=== PATIENT | male | born 1970 | race Two or more races ===

== ENCOUNTER 2016-07-28 16:27 | Inpatient (IN) | payer MEDICAID ==
[~2016-07-28] VITALS: Ht 180.3 cm; Wt 106.3 kg
[~2016-07-28 16:27] MED LIST: AMIT25TA9 PO; BISA-13 PO; CAR3125T PO; FURO20TA GT; GABA-339 PO; INSUINJ47 SC; LEVEMIR SC; ONDA4TAB5 PO; OXYC10TA44 PO; SIMV10TA73 PO; [UNRECOGNIZED DRUG - CODE] PO
[2016-07-28 17:19] LABS: Basophils # (auto) 0 uL; Basophils % (auto) 0.3 % (0.0-2.0); Eosinophils # (auto) 0 uL; Eosinophils % (auto) 0.5 % (0.0-7.0); Hemoglobin 13.6 g/dL (13.5-17.5); Lymphocytes # (auto) 1.3 uL; Lymphocytes % (auto) 15.5 % (10.0-50.0); Mean Corpuscular Hemoglobin 29.9 pg (28.0-32.0); Mean Corpuscular Hgb Conc. 33.1 g/dL (32.0-36.0); Mean Corpuscular Volume 90.2 fL (80.0-100.0); Mean Platelet Volume 9.4 fL (7.4-10.4); Monocytes # (auto) 0.7 uL; Monocytes % (auto) 8.1 % (0.0-12.0); Neutrophils # (auto) 6.2 uL; Neutrophils % (auto) 75.6 % (37.0-80.0); Platelet Count (auto) 259 10^3/uL (140-450); Red Cell Distribution Width 13.4 % (11.6-16.0); White Blood Cell 8.2 10^3/uL (4.4-10.8)
[2016-07-28 18:05] LABS: Albumin 2.2 g/dL (3.4-5.0); BUN/Creatinine Ratio 14.9; Calcium 8.1 mg/dL (8.5-10.1)
[2016-07-28 18:07] LABS: Bilirubin, Total 0.4 mg/dL (0.2-1.0); Total Protein 6.9 g/dL (6.4-8.2)
[2016-07-28] MEDS: SODIUM CHLORIDE 0.9% 1,000 ML IV SCH (18:57)
[2016-07-28] MEDS ORDERED: HYDROcodone-ACET 5/325MG TAB PO PRN (19:00)
[2016-07-28] MEDS ORDERED: LORazepam 0.5 MG TAB PO PRN (19:00)
[2016-07-28] MEDS ORDERED: DEXTROSE (50%) 50ML SYRG IV PRN (19:00)
[2016-07-28] MEDS ORDERED: MORPHINE SULF INJ 2 MG/ML SYRINGE 1ML IV PRN (19:00)
[2016-07-28] MEDS ORDERED: VANCOMYCIN PER PHARMACY 0 MG IV SCH (19:00)
[2016-07-28] MEDS ORDERED: NITROGLYCERIN 0.4 MG SL TAB SL PRN (19:00)
[2016-07-28] MEDS ORDERED: VANCOMYCIN 1GM/250ML D5W 250 ML IV ONE (19:00)
[2016-07-28] MEDS ORDERED: ONDANSETRON HCL 4 MG/2 ML VIAL IV ONE (19:00)
[2016-07-28] MEDS ORDERED: PROMETHAZINE HCL 25 MG/ML 1ML IV PRN (19:00)
[2016-07-28] MEDS ORDERED: CLINDAMYCIN 900MG IV 50 ML IV ONE (19:00)
[2016-07-28] MEDS ORDERED: LACTULOSE 20Gm/30ML SOLN PO PRN (19:00)
[2016-07-28] MEDS ORDERED: PIPERACILLIN-TAZOB 3.375GM 100 ML IV ONE (19:00)
[2016-07-28] MEDS ORDERED: HYDROmorphone HCL 2 MG/ML VL IV ONE (19:00)
[2016-07-28] MEDS ORDERED: ACETAMINOPHEN 500 MG TAB PO PRN (19:00)
[2016-07-28] MEDS ORDERED: InsuLIN REG 1unit/0.01ml Soln (100units/ml) IV ONE (19:00)
[2016-07-28] MEDS: ENOXAPARIN SOD 40 MG/0.4 ML SYRINGE SC SCH (19:31)
[2016-07-28] MEDS: PANTOPRAZOLE 40 MG TAB PO SCH (19:32)
[2016-07-28 19:35] LABS: INR 0.96 (0.9-1.15); Partial Thromboplastin Time 27.1 sec (22.64-33.71); Prothrombin Time 9.9 sec (9.37-12.3)
[2016-07-28] MEDS: ACCU-CHEK COMFORT CURVE STRIP VI SCH (20:00)
[2016-07-28] MEDS: InsuLIN REG 1unit/0.01ml Soln (100units/ml) SC SCH (20:38)
[2016-07-28 22:00] VITALS: BP 119/71
[2016-07-28 22:44] VITALS: BP 119/71
[2016-07-29] MEDS: ACCU-CHEK COMFORT CURVE STRIP VI SCH ×7 (00:03→23:51)
[2016-07-29] MEDS: TEMAZEPAM 15 MG CAP PO PRN (00:05)
[2016-07-29] MEDS: VANCOMYCIN 1GM/250ML D5W 250 ML IV SCH ×3 (02:51→20:45)
[2016-07-29] MEDS: InsuLIN REG 1unit/0.01ml Soln (100units/ml) SC SCH ×7 (03:51→23:51)
[2016-07-29] MEDS: PIPERACILLIN-TAZOB 3.375GM 100 ML IV SCH ×4 (04:00→22:00)
[2016-07-29] MEDS: SODIUM CHLORIDE 0.9% 1,000 ML IV SCH ×3 (04:57→23:52)
[2016-07-29 05:15] VITALS: BP 134/74
[2016-07-29 05:53] LABS: Urine Bilirubin Negative (Negative); Urine Blood TRACE /uL (Negative); Urine Color Yellow (Yellow); Urine Granular Cast FEW /lpf (0); Urine Nitrite Negative (Negative); Urine RBC <1 /hpf (0 - 3); Urine Squamous Epithelial Cell FEW /hpf (<5); Urine Urobilinogen Normal (Negative); Urine pH 5.5 (5.0-8.0)
[2016-07-29 05:54] LABS: Urine Glucose 4+ mg/dL (Normal); Urine Ketone 1+ (Negative)
[2016-07-29 06:46] LABS: Basophils # (auto) 0 uL; Basophils % (auto) 0.5 % (0.0-2.0); Eosinophils # (auto) 0.1 uL; Eosinophils % (auto) 0.8 % (0.0-7.0); Hematocrit 38.4 % (41.0-53.0); Hemoglobin 12.6 g/dL (13.5-17.5); Lymphocytes # (auto) 1.3 uL; Lymphocytes % (auto) 17.8 % (10.0-50.0); Mean Corpuscular Hemoglobin 29.4 pg (28.0-32.0); Mean Corpuscular Hgb Conc. 32.8 g/dL (32.0-36.0); Mean Corpuscular Volume 89.4 fL (80.0-100.0); Mean Platelet Volume 8.9 fL (7.4-10.4); Monocytes # (auto) 0.7 uL; Neutrophils # (auto) 5.2 uL; Neutrophils % (auto) 71.9 % (37.0-80.0); Platelet Count (auto) 255 10^3/uL (140-450); Red Cell Distribution Width 13.2 % (11.6-16.0); White Blood Cell 7.3 10^3/uL (4.4-10.8)
[2016-07-29 07:09] LABS: Potassium 3.3 mmol/L (3.5-5.1)
[2016-07-29 07:13] LABS: Albumin 1.9 g/dL (3.4-5.0); BUN/Creatinine Ratio 17.9
[2016-07-29 07:16] LABS: Bilirubin, Total 0.5 mg/dL (0.2-1.0); Total Protein 6.5 g/dL (6.4-8.2)
[2016-07-29 09:00] VITALS: BP 122/71
[2016-07-29] MEDS: MORPHINE SULF INJ 2 MG/ML SYRINGE 1ML IV PRN ×3 (10:21→21:38)
[2016-07-29] MEDS: ENOXAPARIN SOD 40 MG/0.4 ML SYRINGE SC SCH (10:21)
[2016-07-29] MEDS: PANTOPRAZOLE 40 MG TAB PO SCH (10:22)
[2016-07-29 12:25] VITALS: BP 110/64
[2016-07-29 16:29] VITALS: BP 115/67
[2016-07-29 22:06] VITALS: BP 106/62
[2016-07-30] MEDS: MORPHINE SULF INJ 2 MG/ML SYRINGE 1ML IV PRN ×6 (02:11→23:16)
[2016-07-30] MEDS: PIPERACILLIN-TAZOB 3.375GM 100 ML IV SCH ×4 (03:37→22:21)
[2016-07-30] MEDS: ACCU-CHEK COMFORT CURVE STRIP VI SCH ×6 (03:49→23:43)
[2016-07-30] MEDS: InsuLIN REG 1unit/0.01ml Soln (100units/ml) SC SCH ×5 (03:52→20:33)
[2016-07-30 04:52] VITALS: BP 115/60
[2016-07-30] MEDS: VANCOMYCIN 1GM/250ML D5W 250 ML IV SCH ×4 (05:26→20:37)
[2016-07-30 08:21] LABS: BUN/Creatinine Ratio 15.3; Calcium 8.4 mg/dL (8.5-10.1); Potassium 3.5 mmol/L (3.5-5.1)
[2016-07-30 08:22] LABS: Basophils # (auto) 0 uL; Basophils % (auto) 0.5 % (0.0-2.0); Eosinophils # (auto) 0.1 uL; Eosinophils % (auto) 1.1 % (0.0-7.0); Hematocrit 42.2 % (41.0-53.0); Hemoglobin 13.9 g/dL (13.5-17.5); Lymphocytes # (auto) 1.6 uL; Lymphocytes % (auto) 21.1 % (10.0-50.0); Mean Corpuscular Hemoglobin 29.6 pg (28.0-32.0); Mean Corpuscular Volume 89.7 fL (80.0-100.0); Mean Platelet Volume 9.9 fL (7.4-10.4); Monocytes # (auto) 0.8 uL; Monocytes % (auto) 10.1 % (0.0-12.0); Neutrophils # (auto) 5.1 uL; Neutrophils % (auto) 67.2 % (37.0-80.0); Platelet Count (auto) 250 10^3/uL (140-450); Red Cell Distribution Width 13.1 % (11.6-16.0); White Blood Cell 7.7 10^3/uL (4.4-10.8)
[2016-07-30] MEDS: PANTOPRAZOLE 40 MG TAB PO SCH (08:41)
[2016-07-30] MEDS: ENOXAPARIN SOD 40 MG/0.4 ML SYRINGE SC SCH (08:41)
[2016-07-30 08:55] VITALS: BP 129/68
[2016-07-30] MEDS: SODIUM CHLORIDE 0.9% 1,000 ML IV SCH ×2 (11:59→20:37)
[2016-07-30 12:43] VITALS: BP 130/57
[2016-07-30 16:53] VITALS: BP 109/67
[2016-07-30] MEDS: MULTIPLE VITAMIN TAB PO SCH (17:18)
[2016-07-30] MEDS: PRO-STAT 64 30ML PO SCH (17:45)
[2016-07-30 21:48] VITALS: BP 96/52
[2016-07-30] MEDS: ASCORBIC ACID 500 MG TAB PO SCH (22:21)
[2016-07-31] MEDS: InsuLIN REG 1unit/0.01ml Soln (100units/ml) SC SCH ×6 (00:02→21:15)
[2016-07-31] MEDS: ACCU-CHEK COMFORT CURVE STRIP VI SCH ×5 (03:55→21:15)
[2016-07-31] MEDS: PIPERACILLIN-TAZOB 3.375GM 100 ML IV SCH ×4 (04:05→21:15)
[2016-07-31 05:00] VITALS: BP 110/56
[2016-07-31] MEDS: VANCOMYCIN 1GM/250ML D5W 250 ML IV SCH ×3 (05:27→21:04)
[2016-07-31] MEDS: SODIUM CHLORIDE 0.9% 1,000 ML IV SCH ×2 (05:28→17:58)
[2016-07-31] MEDS: MORPHINE SULF INJ 2 MG/ML SYRINGE 1ML IV PRN ×5 (05:28→22:44)
[2016-07-31 07:21] LABS: Basophils # (auto) 0 uL; Basophils % (auto) 0.3 % (0.0-2.0); Eosinophils # (auto) 0.1 uL; Eosinophils % (auto) 0.9 % (0.0-7.0); Hematocrit 37.5 % (41.0-53.0); Hemoglobin 12.1 g/dL (13.5-17.5); Lymphocytes # (auto) 1.2 uL; Lymphocytes % (auto) 18.6 % (10.0-50.0); Mean Corpuscular Hemoglobin 29.3 pg (28.0-32.0); Mean Corpuscular Hgb Conc. 32.3 g/dL (32.0-36.0); Mean Corpuscular Volume 90.9 fL (80.0-100.0); Mean Platelet Volume 9.6 fL (7.4-10.4); Monocytes # (auto) 0.5 uL; Monocytes % (auto) 7.5 % (0.0-12.0); Neutrophils # (auto) 4.8 uL; Neutrophils % (auto) 72.7 % (37.0-80.0); Platelet Count (auto) 250 10^3/uL (140-450); Red Cell Distribution Width 13.2 % (11.6-16.0); White Blood Cell 6.5 10^3/uL (4.4-10.8)
[2016-07-31 07:34] LABS: INR 1.05 (0.9-1.15); Partial Thromboplastin Time 27.8 sec (22.64-33.71); Prothrombin Time 10.8 sec (9.37-12.3)
[2016-07-31 07:51] LABS: Potassium 3.5 mmol/L (3.5-5.1)
[2016-07-31 07:58] LABS: Albumin 1.7 g/dL (3.4-5.0); BUN/Creatinine Ratio 18.1; Bilirubin, Total 0.4 mg/dL (0.2-1.0)
[2016-07-31 08:00] VITALS: BP 105/64
[2016-07-31] MEDS: PRO-STAT 64 30ML PO SCH ×2 (08:00→17:59)
[2016-07-31 08:49] VITALS: BP 105/64
[2016-07-31] MEDS: ASCORBIC ACID 500 MG TAB PO SCH ×2 (10:00→21:03)
[2016-07-31] MEDS: MULTIPLE VITAMIN TAB PO SCH (10:00)
[2016-07-31] MEDS: PANTOPRAZOLE 40 MG TAB PO SCH (10:00)
[2016-07-31] MEDS: ENOXAPARIN SOD 40 MG/0.4 ML SYRINGE SC SCH (10:00)
[2016-07-31 12:49] VITALS: BP 119/70
[2016-07-31 16:59] VITALS: BP 124/71
[2016-07-31] MEDS: TEMAZEPAM 15 MG CAP PO PRN (21:03)
[2016-07-31 22:00] VITALS: BP 95/61
[2016-08-01] MEDS: InsuLIN REG 1unit/0.01ml Soln (100units/ml) SC SCH ×5 (00:33→16:43)
[2016-08-01] MEDS: ACCU-CHEK COMFORT CURVE STRIP VI SCH ×5 (00:34→16:43)
[2016-08-01] MEDS: MORPHINE SULF INJ 2 MG/ML SYRINGE 1ML IV PRN ×3 (02:57→14:33)
[2016-08-01] MEDS: SODIUM CHLORIDE 0.9% 1,000 ML IV SCH ×2 (02:57→14:08)
[2016-08-01] MEDS: PIPERACILLIN-TAZOB 3.375GM 100 ML IV SCH ×3 (02:57→16:00)
[2016-08-01 05:10] VITALS: BP 122/73
[2016-08-01] MEDS: VANCOMYCIN 1GM/250ML D5W 250 ML IV SCH ×3 (05:24→14:08)
[2016-08-01 07:30] VITALS: BP 117/69
[2016-08-01 08:00] VITALS: BP 117/69
[2016-08-01] MEDS: PRO-STAT 64 30ML PO SCH (08:00)
[2016-08-01] MEDS: MULTIPLE VITAMIN TAB PO SCH (09:33)
[2016-08-01] MEDS: ASCORBIC ACID 500 MG TAB PO SCH (09:33)
[2016-08-01] MEDS: PANTOPRAZOLE 40 MG TAB PO SCH (09:33)
[2016-08-01] MEDS: ENOXAPARIN SOD 40 MG/0.4 ML SYRINGE SC SCH (09:44)
[2016-08-01] MEDS ORDERED: ceFAZolin 1GM VL ONE (11:01)
[2016-08-01] MEDS ORDERED: ceFAZolin 1GM/50ML D5W 50 ML IV ONE (11:06)
[2016-08-01] MEDS ORDERED: MIDAZOLAM HCL 1MG/1ML-2 ML VIAL ONE (11:35)
[2016-08-01] MEDS ORDERED: fentaNYL CITRATE 100 MCG/2 ML VL ONE (11:35)
[2016-08-01] MEDS ORDERED: MORPHINE SULF INJ 2 MG/ML SYRINGE 1ML IV PRN (11:45)
[2016-08-01] MEDS ORDERED: ePHEDrine SULFATE 50 MG/ML AMP IV PRN (11:45)
[2016-08-01] MEDS ORDERED: hydrALAZINE HCL 20 MG/ML VL IV PRN (11:45)
[2016-08-01] MEDS ORDERED: ONDANSETRON HCL 4 MG/2 ML VIAL IV ONE (11:45)
[2016-08-01] MEDS ORDERED: HYDROmorphone HCL 2 MG/ML VL IV PRN (11:45)
[2016-08-01] MEDS ORDERED: MIDAZOLAM HCL 1MG/1ML-2 ML VIAL IV PRN (11:45)
[2016-08-01] MEDS ORDERED: LABETALOL HCL 5 MG/ML 4ML SYRINGE IV PRN (11:45)
[2016-08-01] MEDS ORDERED: PROPOFOL 10 MG/ML 20 ML IV ONE (11:52)
[2016-08-01] MEDS ORDERED: KETOROLAC TROMETH 30 MG/ML 1ML VIAL IV ONE (12:15)
[2016-08-01 14:55] VITALS: BP 117/69
== END 2016-08-01 16:35 | disposition home or self-care (01) | DRG 361 ==
LOC: ER 16:33 → TELE 16:34 → TELE-EAST 21:52
PROVIDERS: ADMIT Internal Medicine; ATTEND Internal Medicine
PROC: 0HRNXK3 Replacement of Left Foot Skin with Nonautologous Tissue Substitute, Full Thickness, External Approach (ICD-10-PCS; 2016-08-01)
PROC: 0HDRXZZ Extraction of Toe Nail, External Approach (ICD-10-PCS; 2016-08-01)
PROC: 0J9R3ZZ Drainage of Left Foot Subcutaneous Tissue and Fascia, Percutaneous Approach (ICD-10-PCS; principal; 2016-08-01 11:41)
DX: E11.621 Type 2 diabetes mellitus with foot ulcer (principal); L97.529 Non-pressure chronic ulcer of other part of left foot with unspecified severity; E11.22 Type 2 diabetes mellitus with diabetic chronic kidney disease; E11.40 Type 2 diabetes mellitus with diabetic neuropathy, unspecified; I50.9 Heart failure, unspecified; I13.0 Hypertensive heart and chronic kidney disease with heart failure and stage 1 through stage 4 chronic kidney disease, or unspecified chronic kidney disease; E11.628 Type 2 diabetes mellitus with other skin complications; L03.032 Cellulitis of left toe; E87.1 Hypo-osmolality and hyponatremia; E66.01 Morbid (severe) obesity due to excess calories; E11.65 Type 2 diabetes mellitus with hyperglycemia; I25.10 Atherosclerotic heart disease of native coronary artery without angina pectoris; N18.9 Chronic kidney disease, unspecified; F41.9 Anxiety disorder, unspecified; E78.5 Hyperlipidemia, unspecified; F32.9 Major depressive disorder, single episode, unspecified; E87.8 Other disorders of electrolyte and fluid balance, not elsewhere classified; Z82.3 Family history of stroke; Z82.49 Family history of ischemic heart disease and other diseases of the circulatory system; Z83.3 Family history of diabetes mellitus; Z98.890 Other specified postprocedural states; Z88.6 Allergy status to analgesic agent; Z95.1 Presence of aortocoronary bypass graft; Z88.8 Allergy status to other drugs, medicaments and biological substances; Z84.1 Family history of disorders of kidney and ureter; Z68.32 Body mass index [BMI] 32.0-32.9, adult
CPT/HCPCS: 36415; 71010; 73620; 73700; 80048; 80053; 80061; 80202; 81001; 82962; 83036; 85025; 85610; 85652; 85730; 86850; 86900; 86901; 87040; 87070; 87075; 87076; 87077; 87081; 87186; 87205; 93005; 93923; 94761; 96365; 96367; 96368; 96375; J0690; J1815; J2250; J2405; J2543; J2704; J3490

== ENCOUNTER 2016-09-12 13:38 | Inpatient (IN) | payer MEDICAID ==
[~2016-09-12] VITALS: Ht 180.3 cm; Wt 113.1 kg
[~2016-09-12 13:38] MED LIST changes: -ONDA4TAB5 PO; -OXYC10TA44 PO
[2016-09-12 14:25] LABS: Basophils # (auto) 0 uL; Basophils % (auto) 0.6 % (0.0-2.0); Eosinophils # (auto) 0 uL; Eosinophils % (auto) 0.6 % (0.0-7.0); Hematocrit 45.5 % (41.0-53.0); Hemoglobin 15.4 g/dL (13.5-17.5); Lymphocytes # (auto) 1.8 uL; Lymphocytes % (auto) 26.5 % (10.0-50.0); Mean Corpuscular Hemoglobin 30.1 pg (28.0-32.0); Mean Corpuscular Hgb Conc. 33.9 g/dL (32.0-36.0); Mean Corpuscular Volume 88.6 fL (80.0-100.0); Mean Platelet Volume 9.1 fL (7.4-10.4); Monocytes # (auto) 0.4 uL; Monocytes % (auto) 6.1 % (0.0-12.0); Neutrophils # (auto) 4.6 uL; Neutrophils % (auto) 66.2 % (37.0-80.0); Platelet Count (auto) 295 10^3/uL (140-450); Red Cell Distribution Width 14.1 % (11.6-16.0); White Blood Cell 6.9 10^3/uL (4.4-10.8)
[2016-09-12 14:42] LABS: INR 1.11 (0.9-1.15); Partial Thromboplastin Time 27.2 sec (22.64-33.71); Prothrombin Time 11.4 sec (9.37-12.3)
[2016-09-12 14:58] LABS: Albumin 2.3 g/dL (3.4-5.0); BUN/Creatinine Ratio 13.2; Bilirubin, Total 0.4 mg/dL (0.2-1.0); Calcium 8.4 mg/dL (8.5-10.1); Potassium 3.8 mmol/L (3.5-5.1); Total Protein 7.7 g/dL (6.4-8.2)
[2016-09-12] MEDS ORDERED: ONDANSETRON HCL 4 MG/2 ML VIAL IV ONE (19:45)
[2016-09-12] MEDS ORDERED: ASPirin 81 mg TAB PO ONE (19:45)
[2016-09-12] MEDS ORDERED: SODIUM CHLORIDE 0.9% 1,000 ML IV ONE (21:30)
[2016-09-12] MEDS ORDERED: DEXTROSE (50%) 50ML SYRG IV PRN (21:45)
[2016-09-12] MEDS ORDERED: ONDANSETRON HCL 4 MG/2 ML VIAL IV PRN (21:45)
[2016-09-12] MEDS ORDERED: HYDROcodone-ACET 5/325MG TAB PO PRN (21:45)
[2016-09-12] MEDS: ENOXAPARIN SOD 30 MG/0.3 ML SYRINGE SC SCH (21:48)
[2016-09-12] MEDS: FAMOTIDINE 20 MG TAB PO SCH (22:00)
[2016-09-12] MEDS: ATORVASTATIN 20 MG TAB PO SCH (22:00)
[2016-09-12] MEDS: GABAPENTIN 300 MG CAP PO SCH (22:00)
[2016-09-12] MEDS: AMITRIPTYLINE HCL 25 MG TAB PO SCH (22:00)
[2016-09-12] MEDS: CARVEDILOL 3.125 MG TAB PO SCH (22:00)
[2016-09-12] MEDS: MORPHINE SULF INJ 2 MG/ML SYRINGE 1ML IV PRN (22:39)
[2016-09-12] MEDS: InsuLIN REG 1unit/0.01ml Soln (100units/ml) SC SCH (23:32)
[2016-09-12] MEDS: ACCU-CHEK COMFORT CURVE STRIP VI SCH (23:32)
[2016-09-13] VITALS (9 sets, daily range): BP systolic 100–151; BP diastolic 71–98
[2016-09-13] MEDS: FUROSEMIDE 40 MG TAB PO SCH ×2 (05:56→18:42)
[2016-09-13] MEDS: GABAPENTIN 300 MG CAP PO SCH ×3 (05:56→22:18)
[2016-09-13] MEDS: ACCU-CHEK COMFORT CURVE STRIP VI SCH ×3 (05:57→16:37)
[2016-09-13] MEDS: InsuLIN REG 1unit/0.01ml Soln (100units/ml) SC SCH ×4 (05:59→23:59)
[2016-09-13 06:04] LABS: Basophils # (auto) 0 uL; Basophils % (auto) 0.5 % (0.0-2.0); Eosinophils # (auto) 0.1 uL; Eosinophils % (auto) 1.9 % (0.0-7.0); Hematocrit 42.8 % (41.0-53.0); Hemoglobin 14.2 g/dL (13.5-17.5); Lymphocytes # (auto) 2.5 uL; Mean Corpuscular Hemoglobin 29.6 pg (28.0-32.0); Mean Corpuscular Hgb Conc. 33.2 g/dL (32.0-36.0); Mean Platelet Volume 9.4 fL (7.4-10.4); Monocytes # (auto) 0.9 uL; Monocytes % (auto) 15.2 % (0.0-12.0); Neutrophils # (auto) 2.4 uL; Neutrophils % (auto) 40.4 % (37.0-80.0); Platelet Count (auto) 259 10^3/uL (140-450)
[2016-09-13 06:36] LABS: Albumin 1.8 g/dL (3.4-5.0); BUN/Creatinine Ratio 15.8; Bilirubin, Total 0.3 mg/dL (0.2-1.0); Calcium 7.8 mg/dL (8.5-10.1); Potassium 3.4 mmol/L (3.5-5.1)
[2016-09-13] MEDS: CARVEDILOL 3.125 MG TAB PO SCH ×2 (09:51→22:18)
[2016-09-13] MEDS: ENOXAPARIN SOD 30 MG/0.3 ML SYRINGE SC SCH (09:52)
[2016-09-13] MEDS: FAMOTIDINE 20 MG TAB PO SCH ×2 (09:52→22:17)
[2016-09-13] MEDS ORDERED: NITROGLYCERIN 0.4 MG SL TAB SL ONE (10:00)
[2016-09-13] MEDS: MORPHINE SULF INJ 2 MG/ML SYRINGE 1ML IV PRN ×2 (14:20→19:33)
[2016-09-13] MEDS: ATORVASTATIN 20 MG TAB PO SCH (22:17)
[2016-09-13] MEDS: AMITRIPTYLINE HCL 25 MG TAB PO SCH (22:17)
[2016-09-14] VITALS (9 sets, daily range): BP systolic 102–137; BP diastolic 66–89
[2016-09-14] MEDS: ACCU-CHEK COMFORT CURVE STRIP VI SCH ×4 (00:09→18:14)
[2016-09-14] MEDS: MORPHINE SULF INJ 2 MG/ML SYRINGE 1ML IV PRN ×3 (00:17→22:11)
[2016-09-14] MEDS: InsuLIN REG 1unit/0.01ml Soln (100units/ml) SC SCH ×3 (05:31→18:15)
[2016-09-14] MEDS: FUROSEMIDE 40 MG TAB PO SCH ×2 (05:32→18:14)
[2016-09-14] MEDS: GABAPENTIN 300 MG CAP PO SCH ×3 (05:32→21:55)
[2016-09-14] MEDS: CARVEDILOL 3.125 MG TAB PO SCH ×2 (11:17→21:58)
[2016-09-14] MEDS: FAMOTIDINE 20 MG TAB PO SCH ×2 (11:17→21:59)
[2016-09-14] MEDS: ENOXAPARIN SOD 30 MG/0.3 ML SYRINGE SC SCH (11:17)
[2016-09-14] MEDS ORDERED: IODIXANOL 320MG/ML 100ML BTL IV ONE (13:37)
[2016-09-14] MEDS ORDERED: LIDOCAINE 2%HCL (LOCAL ANESTH.) INJ 20ML MDV ONE (13:37)
[2016-09-14] MEDS ORDERED: ANGIOMAX 250 MG VIAL IV ONE ×2 (14:03→14:50)
[2016-09-14] MEDS ORDERED: fentaNYL CITRATE 100 MCG/2 ML VL ONE (14:03)
[2016-09-14] MEDS ORDERED: MIDAZOLAM HCL 1MG/1ML-2 ML VIAL ONE (14:03)
[2016-09-14] MEDS ORDERED: SODIUM CHL 0.9% 50 ML ONE ×2 (14:03→14:50)
[2016-09-14 20:45] LABS: Basophils # (auto) 0 uL; Basophils % (auto) 0.8 % (0.0-2.0); Eosinophils # (auto) 0.1 uL; Eosinophils % (auto) 1.8 % (0.0-7.0); Hematocrit 44.7 % (41.0-53.0); Hemoglobin 14.9 g/dL (13.5-17.5); Lymphocytes # (auto) 1.9 uL; Mean Corpuscular Hemoglobin 29.9 pg (28.0-32.0); Mean Corpuscular Hgb Conc. 33.3 g/dL (32.0-36.0); Mean Corpuscular Volume 89.9 fL (80.0-100.0); Mean Platelet Volume 9.5 fL (7.4-10.4); Monocytes # (auto) 0.4 uL; Monocytes % (auto) 7.9 % (0.0-12.0); Neutrophils % (auto) 54.5 % (37.0-80.0); Platelet Count (auto) 279 10^3/uL (140-450); Red Cell Distribution Width 13.9 % (11.6-16.0); White Blood Cell 5.4 10^3/uL (4.4-10.8)
[2016-09-14 20:56] LABS: Albumin 2.1 g/dL (3.4-5.0); BUN/Creatinine Ratio 16.2; Calcium 7.6 mg/dL (8.5-10.1); Potassium 4.7 mmol/L (3.5-5.1)
[2016-09-14 20:59] LABS: Bilirubin, Total 0.4 mg/dL (0.2-1.0); Total Protein 6.9 g/dL (6.4-8.2)
[2016-09-14 21:01] LABS: Partial Thromboplastin Time 38.7 sec (22.64-33.71)
[2016-09-14 21:07] LABS: INR 1.17 (0.9-1.15)
[2016-09-14] MEDS: ATORVASTATIN 20 MG TAB PO SCH (21:55)
[2016-09-14] MEDS: AMITRIPTYLINE HCL 25 MG TAB PO SCH (21:58)
[2016-09-15] MEDS: ACCU-CHEK COMFORT CURVE STRIP VI SCH ×4 (00:37→17:49)
[2016-09-15] MEDS: InsuLIN REG 1unit/0.01ml Soln (100units/ml) SC SCH ×4 (00:37→18:19)
[2016-09-15 05:06] VITALS: BP 109/71
[2016-09-15] MEDS: FUROSEMIDE 40 MG TAB PO SCH ×2 (06:00→17:49)
[2016-09-15] MEDS: GABAPENTIN 300 MG CAP PO SCH ×3 (06:00→21:37)
[2016-09-15 08:33] VITALS: BP 120/84
[2016-09-15] MEDS: CARVEDILOL 3.125 MG TAB PO SCH ×2 (09:59→21:39)
[2016-09-15] MEDS: CLOPIDOGREL BISULFATE 75 MG TAB PO SCH (10:00)
[2016-09-15] MEDS: FAMOTIDINE 20 MG TAB PO SCH ×2 (10:00→21:38)
[2016-09-15] MEDS: ENOXAPARIN SOD 30 MG/0.3 ML SYRINGE SC SCH (10:00)
[2016-09-15] MEDS ORDERED: fentaNYL CITRATE 100 MCG/2 ML VL ONE (10:33)
[2016-09-15] MEDS ORDERED: MIDAZOLAM HCL 1MG/1ML-2 ML VIAL ONE (10:34)
[2016-09-15] MEDS ORDERED: PROPOFOL 10 MG/ML 20 ML IV ONE (10:34)
[2016-09-15] MEDS ORDERED: ceFAZolin 1GM/50ML D5W 50 ML IV ONE (10:35)
[2016-09-15] MEDS ORDERED: ceFAZolin 1GM VL ONE (10:36)
[2016-09-15] MEDS ORDERED: BUPIVACAINE 0.75% INJ 10ML MPV SDV IJ ONE ×2 (10:36→10:51)
[2016-09-15] MEDS ORDERED: ONDANSETRON HCL 4 MG/2 ML VIAL IV ONE (11:30)
[2016-09-15] MEDS ORDERED: LABETALOL HCL 5 MG/ML 4ML SYRINGE IV PRN (11:30)
[2016-09-15] MEDS ORDERED: KETOROLAC TROMETH 30 MG/ML 1ML VIAL IV ONE (11:30)
[2016-09-15] MEDS ORDERED: ACCU-CHEK COMFORT CURVE STRIP VI ONE (11:30)
[2016-09-15] MEDS ORDERED: hydrALAZINE HCL 20 MG/ML VL IV PRN (11:30)
[2016-09-15] MEDS ORDERED: ePHEDrine SULFATE 50 MG/ML AMP IV PRN (11:30)
[2016-09-15] MEDS ORDERED: MORPHINE SULF INJ 2 MG/ML SYRINGE 1ML IV PRN (11:30)
[2016-09-15] MEDS ORDERED: HYDROmorphone HCL 2 MG/ML VL IV PRN (11:30)
[2016-09-15] MEDS: MORPHINE SULF INJ 2 MG/ML SYRINGE 1ML IV PRN (13:17)
[2016-09-15 16:16] VITALS: BP 145/100
[2016-09-15] MEDS: HYDROmorphone HCL 2 MG/ML VL IV PRN ×2 (16:34→20:11)
[2016-09-15 21:25] VITALS: BP 145/75
[2016-09-15] MEDS: ATORVASTATIN 20 MG TAB PO SCH (21:37)
[2016-09-15] MEDS: AMITRIPTYLINE HCL 25 MG TAB PO SCH (21:38)
[2016-09-16] MEDS: ACCU-CHEK COMFORT CURVE STRIP VI SCH ×6 (00:09→23:32)
[2016-09-16] MEDS: InsuLIN REG 1unit/0.01ml Soln (100units/ml) SC SCH ×5 (00:09→23:32)
[2016-09-16] MEDS: HYDROmorphone HCL 2 MG/ML VL IV PRN ×4 (00:59→12:04)
[2016-09-16 04:32] VITALS: BP 148/91
[2016-09-16] MEDS: GABAPENTIN 300 MG CAP PO SCH ×3 (05:46→21:45)
[2016-09-16] MEDS: FUROSEMIDE 40 MG TAB PO SCH ×2 (05:46→17:36)
[2016-09-16] MEDS: CARVEDILOL 3.125 MG TAB PO SCH ×2 (08:39→21:45)
[2016-09-16] MEDS: CLOPIDOGREL BISULFATE 75 MG TAB PO SCH (08:39)
[2016-09-16] MEDS: FAMOTIDINE 20 MG TAB PO SCH ×2 (08:39→21:45)
[2016-09-16] MEDS: ENOXAPARIN SOD 30 MG/0.3 ML SYRINGE SC SCH (08:40)
[2016-09-16 09:16] VITALS: BP 121/90
[2016-09-16 12:41] VITALS: BP 146/95
[2016-09-16 16:14] VITALS: BP 140/81
[2016-09-16 16:53] VITALS: BP 139/79
[2016-09-16] MEDS: ACETAMINOPHEN 325 MG TAB PO PRN (17:10)
[2016-09-16] MEDS: PIPERACILLIN-TAZO 4.5GM 100 ML IV SCH (21:43)
[2016-09-16] MEDS: AMITRIPTYLINE HCL 25 MG TAB PO SCH (21:44)
[2016-09-16] MEDS: ATORVASTATIN 20 MG TAB PO SCH (21:44)
[2016-09-16 22:00] VITALS: BP 137/82
[2016-09-16] MEDS: MORPHINE SULF INJ 2 MG/ML SYRINGE 1ML IV PRN (22:06)
[2016-09-17] MEDS: ACETAMINOPHEN 325 MG TAB PO PRN (04:40)
[2016-09-17 04:56] VITALS: BP 114/60
[2016-09-17] MEDS: FUROSEMIDE 40 MG TAB PO SCH ×3 (05:23→17:42)
[2016-09-17] MEDS: GABAPENTIN 300 MG CAP PO SCH ×3 (05:23→21:55)
[2016-09-17] MEDS: PIPERACILLIN-TAZO 4.5GM 100 ML IV SCH ×3 (05:24→21:54)
[2016-09-17 05:52] LABS: Basophils # (auto) 0 uL; Basophils % (auto) 0.6 % (0.0-2.0); Eosinophils # (auto) 0 uL; Eosinophils % (auto) 0.6 % (0.0-7.0); Hematocrit 39.5 % (41.0-53.0); Hemoglobin 13.9 g/dL (13.5-17.5); Lymphocytes # (auto) 1.4 uL; Lymphocytes % (auto) 25.9 % (10.0-50.0); Mean Corpuscular Hemoglobin 31.3 pg (28.0-32.0); Mean Corpuscular Hgb Conc. 35.1 g/dL (32.0-36.0); Mean Corpuscular Volume 88.9 fL (80.0-100.0); Mean Platelet Volume 9.7 fL (7.4-10.4); Monocytes # (auto) 0.6 uL; Monocytes % (auto) 10.5 % (0.0-12.0); Neutrophils # (auto) 3.4 uL; Neutrophils % (auto) 62.4 % (37.0-80.0); Platelet Count (auto) 210 10^3/uL (140-450); Red Cell Distribution Width 13.6 % (11.6-16.0); White Blood Cell 5.5 10^3/uL (4.4-10.8)
[2016-09-17 06:13] LABS: Potassium 3.5 mmol/L (3.5-5.1)
[2016-09-17 06:29] LABS: Albumin 1.9 g/dL (3.4-5.0); BUN/Creatinine Ratio 18.6; Calcium 7.7 mg/dL (8.5-10.1)
[2016-09-17 06:42] LABS: Bilirubin, Total 0.9 mg/dL (0.2-1.0); Total Protein 6.2 g/dL (6.4-8.2)
[2016-09-17] MEDS: ACCU-CHEK COMFORT CURVE STRIP VI SCH ×3 (06:48→17:28)
[2016-09-17] MEDS: InsuLIN REG 1unit/0.01ml Soln (100units/ml) SC SCH ×3 (06:49→17:56)
[2016-09-17] MEDS: CLOPIDOGREL BISULFATE 75 MG TAB PO SCH (09:34)
[2016-09-17] MEDS: CARVEDILOL 3.125 MG TAB PO SCH ×2 (09:34→21:55)
[2016-09-17] MEDS: FAMOTIDINE 20 MG TAB PO SCH ×2 (09:34→21:56)
[2016-09-17] MEDS: MORPHINE SULF INJ 2 MG/ML SYRINGE 1ML IV PRN (09:35)
[2016-09-17] MEDS: ENOXAPARIN SOD 30 MG/0.3 ML SYRINGE SC SCH (09:35)
[2016-09-17 09:49] VITALS: BP 108/55
[2016-09-17] MEDS: Boost Glucose Control 8 Ounces PO SCH ×3 (11:20→22:00)
[2016-09-17] MEDS: CLINDAMYCIN 300MG IV 50 ML IV SCH ×2 (11:21→17:42)
[2016-09-17 14:46] VITALS: BP 123/69
[2016-09-17] MEDS: HYDROmorphone HCL 2 MG/ML VL IV PRN ×2 (15:17→20:21)
[2016-09-17 17:14] VITALS: BP 117/60
[2016-09-17] MEDS: PRO-STAT 64 30ML PO SCH (17:28)
[2016-09-17 21:30] VITALS: BP 123/75
[2016-09-17] MEDS: ATORVASTATIN 20 MG TAB PO SCH (21:55)
[2016-09-17] MEDS: AMITRIPTYLINE HCL 25 MG TAB PO SCH (21:55)
[2016-09-18] MEDS: ACCU-CHEK COMFORT CURVE STRIP VI SCH ×4 (00:02→18:29)
[2016-09-18] MEDS: InsuLIN REG 1unit/0.01ml Soln (100units/ml) SC SCH ×4 (00:08→18:29)
[2016-09-18] MEDS: CLINDAMYCIN 300MG IV 50 ML IV SCH ×3 (03:06→19:37)
[2016-09-18 05:00] VITALS: BP 100/62
[2016-09-18] MEDS: PIPERACILLIN-TAZO 4.5GM 100 ML IV SCH (06:25)
[2016-09-18] MEDS: GABAPENTIN 300 MG CAP PO SCH ×3 (06:26→22:39)
[2016-09-18] MEDS: FUROSEMIDE 40 MG TAB PO SCH ×2 (06:26→18:00)
[2016-09-18 06:36] LABS: Basophils # (auto) 0 uL; Basophils % (auto) 0.4 % (0.0-2.0); Eosinophils # (auto) 0.1 uL; Eosinophils % (auto) 1.4 % (0.0-7.0); Hematocrit 37.3 % (41.0-53.0); Hemoglobin 12.6 g/dL (13.5-17.5); Lymphocytes # (auto) 1.4 uL; Lymphocytes % (auto) 21.8 % (10.0-50.0); Mean Corpuscular Hemoglobin 30.5 pg (28.0-32.0); Mean Corpuscular Hgb Conc. 33.9 g/dL (32.0-36.0); Mean Corpuscular Volume 90.2 fL (80.0-100.0); Mean Platelet Volume 9.9 fL (7.4-10.4); Monocytes % (auto) 15.9 % (0.0-12.0); Neutrophils # (auto) 3.9 uL; Neutrophils % (auto) 60.5 % (37.0-80.0); Platelet Count (auto) 173 10^3/uL (140-450); Red Cell Distribution Width 13.3 % (11.6-16.0); White Blood Cell 6.4 10^3/uL (4.4-10.8)
[2016-09-18] MEDS: Boost Glucose Control 8 Ounces PO SCH ×4 (06:42→22:38)
[2016-09-18] MEDS: HYDROmorphone HCL 2 MG/ML VL IV PRN ×2 (06:42→19:41)
[2016-09-18 06:46] LABS: Albumin 1.8 g/dL (3.4-5.0); BUN/Creatinine Ratio 17.2; Calcium 7.8 mg/dL (8.5-10.1); Potassium 3.6 mmol/L (3.5-5.1)
[2016-09-18 06:48] LABS: Bilirubin, Total 0.5 mg/dL (0.2-1.0); Total Protein 6.2 g/dL (6.4-8.2)
[2016-09-18 08:00] VITALS: BP 99/67
[2016-09-18] MEDS: PRO-STAT 64 30ML PO SCH ×2 (08:00→18:24)
[2016-09-18 09:01] VITALS: BP 99/67
[2016-09-18] MEDS: FAMOTIDINE 20 MG TAB PO SCH ×2 (10:00→22:39)
[2016-09-18] MEDS: CLOPIDOGREL BISULFATE 75 MG TAB PO SCH (10:22)
[2016-09-18] MEDS: ENOXAPARIN SOD 30 MG/0.3 ML SYRINGE SC SCH (10:22)
[2016-09-18] MEDS: CARVEDILOL 3.125 MG TAB PO SCH ×2 (10:23→22:38)
[2016-09-18] MEDS ORDERED: cefTRIAXone 1GM/50ML D5W 50 ML IV ONE (11:00)
[2016-09-18] MEDS: MORPHINE SULF INJ 2 MG/ML SYRINGE 1ML IV PRN ×2 (11:53→17:13)
[2016-09-18 14:10] VITALS: BP 125/69
[2016-09-18 16:46] VITALS: BP 110/53
[2016-09-18 22:00] VITALS: BP 134/77
[2016-09-18] MEDS: AMITRIPTYLINE HCL 25 MG TAB PO SCH (22:38)
[2016-09-18] MEDS: ATORVASTATIN 20 MG TAB PO SCH (22:38)
[2016-09-19] VITALS (7 sets, daily range): BP systolic 120–135; BP diastolic 80–85
[2016-09-19] MEDS: ACCU-CHEK COMFORT CURVE STRIP VI SCH ×5 (00:20→23:57)
[2016-09-19] MEDS: InsuLIN REG 1unit/0.01ml Soln (100units/ml) SC SCH ×4 (00:31→18:29)
[2016-09-19] MEDS: CLINDAMYCIN 300MG IV 50 ML IV SCH ×3 (02:35→18:34)
[2016-09-19] MEDS: HYDROmorphone HCL 2 MG/ML VL IV PRN ×4 (02:36→23:03)
[2016-09-19] MEDS: Boost Glucose Control 8 Ounces PO SCH ×4 (06:11→22:09)
[2016-09-19] MEDS: GABAPENTIN 300 MG CAP PO SCH ×3 (06:12→22:10)
[2016-09-19] MEDS: FUROSEMIDE 40 MG TAB PO SCH ×2 (06:12→18:34)
[2016-09-19 07:27] LABS: Hemoglobin 13.9 g/dL (13.5-17.5); Mean Platelet Volume 9.6 fL (7.4-10.4)
[2016-09-19 07:28] LABS: Hematocrit 40.7 % (41.0-53.0); Mean Corpuscular Hemoglobin 30.1 pg (28.0-32.0); Mean Corpuscular Hgb Conc. 34.1 g/dL (32.0-36.0); Mean Corpuscular Volume 88.1 fL (80.0-100.0); Platelet Count (auto) 154 10^3/uL (140-450); Red Cell Distribution Width 13.8 % (11.6-16.0); White Blood Cell 6.4 10^3/uL (4.4-10.8)
[2016-09-19 07:33] LABS: Metamyelocytes % 0; Myelocytes % 0; Promyelocytes % 0; Reactive Lymphocytes 0
[2016-09-19 07:55] LABS: Albumin 1.8 g/dL (3.4-5.0); Bilirubin, Total 0.4 mg/dL (0.2-1.0); Potassium 3.9 mmol/L (3.5-5.1); Total Protein 6.5 g/dL (6.4-8.2)
[2016-09-19] MEDS: PRO-STAT 64 30ML PO SCH ×2 (08:00→18:00)
[2016-09-19 08:19] LABS: Platelet Estimate Adequate; RBC Morphology Normal
[2016-09-19] MEDS: FAMOTIDINE 20 MG TAB PO SCH ×2 (10:00→22:10)
[2016-09-19] MEDS: CLOPIDOGREL BISULFATE 75 MG TAB PO SCH (10:37)
[2016-09-19] MEDS: cefTRIAXone 1GM/50ML D5W 50 ML IV SCH (10:37)
[2016-09-19] MEDS: CARVEDILOL 3.125 MG TAB PO SCH ×2 (10:38→22:09)
[2016-09-19] MEDS: ENOXAPARIN SOD 30 MG/0.3 ML SYRINGE SC SCH (10:39)
[2016-09-19] MEDS: AMITRIPTYLINE HCL 25 MG TAB PO SCH (22:10)
[2016-09-19] MEDS: ATORVASTATIN 20 MG TAB PO SCH (22:10)
[2016-09-20] MEDS: InsuLIN REG 1unit/0.01ml Soln (100units/ml) SC SCH ×5 (00:32→23:51)
[2016-09-20] MEDS: CLINDAMYCIN 300MG IV 50 ML IV SCH ×3 (02:42→18:10)
[2016-09-20 05:00] VITALS: BP 133/91
[2016-09-20] MEDS: FUROSEMIDE 40 MG TAB PO SCH ×2 (05:43→17:55)
[2016-09-20] MEDS: GABAPENTIN 300 MG CAP PO SCH ×3 (05:43→21:58)
[2016-09-20] MEDS: Boost Glucose Control 8 Ounces PO SCH ×4 (05:43→21:57)
[2016-09-20] MEDS: ACCU-CHEK COMFORT CURVE STRIP VI SCH ×4 (05:43→23:46)
[2016-09-20] MEDS: HYDROmorphone HCL 2 MG/ML VL IV PRN ×2 (05:46→20:41)
[2016-09-20 08:00] VITALS: BP 126/77
[2016-09-20] MEDS: PRO-STAT 64 30ML PO SCH ×2 (08:02→17:53)
[2016-09-20 08:42] LABS: Basophils # (auto) 0 uL; Basophils % (auto) 0.5 % (0.0-2.0); Eosinophils # (auto) 0.2 uL; Eosinophils % (auto) 2.5 % (0.0-7.0); Hematocrit 40.4 % (41.0-53.0); Hemoglobin 13.8 g/dL (13.5-17.5); Lymphocytes # (auto) 1.7 uL; Lymphocytes % (auto) 25.3 % (10.0-50.0); Mean Corpuscular Hemoglobin 29.9 pg (28.0-32.0); Mean Corpuscular Hgb Conc. 34.1 g/dL (32.0-36.0); Mean Corpuscular Volume 87.6 fL (80.0-100.0); Mean Platelet Volume 10.1 fL (7.4-10.4); Monocytes # (auto) 1.2 uL; Monocytes % (auto) 17.3 % (0.0-12.0); Neutrophils # (auto) 3.7 uL; Neutrophils % (auto) 54.4 % (37.0-80.0); Platelet Count (auto) 187 10^3/uL (140-450); Red Cell Distribution Width 13.4 % (11.6-16.0); White Blood Cell 6.8 10^3/uL (4.4-10.8)
[2016-09-20] MEDS: cefTRIAXone 1GM/50ML D5W 50 ML IV SCH (08:42)
[2016-09-20 08:56] VITALS: BP 126/77
[2016-09-20 08:59] LABS: Albumin 1.8 g/dL (3.4-5.0); BUN/Creatinine Ratio 22.2; Bilirubin, Total 0.4 mg/dL (0.2-1.0); Total Protein 6.6 g/dL (6.4-8.2)
[2016-09-20] MEDS: CLOPIDOGREL BISULFATE 75 MG TAB PO SCH (10:28)
[2016-09-20] MEDS: ENOXAPARIN SOD 30 MG/0.3 ML SYRINGE SC SCH (10:29)
[2016-09-20] MEDS: FAMOTIDINE 20 MG TAB PO SCH ×2 (10:29→21:58)
[2016-09-20] MEDS: CARVEDILOL 3.125 MG TAB PO SCH ×2 (10:29→21:58)
[2016-09-20 13:00] VITALS: BP 121/80
[2016-09-20] MEDS: MORPHINE SULF INJ 2 MG/ML SYRINGE 1ML IV PRN (15:20)
[2016-09-20 17:00] VITALS: BP 127/77
[2016-09-20] MEDS: ATORVASTATIN 20 MG TAB PO SCH (21:58)
[2016-09-20] MEDS: AMITRIPTYLINE HCL 25 MG TAB PO SCH (21:58)
[2016-09-20 23:03] VITALS: BP 130/81
[2016-09-21] MEDS: MORPHINE SULF INJ 2 MG/ML SYRINGE 1ML IV PRN (01:45)
[2016-09-21] MEDS: CLINDAMYCIN 300MG IV 50 ML IV SCH ×2 (02:51→11:00)
[2016-09-21 05:27] VITALS: BP 140/85
[2016-09-21] MEDS: Boost Glucose Control 8 Ounces PO SCH (05:45)
[2016-09-21] MEDS: FUROSEMIDE 40 MG TAB PO SCH (05:46)
[2016-09-21] MEDS: GABAPENTIN 300 MG CAP PO SCH (05:46)
[2016-09-21] MEDS: ACCU-CHEK COMFORT CURVE STRIP VI SCH (05:46)
[2016-09-21] MEDS: InsuLIN REG 1unit/0.01ml Soln (100units/ml) SC SCH (05:46)
[2016-09-21 08:00] VITALS: BP 132/76
[2016-09-21] MEDS: PRO-STAT 64 30ML PO SCH (08:00)
[2016-09-21 08:34] VITALS: BP 132/76
[2016-09-21] MEDS: CLOPIDOGREL BISULFATE 75 MG TAB PO SCH (09:01)
[2016-09-21] MEDS: cefTRIAXone 1GM/50ML D5W 50 ML IV SCH (09:01)
[2016-09-21] MEDS: ENOXAPARIN SOD 30 MG/0.3 ML SYRINGE SC SCH (09:02)
[2016-09-21] MEDS: CARVEDILOL 3.125 MG TAB PO SCH (09:02)
[2016-09-21] MEDS: FAMOTIDINE 20 MG TAB PO SCH (09:02)
[2016-09-21 10:12] VITALS: BP 132/76
== END 2016-09-21 10:55 | disposition home or self-care (01) | DRG 710 ==
LOC: ER 13:38 → OVERFLOW 13:39 → EAST 22:50
PROVIDERS: ADMIT Internal Medicine; ATTEND Internal Medicine
PROC: B41J1ZZ Fluoroscopy of Other Lower Arteries using Low Osmolar Contrast (ICD-10-PCS; principal; 2016-09-14)
PROC: 047L341 Dilation of Left Femoral Artery with Drug-eluting Intraluminal Device, using Drug-Coated Balloon, Percutaneous Approach (ICD-10-PCS; 2016-09-14)
PROC: 047U34Z Dilation of Left Peroneal Artery with Drug-eluting Intraluminal Device, Percutaneous Approach (ICD-10-PCS; 2016-09-14)
PROC: 0Y6Q0Z0 Detachment at Left 1st Toe, Complete, Open Approach (ICD-10-PCS; 2016-09-15)
PROC: 0Y6S0Z0 Detachment at Left 2nd Toe, Complete, Open Approach (ICD-10-PCS; 2016-09-15)
DX: A41.9 Sepsis, unspecified organism (principal); E43 Unspecified severe protein-calorie malnutrition; E10.21 Type 1 diabetes mellitus with diabetic nephropathy; L97.529 Non-pressure chronic ulcer of other part of left foot with unspecified severity; I13.0 Hypertensive heart and chronic kidney disease with heart failure and stage 1 through stage 4 chronic kidney disease, or unspecified chronic kidney disease; I50.9 Heart failure, unspecified; E87.1 Hypo-osmolality and hyponatremia; M86.8X8 Other osteomyelitis, other site; E66.01 Morbid (severe) obesity due to excess calories; Z95.1 Presence of aortocoronary bypass graft; E10.22 Type 1 diabetes mellitus with diabetic chronic kidney disease; E10.51 Type 1 diabetes mellitus with diabetic peripheral angiopathy without gangrene; E10.621 Type 1 diabetes mellitus with foot ulcer; E10.65 Type 1 diabetes mellitus with hyperglycemia; E10.69 Type 1 diabetes mellitus with other specified complication; E78.5 Hyperlipidemia, unspecified; I25.10 Atherosclerotic heart disease of native coronary artery without angina pectoris; Z82.3 Family history of stroke; Z82.49 Family history of ischemic heart disease and other diseases of the circulatory system; Z83.3 Family history of diabetes mellitus; Z89.412 Acquired absence of left great toe; Z89.429 Acquired absence of other toe(s), unspecified side; F32.9 Major depressive disorder, single episode, unspecified; F41.9 Anxiety disorder, unspecified; Z68.34 Body mass index [BMI] 34.0-34.9, adult; J45.909 Unspecified asthma, uncomplicated; Z89.439 Acquired absence of unspecified foot; Z88.6 Allergy status to analgesic agent; Z88.8 Allergy status to other drugs, medicaments and biological substances; Z79.4 Long term (current) use of insulin; Z86.2 Personal history of diseases of the blood and blood-forming organs and certain disorders involving the immune mechanism; Z84.1 Family history of disorders of kidney and ureter; N18.2 Chronic kidney disease, stage 2 (mild); Z88.4 Allergy status to anesthetic agent; Z88.1 Allergy status to other antibiotic agents; B96.20 Unspecified Escherichia coli [E. coli] as the cause of diseases classified elsewhere
CPT/HCPCS: 36415; 37226; 37230; 71020; 73630; 78315; 80053; 82962; 83036; 83605; 84484; 85007; 85025; 85027; 85610; 85730; 87070; 87075; 87077; 87081; 87186; 87205; 93005; 94761; 96361; 96374; 99152; J0690; J0696; J1815; J2250; J2405; J2543; J2704; J3490; Q9967

== ENCOUNTER 2017-12-17 00:39 | Emergency (ER) | payer MEDICAID ==
[~2017-12-17] VITALS: Ht 180.3 cm; Wt 93.0 kg
[~2017-12-17 00:39] MED LIST changes: -BISA-13 PO
[2017-12-17 00:59] VITALS: BP 147/96
[2017-12-22] MEDS ORDERED: CLOP75TA28 PO (13:00)
[2017-12-22] MEDS ORDERED: LEVO500T21 PO (13:00)
[2017-12-22] MEDS ORDERED: SACC250C PO (13:00)
== END 2017-12-17 03:12 | disposition left against medical advice (07) ==
LOC: ER 00:39
DX: M79.671 Pain in right foot (principal); Z53.21 Procedure and treatment not carried out due to patient leaving prior to being seen by health care provider

== ENCOUNTER 2018-08-24 04:08 | Inpatient (IN) | payer MEDICAID ==
[~2018-08-24] VITALS: Ht 180.3 cm; Wt 101.7 kg
[~2018-08-24 04:08] MED LIST changes: +CLOP75TA28 PO; +DIGO0.2527 PO; -FURO20TA GT; +FURO40TA4 PO; +METO5TAB56 PO; +POTA20TA53 PO; +SACU1TAB PO; +SPIR25TA88 PO; -[UNRECOGNIZED DRUG - CODE] PO
[2018-08-24] MEDS ORDERED: FUROSEMIDE 20 MG/2 ML VIAL ONE (04:48)
[2018-08-24] MEDS ORDERED: FUROSEMIDE 20 MG/2 ML VIAL IV ONE (05:00)
[2018-08-24] MEDS ORDERED: MORPHINE SULFATE 4 MG/ML SYR/VIAL IV ONE (06:15)
[2018-08-24] MEDS ORDERED: ONDANSETRON HCL 4 MG/2 ML VIAL IV ONE (06:15)
[2018-08-24 07:24] LABS: Basophils # (auto) 0 uL; Basophils % (auto) 0.5 % (0.0-2.0); Eosinophils # (auto) 0.2 uL; Eosinophils % (auto) 3.5 % (0.0-7.0); Hematocrit 47.6 % (41.0-53.0); Hemoglobin 15.6 g/dL (13.5-17.5); Lymphocytes # (auto) 1.1 uL; Lymphocytes % (auto) 19.4 % (10.0-50.0); Mean Corpuscular Hemoglobin 29.5 pg (28.0-32.0); Mean Corpuscular Hgb Conc. 32.7 g/dL (32.0-36.0); Mean Corpuscular Volume 90.3 fL (80.0-100.0); Monocytes # (auto) 0.6 uL; Monocytes % (auto) 10.3 % (0.0-12.0); Neutrophils # (auto) 3.7 uL; Neutrophils % (auto) 66.3 % (37.0-80.0); Nucleated Red Blood Cells % 0.1 %; Platelet Count (auto) 211 10^3/uL (140-450); Red Blood Cells 5.27 10^6/uL (4.5-5.90); White Blood Cell 5.6 10^3/uL (4.4-10.8)
[2018-08-24 07:40] LABS: Albumin 2.3 g/dL (3.4-5.0); Calcium 8.3 mg/dL (8.5-10.1); Magnesium 2.1 mg/dL (1.6-2.6); Potassium 3.4 mmol/L (3.5-5.1)
[2018-08-24 07:45] LABS: Partial Thromboplastin Time 27.8 sec (23.78-33.04); Prothrombin Time 10.7 sec (9.27-12.13)
[2018-08-24 07:46] LABS: BUN/Creatinine Ratio 13.7; Bilirubin, Total 0.4 mg/dL (0.2-1.0); Total Protein 7.9 g/dL (6.4-8.2)
[2018-08-24] MEDS ORDERED: SODIUM CHLORIDE 0.9% 1,000 ML IV ONE ×2 (08:48)
[2018-08-24] MEDS ORDERED: InsuLIN REG 1unit/0.01ml Soln (100units/ml) IV ONE (09:00)
[2018-08-24] MEDS ORDERED: ENOXAPARIN SOD 100 MG/1 ML SYRINGE SC ONE (09:00)
[2018-08-24] MEDS ORDERED: traMADol HCL 50 MG TAB PO PRN (09:45)
[2018-08-24] MEDS ORDERED: DEXTROSE (50%) 50ML SYRG IV PRN (09:45)
[2018-08-24] MEDS ORDERED: MORPHINE SULFATE 4 MG/ML SYR/VIAL IV PRN (09:45)
[2018-08-24] MEDS ORDERED: NITROGLYCERIN 0.4 MG SL TAB SL PRN (09:45)
[2018-08-24] MEDS ORDERED: LORazepam 0.5 MG TAB PO PRN (09:45)
[2018-08-24] MEDS ORDERED: PROMETHAZINE HCL 25 MG/ML 1ML IV PRN (09:45)
[2018-08-24] MEDS ORDERED: ACETAMINOPHEN 500 MG TAB PO PRN (09:45)
[2018-08-24] MEDS: FUROSEMIDE 40 MG/4 ML VIAL IV SCH ×2 (10:55→22:07)
[2018-08-24] MEDS: CARVEDILOL 3.125 MG TAB PO SCH ×2 (10:56→22:00)
[2018-08-24] MEDS: DIGOXIN 0.25 MG TAB PO SCH (10:57)
[2018-08-24] MEDS: SACUBITRIL-VALSARTAN 24mg/26mg TAB PO SCH ×2 (10:57→22:07)
[2018-08-24] MEDS: POTASSIUM CHL 20 Meq TABLET PO SCH ×2 (10:57→22:08)
[2018-08-24] MEDS: PANTOPRAZOLE 40 MG TAB PO SCH (10:58)
[2018-08-24] MEDS: CLOPIDOGREL BISULFATE 75 MG TAB PO SCH (10:58)
[2018-08-24] MEDS: ENOXAPARIN SOD 40 MG/0.4 ML SYRINGE SC SCH (10:59)
[2018-08-24] MEDS: INSULIN DETEMIR SC SCH ×2 (10:59→22:09)
[2018-08-24 11:55] VITALS: BP 114/61
--- NOTE | 2018-08-24 11:55 | NUR ---
Telemetry admit from [facility] admitted to Telemetry unit after SBAR received. Patient oriented to Lora Barone, RN primary RN, [facility] unit, room 280, bed A, and unit policies regarding patient care and visiting hours. Patient now on continuous telemetry monitoring, tele box #39 and telemetry reading on arrival to unit is NSR. Patient placed on bedside oxygen, weighed by bedscale and encouraged to call if they need something. All questions and concerns addressed, patient verbalized understanding. Note:
--- NOTE | 2018-08-24 12:00 | NUR ---
Wound noted to right great toe, blackened area noted to anterior right great toe. Darkened area also noted to posterior right great toe. Bilateral feet dry and scaly. Ecchymosis noted to lateral mid back as well. Will take wound pictures and place wound consult order. Will continue to monitor.
[2018-08-24] MEDS: ACCU-CHEK COMFORT CURVE STRIP VI SCH ×3 (12:18→20:00)
[2018-08-24] MEDS: InsuLIN REG 1unit/0.01ml Soln (100units/ml) SC SCH ×3 (12:40→21:21)
[2018-08-24] MEDS: MORPHINE SULFATE 4 MG/ML SYR/VIAL IV PRN (12:42)
[2018-08-24 13:00] VITALS: BP 114/61
--- NOTE | 2018-08-24 13:13 | NUR ---
WOUND PICTURE Wound picture taken of patient's lateral right foot, anterior and posterior great toe. Will continue to monitor.
[2018-08-24] MEDS: GABAPENTIN 300 MG CAP PO SCH ×2 (14:33→22:08)
[2018-08-24] MEDS: SODIUM CHLOR 0.9% PF (SALINE LOCK) 10ML VIAL/SYR IV SCH ×2 (14:33→22:09)
--- NOTE | 2018-08-24 14:35 | NUR ---
Patient voided >1000 mL, urine sample collected for drug screen and sent to lab. Will continue to monitor.
--- NOTE | 2018-08-24 15:28 | NUR ---
Dr Noriega at nurses station and made aware of patient's pending cardio consult. Dr Noriega also made aware of patient's latest Troponin level of 0.074, no c/o of chest pain or discomfort from patient. Will continue to monitor.
[2018-08-24 15:29] LABS: Alcohol, Urine < 3.0 mg/dL (0-5); Amphetamine Screen, Urine POSITIVE (NEGATIVE); Barbiturate Scree,Urine NEGATIVE (NEGATIVE); Benzodiazephine Screen, Urine NEGATIVE (NEGATIVE); Cannabinoid Screen, Urine NEGATIVE (NEGATIVE); Cocaine Screen, Urine NEGATIVE (NEGATIVE); Opiate Scree,Urine NEGATIVE (NEGATIVE); Phencyclidine Screen, Urine NEGATIVE (NEGATIVE)
[2018-08-24 17:00] VITALS: BP 131/64
[2018-08-24] MEDS: AMITRIPTYLINE HCL 25 MG TAB PO SCH (18:21)
[2018-08-24] MEDS: SPIRONOLACTONE 25 MG TAB PO SCH (18:21)
--- NOTE | 2018-08-24 19:27 | NUR ---
Patient care and report handed off to Serafin HERNANDEZ.
[2018-08-24 22:00] VITALS: BP 108/70
[2018-08-24] MEDS: ATORVASTATIN 20 MG TAB PO SCH (22:08)
[2018-08-25] MEDS: ACCU-CHEK COMFORT CURVE STRIP VI SCH ×6 (04:00→23:00)
[2018-08-25] MEDS: InsuLIN REG 1unit/0.01ml Soln (100units/ml) SC SCH ×6 (04:00→23:08)
[2018-08-25 05:16] VITALS: BP 118/77
[2018-08-25 05:29] LABS: Basophils # (auto) 0 uL; Basophils % (auto) 1.1 % (0.0-2.0); Eosinophils # (auto) 0.4 uL; Eosinophils % (auto) 8.1 % (0.0-7.0); Hemoglobin 13.5 g/dL (13.5-17.5); Lymphocytes # (auto) 1.3 uL; Lymphocytes % (auto) 28.8 % (10.0-50.0); Mean Corpuscular Hemoglobin 29.5 pg (28.0-32.0); Mean Corpuscular Volume 89.5 fL (80.0-100.0); Monocytes # (auto) 0.6 uL; Monocytes % (auto) 12.5 % (0.0-12.0); Neutrophils # (auto) 2.2 uL; Neutrophils % (auto) 49.5 % (37.0-80.0); Nucleated Red Blood Cells % 0.1 %; Platelet Count (auto) 201 10^3/uL (140-450); Red Blood Cells 4.58 10^6/uL (4.5-5.90); Red Cell Distribution Width 15.7 % (11.8-14.3); White Blood Cell 4.5 10^3/uL (4.4-10.8)
[2018-08-25 05:47] LABS: Albumin 1.8 g/dL (3.4-5.0); Calcium 7.9 mg/dL (8.5-10.1); Potassium 3.3 mmol/L (3.5-5.1)
[2018-08-25 05:50] LABS: BUN/Creatinine Ratio 17.4; Bilirubin, Total 0.4 mg/dL (0.2-1.0); Total Protein 6.1 g/dL (6.4-8.2)
[2018-08-25] MEDS: SPIRONOLACTONE 25 MG TAB PO SCH ×2 (06:11→18:00)
[2018-08-25] MEDS: GABAPENTIN 300 MG CAP PO SCH ×3 (06:11→23:04)
[2018-08-25] MEDS: SODIUM CHLOR 0.9% PF (SALINE LOCK) 10ML VIAL/SYR IV SCH ×3 (06:11→23:01)
--- NOTE | 2018-08-25 07:00 | NUR ---
Opening Shift Note Assumed care of patient, awake, alert, and oriented x4. No S/S of distress/SOB or pain. IV in left forearm 20 gauge asymptomatic, intact, patent, and saline locked. Bed locked and in lowest position and call light is within reach. Instructed on POC and to call for assist PRN, and patient verbalized understanding. Will continue to monitor for changes Q1hr and PRN.
[2018-08-25 08:53] VITALS: BP 116/71
[2018-08-25] MEDS ORDERED: POTASSIUM CHL 20 Meq TABLET PO ONE (09:30)
[2018-08-25] MEDS: INSULIN DETEMIR SC SCH (10:00)
--- NOTE | 2018-08-25 10:00 | NUR ---
MAINE ZAIDI AT BEDSIDE. NEW ORDERS RECEIVED.
[2018-08-25] MEDS: SACUBITRIL-VALSARTAN 24mg/26mg TAB PO SCH ×2 (11:06→23:04)
[2018-08-25] MEDS: CLOPIDOGREL BISULFATE 75 MG TAB PO SCH (11:06)
--- NOTE | 2018-08-25 11:06 | NUR ---
WOUND CARE NOTE: Wound care in to see patient per wound care request regarding "Rt great toe blackened area" that are noted present on admission. Bedside nurse took photograph of patient's wounds upon admission for reference. Patient is 48 years old male with admitting diagnosis of Heart Failure. He has history of anemia, anxiety, CHF, CKF, Depression, DM, htn, high lipids. Patient is resting in bed in Rm. 280A. He's awake, alert and oriented. He's in no stated pain at this time. He's self turn and reposition. His current Neil score is 19. Noted patient's BLE has mild erythema and edema more prominent to his feet. He has history of L transmetatarsal amputation and has well healed forefoot stump. His Rt 5th toe is missing and well healed scar noted to his R lateral foot with dry hyperkeratosic skin. His toe nails are thick and yellow. Distal tip of his R great toe has 3x3cm closed DFU, looks like dry blood blister and to dorsal aspect of R great toe has 0.6x0.6cm black scabbed wound. Lynnette wound is pink, no drainage or odor noted, left open to air. Patient states that "I don't even know how I got it". He admitted that he did not followed up with logistics tech, Dr. Floyd for the care of his foot. Patient educated on the importance in following up with logistics tech, verbalized understanding. MARY Nash at bedside, advised to show patient's foot to MD when MD made rounds. RECOMMENDATION: Podiatry consult, Elevate affected extremity on pillows, no further wound care monitoring needed at this time. Addendum: 08/25/18 at 1554 by Leilani Mari RN Amended: Links added.
[2018-08-25] MEDS: DIGOXIN 0.25 MG TAB PO SCH (11:07)
[2018-08-25] MEDS: CARVEDILOL 3.125 MG TAB PO SCH ×2 (11:09→23:07)
[2018-08-25] MEDS: PANTOPRAZOLE 40 MG TAB PO SCH (11:09)
[2018-08-25] MEDS: ENOXAPARIN SOD 40 MG/0.4 ML SYRINGE SC SCH (11:10)
[2018-08-25] MEDS: POTASSIUM CHL 20 Meq TABLET PO SCH ×2 (11:11→23:05)
[2018-08-25] MEDS: MORPHINE SULFATE 4 MG/ML SYR/VIAL IV PRN ×2 (12:00→20:56)
[2018-08-25] MEDS: Ensure HIGH Protein Chocolate 8oz Bottle PO SCH ×2 (12:00→18:21)
[2018-08-25 13:00] VITALS: BP 146/72
[2018-08-25] MEDS: FUROSEMIDE 40 MG/4 ML VIAL IV SCH ×2 (13:25→18:00)
[2018-08-25 16:56] VITALS: BP 112/77
[2018-08-25] MEDS: AMITRIPTYLINE HCL 25 MG TAB PO SCH (18:00)
--- NOTE | 2018-08-25 20:12 | NUR ---
RECEIVED PT FROM DAY RN POC REVIEWED
[2018-08-25 22:23] VITALS: BP 133/84
[2018-08-25] MEDS: ATORVASTATIN 20 MG TAB PO SCH (23:04)
[2018-08-26] MEDS: INSULIN DETEMIR SC SCH ×3 (01:11→22:00)
[2018-08-26] MEDS: InsuLIN REG 1unit/0.01ml Soln (100units/ml) SC SCH ×5 (01:12→17:39)
[2018-08-26] MEDS: ACCU-CHEK COMFORT CURVE STRIP VI SCH ×8 (01:13→20:30)
[2018-08-26] MEDS: MORPHINE SULFATE 4 MG/ML SYR/VIAL IV PRN ×2 (04:12→16:31)
[2018-08-26 05:37] VITALS: BP 119/77
[2018-08-26 06:52] LABS: Calcium 7.7 mg/dL (8.5-10.1); Potassium 4.2 mmol/L (3.5-5.1)
[2018-08-26 06:56] LABS: BUN/Creatinine Ratio 21.8
[2018-08-26] MEDS: FUROSEMIDE 40 MG/4 ML VIAL IV SCH (06:58)
[2018-08-26] MEDS: SPIRONOLACTONE 25 MG TAB PO SCH ×2 (06:59→17:38)
[2018-08-26] MEDS: SODIUM CHLOR 0.9% PF (SALINE LOCK) 10ML VIAL/SYR IV SCH ×2 (06:59→14:00)
[2018-08-26] MEDS: GABAPENTIN 300 MG CAP PO SCH ×3 (06:59→22:39)
[2018-08-26 08:00] VITALS: BP 119/77
[2018-08-26] MEDS: Ensure HIGH Protein Chocolate 8oz Bottle PO SCH ×3 (08:00→17:40)
[2018-08-26 09:00] VITALS: BP 119/71
[2018-08-26] MEDS: CLOPIDOGREL BISULFATE 75 MG TAB PO SCH (10:21)
[2018-08-26] MEDS: POTASSIUM CHL 20 Meq TABLET PO SCH ×2 (10:21→22:40)
[2018-08-26] MEDS: SACUBITRIL-VALSARTAN 24mg/26mg TAB PO SCH ×2 (10:21→22:39)
[2018-08-26] MEDS: PANTOPRAZOLE 40 MG TAB PO SCH (10:22)
[2018-08-26] MEDS: DIGOXIN 0.25 MG TAB PO SCH (10:22)
[2018-08-26] MEDS: CARVEDILOL 3.125 MG TAB PO SCH ×2 (10:23→22:40)
[2018-08-26] MEDS: ENOXAPARIN SOD 40 MG/0.4 ML SYRINGE SC SCH (10:23)
[2018-08-26] MEDS ORDERED: DEXTROSE (50%) 50ML SYRG IV PRN (12:00)
--- NOTE | 2018-08-26 12:52 | NUR ---
NUTRITION CONSULT/ASSESSMENT NOTES Please refer to link notes of nutrition screen form filed under the intervention section of the plan of care for further details. Est. Needs: 2000 kcal to 2500 kcal (20-25 kcal/kgBW), 100 gms to 130 gms pro (1.0-1.3 gms/kgBW for wound healing). Will continue to monitor pertinent labs and reassess nutrient need prn Thank you for this consult. Addendum: 08/26/18 at [address] Amended: Links added.
[2018-08-26 13:00] VITALS: BP 138/71
[2018-08-26 17:00] VITALS: BP 133/82
[2018-08-26] MEDS: AMITRIPTYLINE HCL 25 MG TAB PO SCH (17:39)
--- NOTE | 2018-08-26 18:00 | NUR ---
Pt alert and oriented, showing no change from initial assessment. V.S.S., resp even, unlabored. Morphine given, times one, during this shift for c/o right foot pain, with good effectiveness. No c/o chest pain. No other c/o pain or discomfort. Cardio stress test pending for AM. Pt aware.
--- NOTE | 2018-08-26 19:30 | NUR ---
RECEIVED PT FROM DAY RN POC REVIEWED
[2018-08-26 21:30] VITALS: BP 146/84
[2018-08-26] MEDS: ATORVASTATIN 20 MG TAB PO SCH (22:39)
[2018-08-27] MEDS: ACCU-CHEK COMFORT CURVE STRIP VI SCH ×9 (00:25→23:01)
[2018-08-27] MEDS: SODIUM CHLOR 0.9% PF (SALINE LOCK) 10ML VIAL/SYR IV SCH ×4 (00:26→22:47)
--- NOTE | 2018-08-27 01:01 | NUR ---
RESTING WITH EYES CLOSED, RESP EVEN AND UNLABORED
[2018-08-27 05:00] VITALS: BP 123/75
[2018-08-27] MEDS: SPIRONOLACTONE 25 MG TAB PO SCH ×2 (05:47→18:25)
[2018-08-27] MEDS: InsuLIN REG 1unit/0.01ml Soln (100units/ml) SC SCH ×5 (05:51→23:01)
[2018-08-27] MEDS: GABAPENTIN 300 MG CAP PO SCH ×3 (05:51→22:46)
--- NOTE | 2018-08-27 07:40 | NUR ---
OPENING SHIFT PATIENT AWAKE, ALERT, AND ORIENTED X4. RESPIRATIONS EVEN AND UNLABORED.NO S/S OF DISTRESS, SOB, OR PAIN. BED IS IN LOWEST POSITION, SIDE RAILS UP X2, AND CALL LIGHT WITHIN REACH. WILL CONTINUE TO MONITOR Q1 HOUR AND PRN.
[2018-08-27] MEDS: Ensure HIGH Protein Chocolate 8oz Bottle PO SCH ×3 (08:00→18:25)
--- NOTE | 2018-08-27 08:16 | NUR ---
PT HAS BEEN NPO SINCE MIDNIGHT CHG WIPES BED BATH, LINEN CHANGE ALL QUESTIONS AND CONCERNS ADDRESSED, REPORT GIVEN TO AM NURSE POC REVIEWED
[2018-08-27] MEDS ORDERED: ADENOSINE 84 MG in GIVE UN-DILUTED 0 ML IV STA (08:28)
--- NOTE | 2018-08-27 08:30 | NUR ---
[facility] INJECTION PATIENT WILL BE TAKEN DOWN FOR STRESS TEST IN ONE HOUR S/P THIS INJECTION PER [facility] TECH.
[2018-08-27 09:00] VITALS: BP 133/83
--- NOTE | 2018-08-27 09:00 | NUR ---
ECHO BEING DONE AT BEDSIDE
[2018-08-27] MEDS ORDERED: OPTISON 3ml Vial for INJ IV ONE (09:17)
--- NOTE | 2018-08-27 09:53 | NUR ---
STRESS TEST.. PATIENT HAD STRESS TEST IN JUNE. MD ROSS MADE AWARE. PRIMARY RN MADE AWARE OF CANCELLATION.
--- NOTE | 2018-08-27 10:09 | NUR ---
NO STRESS TEST [facility] CALLED AND SAID THEY WILL NOT BE REPEATING STRESS TEST BECAUSE IT WAS PERFORMED IN JUNE OF THIS YEAR. PATIENT MADE AWARE OF SITUATION. PATIENT VERBALIZED UNDERSTANDING
--- NOTE | 2018-08-27 10:51 | NUR ---
BO ELLIS M.D. TO SEE IF PATIENT COULD D/C NPO STATUS AND RECEIVE MORNING MEDICATIONS SINCE STRESS TEST IS NO LONGER INDICATED
--- NOTE | 2018-08-27 11:22 | NUR ---
DR. MITRA Rinaldi IS COVERING PATIENT THIS A.Kalen Rinaldi GAVE PERMISSION TO GIVE MORNING MEDICATIONS AND FOR PATIENT TO RESUME PREVIOUS DIET. NPO D/C'D
[2018-08-27] MEDS: PANTOPRAZOLE 40 MG TAB PO SCH (11:36)
[2018-08-27] MEDS: SACUBITRIL-VALSARTAN 24mg/26mg TAB PO SCH ×2 (11:36→22:46)
[2018-08-27] MEDS: FUROSEMIDE 40 MG/4 ML VIAL IV SCH (11:36)
[2018-08-27] MEDS: CLOPIDOGREL BISULFATE 75 MG TAB PO SCH (11:36)
[2018-08-27] MEDS: POTASSIUM CHL 20 Meq TABLET PO SCH ×2 (11:36→22:46)
[2018-08-27] MEDS: CARVEDILOL 3.125 MG TAB PO SCH ×2 (11:37→23:00)
[2018-08-27] MEDS: ENOXAPARIN SOD 40 MG/0.4 ML SYRINGE SC SCH (11:37)
[2018-08-27] MEDS: DIGOXIN 0.25 MG TAB PO SCH (11:38)
[2018-08-27] MEDS: INSULIN DETEMIR SC SCH ×2 (11:45→23:00)
[2018-08-27] MEDS: MORPHINE SULFATE 4 MG/ML SYR/VIAL IV PRN ×3 (11:52→23:01)
[2018-08-27] MEDS ORDERED: ACETYLCYSTEINE ORAL for CIN 20%(200MG/ML) 4ML PO ONE (12:15)
--- NOTE | 2018-08-27 12:15 | NUR ---
ANGIOGRAM PATIENT WILL UNDERGO ANGIOGRAM EITHER TOMORROW OR MONDAY MORNING. DR. ROSS SAID DO NOT KEEP PATIENT NPO. PATIENT CAN HAVE BREAKFAST TOMORROW A.M. R.N. TOMORROW A.M. WILL BE CONTACTED IF PATIENT IS TO GO FOR PROCEDURE 08/28/18. PROCEDURE WILL MOST LIKELY BE DONE MONDAY A.M. PER DR. ROSS
[2018-08-27 13:01] VITALS: BP 117/81
[2018-08-27 17:17] VITALS: BP 140/82
[2018-08-27] MEDS: AMITRIPTYLINE HCL 25 MG TAB PO SCH (18:25)
--- NOTE | 2018-08-27 18:37 | NUR ---
END OF SHIFT PATIENT IS RESTING IN BED. NO S/S OF DISTRESS, SOB, OR PAIN. RESPIRATIONS EVEN AND UNLABORED. WILL ENDORSE CARE TO LEAD FURNACE OPERATOR R/N AT 1900
--- NOTE | 2018-08-27 19:47 | NUR ---
RECEIVED PATIENT FROM DAY SHIFT RN. PATIENT RESTING IN BED. NO S/S OF DISTRESS NOTED. C/O PAIN @ 6/10 AFTER MEDICATION EARLIER. PATIENT UNDERSTOOD THE SCHEDULE OF PAIN MANAGEMENT, WILL COME BACK FOR PAIN MEDICATION WHEN THE TIME IS DUE AND PER PATIENT REQUEST. POC INSTRUCTED AND ENCOURAGED PATIENT TO CALL FOR APPLICATIONS TESTER IF NEEDED. BED IN LOWEST POSITION WITH SIDE RAILS UP X 2. CALL SARAH WITHIN REACH. ALARM ON. CONTINUE TO MONITOR FOR CHANGES Q1H AND PRN.
[2018-08-27 21:30] VITALS: BP 124/70
[2018-08-27] MEDS: ATORVASTATIN 20 MG TAB PO SCH (22:47)
[2018-08-27] MEDS: ACETYLCYSTEINE ORAL for CIN 20%(200MG/ML) 4ML PO SCH (22:47)
--- NOTE | 2018-08-27 23:07 | NUR ---
PATIENT C/O PAIN @ 03/05. MEDICATED PATIENT ORDERED. ACCU-CHECK, BS 213. INSULIN AND LATUS GIVEN ORDERED. CONTINUE TO MONITOR.
--- NOTE | 2018-08-28 02:40 | NUR ---
PATIENT SLEEPING. NO S/S OF DISTRESS NOTED. CONTINUE CARE.
[2018-08-28] MEDS: MORPHINE SULFATE 4 MG/ML SYR/VIAL IV PRN ×4 (04:40→23:26)
--- NOTE | 2018-08-28 04:40 | NUR ---
PATIENT C/O PAIN @ 02/02. MEDICATED PATIENT ORDERED. CONTINUE TO MONITOR.
[2018-08-28 04:46] VITALS: BP 114/74
[2018-08-28] MEDS: InsuLIN REG 1unit/0.01ml Soln (100units/ml) SC SCH ×4 (06:00→23:25)
[2018-08-28] MEDS: SODIUM CHLOR 0.9% PF (SALINE LOCK) 10ML VIAL/SYR IV SCH ×3 (06:01→22:28)
[2018-08-28] MEDS: GABAPENTIN 300 MG CAP PO SCH ×3 (06:02→22:30)
[2018-08-28] MEDS: ACCU-CHEK COMFORT CURVE STRIP VI SCH ×4 (06:02→23:25)
[2018-08-28] MEDS: SPIRONOLACTONE 25 MG TAB PO SCH ×2 (06:02→18:37)
--- NOTE | 2018-08-28 06:02 | NUR ---
ACCU-CHECK, BS 78. NO COVERAGE. CONTINUE TO MONITOR.
--- NOTE | 2018-08-28 07:00 | NUR ---
OPENING SHIFT NOTE ASSUMED CARE OF THE PATIENT FROM THE TRIAGE LICENSED PRACTICAL NURSE RN. THE PATIENT IS A&OX4, NO SIGNS OR SYMPTOMS OF DISTRESS. EDUCATED THE PATIENT ON POC AND PATIENT VERBALIZED UNDERSTANDING. THE PATIENT'S CALL LIGHT IS WITHIN REACH AND BED IS IN THE LOWEST, LOCKED POSITION. WILL ROUND HOURLY AND CONTINUE TO MONITOR.
[2018-08-28 07:13] LABS: Basophils # (auto) 0 uL; Basophils % (auto) 0.7 % (0.0-2.0); Eosinophils # (auto) 0.3 uL; Eosinophils % (auto) 5.6 % (0.0-7.0); Hematocrit 40.5 % (41.0-53.0); Hemoglobin 13.6 g/dL (13.5-17.5); Lymphocytes # (auto) 0.9 uL; Lymphocytes % (auto) 20.3 % (10.0-50.0); Mean Corpuscular Hemoglobin 29.9 pg (28.0-32.0); Mean Corpuscular Hgb Conc. 33.5 g/dL (32.0-36.0); Mean Corpuscular Volume 89.4 fL (80.0-100.0); Monocytes # (auto) 0.6 uL; Monocytes % (auto) 13.8 % (0.0-12.0); Neutrophils # (auto) 2.8 uL; Neutrophils % (auto) 59.6 % (37.0-80.0); Nucleated Red Blood Cells % 0.1 %; Platelet Count (auto) 200 10^3/uL (140-450); Red Blood Cells 4.53 10^6/uL (4.5-5.90); Red Cell Distribution Width 15.2 % (11.8-14.3); White Blood Cell 4.7 10^3/uL (4.4-10.8)
[2018-08-28 07:27] LABS: Potassium 4.4 mmol/L (3.5-5.1)
[2018-08-28 07:38] LABS: BUN/Creatinine Ratio 27.5; Calcium 8.1 mg/dL (8.5-10.1)
[2018-08-28] MEDS: Ensure HIGH Protein Chocolate 8oz Bottle PO SCH ×3 (07:42→18:38)
[2018-08-28 08:26] VITALS: BP 114/71
[2018-08-28] MEDS: FUROSEMIDE 40 MG/4 ML VIAL IV SCH (10:52)
[2018-08-28] MEDS: CARVEDILOL 3.125 MG TAB PO SCH ×2 (10:52→22:29)
[2018-08-28] MEDS: SACUBITRIL-VALSARTAN 24mg/26mg TAB PO SCH ×2 (10:52→22:29)
[2018-08-28] MEDS: ACETYLCYSTEINE ORAL for CIN 20%(200MG/ML) 4ML PO SCH ×2 (10:53→22:30)
[2018-08-28] MEDS: POTASSIUM CHL 20 Meq TABLET PO SCH ×2 (10:53→22:29)
[2018-08-28] MEDS: DIGOXIN 0.25 MG TAB PO SCH (10:53)
[2018-08-28] MEDS: INSULIN DETEMIR SC SCH ×2 (10:54→23:25)
[2018-08-28] MEDS: CLOPIDOGREL BISULFATE 75 MG TAB PO SCH (10:54)
[2018-08-28] MEDS: PANTOPRAZOLE 40 MG TAB PO SCH (10:54)
[2018-08-28] MEDS: ENOXAPARIN SOD 40 MG/0.4 ML SYRINGE SC SCH (10:54)
--- NOTE | 2018-08-28 12:15 | NUR ---
Dr. Moya at bedside
[2018-08-28 13:00] VITALS: BP 109/69
[2018-08-28 17:13] VITALS: BP 119/69
[2018-08-28] MEDS: AMITRIPTYLINE HCL 25 MG TAB PO SCH (18:37)
--- NOTE | 2018-08-28 19:45 | NUR ---
RECEIVED PATIENT FROM DAY SHIFT RN. PATIENT RESTING IN BED. NO S/S OF DISTRESS NOTED. C/O PAIN @ 4/10 AFTER MEDICATION EARLIER. PATIENT UNDERSTOOD THE SCHEDULE OF PAIN MANAGEMENT, WILL COME BACK FOR PAIN MEDICATION WHEN THE TIME IS DUE AND PER PATIENT REQUEST. REINFORCED PATIENT NPO AFTER MIDNIGHT FOR PROCEDURE TOMORROW. PATIENT VERBALIZED UNDERSTANDING. POC INSTRUCTED AND ENCOURAGED PATIENT TO CALL FOR MANAGER ACTION IF NEEDED. BED IN LOWEST POSITION WITH SIDE RAILS UP X 2. CALL SARAH WITHIN REACH. ALARM ON. CONTINUE TO MONITOR FOR CHANGES Q1H AND PRN.
[2018-08-28 22:00] VITALS: BP 110/61
[2018-08-28] MEDS: ATORVASTATIN 20 MG TAB PO SCH (22:29)
--- NOTE | 2018-08-28 22:36 | NUR ---
SCHEDULED MEDICATION GIVEN ORDERED. PATIENT SWALLOWED WELL. CONTINUE TO MONITOR.
--- NOTE | 2018-08-28 23:27 | NUR ---
PATIENT C/O PAIN @ 03/05. MEDICATED PATIENT ORDERED. ACCU-CHECK, BS 158. INSULIN AND LATUS GIVEN ORDERED. CONTINUE TO MONITOR.
--- NOTE | 2018-08-29 00:55 | NUR ---
REINFORCED NPO FROM NOW ON. WATER AND FOOD REMOVED FROM PATIENT. PATIENT VERBALIZED UNDERSTANDING. CONTINUE TO MONITOR.
[2018-08-29] MEDS: MORPHINE SULFATE 4 MG/ML SYR/VIAL IV PRN ×4 (03:35→21:50)
--- NOTE | 2018-08-29 03:36 | NUR ---
PATIENT C/O PAIN @ 02/02. MEDICATED PATIENT ORDERED. CONTINUE TO MONITOR.
[2018-08-29 05:00] VITALS: BP 109/71
--- NOTE | 2018-08-29 05:14 | NUR ---
CHG WIPES DONE. TOTAL BED LINEN AND PATIENT GOWN CHANGED. PATIENT TOLERATED WELL. CONTINUE CARE.
[2018-08-29] MEDS: ACCU-CHEK COMFORT CURVE STRIP VI SCH ×3 (05:39→17:38)
[2018-08-29] MEDS: SPIRONOLACTONE 25 MG TAB PO SCH ×2 (05:39→17:37)
[2018-08-29] MEDS: SODIUM CHLOR 0.9% PF (SALINE LOCK) 10ML VIAL/SYR IV SCH ×3 (05:39→21:46)
[2018-08-29] MEDS: GABAPENTIN 300 MG CAP PO SCH ×3 (05:39→21:46)
[2018-08-29] MEDS: InsuLIN REG 1unit/0.01ml Soln (100units/ml) SC SCH ×3 (05:40→17:38)
[2018-08-29 06:56] LABS: Basophils # (auto) 0 uL; Basophils % (auto) 0.8 % (0.0-2.0); Eosinophils # (auto) 0.2 uL; Eosinophils % (auto) 5.9 % (0.0-7.0); Hematocrit 40.8 % (41.0-53.0); Hemoglobin 13.3 g/dL (13.5-17.5); Lymphocytes # (auto) 1.3 uL; Lymphocytes % (auto) 33.2 % (10.0-50.0); Mean Corpuscular Hgb Conc. 32.7 g/dL (32.0-36.0); Mean Corpuscular Volume 88.8 fL (80.0-100.0); Monocytes # (auto) 0.5 uL; Neutrophils # (auto) 1.9 uL; Neutrophils % (auto) 47.1 % (37.0-80.0); Nucleated Red Blood Cells % 0.2 %; Platelet Count (auto) 189 10^3/uL (140-450); Red Cell Distribution Width 15.2 % (11.8-14.3)
[2018-08-29 07:07] LABS: Potassium 4.5 mmol/L (3.5-5.1)
[2018-08-29] MEDS ORDERED: IOHEXOL 350 MG/ML 100ML IJ ONE (07:10)
[2018-08-29] MEDS ORDERED: LIDOCAINE 2%HCL (LOCAL ANESTH.) INJ 20ML MDV ONE (07:11)
[2018-08-29 07:14] LABS: BUN/Creatinine Ratio 28.6; Calcium 8.4 mg/dL (8.5-10.1)
--- NOTE | 2018-08-29 07:30 | NUR ---
Opening Shift Note Assumed care of patient, awake and alert. No S/S of distress/SOB or pain. Instructed on POC and to call for assist PRN, will continue to monitor for changes Q1hr and PRN. Patient NPO for microbiology laboratory manager.
--- NOTE | 2018-08-29 07:40 | NUR ---
Patient brought to laboratory assistant for left heart cath. Consent not yet signed. Patient would like more information on procedure.
[2018-08-29 07:44] LABS: INR 1.07 (0.9-1.15); Partial Thromboplastin Time 29.4 sec (23.78-33.04); Prothrombin Time 11.4 sec (9.27-12.13)
[2018-08-29] MEDS: Ensure HIGH Protein Chocolate 8oz Bottle PO SCH ×3 (08:00→17:37)
[2018-08-29] MEDS ORDERED: fentaNYL CITRATE 100 MCG/2 ML VL ONE (08:15)
[2018-08-29] MEDS ORDERED: SODIUM CHL 0.9% 0 ML ONE (08:16)
[2018-08-29] MEDS ORDERED: MIDAZOLAM HCL 1MG/1ML-2 ML VIAL ONE (08:16)
[2018-08-29] MEDS ORDERED: IODIXANOL 320MG/ML 100ML BTL IV ONE (08:23)
--- NOTE | 2018-08-29 09:50 | NUR ---
Patient returned to unit from union laborer after having left heart cath done. Dressing to right groin dry and intact. Call light placed within reach and patient is aware he is to lay flat in bed for 2 hours.
[2018-08-29] MEDS: ENOXAPARIN SOD 40 MG/0.4 ML SYRINGE SC SCH (10:00)
[2018-08-29] MEDS: POTASSIUM CHL 20 Meq TABLET PO SCH ×2 (10:41→21:46)
[2018-08-29] MEDS: PANTOPRAZOLE 40 MG TAB PO SCH (10:41)
[2018-08-29] MEDS: CLOPIDOGREL BISULFATE 75 MG TAB PO SCH (10:41)
[2018-08-29] MEDS: DIGOXIN 0.25 MG TAB PO SCH (10:42)
[2018-08-29] MEDS: SACUBITRIL-VALSARTAN 24mg/26mg TAB PO SCH ×2 (10:42→21:48)
[2018-08-29] MEDS: CARVEDILOL 3.125 MG TAB PO SCH ×2 (10:43→21:55)
[2018-08-29] MEDS: FUROSEMIDE 40 MG/4 ML VIAL IV SCH (10:43)
[2018-08-29] MEDS: ACETYLCYSTEINE ORAL for CIN 20%(200MG/ML) 4ML PO SCH (10:52)
[2018-08-29] MEDS: INSULIN DETEMIR SC SCH ×2 (10:53→22:05)
[2018-08-29 12:00] VITALS: BP 121/77
--- NOTE | 2018-08-29 13:00 | NUR ---
Rounding Patient awake and alert laying in bed. Family member at bedside.
[2018-08-29 17:00] VITALS: BP 138/82
[2018-08-29] MEDS: AMITRIPTYLINE HCL 25 MG TAB PO SCH (17:37)
--- NOTE | 2018-08-29 19:37 | NUR ---
RECEIVED PATIENT FROM DAY SHIFT RN. PATIENT RESTING IN BED. NO S/S OF DISTRESS NOTED. C/O PAIN @ 7/10 AFTER MEDICATION EARLIER. PATIENT UNDERSTOOD THE SCHEDULE OF PAIN MANAGEMENT, WILL COME BACK FOR PAIN MEDICATION WHEN THE TIME IS DUE AND PER PATIENT REQUEST. DRESSING ON RIGHT GROIN C/D/I. NO S/S OF BLEEDING NOTED. POC INSTRUCTED AND ENCOURAGED PATIENT TO CALL FOR SECURE SOFTWARE ASSESSOR IF NEEDED. BED IN LOWEST POSITION WITH SIDE RAILS UP X 2. CALL SARAH WITHIN REACH. ALARM ON. CONTINUE TO MONITOR FOR CHANGES Q1H AND PRN.
--- NOTE | 2018-08-29 20:25 | NUR ---
PATIENT JUST REPORT HE FELL LAST NIGHT IN THE BATHROOM. THERE WAS WATER ON THE FLOOR. AND HE SAT ON THE FLOOR. NO OTHER PART OF BODY HIT ON SOMETHING. CHECKED PATIENT, NO SKIN BREAKS DOWN, NO BRUISE AND REDNESS NOTED ON THE BUTTOCKS. PATIENT C/O PAIN ON THE BUTTOCKS. INSTRUCTED PATIENT TO CALL WHENEVER THE INCIDENCE HAPPENED NEXT TIME. CHARGE NURSE AWARE OF THIS INCIDENT. WILL CALL HOSPITALIST TO REPORT IT PER PROTOCOL. CONTINUE TO MONITOR.
--- NOTE | 2018-08-29 20:37 | NUR ---
HOSPITALIST Called/paged MAINE GLOVER called re:PATIENT HAD EPISODE OF FALL LAST NIGHT PER PATIENT REPORT NOW. Waiting for call back. Continue care.
--- NOTE | 2018-08-29 20:53 | NUR ---
DOUBLE CHECKED WITH PATIENT TO CLARIFY THE EXACT TIME OF FALL, PATIENT STATED THAT WAS YESTERDAY AFTERNOON AROUND 4 TO 5 O'CLOCK. CHARGE NURSE CLINT AWARE. CONTINUE TO MONITOR.
[2018-08-29] MEDS: ATORVASTATIN 20 MG TAB PO SCH (21:46)
[2018-08-29] MEDS: ASCORBIC ACID 500 MG TAB PO SCH (21:46)
[2018-08-29 22:00] VITALS: BP 131/76
--- NOTE | 2018-08-29 22:05 | NUR ---
PATIENT C/O PAIN @ 02/02. MEDICATED PATIENT ORDERED. CONTINUE TO MONITOR.
--- NOTE | 2018-08-29 22:45 | NUR ---
HOSPITALIST returned call MAINE GLOVER returned call, updated on patient status and reason for call, NO TREATMENT RECEIVED. Continue TO MONITOR.
[2018-08-30] MEDS: ACCU-CHEK COMFORT CURVE STRIP VI SCH ×4 (00:15→18:16)
--- NOTE | 2018-08-30 00:15 | NUR ---
ACCU-CHECK, BS 123. NO COVERAGE. CONTINUE TO MONITOR.
[2018-08-30] MEDS: MORPHINE SULFATE 4 MG/ML SYR/VIAL IV PRN ×3 (04:13→20:40)
--- NOTE | 2018-08-30 04:14 | NUR ---
PATIENT C/O PAIN @ 03/05. MEDICATED PATIENT ORDERED. CONTINUE TO MONITOR.
[2018-08-30 05:00] VITALS: BP 115/70
[2018-08-30] MEDS: InsuLIN REG 1unit/0.01ml Soln (100units/ml) SC SCH ×4 (06:00→18:00)
[2018-08-30] MEDS: GABAPENTIN 300 MG CAP PO SCH ×3 (06:02→21:43)
[2018-08-30] MEDS: SODIUM CHLOR 0.9% PF (SALINE LOCK) 10ML VIAL/SYR IV SCH ×3 (06:02→21:55)
[2018-08-30] MEDS: SPIRONOLACTONE 25 MG TAB PO SCH ×2 (06:02→18:15)
--- NOTE | 2018-08-30 06:02 | NUR ---
ACCU-CHECK, BS 60. JUICE WITH SUGAR GIVEN TO ENCOURAGE PATIENT TO DRINK IN ORDER TO INCREASE THE BS. CONTINUE TO MONITOR.
[2018-08-30 06:56] LABS: Basophils # (auto) 0.1 uL; Basophils % (auto) 1.2 % (0.0-2.0); Eosinophils # (auto) 0.2 uL; Eosinophils % (auto) 4.7 % (0.0-7.0); Hematocrit 43.6 % (41.0-53.0); Hemoglobin 14.5 g/dL (13.5-17.5); Lymphocytes # (auto) 1.6 uL; Lymphocytes % (auto) 32.7 % (10.0-50.0); Mean Corpuscular Hemoglobin 29.9 pg (28.0-32.0); Mean Corpuscular Hgb Conc. 33.3 g/dL (32.0-36.0); Mean Corpuscular Volume 89.8 fL (80.0-100.0); Monocytes # (auto) 0.5 uL; Monocytes % (auto) 10.7 % (0.0-12.0); Neutrophils # (auto) 2.5 uL; Neutrophils % (auto) 50.7 % (37.0-80.0); Nucleated Red Blood Cells % 0.2 %; Platelet Count (auto) 227 10^3/uL (140-450); Red Blood Cells 4.86 10^6/uL (4.5-5.90); Red Cell Distribution Width 15.4 % (11.8-14.3); White Blood Cell 4.9 10^3/uL (4.4-10.8)
[2018-08-30 07:14] LABS: Calcium 8.7 mg/dL (8.5-10.1); Potassium 4.6 mmol/L (3.5-5.1)
[2018-08-30 07:24] LABS: BUN/Creatinine Ratio 28.3
[2018-08-30 09:07] VITALS: BP 105/48
[2018-08-30] MEDS: FUROSEMIDE 40 MG/4 ML VIAL IV SCH (10:00)
[2018-08-30] MEDS: CARVEDILOL 3.125 MG TAB PO SCH ×2 (10:00→21:48)
[2018-08-30] MEDS: SACUBITRIL-VALSARTAN 24mg/26mg TAB PO SCH ×2 (10:10→21:48)
[2018-08-30] MEDS: ASCORBIC ACID 500 MG TAB PO SCH ×2 (10:10→21:48)
[2018-08-30] MEDS: POTASSIUM CHL 20 Meq TABLET PO SCH ×2 (10:10→21:48)
[2018-08-30] MEDS: MULTIPLE VITAMINS W/ MINERALS TAB PO SCH (10:10)
[2018-08-30] MEDS: Ensure HIGH Protein Chocolate 8oz Bottle PO SCH ×3 (10:10→18:16)
[2018-08-30] MEDS: CLOPIDOGREL BISULFATE 75 MG TAB PO SCH (10:10)
[2018-08-30] MEDS: PANTOPRAZOLE 40 MG TAB PO SCH (10:10)
[2018-08-30] MEDS: INSULIN DETEMIR SC SCH ×2 (10:11→21:49)
[2018-08-30] MEDS: DIGOXIN 0.25 MG TAB PO SCH (10:11)
[2018-08-30] MEDS: ENOXAPARIN SOD 40 MG/0.4 ML SYRINGE SC SCH (10:19)
[2018-08-30 13:00] VITALS: BP 139/83
[2018-08-30 17:18] VITALS: BP 123/69
[2018-08-30] MEDS: AMITRIPTYLINE HCL 25 MG TAB PO SCH (18:15)
[2018-08-30] MEDS: ATORVASTATIN 20 MG TAB PO SCH (21:48)
[2018-08-30 22:00] VITALS: BP 122/72
[2018-08-31] MEDS: InsuLIN REG 1unit/0.01ml Soln (100units/ml) SC SCH ×4 (00:48→18:00)
[2018-08-31 05:00] VITALS: BP 111/65
[2018-08-31] MEDS: GABAPENTIN 300 MG CAP PO SCH ×3 (05:41→21:53)
[2018-08-31] MEDS: ACCU-CHEK COMFORT CURVE STRIP VI SCH ×4 (05:42→18:01)
[2018-08-31] MEDS: SPIRONOLACTONE 25 MG TAB PO SCH ×2 (05:42→17:20)
[2018-08-31] MEDS: SODIUM CHLOR 0.9% PF (SALINE LOCK) 10ML VIAL/SYR IV SCH ×3 (05:42→21:51)
[2018-08-31] MEDS: MORPHINE SULFATE 4 MG/ML SYR/VIAL IV PRN ×4 (05:42→22:04)
--- NOTE | 2018-08-31 06:58 | NUR ---
Low BS After morning vital signs the patient requested I check his sugar as he felt low. Upon assessment his blood sugar was 61. The patient was awake but sleepy and pale, gave him orange juice and crackers immediately. Reassessed him at 0530hrs and his sugar went up to 115. Checked the notes and saw the patient had a similar episode yesterday around the same time period. Will pass on to the day shift nurse the suggestion of possibly decreasing the amount of evening Lantus the patient receives. Will continue to monitor.
--- NOTE | 2018-08-31 08:00 | NUR ---
Dr Chinchilla at Bedside Dr Chinchilla at patient bedside.
[2018-08-31] MEDS: cefTRIAXone 1GM/50ML D5W 50 ML IV SCH ×2 (08:57→21:51)
[2018-08-31] MEDS: Ensure HIGH Protein Chocolate 8oz Bottle PO SCH ×3 (08:58→18:01)
[2018-08-31 09:00] VITALS: BP 110/62
[2018-08-31] MEDS: FUROSEMIDE 40 MG/4 ML VIAL IV SCH (10:05)
[2018-08-31] MEDS: SACUBITRIL-VALSARTAN 24mg/26mg TAB PO SCH ×2 (10:06→21:51)
[2018-08-31] MEDS: POTASSIUM CHL 20 Meq TABLET PO SCH ×2 (10:06→21:51)
[2018-08-31] MEDS: ENOXAPARIN SOD 40 MG/0.4 ML SYRINGE SC SCH (10:06)
[2018-08-31] MEDS: CLOPIDOGREL BISULFATE 75 MG TAB PO SCH (10:07)
[2018-08-31] MEDS: ASCORBIC ACID 500 MG TAB PO SCH ×2 (10:07→21:53)
[2018-08-31] MEDS: PANTOPRAZOLE 40 MG TAB PO SCH (10:07)
[2018-08-31] MEDS: CARVEDILOL 3.125 MG TAB PO SCH ×2 (10:07→21:53)
[2018-08-31] MEDS: DIGOXIN 0.25 MG TAB PO SCH (10:08)
[2018-08-31] MEDS: MULTIPLE VITAMINS W/ MINERALS TAB PO SCH (10:08)
[2018-08-31] MEDS: INSULIN DETEMIR SC SCH ×2 (10:59→21:54)
[2018-08-31 13:00] VITALS: BP 108/59
--- NOTE | 2018-08-31 15:15 | NUR ---
Paged Dr Chinchilla Paged Dr Chinchilla' office to inform him that patient cannot receive MRI scan due to stating he had heart stent placed 3 weeks ago.
--- NOTE | 2018-08-31 15:40 | NUR ---
Nutrition Follow-up Notes Wt.: 108.5 kg s of yesterday. Pt's s/p LHC (08/29/18), asleep, no signs of distress noted earlier, currently on Consistent Std. Carb: 60 gms/meal diet with Ensure High Protein 1 carton TID, has adequate PO intake aeb 85% ave. consumed meals (x6) in last 2.5 days. Est. Needs: 2000 kcal to 2500 kcal (20-25 kcal/kgBW), 100 gms to 130 gms pro (1.0-1.3 gms/kgBW for wound healing). Will continue to monitor pertinent labs and reassess nutrient need prn Labs: POC Gluc 109 H; 08/30/18 Gluc 63 L, Na 135 L, BUN 28 H, Trop I 0.128 H Skin: Neil scale 19, low risk, pt's right posterior plantar gt toe closed DFU per cyber security architect. Pls refer to cupola man's notes 08/25/18 for further details re tx plans. GI: Pt had 1 BM yesterday per cyber security architect. PES: Altered nutrition related lab values r/t current/chronic medical condition aeb hyperglycemia, elev. BUN, Trop I, HbA1c, hypocalcemia and mild hypoalbuminemia Obesity r/t food intake more than body requirement aeb 128% IBW, BMI 30.7 kg/m2 and increased body adiposity Will continue to monitor PO intake, skin status, pertinent labs and weight trend. F/u in 3 to 4 days. Rec.: 1.) Consider Consistent Standard Carb: 60 gms/meal, Cardiac: 2 gms Na, Low Chol, Low Fat diet. 2.) If Albumin level continues trending down, consider Prostat 1 pkt BID. 3.) Consider daily MVI with minerals and Asc acid 500 mgs BID. 4.) Continue close supervision with meals. 5.) If pt's PO intake remains consistently adequate (>75%), consider to d/c Ensure High Protein supplement. 5.) Refer to CDE/RD for further nutrition education and weight monitoring upon discharged. 6.) Continue current plan of care.
--- NOTE | 2018-08-31 16:22 | NUR ---
Called Nuc Med Called nuc med, stated the patient will receive bone scan on Monday.
[2018-08-31 17:00] VITALS: BP 130/73
[2018-08-31] MEDS: AMITRIPTYLINE HCL 25 MG TAB PO SCH (17:21)
--- NOTE | 2018-08-31 19:01 | NUR ---
End of Shift Endorsed care to NOC nurse. Patient shows no signs of distress at this time. Bed in lowest locked position, side rails up x2, and call light within reach.
--- NOTE | 2018-08-31 19:02 | NUR ---
Cardiology Consult Consult with Dr Ochoa needs to be called tomorrow 09/01. Dr Ochoa not taking any consults today 08/31. Online Communications Manager aware.
[2018-08-31 21:41] VITALS: BP 137/84
[2018-08-31] MEDS: ATORVASTATIN 20 MG TAB PO SCH (21:52)
[2018-09-01] MEDS: InsuLIN REG 1unit/0.01ml Soln (100units/ml) SC SCH ×5 (00:02→23:43)
[2018-09-01 05:27] VITALS: BP 121/72
[2018-09-01] MEDS: SPIRONOLACTONE 25 MG TAB PO SCH ×2 (06:16→18:25)
[2018-09-01] MEDS: GABAPENTIN 300 MG CAP PO SCH ×3 (06:16→21:53)
[2018-09-01] MEDS: SODIUM CHLOR 0.9% PF (SALINE LOCK) 10ML VIAL/SYR IV SCH ×3 (06:18→21:51)
[2018-09-01] MEDS: ACCU-CHEK COMFORT CURVE STRIP VI SCH ×5 (06:18→23:44)
--- NOTE | 2018-09-01 06:47 | NUR ---
Shift Note The patient had an uneventful night, tolerated treatments well, had no complaints. The patient was able to sleep most of the shift, only asked for pain meds once only receiving Morphine around 2200hrs. The patient's blood sugar continues to go up and down. He was high at 278 at 2200 and then 312 at midnight. Gave him both the Lantus and Reg insulin. Also left a snack for overnight. The patient's BS dropped to 100 at the 0600 check. He felt fine but a couple saltines anyway. Will let the day shift nurse know of the change in blood sugar. Will continue to monitor.
--- NOTE | 2018-09-01 07:40 | NUR ---
OPENING NOTE Assumed care of patient from NOC RNUlises. Patient resting in bed with eyes closed, even rise and fall of chest noted. No S/S of distress/SOB or pain. Bed in lowest, locked position with side rails up x2. Fall precautions in place and call light within reach. Will continue to monitor for changes Q1hr and PRN.
--- NOTE | 2018-09-01 07:50 | NUR ---
OFF UNIT Patient taken off unit via wheelchair to Nuclear Medicine for Bone Scan. No S/S of distress noted upon departure.
[2018-09-01] MEDS: Ensure HIGH Protein Chocolate 8oz Bottle PO SCH ×3 (08:08→18:26)
--- NOTE | 2018-09-01 08:30 | NUR ---
RETURN TO UNIT Patient returned to unit via wheelchair. No S/S of distress noted.
[2018-09-01 08:49] VITALS: BP 123/72
[2018-09-01] MEDS: CLOPIDOGREL BISULFATE 75 MG TAB PO SCH (10:49)
[2018-09-01] MEDS: POTASSIUM CHL 20 Meq TABLET PO SCH ×2 (10:49→21:53)
[2018-09-01] MEDS: SACUBITRIL-VALSARTAN 24mg/26mg TAB PO SCH ×2 (10:50→21:52)
[2018-09-01] MEDS: ASCORBIC ACID 500 MG TAB PO SCH ×2 (10:50→21:53)
[2018-09-01] MEDS: MULTIPLE VITAMINS W/ MINERALS TAB PO SCH (10:50)
[2018-09-01] MEDS: CARVEDILOL 3.125 MG TAB PO SCH ×2 (10:50→21:52)
[2018-09-01] MEDS: MORPHINE SULFATE 4 MG/ML SYR/VIAL IV PRN ×3 (10:51→20:44)
[2018-09-01] MEDS: DIGOXIN 0.25 MG TAB PO SCH (10:51)
[2018-09-01] MEDS: PANTOPRAZOLE 40 MG TAB PO SCH (10:51)
[2018-09-01] MEDS: FUROSEMIDE 40 MG/4 ML VIAL IV SCH (10:52)
[2018-09-01] MEDS: cefTRIAXone 1GM/50ML D5W 50 ML IV SCH ×2 (10:52→20:44)
[2018-09-01] MEDS: ENOXAPARIN SOD 40 MG/0.4 ML SYRINGE SC SCH (10:57)
[2018-09-01] MEDS: INSULIN DETEMIR SC SCH ×2 (10:57→22:03)
[2018-09-01 12:49] VITALS: BP 135/84
[2018-09-01 16:45] VITALS: BP 125/69
[2018-09-01] MEDS: AMITRIPTYLINE HCL 25 MG TAB PO SCH (18:25)
--- NOTE | 2018-09-01 19:41 | NUR ---
CLOSING NOTE Endorsed care of patient to NOC Yelena HERNANDEZ.
--- NOTE | 2018-09-01 19:45 | NUR ---
assumed care, pt. awake, no sob.
[2018-09-01] MEDS: ATORVASTATIN 20 MG TAB PO SCH (21:53)
[2018-09-01 22:00] VITALS: BP 135/74
[2018-09-02 05:00] VITALS: BP_SYST 149; BP_SYST 92; BP_DIAS 42; BP_DIAS 62
[2018-09-02] MEDS: GABAPENTIN 300 MG CAP PO SCH ×3 (05:37→21:44)
[2018-09-02] MEDS: SPIRONOLACTONE 25 MG TAB PO SCH ×2 (05:37→18:32)
[2018-09-02] MEDS: ACCU-CHEK COMFORT CURVE STRIP VI SCH ×4 (05:38→23:48)
[2018-09-02] MEDS: SODIUM CHLOR 0.9% PF (SALINE LOCK) 10ML VIAL/SYR IV SCH ×3 (05:38→21:41)
[2018-09-02] MEDS: InsuLIN REG 1unit/0.01ml Soln (100units/ml) SC SCH ×4 (05:38→23:49)
[2018-09-02] MEDS: MORPHINE SULFATE 4 MG/ML SYR/VIAL IV PRN ×3 (05:48→15:12)
--- NOTE | 2018-09-02 07:20 | NUR ---
OPENING NOTE Assumed care of patient from NOC RNYelena. Patient resting in bed with eyes closed, even rise and fall of chest noted. No S/S of distress/SOB or pain. Instructed on POC and to call for assist PRN, verbalized understanding. Bed in lowest, locked position with side rails up x2. Fall precautions in place and call light within reach. Will continue to monitor for changes Q1hr and PRN.
[2018-09-02 08:17] LABS: Basophils # (auto) 0 uL; Eosinophils # (auto) 0.2 uL; Eosinophils % (auto) 4.1 % (0.0-7.0); Hematocrit 37.9 % (41.0-53.0); Hemoglobin 12.7 g/dL (13.5-17.5); Lymphocytes # (auto) 1.2 uL; Mean Corpuscular Hemoglobin 29.4 pg (28.0-32.0); Mean Corpuscular Hgb Conc. 33.6 g/dL (32.0-36.0); Mean Corpuscular Volume 87.5 fL (80.0-100.0); Monocytes # (auto) 0.5 uL; Monocytes % (auto) 11.6 % (0.0-12.0); Neutrophils # (auto) 2.2 uL; Neutrophils % (auto) 54.3 % (37.0-80.0); Nucleated Red Blood Cells % 0.1 %; Platelet Count (auto) 177 10^3/uL (140-450); Red Blood Cells 4.33 10^6/uL (4.5-5.90); Red Cell Distribution Width 15.1 % (11.8-14.3)
[2018-09-02 08:28] LABS: BUN/Creatinine Ratio 26.7; Calcium 8.1 mg/dL (8.5-10.1); Potassium 4.3 mmol/L (3.5-5.1)
[2018-09-02 08:49] VITALS: BP 116/62
[2018-09-02] MEDS: CLOPIDOGREL BISULFATE 75 MG TAB PO SCH (10:35)
[2018-09-02] MEDS: CARVEDILOL 3.125 MG TAB PO SCH ×2 (10:35→21:43)
[2018-09-02] MEDS: ASCORBIC ACID 500 MG TAB PO SCH ×2 (10:36→21:44)
[2018-09-02] MEDS: PANTOPRAZOLE 40 MG TAB PO SCH (10:36)
[2018-09-02] MEDS: POTASSIUM CHL 20 Meq TABLET PO SCH ×2 (10:36→21:43)
[2018-09-02] MEDS: MULTIPLE VITAMINS W/ MINERALS TAB PO SCH (10:36)
[2018-09-02] MEDS: SACUBITRIL-VALSARTAN 24mg/26mg TAB PO SCH ×2 (10:36→21:43)
[2018-09-02] MEDS: DIGOXIN 0.25 MG TAB PO SCH (10:37)
[2018-09-02] MEDS: FUROSEMIDE 40 MG/4 ML VIAL IV SCH (10:37)
[2018-09-02] MEDS: ENOXAPARIN SOD 40 MG/0.4 ML SYRINGE SC SCH (10:37)
[2018-09-02] MEDS: Ensure HIGH Protein Chocolate 8oz Bottle PO SCH ×3 (10:38→18:32)
[2018-09-02] MEDS: INSULIN DETEMIR SC SCH ×2 (10:38→21:44)
[2018-09-02] MEDS: cefTRIAXone 1GM/50ML D5W 50 ML IV SCH ×2 (10:38→20:35)
[2018-09-02 12:20] VITALS: BP 118/67
[2018-09-02 16:06] VITALS: BP 126/70
[2018-09-02] MEDS: AMITRIPTYLINE HCL 25 MG TAB PO SCH (18:32)
--- NOTE | 2018-09-02 19:10 | NUR ---
CLOSING NOTE Endorsed care of patient to NOC Yelena HERNANDEZ.
--- NOTE | 2018-09-02 19:40 | NUR ---
ASSUMED CARE, PT. AWAKE, NO C/O PAIN, INSTRUCTED PT. NPO AFTER MN, NO SOB.
[2018-09-02] MEDS: ATORVASTATIN 20 MG TAB PO SCH (21:44)
[2018-09-02 22:00] VITALS: BP 102/54
[2018-09-03 05:00] VITALS: BP 110/61
[2018-09-03] MEDS: ACCU-CHEK COMFORT CURVE STRIP VI SCH ×4 (05:21→23:39)
[2018-09-03] MEDS: InsuLIN REG 1unit/0.01ml Soln (100units/ml) SC SCH ×4 (05:21→23:39)
[2018-09-03] MEDS: SODIUM CHLOR 0.9% PF (SALINE LOCK) 10ML VIAL/SYR IV SCH ×3 (05:31→21:48)
[2018-09-03] MEDS: SPIRONOLACTONE 25 MG TAB PO SCH ×2 (05:31→18:36)
[2018-09-03] MEDS: GABAPENTIN 300 MG CAP PO SCH ×3 (05:31→21:49)
[2018-09-03 05:37] LABS: Basophils # (auto) 0 uL; Eosinophils # (auto) 0.2 uL; Hematocrit 38.3 % (41.0-53.0); Lymphocytes # (auto) 1.4 uL; Lymphocytes % (auto) 32.7 % (10.0-50.0); Mean Corpuscular Hemoglobin 29.9 pg (28.0-32.0); Mean Corpuscular Volume 88.1 fL (80.0-100.0); Monocytes # (auto) 0.4 uL; Monocytes % (auto) 10.5 % (0.0-12.0); Neutrophils # (auto) 2.2 uL; Neutrophils % (auto) 51.8 % (37.0-80.0); Nucleated Red Blood Cells % 0.1 %; Platelet Count (auto) 183 10^3/uL (140-450); Red Blood Cells 4.35 10^6/uL (4.5-5.90); White Blood Cell 4.2 10^3/uL (4.4-10.8)
[2018-09-03 05:52] LABS: Anion Gap 7 (5-15); BUN/Creatinine Ratio 29.3; Blood Urea Nitrogen 27 mg/dL (7-18); Calcium 8.2 mg/dL (8.5-10.1); Carbon Dioxide 26 mmol/L (21-32); Chloride 104 mmol/L (98-107); GFR African American 112 mL/min; GFR Non-African American 93 mL/min; Glucose 122 mg/dL (74-106); Potassium 4.4 mmol/L (3.5-5.1); Sodium 137 mmol/L (136-145)
--- NOTE | 2018-09-03 06:34 | NUR ---
npo maintained, v/s stable, not in distress.
[2018-09-03] MEDS: Ensure HIGH Protein Chocolate 8oz Bottle PO SCH ×3 (08:00→17:46)
[2018-09-03] MEDS: cefTRIAXone 1GM/50ML D5W 50 ML IV SCH ×2 (09:00→20:56)
--- NOTE | 2018-09-03 09:02 | NUR ---
TAKEN TO ARTILLERY OR NAVAL GUNFIRE OBSERVER VIA BED NO SIGNS OF DISTRESS.
[2018-09-03 09:13] VITALS: BP 124/64
[2018-09-03] MEDS: POTASSIUM CHL 20 Meq TABLET PO SCH ×2 (09:46→21:48)
[2018-09-03] MEDS: FUROSEMIDE 40 MG/4 ML VIAL IV SCH (09:46)
[2018-09-03] MEDS: SACUBITRIL-VALSARTAN 24mg/26mg TAB PO SCH ×2 (09:46→21:48)
[2018-09-03] MEDS: CARVEDILOL 3.125 MG TAB PO SCH ×2 (09:46→21:52)
[2018-09-03] MEDS: DIGOXIN 0.25 MG TAB PO SCH (09:46)
[2018-09-03] MEDS: PANTOPRAZOLE 40 MG TAB PO SCH (09:47)
[2018-09-03] MEDS: ENOXAPARIN SOD 40 MG/0.4 ML SYRINGE SC SCH (09:47)
[2018-09-03] MEDS: CLOPIDOGREL BISULFATE 75 MG TAB PO SCH (09:47)
[2018-09-03] MEDS: ASCORBIC ACID 500 MG TAB PO SCH ×2 (09:47→21:49)
[2018-09-03] MEDS: MULTIPLE VITAMINS W/ MINERALS TAB PO SCH (09:47)
[2018-09-03] MEDS: INSULIN DETEMIR SC SCH ×2 (09:47→21:50)
[2018-09-03] MEDS ORDERED: ANGIOMAX 250 MG VIAL IV ONE ×2 (10:51→12:35)
[2018-09-03] MEDS ORDERED: fentaNYL CITRATE 100 MCG/2 ML VL ONE (10:51)
[2018-09-03] MEDS ORDERED: MIDAZOLAM HCL 1MG/1ML-2 ML VIAL ONE (10:52)
[2018-09-03] MEDS ORDERED: SODIUM CHL 0.9% 50 ML ONE ×2 (10:52→12:35)
[2018-09-03] MEDS ORDERED: IODIXANOL 320MG/ML 100ML BTL IV ONE (11:24)
[2018-09-03] MEDS ORDERED: LIDOCAINE 2%HCL (LOCAL ANESTH.) INJ 20ML MDV ONE (11:24)
[2018-09-03] MEDS: MORPHINE SULFATE 4 MG/ML SYR/VIAL IV PRN (16:39)
[2018-09-03 16:57] VITALS: BP 131/75
[2018-09-03] MEDS: AMITRIPTYLINE HCL 25 MG TAB PO SCH (18:36)
--- NOTE | 2018-09-03 19:30 | NUR ---
ASSUMED CARE, PT. AWAKE, RELATIVE AT BEDSIDE, NO C/O PAIN, DRESSING ON LT. GROIN DRY AND INTACT, NO SOB.
--- NOTE | 2018-09-03 20:48 | NUR ---
PT. BS- 373, PT. DRINK ONE GLASS OF CHOCOLATE AND A SNACK, LANTUS GIVEN ORDERED, TO CHECK BS AT 2330.
[2018-09-03] MEDS: ATORVASTATIN 20 MG TAB PO SCH (21:48)
[2018-09-03 22:00] VITALS: BP 133/78
[2018-09-04 05:00] VITALS: BP 118/57
[2018-09-04] MEDS: SODIUM CHLOR 0.9% PF (SALINE LOCK) 10ML VIAL/SYR IV SCH ×3 (05:51→21:47)
[2018-09-04] MEDS: GABAPENTIN 300 MG CAP PO SCH ×3 (05:51→21:46)
[2018-09-04] MEDS: SPIRONOLACTONE 25 MG TAB PO SCH ×2 (05:51→17:56)
[2018-09-04] MEDS: InsuLIN REG 1unit/0.01ml Soln (100units/ml) SC SCH ×4 (05:52→23:46)
[2018-09-04] MEDS: ACCU-CHEK COMFORT CURVE STRIP VI SCH ×4 (05:52→23:46)
[2018-09-04 06:54] LABS: Basophils # (auto) 0 uL; Basophils % (auto) 0.9 % (0.0-2.0); Eosinophils # (auto) 0.2 uL; Eosinophils % (auto) 4.2 % (0.0-7.0); Hematocrit 39.2 % (41.0-53.0); Hemoglobin 12.8 g/dL (13.5-17.5); Lymphocytes # (auto) 1.3 uL; Mean Corpuscular Hemoglobin 29.1 pg (28.0-32.0); Mean Corpuscular Hgb Conc. 32.7 g/dL (32.0-36.0); Mean Corpuscular Volume 88.8 fL (80.0-100.0); Monocytes # (auto) 0.6 uL; Monocytes % (auto) 11.8 % (0.0-12.0); Neutrophils # (auto) 2.9 uL; Neutrophils % (auto) 57.1 % (37.0-80.0); Nucleated Red Blood Cells % 0.1 %; Platelet Count (auto) 202 10^3/uL (140-450); Red Blood Cells 4.41 10^6/uL (4.5-5.90); Red Cell Distribution Width 14.8 % (11.8-14.3)
[2018-09-04 07:12] LABS: Calcium 8.3 mg/dL (8.5-10.1); Potassium 4.3 mmol/L (3.5-5.1)
[2018-09-04 07:16] LABS: BUN/Creatinine Ratio 25.3
--- NOTE | 2018-09-04 07:50 | NUR ---
Opening Shift Note Assumed care of patient, patient sleeping. No S/S of distress/SOB or pain. Will continue to monitor for changes Q1hr and PRN. Bed in lowest locked position, call light within reach.
[2018-09-04 08:00] VITALS: BP 111/68
[2018-09-04 08:24] VITALS: BP 111/68
[2018-09-04] MEDS: Ensure HIGH Protein Chocolate 8oz Bottle PO SCH ×3 (09:09→17:44)
[2018-09-04] MEDS: POTASSIUM CHL 20 Meq TABLET PO SCH ×2 (09:33→21:46)
[2018-09-04] MEDS: MULTIPLE VITAMINS W/ MINERALS TAB PO SCH (09:34)
[2018-09-04] MEDS: CARVEDILOL 3.125 MG TAB PO SCH ×2 (09:34→21:46)
[2018-09-04] MEDS: SACUBITRIL-VALSARTAN 24mg/26mg TAB PO SCH ×2 (09:35→21:56)
[2018-09-04] MEDS: DIGOXIN 0.25 MG TAB PO SCH (09:35)
[2018-09-04] MEDS: PANTOPRAZOLE 40 MG TAB PO SCH (09:35)
[2018-09-04] MEDS: CLOPIDOGREL BISULFATE 75 MG TAB PO SCH (09:35)
[2018-09-04] MEDS: ASCORBIC ACID 500 MG TAB PO SCH ×2 (09:36→21:45)
[2018-09-04] MEDS: FUROSEMIDE 40 MG/4 ML VIAL IV SCH (09:36)
[2018-09-04] MEDS: ENOXAPARIN SOD 40 MG/0.4 ML SYRINGE SC SCH (09:36)
[2018-09-04] MEDS: cefTRIAXone 1GM/50ML D5W 50 ML IV SCH ×2 (09:37→21:45)
[2018-09-04] MEDS: MORPHINE SULFATE 4 MG/ML SYR/VIAL IV PRN (09:38)
[2018-09-04] MEDS: INSULIN DETEMIR SC SCH ×2 (09:49→21:57)
--- NOTE | 2018-09-04 09:54 | NUR ---
UA CUP PROVIDED FOR UA. EDUCATION PROVIDED.
[2018-09-04 11:55] VITALS: BP 127/76
--- NOTE | 2018-09-04 14:06 | NUR ---
Nutrition Follow-up Notes Wt.: 103.6 kg s of yesterday. Noted 4.9 kg weight loss in last 3 days likely d/t ? fluid loss aeb on Lasix, negative I & Os for past few days Pt's s/p Angiography of the left common femoral reveals patent common femoral yesterday, watching TV, denies any discomfort when rounded this morning. Pt's NPO for a procedure, likely to resume oral diet with active order for Consistent Std. Carb: 60 gms/meal, Cardiac diet with Ensure High Protein 1 carton TID. Reinforced nutrition educ. re: current therapeutic diet as well as FDI for Lasix and he verbalized understanding. Est. Needs: 2000 kcal to 2500 kcal (20-25 kcal/kgBW), 100 gms to 130 gms pro (1.0-1.3 gms/kgBW for wound healing). Will continue to monitor pertinent labs and reassess nutrient need prn Labs: Gluc 168 H, Na 134 L, BUN 25 H, Ca 8.3 L, Trop I 0.047 HTrop I 0.128 H Skin: Neil scale 20, low risk, pt's right posterior plantar gt toe closed DFU per battery technician. Pls refer to fashion photographer's notes 08/25/18 for further details re tx plans. Noted pt's on MVI and Asc acid supplements. GI: Pt had 1 BM 09/02/18 per battery technician. PES: Altered nutrition related lab values r/t current/chronic medical condition aeb hyperglycemia, elev. BUN, Trop I, HbA1c, hypocalcemia and mild hypoalbuminemia Obesity r/t food intake more than body requirement aeb 128% IBW, BMI 30.7 kg/m2 and increased body adiposity Will continue to monitor NPO status/PO intake, skin status, pertinent labs and weight trend. F/u in 3 to 5 days. Rec.: 1.) Resume oral diet when medically appropriate. 2.) If Albumin level continues trending down, consider Prostat 1 pkt BID. 3.) Continue close supervision with meals. 4.) Refer to CDE/RD for further nutrition education and weight monitoring upon discharged. 5.) Continue current plan of care.
[2018-09-04 16:53] VITALS: BP 124/75
[2018-09-04] MEDS: AMITRIPTYLINE HCL 25 MG TAB PO SCH (17:56)
--- NOTE | 2018-09-04 18:51 | NUR ---
END OF SHIFT PATIENT RESTING IN BED. NO S/S OF DISTRESS. INSTRUCTED PATIENT TO CALL PRN. BED IN LOWEST LOCKED POSITION, CALL LIGHT WITHIN REACH. ENDORSED CARE TO MARY ENCISO.
--- NOTE | 2018-09-04 19:20 | NUR ---
Opening Shift Note Assumed care of pt, resting in bed watching television, alert and oriented x4. No S/S of distress or SOB, no pain noted or reported at this time. Instructed on POC and to call for assistance as needed. Bed locked in lowest position with call light within reach. Will continue to monitor Q1hr or PRN throughout the shift.
[2018-09-04 21:07] LABS: Urine Bacteria NONE SEEN /hpf (None Seen); Urine Blood Negative /uL (Negative); Urine Specific Gravity 1.011 (1.001-1.035); Urine WBC <1 /hpf (0 - 3)
[2018-09-04] MEDS: TEMAZEPAM 15 MG CAP PO PRN (21:45)
[2018-09-04] MEDS: ATORVASTATIN 20 MG TAB PO SCH (21:46)
[2018-09-04 22:00] VITALS: BP 138/79
--- NOTE | 2018-09-04 23:15 | NUR ---
IV removal Right hand IV DC'd with clean sterile technique, catheter fully intact. Pressure dressing applied to site. Patient tolerated well.
[2018-09-05 05:20] VITALS: BP 84/45
[2018-09-05] MEDS: GABAPENTIN 300 MG CAP PO SCH ×3 (05:38→21:44)
[2018-09-05] MEDS: SPIRONOLACTONE 25 MG TAB PO SCH ×2 (05:38→17:33)
[2018-09-05] MEDS: ACCU-CHEK COMFORT CURVE STRIP VI SCH ×3 (05:40→17:58)
[2018-09-05] MEDS: SODIUM CHLOR 0.9% PF (SALINE LOCK) 10ML VIAL/SYR IV SCH ×3 (05:40→21:43)
[2018-09-05] MEDS: InsuLIN REG 1unit/0.01ml Soln (100units/ml) SC SCH ×3 (05:40→17:57)
[2018-09-05 06:04] LABS: INR 1.01 (0.9-1.15); Partial Thromboplastin Time 29.4 sec (23.78-33.04); Prothrombin Time 10.8 sec (9.27-12.13)
--- NOTE | 2018-09-05 07:30 | NUR ---
Opening Shift Note Assumed care of patient, awake and alert. No S/S of distress/SOB or pain. Instructed on POC and to call for assist PRN, will continue to monitor for changes Q1hr and PRN. PT HAD BEEN NPO SINCE MIDNIGHT AND IS AWARE OF PENDING CARDIAC CATH PROCEDURE FOR TODAY.
[2018-09-05] MEDS: Ensure HIGH Protein Chocolate 8oz Bottle PO SCH ×3 (08:00→17:58)
[2018-09-05 08:23] VITALS: BP 122/77
[2018-09-05] MEDS: cefTRIAXone 1GM/50ML D5W 50 ML IV SCH ×2 (09:26→21:42)
[2018-09-05] MEDS: CLOPIDOGREL BISULFATE 75 MG TAB PO SCH (09:30)
[2018-09-05] MEDS: FUROSEMIDE 40 MG/4 ML VIAL IV SCH (09:30)
[2018-09-05] MEDS: POTASSIUM CHL 20 Meq TABLET PO SCH ×2 (09:30→21:44)
[2018-09-05] MEDS: PANTOPRAZOLE 40 MG TAB PO SCH (09:30)
[2018-09-05] MEDS: DIGOXIN 0.25 MG TAB PO SCH (09:31)
[2018-09-05] MEDS: CARVEDILOL 3.125 MG TAB PO SCH ×2 (09:31→21:44)
[2018-09-05] MEDS: INSULIN DETEMIR SC SCH ×2 (10:00→21:45)
[2018-09-05] MEDS: SACUBITRIL-VALSARTAN 24mg/26mg TAB PO SCH ×2 (10:00→21:45)
--- NOTE | 2018-09-05 11:00 | NUR ---
PT TAKEN TO ASSISTANT BASKETBALL COACH. AWAKE ALERT ORIENTED X 4. NO DISTRESS NOTED. REPORT GIVEN TO MARY YOUSSEF.
[2018-09-05] MEDS ORDERED: IOHEXOL 350 MG/ML 100ML IJ ONE (12:03)
[2018-09-05] MEDS ORDERED: LIDOCAINE 2%HCL (LOCAL ANESTH.) INJ 20ML MDV ONE (12:03)
[2018-09-05] MEDS ORDERED: ANGIOMAX 250 MG VIAL IV ONE ×2 (12:06→13:50)
[2018-09-05] MEDS ORDERED: SODIUM CHL 0.9% 50 ML ONE ×2 (12:07→13:52)
[2018-09-05] MEDS ORDERED: fentaNYL CITRATE 100 MCG/2 ML VL ONE (12:07)
[2018-09-05] MEDS ORDERED: MIDAZOLAM HCL 1MG/1ML-2 ML VIAL ONE (12:07)
[2018-09-05 13:00] VITALS: BP 118/76
--- NOTE | 2018-09-05 14:30 | NUR ---
Report received from MARY YOUSSEF. ROBERT WILKINSONONY brought to bed following Cardiac catheterization, on general manager food and portable oxygen. Patient BROUGHT BACK to ROOM, connected to copy messenger and oxygen. Catheterization site assessed for any bleeding, redness or swelling. SAFEGUARD device in place. Pedal pulses on affected leg assessed for positive tissue perfusion. Patient instructed on need to notify staff immediately if any pain, burning or wetness to site, and any lower back pain. Patient educated on new cardiac medications. All questions and concerns addressed, patient verbalized understanding of all education and instruction. See notes for any further. PT IS AWARE THAT HE HAS TO STAY FLAT/SUPINE IN BED UNTIL 830 PM. PT VERBALIZED UNDERSTANDING. PT IS ALSO ON TRENDELENBERG POSITION WITH HEAD ELEVATED. NOTE: Addendum: 09/05/18 at 1656 by Melinda Altman RN AMMENDMENT: DRESSING ON RIGHT GROIN IS A 4X4 AND TEGADERM.
[2018-09-05 16:46] VITALS: BP 142/80
[2018-09-05] MEDS: MULTIPLE VITAMINS W/ MINERALS TAB PO SCH (16:59)
[2018-09-05] MEDS: ASCORBIC ACID 500 MG TAB PO SCH ×2 (16:59→21:43)
[2018-09-05] MEDS: AMITRIPTYLINE HCL 25 MG TAB PO SCH (17:32)
--- NOTE | 2018-09-05 18:00 | NUR ---
DR GRAHAM AT BEDSIDE.
--- NOTE | 2018-09-05 18:15 | NUR ---
PT NOTES PT WAS FOUND GETTING UP IN BED. STATED THAT HIS BACK HURTS FROM LAYING IN BED THAT LONG. REMINDED PT THAT HE NEEDS TO STAY FLAT UNTIL 830. AT BEDSIDE.
--- NOTE | 2018-09-05 19:34 | NUR ---
CLOSING NOTES CARE ENDORSED TO MARY ENCISO.
--- NOTE | 2018-09-05 19:50 | NUR ---
Opening Shift Note Assumed care of pt, laying flat in bed watching television, alert and oriented x4. No S/S of distress or SOB, pt. complains of pain in lower back, will medicate per medication orders. Dressing to right groin is clean, dry, and intact, no S/S of bleeding or hematoma. Instructed on POC and to call for assistance as needed. Bed locked in lowest position with call light within reach. Will continue to monitor Q1hr or PRN throughout the shift.
[2018-09-05] MEDS ORDERED: HYDROcodone-ACET 5/325MG TAB PO PRN (20:15)
[2018-09-05] MEDS: TEMAZEPAM 15 MG CAP PO PRN (21:43)
[2018-09-05] MEDS: ATORVASTATIN 20 MG TAB PO SCH (21:44)
[2018-09-05 21:46] VITALS: BP_SYST 137
[2018-09-06] MEDS: InsuLIN REG 1unit/0.01ml Soln (100units/ml) SC SCH ×3 (00:25→11:17)
[2018-09-06] MEDS: ACCU-CHEK COMFORT CURVE STRIP VI SCH ×3 (00:25→11:17)
[2018-09-06 05:15] VITALS: BP 109/59
[2018-09-06] MEDS: GABAPENTIN 300 MG CAP PO SCH ×2 (05:28→14:00)
[2018-09-06] MEDS: SPIRONOLACTONE 25 MG TAB PO SCH (05:28)
[2018-09-06] MEDS: SODIUM CHLOR 0.9% PF (SALINE LOCK) 10ML VIAL/SYR IV SCH ×2 (05:29→14:00)
[2018-09-06] MEDS: MORPHINE SULFATE 4 MG/ML SYR/VIAL IV PRN ×2 (05:38→11:17)
[2018-09-06 08:00] VITALS: BP 122/73
--- NOTE | 2018-09-06 08:00 | NUR ---
Morning note patient resting in bed with even and unlabored respirations, no distress noted. Patient instructed on POC, fall precautions and to call for assistance as needed. Patient verbalized understanding. Fall precautions in place with bed in low locked position, call light within reach. Will continue to monitor q1hr & PRN.
[2018-09-06] MEDS: MULTIPLE VITAMINS W/ MINERALS TAB PO SCH (08:31)
[2018-09-06] MEDS: POTASSIUM CHL 20 Meq TABLET PO SCH (08:31)
[2018-09-06] MEDS: SACUBITRIL-VALSARTAN 24mg/26mg TAB PO SCH (08:31)
[2018-09-06] MEDS: CLOPIDOGREL BISULFATE 75 MG TAB PO SCH (08:31)
[2018-09-06] MEDS: PANTOPRAZOLE 40 MG TAB PO SCH (08:31)
[2018-09-06] MEDS: cefTRIAXone 1GM/50ML D5W 50 ML IV SCH (08:31)
[2018-09-06] MEDS: CARVEDILOL 3.125 MG TAB PO SCH (08:32)
[2018-09-06] MEDS: DIGOXIN 0.25 MG TAB PO SCH (08:32)
[2018-09-06] MEDS: ASCORBIC ACID 500 MG TAB PO SCH (08:32)
[2018-09-06] MEDS: FUROSEMIDE 40 MG/4 ML VIAL IV SCH (08:33)
[2018-09-06] MEDS: INSULIN DETEMIR SC SCH (08:33)
[2018-09-06] MEDS: Ensure HIGH Protein Chocolate 8oz Bottle PO SCH ×2 (08:45→12:45)
--- NOTE | 2018-09-06 08:51 | NUR ---
MD was at bedside - Dr. Noriega; discharge clearance Dr. Noriega was at bedside. Patient is clear for discharge per Dr. Noriega.
[2018-09-06 13:00] VITALS: BP 126/70
[2018-09-06 14:14] VITALS: BP 126/70
[2018-09-06] MEDS ORDERED: FURO40TA4 PO (14:14)
[2018-09-06] MEDS ORDERED: POTA20TA53 PO (14:14)
--- NOTE | 2018-09-06 15:28 | NUR ---
Discharge discharge education and paperwork given to the patient. Patient instructed on scheduled follow up appointment with Dr. Smiley. Patient verbalized understanding to all. IV removed with clean technique, catheter intact. Dressing applied. Telemonitor removed, cleaned and returned to telemonitor tech. Instructed patient to gather personal belongings and notify his transportation of discharge. Patient verbalized understanding. Instructed patient to notify staff once ready. Patient verbalized understanding. No distress noted.
--- NOTE | 2018-09-06 16:24 | NUR ---
Patient continues to wait for transportation to arrive no distress noted.
--- NOTE | 2018-09-06 17:09 | NUR ---
Patient taken to private vehicle via wheelchair patient reports having all personal belongings. No distress noted.
== END 2018-09-06 17:05 | disposition home or self-care (01) | DRG 181 ==
LOC: ER 04:08 → EDBD 04:08 → TELE 09:54 → TELE-WESTW 12:18
PROVIDERS: ADMIT Internal Medicine; ATTEND Internal Medicine
PROC: 4A023N7 Measurement of Cardiac Sampling and Pressure, Left Heart, Percutaneous Approach (ICD-10-PCS; principal; 2018-08-29)
PROC: B2111ZZ Fluoroscopy of Multiple Coronary Arteries using Low Osmolar Contrast (ICD-10-PCS; 2018-08-29)
PROC: B2151ZZ Fluoroscopy of Left Heart using Low Osmolar Contrast (ICD-10-PCS; 2018-08-29)
PROC: B2181ZZ Fluoroscopy of Left Internal Mammary Bypass Graft using Low Osmolar Contrast (ICD-10-PCS; 2018-08-29)
PROC: B2121ZZ Fluoroscopy of Single Coronary Artery Bypass Graft using Low Osmolar Contrast (ICD-10-PCS; 2018-08-29)
PROC: 047K3Z1 Dilation of Right Femoral Artery using Drug-Coated Balloon, Percutaneous Approach (ICD-10-PCS; 2018-09-03)
PROC: 047M3Z1 Dilation of Right Popliteal Artery using Drug-Coated Balloon, Percutaneous Approach (ICD-10-PCS; 2018-09-03)
PROC: 04CK3ZZ Extirpation of Matter from Right Femoral Artery, Percutaneous Approach (ICD-10-PCS; 2018-09-03)
PROC: 04CM3ZZ Extirpation of Matter from Right Popliteal Artery, Percutaneous Approach (ICD-10-PCS; 2018-09-03)
PROC: B41G1ZZ Fluoroscopy of Left Lower Extremity Arteries using Low Osmolar Contrast (ICD-10-PCS; 2018-09-03)
PROC: B41F1ZZ Fluoroscopy of Right Lower Extremity Arteries using Low Osmolar Contrast (ICD-10-PCS; 2018-09-03)
PROC: 047L3Z1 Dilation of Left Femoral Artery using Drug-Coated Balloon, Percutaneous Approach (ICD-10-PCS; 2018-09-05)
PROC: 047N3Z1 Dilation of Left Popliteal Artery using Drug-Coated Balloon, Percutaneous Approach (ICD-10-PCS; 2018-09-05)
PROC: 047S3Z1 Dilation of Left Posterior Tibial Artery using Drug-Coated Balloon, Percutaneous Approach (ICD-10-PCS; 2018-09-05)
PROC: 04CL3ZZ Extirpation of Matter from Left Femoral Artery, Percutaneous Approach (ICD-10-PCS; 2018-09-05)
PROC: 04CN3ZZ Extirpation of Matter from Left Popliteal Artery, Percutaneous Approach (ICD-10-PCS; 2018-09-05)
PROC: 04CS3ZZ Extirpation of Matter from Left Posterior Tibial Artery, Percutaneous Approach (ICD-10-PCS; 2018-09-05)
DX: I13.0 Hypertensive heart and chronic kidney disease with heart failure and stage 1 through stage 4 chronic kidney disease, or unspecified chronic kidney disease (principal); I21.4 Non-ST elevation (NSTEMI) myocardial infarction; E43 Unspecified severe protein-calorie malnutrition; I70.203 Unspecified atherosclerosis of native arteries of extremities, bilateral legs; I50.43 Acute on chronic combined systolic (congestive) and diastolic (congestive) heart failure; E11.21 Type 2 diabetes mellitus with diabetic nephropathy; E11.65 Type 2 diabetes mellitus with hyperglycemia; E87.1 Hypo-osmolality and hyponatremia; E87.6 Hypokalemia; E78.5 Hyperlipidemia, unspecified; I25.5 Ischemic cardiomyopathy; E11.51 Type 2 diabetes mellitus with diabetic peripheral angiopathy without gangrene; E11.22 Type 2 diabetes mellitus with diabetic chronic kidney disease; F15.10 Other stimulant abuse, uncomplicated; I25.10 Atherosclerotic heart disease of native coronary artery without angina pectoris; I99.8 Other disorder of circulatory system; J98.11 Atelectasis; N18.9 Chronic kidney disease, unspecified; Z91.19 Patient's noncompliance with other medical treatment and regimen; Z95.1 Presence of aortocoronary bypass graft; Z95.5 Presence of coronary angioplasty implant and graft; Z88.8 Allergy status to other drugs, medicaments and biological substances; Z82.3 Family history of stroke; Z82.49 Family history of ischemic heart disease and other diseases of the circulatory system; Z83.3 Family history of diabetes mellitus; Z68.31 Body mass index [BMI] 31.0-31.9, adult
CPT/HCPCS: 36415; 71045; 73630; 78315; 80048; 80053; 80307; 81001; 82550; 82962; 83036; 83735; 83880; 84443; 84484; 85025; 85379; 85610; 85730; 86850; 86900; 86901; 87081; 93005; 93306; 93926; 96361; 96374; 96375; A6257; C1725; G0378; J0153; J0696; J1815; J2250; J2405; Q9956; Q9967

== ENCOUNTER 2018-09-11 20:50 | Emergency (ER) | payer MEDICAID ==
[~2018-09-11] VITALS: Ht 180.3 cm; Wt 95.3 kg
[2018-09-11] MEDS ORDERED: SODIUM CHLORIDE 0.9% 500 ML IVB ONE (20:57)
[2018-09-11] MEDS ORDERED: ONDANSETRON HCL 4 MG/2 ML VIAL IV ONE (21:00)
[2018-09-11] MEDS ORDERED: HYDROmorphone HCL 2 MG/ML VL IV ONE (21:00)
[2018-09-11 21:37] LABS: Basophils # (auto) 0.1 uL; Basophils % (auto) 1.1 % (0.0-2.0); Eosinophils # (auto) 0.1 uL; Eosinophils % (auto) 1.9 % (0.0-7.0); Hematocrit 36.5 % (41.0-53.0); Hemoglobin 12.1 g/dL (13.5-17.5); Lymphocytes # (auto) 1.3 uL; Lymphocytes % (auto) 21.2 % (10.0-50.0); Mean Corpuscular Hemoglobin 29.4 pg (28.0-32.0); Mean Corpuscular Hgb Conc. 33.2 g/dL (32.0-36.0); Mean Corpuscular Volume 88.6 fL (80.0-100.0); Monocytes # (auto) 0.5 uL; Monocytes % (auto) 8.7 % (0.0-12.0); Neutrophils % (auto) 67.1 % (37.0-80.0); Nucleated Red Blood Cells % 0.1 %; Platelet Count (auto) 228 10^3/uL (140-450); Red Blood Cells 4.12 10^6/uL (4.5-5.90); Red Cell Distribution Width 15.1 % (11.8-14.3); White Blood Cell 5.9 10^3/uL (4.4-10.8)
[2018-09-11 21:53] LABS: INR 1.02 (0.9-1.15); Partial Thromboplastin Time 28.3 sec (23.78-33.04); Prothrombin Time 10.9 sec (9.27-12.13)
[2018-09-11 21:58] LABS: Albumin 2.2 g/dL (3.4-5.0); BUN/Creatinine Ratio 18.8; Calcium 8.1 mg/dL (8.5-10.1); Magnesium 2.1 mg/dL (1.6-2.6)
[2018-09-11 22:00] LABS: Bilirubin, Total 0.6 mg/dL (0.2-1.0); Total Protein 7.7 g/dL (6.4-8.2)
[2018-09-11] MEDS ORDERED: InsuLIN REG 1unit/0.01ml Soln (100units/ml) IV ONE (22:15)
[2018-09-12 03:30] VITALS: BP 114/69
== END 2018-09-12 05:02 | disposition home or self-care (01) ==
LOC: EDBD 20:50 → ER 20:54
DX: N30.90 Cystitis, unspecified without hematuria (principal); E11.65 Type 2 diabetes mellitus with hyperglycemia; E11.22 Type 2 diabetes mellitus with diabetic chronic kidney disease; I13.0 Hypertensive heart and chronic kidney disease with heart failure and stage 1 through stage 4 chronic kidney disease, or unspecified chronic kidney disease; N18.9 Chronic kidney disease, unspecified; I50.89 Other heart failure; E78.5 Hyperlipidemia, unspecified; I25.2 Old myocardial infarction; Z79.4 Long term (current) use of insulin; Z95.1 Presence of aortocoronary bypass graft; Z88.1 Allergy status to other antibiotic agents; Z88.6 Allergy status to analgesic agent
CPT/HCPCS: 36415; 74176; 80053; 82150; 83690; 83735; 85025; 85610; 85730; 93005; 93970; 96361; 96374; 96375; 99284; J1170; J1815; J2405; J7030

== ENCOUNTER 2018-09-19 21:33 | Emergency (ER) | payer MEDICAID | END 2018-09-20 00:54 | disposition left against medical advice (07) | LOC: EDBD 21:33 → ER 21:35 | DX: M79.606 Pain in leg, unspecified (principal); Z53.21 Procedure and treatment not carried out due to patient leaving prior to being seen by health care provider ==

== ENCOUNTER 2018-10-26 12:35 | Emergency (ER) | payer MEDICAID ==
[~2018-10-26] VITALS: Ht 177.8 cm; Wt 99.8 kg
[2018-10-26 12:41] VITALS: BP 146/81
[2018-10-26] MEDS ORDERED: KETOROLAC TROMETH 60MG/2ML VIAL IM ONE (14:15)
[2018-10-26] MEDS ORDERED: HYDROcodone-ACET 5/325MG TAB PO ONE (14:15)
== END 2018-10-26 14:40 | disposition home or self-care (01) ==
LOC: EDBD 12:35 → ER 12:35
DX: S29.012A Strain of muscle and tendon of back wall of thorax, initial encounter (principal); S20.211A Contusion of right front wall of thorax, initial encounter; E11.22 Type 2 diabetes mellitus with diabetic chronic kidney disease; I13.0 Hypertensive heart and chronic kidney disease with heart failure and stage 1 through stage 4 chronic kidney disease, or unspecified chronic kidney disease; N18.9 Chronic kidney disease, unspecified; I50.9 Heart failure, unspecified; E78.5 Hyperlipidemia, unspecified; I25.2 Old myocardial infarction; Z98.61 Coronary angioplasty status; Z88.6 Allergy status to analgesic agent; Z88.1 Allergy status to other antibiotic agents; Z88.8 Allergy status to other drugs, medicaments and biological substances; Z79.01 Long term (current) use of anticoagulants; Z79.899 Other long term (current) drug therapy; Z79.4 Long term (current) use of insulin; Z95.1 Presence of aortocoronary bypass graft; W01.198A Fall on same level from slipping, tripping and stumbling with subsequent striking against other object, initial encounter; Y93.89 Activity, other specified; Y99.8 Other external cause status; Y92.89 Other specified places as the place of occurrence of the external cause
CPT/HCPCS: 71101; 72070

== ENCOUNTER 2018-11-18 23:48 | Emergency (ER) | payer MEDICAID ==
[~2018-11-18] VITALS: Ht 180.3 cm; Wt 90.7 kg
[2018-11-19 01:09] LABS: Urine Bacteria MOD /hpf (None Seen); Urine Blood 2+ /uL (Negative); Urine Budding Yeast OCCASIONAL /hpf (None Seen); Urine Hyaline Cast FEW /lpf (0 - 2); Urine Mucus FEW (None Seen); Urine WBC 16 /hpf (0 - 3)
[2018-11-19 04:03] LABS: Basophils # (auto) 0.1 uL; Basophils % (auto) 0.9 % (0.0-2.0); Eosinophils # (auto) 0.4 uL; Eosinophils % (auto) 4.7 % (0.0-7.0); Hematocrit 43.3 % (41.0-53.0); Hemoglobin 14.9 g/dL (13.5-17.5); Lymphocytes # (auto) 1.4 uL; Lymphocytes % (auto) 18.7 % (10.0-50.0); Mean Corpuscular Hemoglobin 29.9 pg (28.0-32.0); Mean Corpuscular Hgb Conc. 34.5 g/dL (32.0-36.0); Mean Corpuscular Volume 86.9 fL (80.0-100.0); Monocytes # (auto) 0.7 uL; Monocytes % (auto) 9.5 % (0.0-12.0); Neutrophils % (auto) 66.2 % (37.0-80.0); Nucleated Red Blood Cells % 0.1 %; Platelet Count (auto) 279 10^3/uL (140-450); Red Blood Cells 4.99 10^6/uL (4.5-5.90); Red Cell Distribution Width 15.5 % (11.8-14.3); White Blood Cell 7.5 10^3/uL (4.4-10.8)
[2018-11-19 04:32] LABS: Albumin 2.6 g/dL (3.4-5.0); Potassium 3.9 mmol/L (3.5-5.1)
[2018-11-19 04:38] LABS: BUN/Creatinine Ratio 18.3; Bilirubin, Total 0.7 mg/dL (0.2-1.0); Total Protein 8.5 g/dL (6.4-8.2)
[2018-11-19] MEDS ORDERED: cefTRIAXone 1GM/50ML D5W 50 ML IV ONE (08:00)
[2018-11-19] MEDS ORDERED: SODIUM CHLORIDE 0.9% 1,000 ML IV ONE (08:00)
[2018-11-19] MEDS ORDERED: InsuLIN REG 1unit/0.01ml Soln (100units/ml) IV ONE (08:15)
[2018-11-19 12:25] VITALS: BP 158/90
== END 2018-11-19 12:29 | disposition home or self-care (01) ==
LOC: ER 23:51
DX: E11.65 Type 2 diabetes mellitus with hyperglycemia (principal); N39.0 Urinary tract infection, site not specified; E11.22 Type 2 diabetes mellitus with diabetic chronic kidney disease; I13.0 Hypertensive heart and chronic kidney disease with heart failure and stage 1 through stage 4 chronic kidney disease, or unspecified chronic kidney disease; N18.9 Chronic kidney disease, unspecified; I50.9 Heart failure, unspecified; E78.5 Hyperlipidemia, unspecified; I25.2 Old myocardial infarction; Z79.4 Long term (current) use of insulin; Z95.1 Presence of aortocoronary bypass graft; Z98.61 Coronary angioplasty status; Z79.899 Other long term (current) drug therapy; Z88.1 Allergy status to other antibiotic agents; Z88.6 Allergy status to analgesic agent
CPT/HCPCS: 36415; 80053; 81001; 82962; 85025; 96365; 96366; 96375; 99283; J0696; J1815; J7030

== ENCOUNTER 2018-12-24 19:28 | Emergency (ER) | payer MEDICAID ==
[~2018-12-24] VITALS: Ht 180.3 cm; Wt 93.0 kg
[2018-12-24] MEDS ORDERED: SODIUM CHLORIDE 0.9% 1,000 ML IV ONE (20:00)
[2018-12-24 20:36] LABS: Basophils # (auto) 0.1 uL; Basophils % (auto) 1.9 % (0.0-2.0); Eosinophils # (auto) 0.1 uL; Eosinophils % (auto) 2.3 % (0.0-7.0); Hematocrit 35.5 % (41.0-53.0); Hemoglobin 12.4 g/dL (13.5-17.5); Lymphocytes # (auto) 1.4 uL; Lymphocytes % (auto) 36.3 % (10.0-50.0); Mean Corpuscular Hemoglobin 30.8 pg (28.0-32.0); Mean Corpuscular Hgb Conc. 35.1 g/dL (32.0-36.0); Mean Corpuscular Volume 87.8 fL (80.0-100.0); Monocytes # (auto) 0.4 uL; Monocytes % (auto) 11.5 % (0.0-12.0); Neutrophils # (auto) 1.8 uL; Nucleated Red Blood Cells % 0.1 %; Platelet Count (auto) 171 10^3/uL (140-450); Red Blood Cells 4.04 10^6/uL (4.5-5.90); Red Cell Distribution Width 15.8 % (11.8-14.3); White Blood Cell 3.8 10^3/uL (4.4-10.8)
[2018-12-24 20:54] LABS: Albumin 2.6 g/dL (3.4-5.0); Calcium 8.2 mg/dL (8.5-10.1)
[2018-12-24 21:01] LABS: BUN/Creatinine Ratio 7.1; Bilirubin, Total 0.9 mg/dL (0.2-1.0); Total Protein 6.9 g/dL (6.4-8.2)
[2018-12-24 21:06] LABS: Potassium 2.7 mmol/L (3.5-5.1)
[2018-12-24] MEDS ORDERED: POTASSIUM CHL 20MEQ/100ML 100 ML IV ONE (21:30)
[2018-12-24] MEDS ORDERED: MORPHINE SULFATE 4 MG/ML SYR/VIAL IV ONE (21:30)
[2018-12-24] MEDS ORDERED: ONDANSETRON HCL 4 MG/2 ML VIAL IV ONE (21:30)
[2018-12-24 23:46] VITALS: BP 133/83
[2018-12-25] MEDS ORDERED: POTASSIUM CHL 20MEQ/100ML 100 ML IV ONE (00:30)
[2018-12-25] MEDS ORDERED: POTASSIUM EFFERVESENT TAB 25 MEQ PO ONE (01:15)
== END 2018-12-25 03:02 | disposition home or self-care (01) ==
LOC: EDBD 19:28 → ER 19:33
DX: M54.16 Radiculopathy, lumbar region (principal); E11.40 Type 2 diabetes mellitus with diabetic neuropathy, unspecified; I13.0 Hypertensive heart and chronic kidney disease with heart failure and stage 1 through stage 4 chronic kidney disease, or unspecified chronic kidney disease; E11.22 Type 2 diabetes mellitus with diabetic chronic kidney disease; N18.3 Chronic kidney disease, stage 3 (moderate); I50.9 Heart failure, unspecified; E78.5 Hyperlipidemia, unspecified; I25.2 Old myocardial infarction; Z95.1 Presence of aortocoronary bypass graft; Z98.61 Coronary angioplasty status; Z79.4 Long term (current) use of insulin; Z79.899 Other long term (current) drug therapy; Z88.6 Allergy status to analgesic agent; Z88.8 Allergy status to other drugs, medicaments and biological substances; Z88.1 Allergy status to other antibiotic agents
CPT/HCPCS: 36415; 36600; 72131; 80053; 80320; 82010; 82150; 82805; 82962; 83525; 83605; 83690; 83880; 84132; 84484; 85025; 93005; 96374; 96375; 99284; J2270; J2405; J3480; J7030; J7040

== ENCOUNTER 2019-01-31 20:38 | Inpatient (IN) | payer MEDICAID ==
[~2019-01-31] VITALS: Ht 167.6 cm; Wt 75.3 kg
[~2019-01-31 20:38] MED LIST changes: +POTA-220 PO; -POTA20TA53 PO
[2019-01-31 21:42] LABS: Basophils # (auto) 0.1 uL; Basophils % (auto) 2.3 % (0.0-2.0); Eosinophils # (auto) 0.1 uL; Eosinophils % (auto) 2.2 % (0.0-7.0); Hematocrit 41.3 % (41.0-53.0); Lymphocytes # (auto) 1.8 uL; Lymphocytes % (auto) 42.1 % (10.0-50.0); Mean Corpuscular Hemoglobin 30.4 pg (28.0-32.0); Mean Corpuscular Volume 89.5 fL (80.0-100.0); Monocytes # (auto) 0.3 uL; Monocytes % (auto) 7.6 % (0.0-12.0); Neutrophils # (auto) 1.9 uL; Neutrophils % (auto) 45.8 % (37.0-80.0); Nucleated Red Blood Cells % 0.1 %; Platelet Count (auto) 193 10^3/uL (140-450); Red Blood Cells 4.61 10^6/uL (4.5-5.90); Red Cell Distribution Width 13.9 % (11.8-14.3); White Blood Cell 4.2 10^3/uL (4.4-10.8)
[2019-01-31 22:03] LABS: Albumin 2.8 g/dL (3.4-5.0); BUN/Creatinine Ratio 15.7; Calcium 8.3 mg/dL (8.5-10.1)
[2019-01-31 22:08] LABS: Bilirubin, Total 0.5 mg/dL (0.2-1.0); Total Protein 7.3 g/dL (6.4-8.2)
[2019-01-31] MEDS ORDERED: ENOXAPARIN SOD 100 MG/1 ML SYRINGE SC ONE (22:30)
[2019-01-31] MEDS ORDERED: CLOPIDOGREL BISULFATE 75 MG TAB PO ONE (22:45)
[2019-02-01] MEDS ORDERED: HYDROcodone-ACET 5/325MG TAB PO ONE (05:15)
[2019-02-01] MEDS ORDERED: LORazepam 0.5 MG TAB PO PRN (06:30)
[2019-02-01 06:44] LABS: Basophils # (auto) 0.1 uL; Basophils % (auto) 2.2 % (0.0-2.0); Eosinophils # (auto) 0.1 uL; Eosinophils % (auto) 2.8 % (0.0-7.0); Hematocrit 37.7 % (41.0-53.0); Hemoglobin 13.1 g/dL (13.5-17.5); Lymphocytes # (auto) 2.1 uL; Lymphocytes % (auto) 43.9 % (10.0-50.0); Mean Corpuscular Hgb Conc. 34.8 g/dL (32.0-36.0); Mean Corpuscular Volume 88.9 fL (80.0-100.0); Monocytes # (auto) 0.4 uL; Neutrophils % (auto) 42.1 % (37.0-80.0); Nucleated Red Blood Cells % 0.1 %; Platelet Count (auto) 173 10^3/uL (140-450); Red Blood Cells 4.24 10^6/uL (4.5-5.90); Red Cell Distribution Width 13.8 % (11.8-14.3); White Blood Cell 4.8 10^3/uL (4.4-10.8)
[2019-02-01] MEDS ORDERED: DEXTROSE (50%) 50ML SYRG IV PRN (06:45)
[2019-02-01 07:16] LABS: BUN/Creatinine Ratio 17.9; Calcium 8.4 mg/dL (8.5-10.1); Potassium 3.3 mmol/L (3.5-5.1)
[2019-02-01] MEDS ORDERED: FUROSEMIDE 40 MG/4 ML VIAL IV ONE (08:15)
[2019-02-01] MEDS ORDERED: SPIRONOLACTONE 25 MG TAB PO ONE (08:15)
[2019-02-01] MEDS ORDERED: POTASSIUM CHL 20 Meq TABLET PO ONE (09:30)
[2019-02-01] MEDS: CARVEDILOL 3.125 MG TAB PO SCH ×2 (10:30→22:19)
[2019-02-01] MEDS: PANTOPRAZOLE 40 MG TAB PO SCH (10:30)
[2019-02-01] MEDS: ENOXAPARIN SOD 80 MG/0.8ML SYRINGE SC SCH ×2 (10:30→22:19)
[2019-02-01] MEDS: DIGOXIN 0.125 MG TAB PO SCH (10:30)
[2019-02-01] MEDS: CLOPIDOGREL BISULFATE 75 MG TAB PO SCH (10:30)
[2019-02-01] MEDS: ACCU-CHEK COMFORT CURVE STRIP VI SCH ×2 (12:16→18:02)
[2019-02-01] MEDS: InsuLIN REG 1unit/0.01ml Soln (100units/ml) SC SCH ×2 (12:28→18:00)
[2019-02-01] MEDS: GABAPENTIN 300 MG CAP PO SCH ×2 (14:30→22:19)
[2019-02-01 15:22] LABS: Urine Bacteria NONE SEEN /hpf (None Seen); Urine Blood TRACE /uL (Negative); Urine Budding Yeast MANY /hpf (None Seen); Urine Specific Gravity 1.008 (1.001-1.035); Urine WBC 11 /hpf (0 - 3)
[2019-02-01] MEDS: SPIRONOLACTONE 25 MG TAB PO SCH (18:30)
[2019-02-01 21:23] LABS: Albumin 2.4 g/dL (3.4-5.0); BUN/Creatinine Ratio 19.8; Calcium 8.3 mg/dL (8.5-10.1); Potassium 4.2 mmol/L (3.5-5.1)
[2019-02-01 21:27] LABS: Bilirubin, Total 0.9 mg/dL (0.2-1.0); Total Protein 6.6 g/dL (6.4-8.2)
[2019-02-01 21:35] LABS: Basophils # (auto) 0 uL; Basophils % (auto) 0.7 % (0.0-2.0); Eosinophils # (auto) 0.1 uL; Eosinophils % (auto) 2.4 % (0.0-7.0); Hematocrit 41.6 % (41.0-53.0); Hemoglobin 14.4 g/dL (13.5-17.5); Lymphocytes # (auto) 2.1 uL; Lymphocytes % (auto) 38.6 % (10.0-50.0); Mean Corpuscular Hemoglobin 31.2 pg (28.0-32.0); Mean Corpuscular Hgb Conc. 34.7 g/dL (32.0-36.0); Monocytes # (auto) 0.4 uL; Monocytes % (auto) 7.4 % (0.0-12.0); Neutrophils # (auto) 2.7 uL; Neutrophils % (auto) 50.9 % (37.0-80.0); Nucleated Red Blood Cells % 0.1 %; Platelet Count (auto) 177 10^3/uL (140-450); Red Blood Cells 4.63 10^6/uL (4.5-5.90); Red Cell Distribution Width 13.9 % (11.8-14.3); White Blood Cell 5.4 10^3/uL (4.4-10.8)
[2019-02-01] MEDS ORDERED: MORPHINE SULF INJ 2 MG/ML SYRINGE 1ML IV PRN (22:00)
[2019-02-01] MEDS ORDERED: NITROGLYCERIN 0.4 MG SL TAB SL PRN (22:00)
[2019-02-01] MEDS: ATORVASTATIN 20 MG TAB PO SCH (22:19)
[2019-02-01 23:50] VITALS: BP 106/68
--- NOTE | 2019-02-01 23:50 | NUR ---
Telemetry admit from DARYL WILKINSONALICIA admitted to Telemetry unit after SBAR received. Patient oriented to YOBANI SELLERS RN primary RN, unit, room, bed, and unit policies regarding patient care and visiting hours. Patient now on continuous telemetry monitoring, tele box # 47 and telemetry reading on arrival to unit is Sinus Rhythm at 65BPM. Patient placed on bedside oxygen, weighed by bedscale and encouraged to call if they need something. All questions and concerns addressed, patient verbalized understanding. Note: Patient is alert and oriented but drowsy; answers questions appropriately but is falling back to sleep with every questions answered. Patient denies pain, no distress noted saturating at 97% on Room air. Partial bed bath
--- NOTE | 2019-02-02 00:20 | NUR ---
Rounds Patient is alert and oriented but drowsy; answers questions appropriately but is falling back to sleep with every questions answered. Patient denies pain, no distress noted saturating at 97% on Room air. Partial bed bath done. Patient is resting with eyes closed. Bed placed in lowest position, bed alarm turned on and call light within reach.
--- NOTE | 2019-02-02 02:08 | NUR ---
FARHAD Escalera from lab called and reports a troponin of 0.882, up from 2034 result of 0.867. Patient is asymptomatic, resting in bed, denies pain and no distress noted. Will notify
--- NOTE | 2019-02-02 04:00 | NUR ---
DR Tejeda informed of Toponin lab results. wants to make sure there is Lovenox order in place and aspirin 81 mg qd. Will notify of the next troponin level when result is up for the 0400 labs.
[2019-02-02 04:30] VITALS: BP 106/68
[2019-02-02] MEDS: ACCU-CHEK COMFORT CURVE STRIP VI SCH ×4 (06:00→17:54)
[2019-02-02] MEDS: InsuLIN REG 1unit/0.01ml Soln (100units/ml) SC SCH ×4 (06:00→17:55)
--- NOTE | 2019-02-02 06:00 | NUR ---
MRSA IN [facility] SENT TO LAB
[2019-02-02] MEDS: SPIRONOLACTONE 25 MG TAB PO SCH ×2 (06:26→17:55)
[2019-02-02] MEDS: GABAPENTIN 300 MG CAP PO SCH ×3 (06:26→22:48)
--- NOTE | 2019-02-02 06:57 | NUR ---
SAYRA Camacho FROM LAB CALLED AND REPORTS TROPONIN OF 0.750 DOWN FROM 0.882. MD DUNN IS AWARE. NO NEW ORDERS RECEIVED.
--- NOTE | 2019-02-02 07:30 | NUR ---
Opening Shift Note Assumed care of patient, awake and alert. No S/S of distress/SOB or pain. Instructed on POC and to call for assist PRN, will continue to monitor for changes Q1hr and PRN.
[2019-02-02 09:00] VITALS: BP 144/82
[2019-02-02] MEDS: PANTOPRAZOLE 40 MG TAB PO SCH (10:11)
[2019-02-02] MEDS: DIGOXIN 0.125 MG TAB PO SCH (10:11)
[2019-02-02] MEDS: CLOPIDOGREL BISULFATE 75 MG TAB PO SCH (10:11)
[2019-02-02] MEDS: ENOXAPARIN SOD 80 MG/0.8ML SYRINGE SC SCH ×2 (10:12→22:47)
[2019-02-02] MEDS: CARVEDILOL 3.125 MG TAB PO SCH ×2 (10:12→22:48)
--- NOTE | 2019-02-02 11:27 | NUR ---
Accucheck result 133. Patient refusing regular insulin coverage. He states he uses Humalog insulin at home and does not cover until 200.
--- NOTE | 2019-02-02 11:51 | NUR ---
Dr. Ochoa here for cardiology consults. He states he is not the substance abuse nurse for this patient.
[2019-02-02 13:00] VITALS: BP 130/78
--- NOTE | 2019-02-02 14:21 | NUR ---
Dr. Duvall in to see patient as hospitalist. Dr. Duvall informed that Dr. Olson and Dr. Noriega are not on-call for cardiology this weekend. Order received for diabetic diet.
--- NOTE | 2019-02-02 16:39 | NUR ---
Patient incontinent of moderate soft stool. Patient cleaned, linens changed. Call light in reach. Will continue to monitor.
[2019-02-02 17:05] VITALS: BP 109/69
[2019-02-02 20:00] VITALS: BP 130/48
[2019-02-02 22:00] VITALS: BP 120/61
[2019-02-02] MEDS: ATORVASTATIN 20 MG TAB PO SCH (22:00)
[2019-02-02] MEDS: ZOLPIDEM TARTRATE 5 MG TAB PO PRN (22:47)
[2019-02-03] MEDS: InsuLIN REG 1unit/0.01ml Soln (100units/ml) SC SCH ×4 (06:00→17:28)
[2019-02-03] MEDS: ACCU-CHEK COMFORT CURVE STRIP VI SCH ×4 (06:00→17:27)
[2019-02-03 06:02] VITALS: BP 108/57
[2019-02-03] MEDS: SPIRONOLACTONE 25 MG TAB PO SCH ×2 (06:14→17:27)
[2019-02-03] MEDS: GABAPENTIN 300 MG CAP PO SCH ×3 (06:14→22:25)
--- NOTE | 2019-02-03 07:30 | NUR ---
Opening Shift Note Assumed care of patient, awake and alert. No S/S of distress/SOB or pain. Instructed on POC and to call for assist PRN, will continue to monitor for changes Q1hr and PRN. Patient is lethargic but alert and oriented when aroused. No S/S distress.
[2019-02-03 09:20] VITALS: BP 145/81
[2019-02-03] MEDS: CARVEDILOL 3.125 MG TAB PO SCH ×2 (09:41→22:25)
[2019-02-03] MEDS: CLOPIDOGREL BISULFATE 75 MG TAB PO SCH (09:41)
[2019-02-03] MEDS: PANTOPRAZOLE 40 MG TAB PO SCH (09:41)
[2019-02-03] MEDS: ENOXAPARIN SOD 80 MG/0.8ML SYRINGE SC SCH ×2 (09:41→22:25)
[2019-02-03] MEDS: DIGOXIN 0.125 MG TAB PO SCH (09:42)
--- NOTE | 2019-02-03 11:30 | NUR ---
Patient incontinent of urine and stool. Patient cleaned. Call light in reach. Will continue to monitor.
--- NOTE | 2019-02-03 12:45 | NUR ---
Patient given lunch tray. HOB elevated, table placed in front of patient. Patient is awake and alert. Will continue to monitor.
[2019-02-03 13:00] VITALS: BP 143/81
[2019-02-03 17:26] VITALS: BP 118/66
[2019-02-03] MEDS: ACETAMINOPHEN 500 MG TAB PO PRN ×2 (17:33→21:40)
[2019-02-03 20:00] VITALS: BP 121/68
--- NOTE | 2019-02-03 20:00 | NUR ---
Opening Shift Note Assumed care of patient, alert and oriented x 4. Bedbound and on room air. No S/S of distress/SOB. Patient reported pain level of 7/10. Bed in lowest locked position, side rails up x 2, call light within reach. Instructed on POC and to call for assist PRN, will continue to monitor for changes Q1hr and PRN.
[2019-02-03 22:00] VITALS: BP 121/68
[2019-02-03] MEDS: ATORVASTATIN 20 MG TAB PO SCH (22:25)
[2019-02-03] MEDS: ZOLPIDEM TARTRATE 5 MG TAB PO PRN (22:26)
[2019-02-04] MEDS: ACCU-CHEK COMFORT CURVE STRIP VI SCH ×5 (00:11→23:26)
[2019-02-04] MEDS: InsuLIN REG 1unit/0.01ml Soln (100units/ml) SC SCH ×5 (00:12→23:26)
[2019-02-04 04:57] VITALS: BP 122/64
[2019-02-04] MEDS: GABAPENTIN 300 MG CAP PO SCH ×3 (05:55→22:28)
[2019-02-04] MEDS: SPIRONOLACTONE 25 MG TAB PO SCH ×2 (05:55→18:04)
[2019-02-04 06:56] LABS: Basophils # (auto) 0.1 uL; Basophils % (auto) 1.7 % (0.0-2.0); Eosinophils # (auto) 0.1 uL; Eosinophils % (auto) 2.4 % (0.0-7.0); Hematocrit 39.9 % (41.0-53.0); Hemoglobin 13.7 g/dL (13.5-17.5); Lymphocytes # (auto) 1.7 uL; Lymphocytes % (auto) 42.4 % (10.0-50.0); Mean Corpuscular Hemoglobin 30.9 pg (28.0-32.0); Mean Corpuscular Hgb Conc. 34.4 g/dL (32.0-36.0); Mean Corpuscular Volume 89.7 fL (80.0-100.0); Monocytes # (auto) 0.5 uL; Monocytes % (auto) 11.7 % (0.0-12.0); Neutrophils # (auto) 1.6 uL; Neutrophils % (auto) 41.8 % (37.0-80.0); Nucleated Red Blood Cells % 0.2 %; Platelet Count (auto) 171 10^3/uL (140-450); Red Blood Cells 4.44 10^6/uL (4.5-5.90); Red Cell Distribution Width 13.6 % (11.8-14.3); White Blood Cell 3.9 10^3/uL (4.4-10.8)
[2019-02-04 07:14] LABS: Calcium 8.6 mg/dL (8.5-10.1)
--- NOTE | 2019-02-04 08:00 | NUR ---
report received from offgoing nurse, AM assessment complete, no signs or symptoms of acute distress noted, patient resting with eyes closed, arouses to tactile stimuli, denies pain or discomfort at this time, resp equal and unlabored, will continue to monitor, call light within reach
[2019-02-04 09:00] VITALS: BP 132/75
[2019-02-04] MEDS: CARVEDILOL 3.125 MG TAB PO SCH ×2 (10:00→22:27)
[2019-02-04] MEDS: PANTOPRAZOLE 40 MG TAB PO SCH (10:00)
[2019-02-04] MEDS: CLOPIDOGREL BISULFATE 75 MG TAB PO SCH (10:00)
[2019-02-04] MEDS: DIGOXIN 0.125 MG TAB PO SCH (10:00)
[2019-02-04] MEDS: ENOXAPARIN SOD 80 MG/0.8ML SYRINGE SC SCH (10:00)
[2019-02-04 13:00] VITALS: BP_SYST 132; BP_SYST 165; BP_DIAS 75; BP_DIAS 78
[2019-02-04 16:45] VITALS: BP 135/73
[2019-02-04] MEDS: ATORVASTATIN 20 MG TAB PO SCH (22:28)
[2019-02-04] MEDS: ZOLPIDEM TARTRATE 5 MG TAB PO PRN (22:29)
[2019-02-04] MEDS: ACETAMINOPHEN 500 MG TAB PO PRN (22:30)
[2019-02-04 23:13] VITALS: BP 141/75
--- NOTE | 2019-02-04 23:29 | NUR ---
Patient's blood sugar is 178 and needs to be covered with 3 units of regular insulin. Patient was asking for a sandwich. I told him we are not allowed to give the patients extra food if they on a diabetic diet. Patient re-educated regarding his diabetes. I told him he is on a consistent carbohydrate diet because he is diabetic, and that calories are being calculated. Patient kept on arguing and started to yell saying "This is bullshit!". Patient given the 3 units of regular insulin per sliding scale protocol, half a sandwich and allowed to ventilate. Will continue monitoring patient.
[2019-02-05 05:25] VITALS: BP 110/60
[2019-02-05] MEDS: ACCU-CHEK COMFORT CURVE STRIP VI SCH ×4 (06:07→22:08)
[2019-02-05] MEDS: InsuLIN REG 1unit/0.01ml Soln (100units/ml) SC SCH ×4 (06:08→22:07)
[2019-02-05] MEDS: GABAPENTIN 300 MG CAP PO SCH ×3 (06:08→21:58)
[2019-02-05] MEDS: SPIRONOLACTONE 25 MG TAB PO SCH ×2 (06:09→18:04)
[2019-02-05 09:00] VITALS: BP 140/67
[2019-02-05] MEDS: PANTOPRAZOLE 40 MG TAB PO SCH (10:34)
[2019-02-05] MEDS: CARVEDILOL 3.125 MG TAB PO SCH ×2 (10:36→21:58)
[2019-02-05] MEDS: CLOPIDOGREL BISULFATE 75 MG TAB PO SCH (10:36)
[2019-02-05] MEDS: DIGOXIN 0.125 MG TAB PO SCH (10:37)
[2019-02-05 11:09] LABS: Basophils # (auto) 0 uL; Basophils % (auto) 0.9 % (0.0-2.0); Eosinophils # (auto) 0.1 uL; Eosinophils % (auto) 2.1 % (0.0-7.0); Hematocrit 39.6 % (41.0-53.0); Hemoglobin 13.5 g/dL (13.5-17.5); Lymphocytes # (auto) 1.3 uL; Lymphocytes % (auto) 29.5 % (10.0-50.0); Mean Corpuscular Hemoglobin 31.4 pg (28.0-32.0); Mean Corpuscular Hgb Conc. 34.1 g/dL (32.0-36.0); Monocytes # (auto) 0.4 uL; Monocytes % (auto) 10.1 % (0.0-12.0); Neutrophils # (auto) 2.5 uL; Neutrophils % (auto) 57.4 % (37.0-80.0); Platelet Count (auto) 175 10^3/uL (140-450); Red Cell Distribution Width 13.4 % (11.8-14.3); White Blood Cell 4.3 10^3/uL (4.4-10.8)
[2019-02-05] MEDS ORDERED: ENOXAPARIN SOD 40 MG/0.4 ML SYRINGE SC ONE (11:45)
[2019-02-05 11:48] LABS: Albumin 2.6 g/dL (3.4-5.0); Calcium 9.2 mg/dL (8.5-10.1); Potassium 4.5 mmol/L (3.5-5.1)
[2019-02-05 11:51] LABS: Bilirubin, Total 0.5 mg/dL (0.2-1.0); Total Protein 6.8 g/dL (6.4-8.2)
--- NOTE | 2019-02-05 15:26 | NUR ---
Nutrition Assessment Notes please see attached link for complete assessment Est. Needs BW (74 kg): 8296-5315 kcal (23-25 kcal/kgBW), 74-81 gms pro (1.0-1.1 gms/kgBW). Will continue to monitor pertinent labs and reassess nutrient need prn Addendum: 02/05/19 at [address] Amended: Links added.
--- NOTE | 2019-02-05 15:58 | NUR ---
Consents signed Witnessed consents to left heart cath tomorrow. no questions at this time. will continue to monitor.
[2019-02-05 16:45] VITALS: BP 121/66
--- NOTE | 2019-02-05 19:41 | NUR ---
RECEIVED PT FROM DAY RN POC REVIEWED
[2019-02-05] MEDS: ATORVASTATIN 20 MG TAB PO SCH (21:57)
--- NOTE | 2019-02-05 23:39 | NUR ---
RESTING WITH EYES CLOSED CALL LIGHT WITHIN REACH BED ALARM INTACT, PT WILL BE NPO OF MN
[2019-02-06] VITALS (7 sets, daily range): BP systolic 88–141; BP diastolic 57–88
[2019-02-06] MEDS: SODIUM CHLORIDE 0.9% 1,000 ML IV SCH ×2 (00:01→13:21)
[2019-02-06] MEDS: CARVEDILOL 3.125 MG TAB PO SCH ×2 (02:13→22:00)
--- NOTE | 2019-02-06 05:12 | NUR ---
pt remains npo, bed bath linen change and chg wipes completed
[2019-02-06] MEDS: SPIRONOLACTONE 25 MG TAB PO SCH ×2 (05:50→17:51)
[2019-02-06] MEDS: GABAPENTIN 300 MG CAP PO SCH ×3 (05:50→20:42)
[2019-02-06] MEDS: InsuLIN REG 1unit/0.01ml Soln (100units/ml) SC SCH ×4 (05:51→22:27)
[2019-02-06] MEDS: ACCU-CHEK COMFORT CURVE STRIP VI SCH ×4 (05:51→22:28)
--- NOTE | 2019-02-06 06:58 | NUR ---
REPORT GIVEN TO AM NURSE POC REVIEWED
[2019-02-06 07:31] LABS: Basophils # (auto) 0 uL; Basophils % (auto) 0.9 % (0.0-2.0); Eosinophils # (auto) 0.1 uL; Eosinophils % (auto) 2.1 % (0.0-7.0); Hematocrit 38.4 % (41.0-53.0); Hemoglobin 13.3 g/dL (13.5-17.5); Lymphocytes # (auto) 1.6 uL; Lymphocytes % (auto) 37.7 % (10.0-50.0); Mean Corpuscular Hemoglobin 30.9 pg (28.0-32.0); Mean Corpuscular Hgb Conc. 34.6 g/dL (32.0-36.0); Mean Corpuscular Volume 89.4 fL (80.0-100.0); Monocytes # (auto) 0.4 uL; Monocytes % (auto) 9.8 % (0.0-12.0); Neutrophils # (auto) 2.1 uL; Neutrophils % (auto) 49.5 % (37.0-80.0); Nucleated Red Blood Cells % 0.1 %; Platelet Count (auto) 157 10^3/uL (140-450); Red Blood Cells 4.29 10^6/uL (4.5-5.90); Red Cell Distribution Width 13.6 % (11.8-14.3); White Blood Cell 4.2 10^3/uL (4.4-10.8)
[2019-02-06 07:46] LABS: BUN/Creatinine Ratio 25.9; Calcium 8.8 mg/dL (8.5-10.1); Potassium 4.1 mmol/L (3.5-5.1)
[2019-02-06 07:52] LABS: INR < 0.93 (0.9-1.15); Partial Thromboplastin Time 27.7 sec (23.64-32.05)
[2019-02-06] MEDS: PANTOPRAZOLE 40 MG TAB PO SCH (10:00)
[2019-02-06] MEDS: CLOPIDOGREL BISULFATE 75 MG TAB PO SCH (10:00)
[2019-02-06] MEDS ORDERED: IOHEXOL 350 MG/ML 100ML IJ ONE ×4 (10:29→11:31)
[2019-02-06] MEDS ORDERED: LIDOCAINE 2%HCL (LOCAL ANESTH.) INJ 20ML MDV ONE (10:29)
[2019-02-06] MEDS ORDERED: MIDAZOLAM HCL 1MG/1ML-2 ML VIAL ONE (10:30)
[2019-02-06] MEDS ORDERED: ATROPINE SULFATE 1 MG/1 ML VIAL ONE (10:30)
[2019-02-06] MEDS ORDERED: ANGIOMAX 250 MG VIAL IV ONE (10:30)
[2019-02-06] MEDS ORDERED: fentaNYL CITRATE 100 MCG/2 ML VL ONE (10:30)
[2019-02-06] MEDS ORDERED: EPINEPHrine HCL 1 MG/10 ML SYRG ONE (10:31)
[2019-02-06] MEDS ORDERED: SODIUM CHL 0.9% 50 ML ONE (10:31)
[2019-02-06] MEDS ORDERED: CLOPIDOGREL BISULFATE 75 MG TAB ONE ×2 (11:53→11:57)
[2019-02-06] MEDS ORDERED: ASPirin 325 MG TAB ONE (11:53)
--- NOTE | 2019-02-06 13:39 | NUR ---
pt off floor to labourers at 0900. returned to floor at 1255. drowsy, easily arousable. vss. dressing to right groin intact. no bleeding noted.
[2019-02-06] MEDS: HYDROcodone-ACET 10/325MG TAB PO PRN ×2 (16:01→20:42)
--- NOTE | 2019-02-06 19:48 | NUR ---
received report from day rn poc reviewed
[2019-02-06] MEDS: ATORVASTATIN 20 MG TAB PO SCH (20:44)
[2019-02-07] MEDS: SODIUM CHLORIDE 0.9% 1,000 ML IV SCH ×2 (00:23→16:01)
[2019-02-07 05:00] VITALS: BP 116/72
[2019-02-07] MEDS: SPIRONOLACTONE 25 MG TAB PO SCH ×2 (06:40→18:00)
[2019-02-07] MEDS: GABAPENTIN 300 MG CAP PO SCH ×3 (06:40→21:42)
[2019-02-07] MEDS: ACCU-CHEK COMFORT CURVE STRIP VI SCH ×4 (06:41→23:53)
[2019-02-07] MEDS: InsuLIN REG 1unit/0.01ml Soln (100units/ml) SC SCH ×4 (06:42→23:53)
[2019-02-07 09:00] VITALS: BP 123/68
[2019-02-07] MEDS: CLOPIDOGREL BISULFATE 75 MG TAB PO SCH (10:00)
[2019-02-07] MEDS: CARVEDILOL 3.125 MG TAB PO SCH ×2 (10:00→21:41)
[2019-02-07] MEDS: PANTOPRAZOLE 40 MG TAB PO SCH (10:00)
[2019-02-07] MEDS: HYDROcodone-ACET 10/325MG TAB PO PRN ×2 (10:32→23:54)
[2019-02-07 13:00] VITALS: BP 103/53
[2019-02-07 17:00] VITALS: BP 104/61
--- NOTE | 2019-02-07 18:16 | NUR ---
1800 ALDACTONE HELD. BP 104/61 D/TLAST NIGHT PT BLOOD PRESSURE DROPPED TO 80'S . WILL CONTINUE TO MONITOR.
--- NOTE | 2019-02-07 19:24 | NUR ---
Opening Shift Note Assumed care of patient, awake and alert x 4. No S/S of distress/SOB. Bed is in lowest position and locked. Call light within reach. Board updated. Tele box number matches monitor and leads are in correct placement. Instructed on POC and to call for assist PRN, will continue to monitor for changes Q1hr and PRN.
[2019-02-07 21:26] VITALS: BP 128/62
[2019-02-07] MEDS: ATORVASTATIN 20 MG TAB PO SCH (21:42)
[2019-02-07] MEDS: ZOLPIDEM TARTRATE 5 MG TAB PO PRN (23:53)
--- NOTE | 2019-02-07 23:59 | NUR ---
Doris hospitalist because patient is reporting pain 7-8 out of 10 in his lower back which is chronic lower back pain. Patient received Gabapentin 600 mg PO TID and [place] 10/325 mg PO BID PRN pain. Patient would like to know if he can have [place] switched to Q4hrs or Q6hrs PRN. Patient takes Gabapentin, same dose, at home.
--- NOTE | 2019-02-08 00:02 | NUR ---
Dr. Dumont's progress note mentions patient may be going for AICD tomorrow though no orders for consent have been placed and patient has not been educated. To be cautious, in case MD Olson is planning to perform AICD placement tomorrow, I am making the patient NPO in case order comes through in AM.
--- NOTE | 2019-02-08 01:28 | NUR ---
Spoke to MAINE Hamilton: Order [place] 10/325 mg PO q 6 hrs PRN moderate pain. Order repeated, verified, and placed.
[2019-02-08] MEDS: SODIUM CHLORIDE 0.9% 1,000 ML IV SCH (05:21)
[2019-02-08 05:32] VITALS: BP 121/64
[2019-02-08] MEDS: ACCU-CHEK COMFORT CURVE STRIP VI SCH ×3 (06:08→18:00)
[2019-02-08] MEDS: GABAPENTIN 300 MG CAP PO SCH ×3 (06:08→21:39)
[2019-02-08] MEDS: SPIRONOLACTONE 25 MG TAB PO SCH ×2 (06:08→18:00)
[2019-02-08] MEDS: InsuLIN REG 1unit/0.01ml Soln (100units/ml) SC SCH ×3 (06:08→18:00)
--- NOTE | 2019-02-08 06:42 | NUR ---
IV insertion IV access obtained, via clean technique by inserting a 20 gauge catheter into a vein in the right forearm after 1 attempt. IV secured properly. No trauma to site. Patient tolerated well.
--- NOTE | 2019-02-08 07:05 | NUR ---
Opening Note Received report from sanitation worker RN. Patient is resting in bed, easy to wake by calling name. No signs or symptoms of distress noted at this time. Patient is on room air, respirations even and unlabored. Reviewed plan of care with patient, patient verbalized understanding. Waiting to clarify if patient is to have AICD placed today. Patient is NPO incase of possible procedure. Bed in low and locked position, call light within reach. Will continue to monitor Q1 hour and PRN.
--- NOTE | 2019-02-08 07:10 | NUR ---
Called [facility] [employer] They state the patient is not on the schedule for today. No orders placed for patient to have AICD today. Will clarify and update patient on plan of care.
[2019-02-08 07:13] LABS: BUN/Creatinine Ratio 26.6; Calcium 8.7 mg/dL (8.5-10.1); Potassium 4.2 mmol/L (3.5-5.1)
[2019-02-08 07:15] LABS: Basophils # (auto) 0.1 uL; Basophils % (auto) 1.3 % (0.0-2.0); Eosinophils # (auto) 0.2 uL; Eosinophils % (auto) 3.4 % (0.0-7.0); Hematocrit 35.3 % (41.0-53.0); Hemoglobin 12.2 g/dL (13.5-17.5); Lymphocytes # (auto) 1.5 uL; Lymphocytes % (auto) 29.9 % (10.0-50.0); Mean Corpuscular Hemoglobin 30.9 pg (28.0-32.0); Mean Corpuscular Hgb Conc. 34.6 g/dL (32.0-36.0); Mean Corpuscular Volume 89.2 fL (80.0-100.0); Monocytes # (auto) 0.6 uL; Neutrophils # (auto) 2.7 uL; Neutrophils % (auto) 53.4 % (37.0-80.0); Platelet Count (auto) 150 10^3/uL (140-450); Red Blood Cells 3.95 10^6/uL (4.5-5.90); Red Cell Distribution Width 13.3 % (11.8-14.3)
--- NOTE | 2019-02-08 08:50 | NUR ---
Astno Dong from Dr. Noriega office To clarify patients plan of care. Awaiting call back
[2019-02-08 09:23] VITALS: BP 106/56
[2019-02-08] MEDS: PANTOPRAZOLE 40 MG TAB PO SCH (09:58)
[2019-02-08] MEDS: CARVEDILOL 3.125 MG TAB PO SCH ×2 (09:58→21:38)
[2019-02-08] MEDS: CLOPIDOGREL BISULFATE 75 MG TAB PO SCH (09:58)
--- NOTE | 2019-02-08 10:05 | NUR ---
Pain Patient complains of back pain 8/ and is requesting pain medications. Will medicate per orders.
[2019-02-08] MEDS: HYDROcodone-ACET 10/325MG TAB PO PRN ×2 (10:06→20:34)
--- NOTE | 2019-02-08 11:07 | NUR ---
Dr. Howell at bedside Reviewing plan of care with patient.
--- NOTE | 2019-02-08 11:58 | NUR ---
Nutrition consult/Follow-up Notes Wt. 75.3 kg Pt. endorses excellent appetite and no GI distress at this time. PO intake 75-100% x previous 3 days prior to procedure. No acute changes from previous assessment. Est. Needs (based on previous assessment) Calories/Kcals/Kg 23-25 Kcals Calculated 1850 Proteing/K.0-1.1 Protein Calculated 74 Labs: H/H 12.2L/35.3L, BUN 25H, BG 154-228 mg/dL x 3 days Skin: Neil 18 GI: BM x 1 (02/08) PES: Altered nutrition related lab values r/t current chronic medical condition harlan eleve BUN, A1c, mod hypoalb, hyperglycemia (ongoing) Plan of care: Monitor PO intake, labs, skin integrity. F/U 3-5 days. Recommendations: 1) When medically able/procedure completed, resume CCHO diet for optimal BG management.
[2019-02-08 12:35] VITALS: BP 107/59
[2019-02-08] MEDS ORDERED: MORPHINE SULF INJ 2 MG/ML SYRINGE 1ML IV PRN (13:00)
[2019-02-08] MEDS ORDERED: ZOLPIDEM TARTRATE 5 MG TAB PO PRN (13:00)
[2019-02-08] MEDS ORDERED: LORazepam 0.5 MG TAB PO PRN (13:00)
--- NOTE | 2019-02-08 13:00 | NUR ---
Plan of care Spoke with Letitia from Dr. Noriega office and Dr. Howell. Diet order can be placed for patient. Patient is not going to have any procedures done today. Consult for Dr. Olson to be called in for AICD evaluation. Will continue to monitor Q1 hour and PRN.
--- NOTE | 2019-02-08 13:20 | NUR ---
Lunch Tray Patient provided lunch try. Will continue to monitor Q1 hour and PRN.
--- NOTE | 2019-02-08 14:29 | NUR ---
Oj from [employer] Oj from [employer] at bedside, reviewing plan of care and educating patient on zoll vest. Oj told this RN that we should know by this evening if the patient is qualified for the vest. Will continue to monitor Q1 hour and PRN.
[2019-02-08 16:41] VITALS: BP 129/71
--- NOTE | 2019-02-08 18:50 | NUR ---
[employer] vest delivered to patient, at bedside
--- NOTE | 2019-02-08 19:01 | NUR ---
Closing Note Report given to cage shift manager RN. Patient is sitting up eating dinner. No signs or symptoms of distress noted at this time.
--- NOTE | 2019-02-08 19:24 | NUR ---
Opening Shift Note Assumed care of patient, awake and alert x 4. No S/S of distress/SOB. Bed is in lowest position and locked. Call light within reach. Board updated. Instructed on POC and to call for assist PRN, will continue to monitor for changes Q1hr and PRN.
[2019-02-08] MEDS: ATORVASTATIN 20 MG TAB PO SCH (21:38)
[2019-02-08 21:44] VITALS: BP 138/72
[2019-02-09] MEDS: ACCU-CHEK COMFORT CURVE STRIP VI SCH ×3 (00:05→11:52)
[2019-02-09] MEDS: InsuLIN REG 1unit/0.01ml Soln (100units/ml) SC SCH ×3 (00:05→11:53)
[2019-02-09 05:25] VITALS: BP 90/46
[2019-02-09 05:45] VITALS: BP 118/78
[2019-02-09] MEDS: SPIRONOLACTONE 25 MG TAB PO SCH (06:22)
[2019-02-09] MEDS: GABAPENTIN 300 MG CAP PO SCH ×2 (06:22→13:46)
[2019-02-09] MEDS: HYDROcodone-ACET 10/325MG TAB PO PRN ×2 (06:25→12:33)
[2019-02-09 08:00] VITALS: BP 99/53
[2019-02-09 09:00] VITALS: BP 99/53
[2019-02-09] MEDS: CLOPIDOGREL BISULFATE 75 MG TAB PO SCH (10:02)
[2019-02-09] MEDS: CARVEDILOL 3.125 MG TAB PO SCH (10:02)
[2019-02-09] MEDS: PANTOPRAZOLE 40 MG TAB PO SCH (10:02)
[2019-02-09 13:00] VITALS: BP 113/66
--- NOTE | 2019-02-09 16:26 | NUR ---
called the patient contact Sulma. no answer, went straight to voice mail. left message. Awaiting call back from the family member.
--- NOTE | 2019-02-09 16:56 | NUR ---
called pb Ozuna again to try to arrange transportation for the patient to get home. now the inbox says full. I cant leave a follow up message and have not heard back from the family member yet. tried to call the patients father in law, listed on the facesheet, with no answer from him either. will keep trying to contact family.
--- NOTE | 2019-02-09 16:59 | NUR ---
was able to reach family and notify them that the patient is discharged. transportation is now being arranged by the family.
[2019-02-09 17:06] VITALS: BP 113/66
--- NOTE | 2019-02-09 17:58 | NUR ---
Discharge instructions given as ordered. Encourage to follow up with PMD as instructed. All questions and concerns addressed. Patient verbalized understanding. IV removed with catheter intact, pressure dressing applied. Telemetry unit returned to [facility]. Patient taken to vehicle via wheelchair with all personal belongings, accompanied by staff and family member. No distress noted at time of departure. Addendum: 02/09/19 at 1856 by Gumaro Morales RN CONFIRMED WITH PATIENT THAT HE HAS THE MEDICATION HE NEEDS AT HOME AND DOES NOT NEED A WRITTEN PRESCRIPTION. THE PATIENT AGREED AND TOLD ME THAT HE DOES HAVE PLAVIX, LIPITOR AND THE OTHERS AT HOME ALREADY.
--- NOTE | 2019-02-11 10:49 | NUR ---
molten iron pourer 02/09/19 No call or page on this patient. Per boris consult arrange for home visiting nurse. MD order has been sent to [facility]. Per Andra patient will be seen within 48 hours. Per Karla Avalos [facility] for [place] is [phone]. Addendum: 02/15/19 at 1652 by Suzi MCNEAL Amended: Links added.
--- NOTE | 2019-02-11 16:55 | NUR ---
assessment Patient is a 48 year old male who is alert and oriented. Prior to admission patient lived home with his sister and functioned with her assistance. Patient informed me he has a fww and a wheelchair for home use. Patients PCP is Dr Smiley. Patient informed me he feels safe returning home on discharge. Patient verbalized understanding and agreed to discharge plan home on discharge. Addendum: 02/11/19 at 1657 by Suzi MCNEAL Amended: Links added.
--- NOTE | 2019-02-21 08:36 | NUR ---
Received updated auth number from [facility]. Auth number is [id number]. Jeff provided with the updated auth number. Addendum: 02/21/19 at 0857 by MIRIAN CAMACHO SS Amended: Links added.
== END 2019-02-09 18:35 | disposition home or self-care (01) | DRG 175 ==
LOC: EDBD 20:38 → ER 20:38 → EDUNIT# 20:38 → TELE 20:39 → TELE-EAST 02-01 23:51
PROVIDERS: ADMIT Nurse Practitioner Family; ATTEND Internal Medicine
PROC: 4A023N7 Measurement of Cardiac Sampling and Pressure, Left Heart, Percutaneous Approach (ICD-10-PCS; principal; 2019-02-06)
PROC: 027034Z Dilation of Coronary Artery, One Artery with Drug-eluting Intraluminal Device, Percutaneous Approach (ICD-10-PCS; 2019-02-06)
PROC: B2111ZZ Fluoroscopy of Multiple Coronary Arteries using Low Osmolar Contrast (ICD-10-PCS; 2019-02-06)
PROC: B2151ZZ Fluoroscopy of Left Heart using Low Osmolar Contrast (ICD-10-PCS; 2019-02-06)
PROC: B2131ZZ Fluoroscopy of Multiple Coronary Artery Bypass Grafts using Low Osmolar Contrast (ICD-10-PCS; 2019-02-06)
DX: T82.855A Stenosis of coronary artery stent, initial encounter (principal); I21.4 Non-ST elevation (NSTEMI) myocardial infarction; I50.23 Acute on chronic systolic (congestive) heart failure; E11.51 Type 2 diabetes mellitus with diabetic peripheral angiopathy without gangrene; I11.0 Hypertensive heart disease with heart failure; I25.10 Atherosclerotic heart disease of native coronary artery without angina pectoris; E78.5 Hyperlipidemia, unspecified; Y83.1 Surgical operation with implant of artificial internal device as the cause of abnormal reaction of the patient, or of later complication, without mention of misadventure at the time of the procedure; E78.00 Pure hypercholesterolemia, unspecified; E44.1 Mild protein-calorie malnutrition; I25.5 Ischemic cardiomyopathy; F41.9 Anxiety disorder, unspecified; I34.0 Nonrheumatic mitral (valve) insufficiency; J98.11 Atelectasis; Y84.0 Cardiac catheterization as the cause of abnormal reaction of the patient, or of later complication, without mention of misadventure at the time of the procedure; Z79.02 Long term (current) use of antithrombotics/antiplatelets; Z79.899 Other long term (current) drug therapy; Z82.3 Family history of stroke; Z82.49 Family history of ischemic heart disease and other diseases of the circulatory system; Z83.3 Family history of diabetes mellitus; Z95.810 Presence of automatic (implantable) cardiac defibrillator; Z95.1 Presence of aortocoronary bypass graft; Z88.1 Allergy status to other antibiotic agents; Z88.6 Allergy status to analgesic agent; Z88.8 Allergy status to other drugs, medicaments and biological substances; I25.2 Old myocardial infarction; Z98.61 Coronary angioplasty status; Y92.89 Other specified places as the place of occurrence of the external cause; Z89.422 Acquired absence of other left toe(s); Z89.421 Acquired absence of other right toe(s)
CPT/HCPCS: 36415; 71045; 80048; 80053; 81001; 82565; 82962; 83036; 83880; 84484; 85025; 85610; 85730; 86850; 86900; 86901; 87081; 92928; 93005; 93459; 96372; 96374; 99152; 99153; C1874; C1887; G0378; J0461; J1815; J2250

== ENCOUNTER 2019-06-30 23:37 | Emergency (ER) | payer MEDICAID ==
[~2019-06-30] VITALS: Ht 180.3 cm; Wt 93.9 kg
[~2019-06-30 23:37] MED LIST changes: -AMIT25TA9 PO; -DIGO0.2527 PO; -METO5TAB56 PO; -SACU1TAB PO
[2019-07-01 03:14] VITALS: BP 161/98
[2019-07-01] MEDS ORDERED: HYDROcodone-ACET 5/325MG TAB PO ONE (03:30)
== END 2019-07-01 04:10 | disposition home or self-care (01) ==
LOC: EDBD 23:37 → ER 23:41
DX: G89.29 Other chronic pain (principal); M54.5 Low back pain; E11.22 Type 2 diabetes mellitus with diabetic chronic kidney disease; I13.0 Hypertensive heart and chronic kidney disease with heart failure and stage 1 through stage 4 chronic kidney disease, or unspecified chronic kidney disease; N18.9 Chronic kidney disease, unspecified; I50.9 Heart failure, unspecified; E78.5 Hyperlipidemia, unspecified; I25.2 Old myocardial infarction; Z95.0 Presence of cardiac pacemaker; Z95.1 Presence of aortocoronary bypass graft; Z98.61 Coronary angioplasty status; Z88.6 Allergy status to analgesic agent; Z79.899 Other long term (current) drug therapy; Z79.4 Long term (current) use of insulin
CPT/HCPCS: 72131

== ENCOUNTER 2019-08-08 08:16 | Emergency (ER) | payer MEDICAID ==
[~2019-08-08] VITALS: Ht 180.3 cm; Wt 95.3 kg
[~2019-08-08 08:16] MED LIST changes: +FURO1TAB31 PO; -FURO40TA4 PO
[2019-08-08] MEDS ORDERED: HYDROmorphone HCL 2 MG/ML VL IM ONE (08:30)
[2019-08-08] MEDS ORDERED: ONDANSETRON HCL 4 MG/2 ML VIAL IM ONE (08:30)
[2019-08-08 10:18] VITALS: BP 135/81
== END 2019-08-08 11:29 | disposition home or self-care (01) ==
LOC: ER 08:16 → EDBD 08:16 → ER 11:29
DX: S33.5XXA Sprain of ligaments of lumbar spine, initial encounter (principal); G89.4 Chronic pain syndrome; E11.22 Type 2 diabetes mellitus with diabetic chronic kidney disease; I13.0 Hypertensive heart and chronic kidney disease with heart failure and stage 1 through stage 4 chronic kidney disease, or unspecified chronic kidney disease; N18.9 Chronic kidney disease, unspecified; I50.9 Heart failure, unspecified; Z79.4 Long term (current) use of insulin; E78.5 Hyperlipidemia, unspecified; I25.2 Old myocardial infarction; Z95.1 Presence of aortocoronary bypass graft; Z95.0 Presence of cardiac pacemaker; Z98.61 Coronary angioplasty status; Z88.8 Allergy status to other drugs, medicaments and biological substances; W01.0XXA Fall on same level from slipping, tripping and stumbling without subsequent striking against object, initial encounter; Y93.89 Activity, other specified; Y92.89 Other specified places as the place of occurrence of the external cause; Y99.8 Other external cause status
CPT/HCPCS: 72110; 72170; 96372; 99284; J1170; J2405

== ENCOUNTER 2019-09-15 18:03 | Inpatient (IN) | payer MEDICAID ==
[~2019-09-15] VITALS: Ht 180.3 cm; Wt 111.2 kg
[2019-09-15 19:09] LABS: Basophils # (auto) 0.1 10 ^3/uL (0-0.2); Eosinophils # (auto) 0.1 10 ^3/uL (0-0.8); Eosinophils % (auto) 0.8 % (0.0-7.0); Hematocrit 41.3 % (41.0-53.0); Hemoglobin 14.1 g/dL (13.5-17.5); Lymphocytes # (auto) 0.5 10 ^3/uL (0.4-5.4); Lymphocytes % (auto) 6.4 % (10.0-50.0); Mean Corpuscular Hemoglobin 32.4 pg (28.0-32.0); Mean Corpuscular Hgb Conc. 34.2 g/dL (32.0-36.0); Mean Corpuscular Volume 94.8 fL (80.0-100.0); Monocytes # (auto) 0.6 10 ^3/uL (0-1.3); Monocytes % (auto) 7.1 % (0.0-12.0); Neutrophils # (auto) 6.8 10 ^3/uL (1.6-8.6); Neutrophils % (auto) 84.7 % (37.0-80.0); Platelet Count (auto) 251 10^3/uL (140-450); Red Blood Cells 4.35 10^6/uL (4.5-5.90); Red Cell Distribution Width 15.6 % (11.8-14.3)
[2019-09-15 19:30] LABS: Albumin 2.2 g/dL (3.4-5.0); Potassium 3.8 mmol/L (3.5-5.1)
[2019-09-15 19:33] LABS: Bilirubin, Total 1.5 mg/dL (0.2-1.0); Total Protein 7.3 g/dL (6.4-8.2)
[2019-09-15 20:28] LABS: Magnesium 1.7 mg/dL (1.6-2.6)
[2019-09-15] MEDS ORDERED: ACETAMINOPHEN 325 MG TAB PO PRN (21:45)
[2019-09-15] MEDS ORDERED: HYDROcodone-ACET 5/325MG TAB PO PRN (21:45)
[2019-09-15] MEDS ORDERED: MORPHINE SULFATE 4 MG/ML SYR/VIAL IV PRN (21:45)
[2019-09-15] MEDS ORDERED: ONDANSETRON HCL 4 MG/2 ML VIAL IV PRN (21:45)
[2019-09-15] MEDS ORDERED: DOCUSATE SOD 100 MG CAP PO PRN (21:45)
[2019-09-15] MEDS ORDERED: FUROSEMIDE 40 MG/4 ML VIAL IV SCH (22:00)
[2019-09-15] MEDS ORDERED: FUROSEMIDE 20 MG/2 ML VIAL ONE (23:35)
[2019-09-15 23:45] VITALS: BP 160/97
[2019-09-15] MEDS: CARVEDILOL 3.125 MG TAB PO SCH (23:57)
[2019-09-15] MEDS: ATORVASTATIN 20 MG TAB PO SCH (23:57)
[2019-09-15] MEDS: GABAPENTIN 300 MG CAP PO SCH (23:57)
[2019-09-15] MEDS: ACCU-CHEK COMFORT CURVE STRIP VI SCH (23:59)
[2019-09-16] MEDS: INSULIN LANTUS (GLARGINE) 1 /0.01ml (100units/ml) SC SCH ×3 (00:08→22:00)
[2019-09-16] MEDS: InsuLIN REG 1unit/0.01ml Soln (100units/ml) SC SCH ×6 (00:10→20:00)
[2019-09-16] MEDS ORDERED: TRAM50TA2 PO (02:13)
[2019-09-16] MEDS ORDERED: TAMS1CAP25 PO (02:13)
[2019-09-16] MEDS ORDERED: PREG75CA PO (02:13)
[2019-09-16] MEDS: ACCU-CHEK COMFORT CURVE STRIP VI SCH ×5 (03:56→20:43)
[2019-09-16 05:00] VITALS: BP 125/75
[2019-09-16] MEDS: SPIRONOLACTONE 25 MG TAB PO SCH ×2 (05:49→17:47)
[2019-09-16] MEDS: GABAPENTIN 300 MG CAP PO SCH ×3 (05:49→22:02)
[2019-09-16 08:00] VITALS: BP 131/73
[2019-09-16 09:00] VITALS: BP 131/73
[2019-09-16 10:09] LABS: Basophils # (auto) 0.1 10 ^3/uL (0-0.2); Eosinophils # (auto) 0.1 10 ^3/uL (0-0.8); Hematocrit 36.6 % (41.0-53.0); Lymphocytes # (auto) 0.7 10 ^3/uL (0.4-5.4); Lymphocytes % (auto) 10.3 % (10.0-50.0); Mean Corpuscular Hemoglobin 31.4 pg (28.0-32.0); Mean Corpuscular Hgb Conc. 32.8 g/dL (32.0-36.0); Mean Corpuscular Volume 95.7 fL (80.0-100.0); Monocytes # (auto) 0.8 10 ^3/uL (0-1.3); Monocytes % (auto) 11.8 % (0.0-12.0); Neutrophils # (auto) 5.4 10 ^3/uL (1.6-8.6); Neutrophils % (auto) 75.9 % (37.0-80.0); Nucleated Red Blood Cells % 0.1 %; Platelet Count (auto) 214 10^3/uL (140-450); Red Blood Cells 3.82 10^6/uL (4.5-5.90); Red Cell Distribution Width 15.8 % (11.8-14.3); White Blood Cell 7.1 10^3/uL (4.4-10.8)
[2019-09-16] MEDS: CARVEDILOL 3.125 MG TAB PO SCH ×2 (10:16→22:02)
[2019-09-16] MEDS: FUROSEMIDE 20 MG/2 ML VIAL IV SCH ×2 (10:16→22:01)
[2019-09-16] MEDS: POTASSIUM CHL 20 Meq TABLET PO SCH (10:16)
[2019-09-16] MEDS: CLOPIDOGREL BISULFATE 75 MG TAB PO SCH (10:16)
[2019-09-16 10:27] LABS: BUN/Creatinine Ratio 18.8; Calcium 7.7 mg/dL (8.5-10.1); Potassium 4.1 mmol/L (3.5-5.1)
[2019-09-16] MEDS ORDERED: diphenhdrAMINE HCL 50 MG/1 ML VL ONE (11:59)
[2019-09-16 12:56] VITALS: BP 106/68
[2019-09-16 16:27] LABS: INR 1.17 (0.9-1.15)
[2019-09-16 17:00] VITALS: BP 112/71
[2019-09-16] MEDS: DEXTROSE (50%) 50ML SYRG IV PRN (17:04)
[2019-09-16] MEDS: Glucerna Carbsteady SHAKE Vanilla 8oz PO SCH (18:00)
[2019-09-16] MEDS: ATORVASTATIN 20 MG TAB PO SCH (22:02)
[2019-09-16 22:13] VITALS: BP 118/71
[2019-09-17] MEDS: ACCU-CHEK COMFORT CURVE STRIP VI SCH ×7 (00:41→23:29)
[2019-09-17] MEDS: DEXTROSE (50%) 50ML SYRG IV PRN (00:42)
[2019-09-17] MEDS: InsuLIN REG 1unit/0.01ml Soln (100units/ml) SC SCH ×7 (03:43→23:29)
[2019-09-17 05:00] VITALS: BP 113/69
[2019-09-17 05:21] LABS: Urine Amorphous Crystal FEW /hpf (None Seen); Urine Bacteria FEW /hpf (None Seen); Urine Blood TRACE /uL (Negative); Urine Budding Yeast MODERATE /hpf (None Seen); Urine Hyaline Cast FEW /lpf (0 - 2); Urine WBC 3 /hpf (0 - 3)
[2019-09-17 05:25] LABS: Basophils # (auto) 0.1 10 ^3/uL (0-0.2); Basophils % (auto) 1.1 % (0.0-2.0); Eosinophils # (auto) 0.1 10 ^3/uL (0-0.8); Eosinophils % (auto) 1.6 % (0.0-7.0); Hematocrit 39.1 % (41.0-53.0); Hemoglobin 13.1 g/dL (13.5-17.5); Lymphocytes # (auto) 0.9 10 ^3/uL (0.4-5.4); Lymphocytes % (auto) 16.6 % (10.0-50.0); Mean Corpuscular Hemoglobin 31.6 pg (28.0-32.0); Mean Corpuscular Hgb Conc. 33.4 g/dL (32.0-36.0); Mean Corpuscular Volume 94.5 fL (80.0-100.0); Monocytes # (auto) 0.6 10 ^3/uL (0-1.3); Monocytes % (auto) 10.6 % (0.0-12.0); Neutrophils # (auto) 3.7 10 ^3/uL (1.6-8.6); Neutrophils % (auto) 70.1 % (37.0-80.0); Nucleated Red Blood Cells % 0.7 %; Platelet Count (auto) 222 10^3/uL (140-450); Red Blood Cells 4.14 10^6/uL (4.5-5.90); Red Cell Distribution Width 15.5 % (11.8-14.3); White Blood Cell 5.3 10^3/uL (4.4-10.8)
[2019-09-17 05:29] LABS: Alcohol, Urine < 3.0 mg/dL (0-5); Amphetamine Screen, Urine POSITIVE (NEGATIVE); Barbiturate Scree,Urine NEGATIVE (NEGATIVE); Benzodiazephine Screen, Urine NEGATIVE (NEGATIVE); Cannabinoid Screen, Urine NEGATIVE (NEGATIVE); Cocaine Screen, Urine NEGATIVE (NEGATIVE); Opiate Scree,Urine NEGATIVE (NEGATIVE); Phencyclidine Screen, Urine NEGATIVE (NEGATIVE)
[2019-09-17 05:37] LABS: BUN/Creatinine Ratio 19.1; Calcium 8.1 mg/dL (8.5-10.1); Potassium 3.8 mmol/L (3.5-5.1)
[2019-09-17] MEDS: SPIRONOLACTONE 25 MG TAB PO SCH ×2 (05:58→17:48)
[2019-09-17] MEDS: GABAPENTIN 300 MG CAP PO SCH ×3 (05:59→21:32)
[2019-09-17] MEDS: Glucerna Carbsteady SHAKE Vanilla 8oz PO SCH ×3 (08:00→18:00)
[2019-09-17 09:00] VITALS: BP 111/79
[2019-09-17] MEDS: CLOPIDOGREL BISULFATE 75 MG TAB PO SCH (10:00)
[2019-09-17] MEDS: INSULIN LANTUS (GLARGINE) 1 /0.01ml (100units/ml) SC SCH ×2 (10:00→21:38)
[2019-09-17] MEDS: POTASSIUM CHL 20 Meq TABLET PO SCH (10:07)
[2019-09-17] MEDS: CARVEDILOL 3.125 MG TAB PO SCH ×2 (10:10→21:32)
[2019-09-17] MEDS: FUROSEMIDE 20 MG/2 ML VIAL IV SCH ×2 (10:11→21:35)
[2019-09-17] MEDS ORDERED: PHYTONADIONE (VIT K)10 MG/ML 1ML VIAL SUBCUT ONE (12:00)
[2019-09-17 13:00] VITALS: BP 119/70
[2019-09-17 16:52] VITALS: BP 126/82
[2019-09-17] MEDS: ATORVASTATIN 20 MG TAB PO SCH (21:32)
[2019-09-17 22:00] VITALS: BP 122/77
[2019-09-18] MEDS: InsuLIN REG 1unit/0.01ml Soln (100units/ml) SC SCH ×3 (04:00→12:57)
[2019-09-18] MEDS: ACCU-CHEK COMFORT CURVE STRIP VI SCH ×5 (04:32→22:45)
[2019-09-18 05:00] VITALS: BP 117/80
[2019-09-18] MEDS: GABAPENTIN 300 MG CAP PO SCH ×3 (06:49→22:57)
[2019-09-18] MEDS: SPIRONOLACTONE 25 MG TAB PO SCH ×2 (06:49→17:48)
[2019-09-18 07:15] LABS: BUN/Creatinine Ratio 23.3; Calcium 8.2 mg/dL (8.5-10.1); Potassium 4.7 mmol/L (3.5-5.1)
[2019-09-18 07:30] VITALS: BP 131/82
[2019-09-18] MEDS: Glucerna Carbsteady SHAKE Vanilla 8oz PO SCH ×3 (07:58→17:54)
[2019-09-18 08:53] LABS: Basophils # (auto) 0.1 10 ^3/uL (0-0.2); Basophils % (auto) 1.1 % (0.0-2.0); Eosinophils # (auto) 0.1 10 ^3/uL (0-0.8); Eosinophils % (auto) 0.9 % (0.0-7.0); Hematocrit 38.1 % (41.0-53.0); Hemoglobin 12.5 g/dL (13.5-17.5); Lymphocytes # (auto) 1.1 10 ^3/uL (0.4-5.4); Lymphocytes % (auto) 12.2 % (10.0-50.0); Mean Corpuscular Hemoglobin 31.5 pg (28.0-32.0); Mean Corpuscular Hgb Conc. 32.9 g/dL (32.0-36.0); Mean Corpuscular Volume 95.7 fL (80.0-100.0); Monocytes # (auto) 0.7 10 ^3/uL (0-1.3); Monocytes % (auto) 8.2 % (0.0-12.0); Neutrophils # (auto) 6.9 10 ^3/uL (1.6-8.6); Neutrophils % (auto) 77.6 % (37.0-80.0); Nucleated Red Blood Cells % 0.3 %; Platelet Count (auto) 250 10^3/uL (140-450); Red Blood Cells 3.98 10^6/uL (4.5-5.90); Red Cell Distribution Width 15.8 % (11.8-14.3); White Blood Cell 8.9 10^3/uL (4.4-10.8)
[2019-09-18 09:00] VITALS: BP 132/82
[2019-09-18] MEDS: CLOPIDOGREL BISULFATE 75 MG TAB PO SCH (10:00)
[2019-09-18] MEDS: INSULIN LANTUS (GLARGINE) 1 /0.01ml (100units/ml) SC SCH ×2 (10:00→22:00)
[2019-09-18] MEDS: POTASSIUM CHL 20 Meq TABLET PO SCH (10:32)
[2019-09-18] MEDS: CARVEDILOL 3.125 MG TAB PO SCH ×2 (10:32→22:57)
[2019-09-18] MEDS: FUROSEMIDE 20 MG/2 ML VIAL IV SCH (10:33)
[2019-09-18 13:00] VITALS: BP 130/76
[2019-09-18] MEDS ORDERED: DEXTROSE (50%) 50ML SYRG IV PRN (17:15)
[2019-09-18] MEDS: FUROSEMIDE 100 MG/10ML VIAL IV SCH (17:49)
[2019-09-18 22:00] VITALS: BP 122/77
[2019-09-18] MEDS ORDERED: InsuLIN REG 1unit/0.01ml Soln (100units/ml) SC SCH (22:00)
[2019-09-18] MEDS: ATORVASTATIN 20 MG TAB PO SCH (22:57)
[2019-09-18] MEDS: guaiFENesin-DM 100/10mg/5ml SYR PO PRN (22:58)
[2019-09-19] MEDS: guaiFENesin-DM 100/10mg/5ml SYR PO PRN (04:31)
[2019-09-19 05:00] VITALS: BP 135/83
[2019-09-19] MEDS ORDERED: LOPERAMIDE HCL 2 MG CAP PO PRN (05:15)
[2019-09-19] MEDS: ACCU-CHEK COMFORT CURVE STRIP VI SCH ×3 (05:36→17:09)
[2019-09-19] MEDS: GABAPENTIN 300 MG CAP PO SCH ×2 (05:37→13:23)
[2019-09-19] MEDS: InsuLIN REG 1unit/0.01ml Soln (100units/ml) SC SCH ×3 (05:37→17:08)
[2019-09-19 05:51] LABS: Basophils # (auto) 0.1 10 ^3/uL (0-0.2); Basophils % (auto) 0.8 % (0.0-2.0); Eosinophils # (auto) 0.1 10 ^3/uL (0-0.8); Eosinophils % (auto) 1.2 % (0.0-7.0); Hematocrit 39.3 % (41.0-53.0); Hemoglobin 13.5 g/dL (13.5-17.5); Lymphocytes % (auto) 16.4 % (10.0-50.0); Mean Corpuscular Hemoglobin 32.3 pg (28.0-32.0); Mean Corpuscular Hgb Conc. 34.3 g/dL (32.0-36.0); Mean Corpuscular Volume 94.1 fL (80.0-100.0); Monocytes # (auto) 0.6 10 ^3/uL (0-1.3); Monocytes % (auto) 9.4 % (0.0-12.0); Neutrophils # (auto) 4.5 10 ^3/uL (1.6-8.6); Neutrophils % (auto) 72.2 % (37.0-80.0); Platelet Count (auto) 244 10^3/uL (140-450); Red Blood Cells 4.17 10^6/uL (4.5-5.90); White Blood Cell 6.2 10^3/uL (4.4-10.8)
[2019-09-19] MEDS: SPIRONOLACTONE 25 MG TAB PO SCH ×3 (06:00→18:43)
[2019-09-19] MEDS: FUROSEMIDE 100 MG/10ML VIAL IV SCH ×3 (06:00→18:42)
[2019-09-19 06:04] LABS: Magnesium 2.1 mg/dL (1.6-2.6); Potassium 4.5 mmol/L (3.5-5.1)
[2019-09-19 06:06] LABS: INR 1.13 (0.9-1.15); Partial Thromboplastin Time 30.3 sec (23.64-32.05)
[2019-09-19 06:08] LABS: BUN/Creatinine Ratio 28.2; Bilirubin, Total 0.9 mg/dL (0.2-1.0); Phosphorus 3.7 mg/dL (2.5-4.90); Total Protein 6.9 g/dL (6.4-8.2)
[2019-09-19] MEDS: Glucerna Carbsteady SHAKE Vanilla 8oz PO SCH ×3 (08:00→18:19)
[2019-09-19 09:00] VITALS: BP 133/83
[2019-09-19] MEDS: INSULIN LANTUS (GLARGINE) 1 /0.01ml (100units/ml) SC SCH (10:00)
[2019-09-19] MEDS: CARVEDILOL 3.125 MG TAB PO SCH (11:40)
[2019-09-19] MEDS: POTASSIUM CHL 20 Meq TABLET PO SCH (11:40)
[2019-09-19 13:00] VITALS: BP 130/84
[2019-09-19 17:00] VITALS: BP 122/76
[2019-09-19 17:35] VITALS: BP 122/76
== END 2019-09-19 20:24 | disposition home or self-care (01) | DRG 279 ==
LOC: EDBD 18:03 → ER 18:03 → TELE 18:04 → TELE-WESTW 22:57
PROVIDERS: ADMIT Hospitalist; ATTEND Internal Medicine
PROC: 0W9G3ZZ Drainage of Peritoneal Cavity, Percutaneous Approach (ICD-10-PCS; principal; 2019-09-19)
DX: K72.90 Hepatic failure, unspecified without coma (principal); N17.0 Acute kidney failure with tubular necrosis; I50.43 Acute on chronic combined systolic (congestive) and diastolic (congestive) heart failure; E44.0 Moderate protein-calorie malnutrition; E11.22 Type 2 diabetes mellitus with diabetic chronic kidney disease; E87.1 Hypo-osmolality and hyponatremia; N30.90 Cystitis, unspecified without hematuria; D68.9 Coagulation defect, unspecified; I13.0 Hypertensive heart and chronic kidney disease with heart failure and stage 1 through stage 4 chronic kidney disease, or unspecified chronic kidney disease; K70.31 Alcoholic cirrhosis of liver with ascites; D63.8 Anemia in other chronic diseases classified elsewhere; K80.20 Calculus of gallbladder without cholecystitis without obstruction; E78.5 Hyperlipidemia, unspecified; I25.10 Atherosclerotic heart disease of native coronary artery without angina pectoris; F15.10 Other stimulant abuse, uncomplicated; F41.9 Anxiety disorder, unspecified; E66.9 Obesity, unspecified; F32.9 Major depressive disorder, single episode, unspecified; N18.9 Chronic kidney disease, unspecified; Z89.422 Acquired absence of other left toe(s); Z95.1 Presence of aortocoronary bypass graft; Z86.73 Personal history of transient ischemic attack (TIA), and cerebral infarction without residual deficits; Z91.19 Patient's noncompliance with other medical treatment and regimen; Z68.34 Body mass index [BMI] 34.0-34.9, adult; Z88.6 Allergy status to analgesic agent; Z88.1 Allergy status to other antibiotic agents; Z79.899 Other long term (current) drug therapy; Z95.0 Presence of cardiac pacemaker; Z95.5 Presence of coronary angioplasty implant and graft; Z89.432 Acquired absence of left foot; Z89.421 Acquired absence of other right toe(s); I25.2 Old myocardial infarction; Z83.3 Family history of diabetes mellitus; Z82.3 Family history of stroke; Z82.49 Family history of ischemic heart disease and other diseases of the circulatory system; Z79.4 Long term (current) use of insulin
CPT/HCPCS: 10022; 36415; 49083; 71045; 74176; 76705; 76942; 80048; 80053; 80061; 80307; 81001; 82140; 82150; 82962; 83036; 83690; 83735; 84100; 84443; 85025; 85610; 85730; 86703; 87045; 87081; 87427; 87493; 93005; 96374; 96375; 97163; G0378; J1815; J2405; J3430

== ENCOUNTER 2019-09-27 04:27 | Inpatient (IN) | payer MEDICAID ==
[~2019-09-27] VITALS: Ht 177.8 cm; Wt 101.9 kg
[~2019-09-27 04:27] MED LIST changes: +PREG75CA PO; +TAMS1CAP25 PO; +TRAM50TA2 PO
[2019-09-27 07:35] LABS: Basophils # (auto) 0.1 10 ^3/uL (0-0.2); Basophils % (auto) 0.8 % (0.0-2.0); Eosinophils # (auto) 0.2 10 ^3/uL (0-0.8); Eosinophils % (auto) 2.3 % (0.0-7.0); Hematocrit 37.8 % (41.0-53.0); Hemoglobin 12.6 g/dL (13.5-17.5); Lymphocytes % (auto) 12.4 % (10.0-50.0); Mean Corpuscular Hemoglobin 31.4 pg (28.0-32.0); Mean Corpuscular Hgb Conc. 33.3 g/dL (32.0-36.0); Mean Corpuscular Volume 94.2 fL (80.0-100.0); Monocytes # (auto) 0.6 10 ^3/uL (0-1.3); Monocytes % (auto) 7.9 % (0.0-12.0); Neutrophils # (auto) 5.9 10 ^3/uL (1.6-8.6); Neutrophils % (auto) 76.6 % (37.0-80.0); Platelet Count (auto) 228 10^3/uL (140-450); Red Blood Cells 4.01 10^6/uL (4.5-5.90); Red Cell Distribution Width 15.1 % (11.8-14.3); White Blood Cell 7.7 10^3/uL (4.4-10.8)
[2019-09-27 07:55] LABS: Albumin 1.8 g/dL (3.4-5.0); BUN/Creatinine Ratio 12.2; Calcium 7.7 mg/dL (8.5-10.1); Potassium 3.7 mmol/L (3.5-5.1)
[2019-09-27 07:57] LABS: Bilirubin, Total 0.7 mg/dL (0.2-1.0); Total Protein 6.6 g/dL (6.4-8.2)
[2019-09-27] MEDS ORDERED: FUROSEMIDE 40 MG/4 ML VIAL IV ONE (11:45)
[2019-09-27] MEDS ORDERED: FUROSEMIDE 100 MG/10ML VIAL IV ONE (12:00)
[2019-09-27] MEDS ORDERED: HYDROcodone-ACET 5/325MG TAB PO PRN (12:15)
[2019-09-27] MEDS ORDERED: ONDANSETRON HCL 4 MG/2 ML VIAL IV PRN (12:15)
[2019-09-27] MEDS ORDERED: ACETAMINOPHEN 500 MG TAB PO PRN (12:15)
[2019-09-27] MEDS ORDERED: NITROGLYCERIN 0.4 MG SL TAB SL PRN (12:15)
[2019-09-27] MEDS ORDERED: MORPHINE SULF INJ 2 MG/ML SYRINGE 1ML IV PRN (12:15)
[2019-09-27] MEDS ORDERED: DEXTROSE (50%) 50ML SYRG IV PRN (12:30)
[2019-09-27] MEDS ORDERED: cefTRIAXone 1GM/50ML D5W 50 ML IV ONE (12:30)
[2019-09-27 13:25] VITALS: BP 133/83
[2019-09-27] MEDS: MORPHINE SULF INJ 2 MG/ML SYRINGE 1ML IV PRN ×2 (13:31→18:05)
[2019-09-27] MEDS: PREGABALIN CAPSULE 75 MG CAP PO SCH ×2 (13:31→21:15)
[2019-09-27 13:39] LABS: INR 1.12 (0.9-1.15)
[2019-09-27 16:57] VITALS: BP 136/88
[2019-09-27] MEDS: SPIRONOLACTONE 25 MG TAB PO SCH (17:54)
[2019-09-27] MEDS: FUROSEMIDE 40 MG TAB PO SCH (17:54)
[2019-09-27] MEDS: InsuLIN REG 1unit/0.01ml Soln (100units/ml) SC SCH ×2 (18:35→21:43)
[2019-09-27] MEDS: ACCU-CHEK COMFORT CURVE STRIP VI SCH ×2 (18:35→21:26)
[2019-09-27] MEDS: ATORVASTATIN 20 MG TAB PO SCH (21:15)
[2019-09-27] MEDS: CARVEDILOL 3.125 MG TAB PO SCH (21:26)
[2019-09-27] MEDS: INSULIN LANTUS (GLARGINE) 1 /0.01ml (100units/ml) SC SCH (21:42)
[2019-09-27 22:15] VITALS: BP 138/95
[2019-09-28 05:20] VITALS: BP 136/95
[2019-09-28] MEDS: MORPHINE SULF INJ 2 MG/ML SYRINGE 1ML IV PRN ×3 (05:27→21:56)
[2019-09-28] MEDS: SPIRONOLACTONE 25 MG TAB PO SCH ×2 (05:27→17:00)
[2019-09-28] MEDS: PREGABALIN CAPSULE 75 MG CAP PO SCH ×3 (05:27→21:52)
[2019-09-28] MEDS: FUROSEMIDE 40 MG TAB PO SCH ×2 (05:27→17:00)
[2019-09-28] MEDS: ACCU-CHEK COMFORT CURVE STRIP VI SCH ×4 (06:47→21:53)
[2019-09-28] MEDS: InsuLIN REG 1unit/0.01ml Soln (100units/ml) SC SCH ×4 (06:47→21:56)
[2019-09-28] MEDS: cefTRIAXone 1GM/50ML D5W 50 ML IV SCH (08:51)
[2019-09-28] MEDS: FAMOTIDINE 20 MG TAB PO SCH (08:52)
[2019-09-28] MEDS: CLOPIDOGREL BISULFATE 75 MG TAB PO SCH (08:52)
[2019-09-28] MEDS: CARVEDILOL 3.125 MG TAB PO SCH ×2 (08:52→21:52)
[2019-09-28] MEDS: INSULIN LANTUS (GLARGINE) 1 /0.01ml (100units/ml) SC SCH ×2 (08:56→21:53)
[2019-09-28 09:00] VITALS: BP 101/64
[2019-09-28] MEDS ORDERED: TAMSULOSIN HYDROCHLORIDE 0.4 MG CAP PO SCH (10:00)
[2019-09-28 12:32] VITALS: BP 145/78
[2019-09-28 13:42] LABS: Urine Bacteria NONE SEEN /hpf (None Seen); Urine Blood 1+ /uL (Negative); Urine Budding Yeast MODERATE /hpf (None Seen); Urine Hyaline Cast FEW /lpf (0 - 2); Urine Mucus FEW (None Seen); Urine Specific Gravity 1.013 (1.001-1.035); Urine WBC 34 /hpf (0 - 3)
[2019-09-28 16:49] VITALS: BP 107/68
[2019-09-28 21:35] VITALS: BP 113/70
[2019-09-28] MEDS: ATORVASTATIN 20 MG TAB PO SCH (21:52)
[2019-09-29] MEDS: ALBUMIN 25% 50 ML IV SCH ×3 (01:00→16:09)
[2019-09-29 05:41] VITALS: BP 106/71
[2019-09-29 06:02] LABS: Basophils # (auto) 0 10 ^3/uL (0-0.2); Basophils % (auto) 1.2 % (0.0-2.0); Eosinophils # (auto) 0.2 10 ^3/uL (0-0.8); Eosinophils % (auto) 4.3 % (0.0-7.0); Hematocrit 35.8 % (41.0-53.0); Hemoglobin 11.7 g/dL (13.5-17.5); Lymphocytes # (auto) 0.9 10 ^3/uL (0.4-5.4); Lymphocytes % (auto) 24.8 % (10.0-50.0); Mean Corpuscular Hemoglobin 30.8 pg (28.0-32.0); Mean Corpuscular Hgb Conc. 32.7 g/dL (32.0-36.0); Mean Corpuscular Volume 94.1 fL (80.0-100.0); Monocytes # (auto) 0.3 10 ^3/uL (0-1.3); Monocytes % (auto) 8.6 % (0.0-12.0); Neutrophils # (auto) 2.3 10 ^3/uL (1.6-8.6); Neutrophils % (auto) 61.1 % (37.0-80.0); Nucleated Red Blood Cells % 0.1 %; Platelet Count (auto) 184 10^3/uL (140-450); Red Cell Distribution Width 14.6 % (11.8-14.3); White Blood Cell 3.7 10^3/uL (4.4-10.8)
[2019-09-29 06:08] LABS: Potassium 4.1 mmol/L (3.5-5.1)
[2019-09-29 06:16] LABS: INR 1.16 (0.9-1.15); Partial Thromboplastin Time 26.9 sec (23.64-32.05)
[2019-09-29 06:17] LABS: Albumin 1.8 g/dL (3.4-5.0); Bilirubin, Total 0.6 mg/dL (0.2-1.0); Calcium 7.7 mg/dL (8.5-10.1); Magnesium 1.9 mg/dL (1.6-2.6); Phosphorus 3.8 mg/dL (2.5-4.90); Total Protein 5.8 g/dL (6.4-8.2)
[2019-09-29] MEDS: PREGABALIN CAPSULE 75 MG CAP PO SCH ×3 (06:43→22:12)
[2019-09-29] MEDS: MORPHINE SULF INJ 2 MG/ML SYRINGE 1ML IV PRN ×2 (06:44→11:12)
[2019-09-29] MEDS: InsuLIN REG 1unit/0.01ml Soln (100units/ml) SC SCH ×4 (06:50→22:22)
[2019-09-29] MEDS: ACCU-CHEK COMFORT CURVE STRIP VI SCH ×4 (06:50→22:21)
[2019-09-29 09:00] VITALS: BP 123/72
[2019-09-29] MEDS: cefTRIAXone 1GM/50ML D5W 50 ML IV SCH (09:28)
[2019-09-29] MEDS: FAMOTIDINE 20 MG TAB PO SCH (09:28)
[2019-09-29] MEDS: CLOPIDOGREL BISULFATE 75 MG TAB PO SCH (09:29)
[2019-09-29] MEDS: CARVEDILOL 3.125 MG TAB PO SCH ×2 (09:31→17:37)
[2019-09-29] MEDS: FUROSEMIDE 40 MG TAB PO SCH (09:31)
[2019-09-29] MEDS: SPIRONOLACTONE 25 MG TAB PO SCH (09:43)
[2019-09-29] MEDS: LISINOPRIL 5 MG TAB PO SCH (09:45)
[2019-09-29] MEDS: INSULIN LANTUS (GLARGINE) 1 /0.01ml (100units/ml) SC SCH ×2 (10:32→22:00)
[2019-09-29 13:00] VITALS: BP 133/81
[2019-09-29] MEDS ORDERED: LACTULOSE 20Gm/30ML SOLN PO ONE (13:30)
[2019-09-29] MEDS: HYDROmorphone HCL 2 MG/ML VL IV PRN ×2 (16:09→22:12)
[2019-09-29 17:00] VITALS: BP 102/68
[2019-09-29] MEDS: TAMSULOSIN HYDROCHLORIDE 0.4 MG CAP PO SCH (17:37)
[2019-09-29] MEDS: LACTULOSE 20Gm/30ML SOLN PO SCH (17:37)
[2019-09-29 22:00] VITALS: BP 111/60
[2019-09-29] MEDS: ATORVASTATIN 20 MG TAB PO SCH (22:12)
[2019-09-30 05:00] VITALS: BP 121/67
[2019-09-30] MEDS: LACTULOSE 20Gm/30ML SOLN PO SCH ×4 (06:00→18:00)
[2019-09-30 06:09] LABS: Basophils # (auto) 0 10 ^3/uL (0-0.2); Basophils % (auto) 1.2 % (0.0-2.0); Eosinophils # (auto) 0.2 10 ^3/uL (0-0.8); Hematocrit 35.3 % (41.0-53.0); Lymphocytes # (auto) 0.9 10 ^3/uL (0.4-5.4); Lymphocytes % (auto) 23.8 % (10.0-50.0); Mean Corpuscular Hemoglobin 32.1 pg (28.0-32.0); Mean Corpuscular Hgb Conc. 34.1 g/dL (32.0-36.0); Mean Corpuscular Volume 94.1 fL (80.0-100.0); Monocytes # (auto) 0.3 10 ^3/uL (0-1.3); Monocytes % (auto) 8.7 % (0.0-12.0); Neutrophils # (auto) 2.5 10 ^3/uL (1.6-8.6); Neutrophils % (auto) 62.3 % (37.0-80.0); Nucleated Red Blood Cells % 0.2 %; Platelet Count (auto) 194 10^3/uL (140-450); Red Blood Cells 3.75 10^6/uL (4.5-5.90)
[2019-09-30 06:47] LABS: Albumin 1.9 g/dL (3.4-5.0); BUN/Creatinine Ratio 26.2; Bilirubin, Total 0.5 mg/dL (0.2-1.0); Calcium 7.9 mg/dL (8.5-10.1); Magnesium 1.9 mg/dL (1.6-2.6); Phosphorus 3.7 mg/dL (2.5-4.90); Total Protein 6.1 g/dL (6.4-8.2)
[2019-09-30] MEDS: HYDROmorphone HCL 2 MG/ML VL IV PRN ×2 (06:55→10:25)
[2019-09-30] MEDS: PREGABALIN CAPSULE 75 MG CAP PO SCH ×2 (06:55→13:25)
[2019-09-30] MEDS: ACCU-CHEK COMFORT CURVE STRIP VI SCH ×3 (06:55→17:00)
[2019-09-30] MEDS: InsuLIN REG 1unit/0.01ml Soln (100units/ml) SC SCH ×3 (06:58→17:00)
[2019-09-30 07:08] LABS: Potassium 4.2 mmol/L (3.5-5.1)
[2019-09-30 09:00] VITALS: BP 126/68
[2019-09-30] MEDS: CARVEDILOL 3.125 MG TAB PO SCH ×2 (09:00→18:00)
[2019-09-30] MEDS: FUROSEMIDE 40 MG TAB PO SCH (09:51)
[2019-09-30] MEDS: CLOPIDOGREL BISULFATE 75 MG TAB PO SCH (09:52)
[2019-09-30] MEDS: SPIRONOLACTONE 25 MG TAB PO SCH (09:52)
[2019-09-30] MEDS: LISINOPRIL 5 MG TAB PO SCH (09:53)
[2019-09-30] MEDS: FAMOTIDINE 20 MG TAB PO SCH (09:53)
[2019-09-30] MEDS: cefTRIAXone 1GM/50ML D5W 50 ML IV SCH (09:55)
[2019-09-30] MEDS: INSULIN LANTUS (GLARGINE) 1 /0.01ml (100units/ml) SC SCH (10:03)
[2019-09-30 13:00] VITALS: BP 128/71
[2019-09-30 13:38] VITALS: BP 128/71
[2019-09-30] MEDS: TAMSULOSIN HYDROCHLORIDE 0.4 MG CAP PO SCH (18:00)
== END 2019-09-30 18:48 | disposition home or self-care (01) | DRG 280 ==
LOC: EDBD 04:27 → ER 04:27 → TELE 04:28 → TELE-WESTW 13:15
PROVIDERS: ADMIT Nurse Practitioner Acute Care; ATTEND Internal Medicine
PROC: 0W9G3ZZ Drainage of Peritoneal Cavity, Percutaneous Approach (ICD-10-PCS; principal; 2019-09-27)
DX: K70.31 Alcoholic cirrhosis of liver with ascites (principal); I50.43 Acute on chronic combined systolic (congestive) and diastolic (congestive) heart failure; E11.22 Type 2 diabetes mellitus with diabetic chronic kidney disease; E11.40 Type 2 diabetes mellitus with diabetic neuropathy, unspecified; E44.0 Moderate protein-calorie malnutrition; R16.2 Hepatomegaly with splenomegaly, not elsewhere classified; L97.509 Non-pressure chronic ulcer of other part of unspecified foot with unspecified severity; N18.3 Chronic kidney disease, stage 3 (moderate); E11.51 Type 2 diabetes mellitus with diabetic peripheral angiopathy without gangrene; N10 Acute pyelonephritis; I25.10 Atherosclerotic heart disease of native coronary artery without angina pectoris; K80.20 Calculus of gallbladder without cholecystitis without obstruction; D64.9 Anemia, unspecified; I25.5 Ischemic cardiomyopathy; F41.9 Anxiety disorder, unspecified; F32.9 Major depressive disorder, single episode, unspecified; G89.29 Other chronic pain; J44.9 Chronic obstructive pulmonary disease, unspecified; E11.69 Type 2 diabetes mellitus with other specified complication; M54.5 Low back pain; E66.9 Obesity, unspecified; Z95.0 Presence of cardiac pacemaker; Z95.1 Presence of aortocoronary bypass graft; Z86.73 Personal history of transient ischemic attack (TIA), and cerebral infarction without residual deficits; Z95.5 Presence of coronary angioplasty implant and graft; Z83.3 Family history of diabetes mellitus; Z82.3 Family history of stroke; Z82.49 Family history of ischemic heart disease and other diseases of the circulatory system; Z79.4 Long term (current) use of insulin; Z88.6 Allergy status to analgesic agent; Z79.899 Other long term (current) drug therapy; I13.0 Hypertensive heart and chronic kidney disease with heart failure and stage 1 through stage 4 chronic kidney disease, or unspecified chronic kidney disease
CPT/HCPCS: 10022; 36415; 71045; 73700; 74176; 76942; 80053; 81001; 82140; 82150; 82962; 83605; 83690; 83735; 83880; 84100; 85025; 85379; 85610; 85730; 87040; 87081; 87086; 93005; 93970; 96374; 99291; G0378; J0696; J1815

== ENCOUNTER 2019-10-03 20:10 | Inpatient (IN) | payer MEDICAID ==
[~2019-10-03] VITALS: Ht 180.3 cm; Wt 100.1 kg
[2019-10-03] MEDS ORDERED: MORPHINE SULFATE 4 MG/ML SYR/VIAL IV ONE (20:30)
[2019-10-03] MEDS ORDERED: ONDANSETRON HCL 4 MG/2 ML VIAL IV ONE (20:30)
[2019-10-03 21:29] LABS: Basophils # (auto) 0 10 ^3/uL (0-0.2); Basophils % (auto) 0.9 % (0.0-2.0); Eosinophils # (auto) 0.1 10 ^3/uL (0-0.8); Eosinophils % (auto) 2.7 % (0.0-7.0); Hematocrit 35.4 % (41.0-53.0); Lymphocytes # (auto) 0.8 10 ^3/uL (0.4-5.4); Lymphocytes % (auto) 15.7 % (10.0-50.0); Mean Corpuscular Hemoglobin 31.9 pg (28.0-32.0); Mean Corpuscular Hgb Conc. 33.9 g/dL (32.0-36.0); Monocytes # (auto) 0.4 10 ^3/uL (0-1.3); Monocytes % (auto) 7.9 % (0.0-12.0); Neutrophils # (auto) 3.7 10 ^3/uL (1.6-8.6); Neutrophils % (auto) 72.8 % (37.0-80.0); Nucleated Red Blood Cells % 0.1 %; Platelet Count (auto) 198 10^3/uL (140-450); Red Blood Cells 3.77 10^6/uL (4.5-5.90); Red Cell Distribution Width 14.4 % (11.8-14.3); White Blood Cell 5.1 10^3/uL (4.4-10.8)
[2019-10-03 21:34] LABS: BUN/Creatinine Ratio 29.1; Calcium 7.9 mg/dL (8.5-10.1); Potassium 4.5 mmol/L (3.5-5.1)
[2019-10-03 21:37] LABS: Bilirubin, Total 0.5 mg/dL (0.2-1.0); Total Protein 6.4 g/dL (6.4-8.2)
[2019-10-04] MEDS ORDERED: PROMETHAZINE HCL 25 MG/ML 1ML IV PRN (11:45)
[2019-10-04] MEDS ORDERED: MORPHINE SULF INJ 2 MG/ML SYRINGE 1ML IV PRN (11:45)
[2019-10-04] MEDS ORDERED: LACTULOSE 20Gm/30ML SOLN PO PRN (11:45)
[2019-10-04] MEDS ORDERED: DEXTROSE (50%) 50ML SYRG IV PRN (11:45)
[2019-10-04] MEDS ORDERED: cefTRIAXone 1GM/50ML D5W 50 ML IV ONE (11:45)
[2019-10-04] MEDS ORDERED: traMADol HCL 50 MG TAB PO PRN (11:45)
[2019-10-04] MEDS ORDERED: FUROSEMIDE 40 MG TAB PO ONE (12:15)
[2019-10-04] MEDS ORDERED: LACTULOSE 20Gm/30ML SOLN PO ONE (12:15)
[2019-10-04] MEDS ORDERED: PANTOPRAZOLE 40 MG TAB PO ONE (12:15)
[2019-10-04] MEDS ORDERED: TAMSULOSIN HYDROCHLORIDE 0.4 MG CAP PO ONE (12:15)
[2019-10-04] MEDS ORDERED: CARVEDILOL 3.125 MG TAB PO ONE (12:15)
[2019-10-04] MEDS ORDERED: CLOPIDOGREL BISULFATE 75 MG TAB PO ONE (12:15)
[2019-10-04 13:00] VITALS: BP 143/91
--- NOTE | 2019-10-04 13:10 | NUR ---
RECEIVED REPORT AND ASSUMED CARE OF PT. A/OX4. DENIED S/S ACUTE DISTRESS. UPDATE PT WITH POC. ORIENTED PT ROOM AND MADE COMFORTABLE IN BED. BED AT LOWEST POSITION. CALL LIGHT AND BELONGINGS WITHIN REACH. WILL CONT TO MONITOR.
[2019-10-04] MEDS: CLINDAMYCIN 600MG IV 50 ML IV SCH ×2 (14:40→22:08)
[2019-10-04] MEDS: GABAPENTIN 300 MG CAP PO SCH ×2 (14:40→22:07)
[2019-10-04] MEDS: PREGABALIN CAPSULE 75 MG CAP PO SCH ×2 (14:40→22:09)
[2019-10-04 17:00] VITALS: BP 118/77
[2019-10-04] MEDS: ACCU-CHEK COMFORT CURVE STRIP VI SCH ×2 (18:30→22:02)
[2019-10-04] MEDS: SPIRONOLACTONE 25 MG TAB PO SCH (18:31)
[2019-10-04] MEDS: InsuLIN REG 1unit/0.01ml Soln (100units/ml) SC SCH ×2 (18:32→22:06)
--- NOTE | 2019-10-04 19:40 | NUR ---
Opening Shift Note Report received from day shift RN. Assumed care of patient, awake and A&O x4. No S/S of distress/SOB noted and patient denies pain at this time. Bed locked and left in the lowest position with the side rails up x2. Instructed on POC and to call for assist PRN, will continue to monitor for changes Q1hr and PRN.
[2019-10-04] MEDS: INSULIN DETEMIR 28 UNIT SC SCH (22:00)
[2019-10-04] MEDS: CLOTRIMAZOLE 1 % CREAM 15GM TOP SCH (22:07)
[2019-10-04 22:08] VITALS: BP 126/82
[2019-10-04] MEDS: CARVEDILOL 3.125 MG TAB PO SCH (22:08)
[2019-10-04] MEDS: FUROSEMIDE 40 MG TAB PO SCH (22:09)
--- NOTE | 2019-10-05 02:45 | NUR ---
PATIENT WAS NOTED NOT URINATING. BLADDER SCAN WAS PERFORMED: 999 +ML WAS NOTED. PATIENT WAS ENCOURAGED TO URINATE. THE PATIENT VOIDED 275 MLS, PATIENT STATED HE WILL NOT ACCEPT A HARRY CATH. PATIENT EDUCATED ON BENEFITS, PATIENT VERBALIZED UNDERSTANDING, AND CONTINUED TO REFUSE.
--- NOTE | 2019-10-05 04:50 | NUR ---
PATIENT CLEANSED AND LINENS CHANGED. PATIENT TOLERATED WELL.
[2019-10-05 05:00] VITALS: BP 113/67
[2019-10-05] MEDS: PREGABALIN CAPSULE 75 MG CAP PO SCH ×3 (06:22→23:04)
[2019-10-05] MEDS: SPIRONOLACTONE 25 MG TAB PO SCH ×2 (06:22→18:21)
[2019-10-05] MEDS: CLINDAMYCIN 600MG IV 50 ML IV SCH ×3 (06:22→23:01)
[2019-10-05] MEDS: GABAPENTIN 300 MG CAP PO SCH ×3 (06:23→23:04)
[2019-10-05] MEDS: ACCU-CHEK COMFORT CURVE STRIP VI SCH ×4 (06:26→22:00)
[2019-10-05] MEDS: InsuLIN REG 1unit/0.01ml Soln (100units/ml) SC SCH ×4 (06:29→22:00)
--- NOTE | 2019-10-05 07:42 | NUR ---
RECEIVED REPORT AND ASSUMED CARE OF PT. A/OX4. DENIED S/S ACUTE DISTRESS. UPDATE PT WITH POC. BED AT LOWEST POSITION. CALL LIGHT AND BELONGINGS WITHIN REACH. WILL CONT TO MONITOR.
[2019-10-05 09:00] VITALS: BP 108/63
[2019-10-05] MEDS: cefTRIAXone 1GM/50ML D5W 50 ML IV SCH (09:54)
[2019-10-05] MEDS: PANTOPRAZOLE 40 MG TAB PO SCH (09:54)
[2019-10-05] MEDS: POTASSIUM CHL 20 Meq TABLET PO SCH (09:56)
[2019-10-05] MEDS: FUROSEMIDE 40 MG TAB PO SCH ×2 (10:00→23:03)
[2019-10-05] MEDS: INSULIN DETEMIR 28 UNIT SC SCH ×2 (10:00→22:00)
[2019-10-05] MEDS: CLOTRIMAZOLE 1 % CREAM 15GM TOP SCH ×2 (10:00→23:05)
[2019-10-05] MEDS: CLOPIDOGREL BISULFATE 75 MG TAB PO SCH (10:01)
[2019-10-05] MEDS: TAMSULOSIN HYDROCHLORIDE 0.4 MG CAP PO SCH (10:01)
[2019-10-05] MEDS: CARVEDILOL 3.125 MG TAB PO SCH ×2 (10:02→23:03)
[2019-10-05 13:00] VITALS: BP 138/75
[2019-10-05 17:00] VITALS: BP 102/70
--- NOTE | 2019-10-05 19:20 | NUR ---
Opening Shift Note Assumed care of patient, awake and alert. No S/S of distress/SOB or pain. Instructed on POC and to call for assist PRN, will continue to monitor for changes Q1hr and PRN. Patient resting in bed, call light within reach, bed in lowest position, side rales up x2.
[2019-10-05 20:15] VITALS: BP 128/78
[2019-10-05 22:00] VITALS: BP 128/78
[2019-10-06 05:44] VITALS: BP 120/73
[2019-10-06] MEDS: PREGABALIN CAPSULE 75 MG CAP PO SCH ×3 (06:05→22:34)
[2019-10-06] MEDS: GABAPENTIN 300 MG CAP PO SCH ×3 (06:05→22:34)
[2019-10-06] MEDS: CLINDAMYCIN 600MG IV 50 ML IV SCH ×3 (06:05→22:33)
[2019-10-06] MEDS: SPIRONOLACTONE 25 MG TAB PO SCH ×2 (06:05→17:47)
[2019-10-06] MEDS: ACCU-CHEK COMFORT CURVE STRIP VI SCH ×4 (06:06→22:28)
[2019-10-06] MEDS: InsuLIN REG 1unit/0.01ml Soln (100units/ml) SC SCH ×4 (06:06→22:29)
--- NOTE | 2019-10-06 07:33 | NUR ---
Opening Shift Note Assumed care of patient, awake and alert. No S/S of distress/SOB or pain. For safety patient bed is locked in the lowest position, with 2 side rails up and the call light with in reach. Instructed on POC and to call for assist PRN, will continue to monitor for any changes in condition.
[2019-10-06 08:00] VITALS: BP 101/66
[2019-10-06 08:02] LABS: Basophils # (auto) 0 10 ^3/uL (0-0.2); Basophils % (auto) 1.2 % (0.0-2.0); Eosinophils # (auto) 0.1 10 ^3/uL (0-0.8); Eosinophils % (auto) 2.6 % (0.0-7.0); Hematocrit 32.3 % (41.0-53.0); Lymphocytes # (auto) 1.1 10 ^3/uL (0.4-5.4); Mean Corpuscular Volume 94.1 fL (80.0-100.0); Monocytes # (auto) 0.4 10 ^3/uL (0-1.3); Monocytes % (auto) 9.8 % (0.0-12.0); Neutrophils # (auto) 2.4 10 ^3/uL (1.6-8.6); Neutrophils % (auto) 59.4 % (37.0-80.0); Nucleated Red Blood Cells % 0.2 %; Platelet Count (auto) 192 10^3/uL (140-450); Red Blood Cells 3.43 10^6/uL (4.5-5.90); Red Cell Distribution Width 15.3 % (11.8-14.3); White Blood Cell 4.1 10^3/uL (4.4-10.8)
[2019-10-06 08:09] LABS: BUN/Creatinine Ratio 29.5; Calcium 7.9 mg/dL (8.5-10.1); Potassium 4.6 mmol/L (3.5-5.1)
[2019-10-06 09:21] VITALS: BP 101/66
[2019-10-06] MEDS: CARVEDILOL 3.125 MG TAB PO SCH ×2 (10:00→22:34)
[2019-10-06] MEDS: INSULIN DETEMIR 28 UNIT SC SCH ×2 (10:00→22:00)
[2019-10-06] MEDS: TAMSULOSIN HYDROCHLORIDE 0.4 MG CAP PO SCH (10:13)
[2019-10-06] MEDS: POTASSIUM CHL 20 Meq TABLET PO SCH (10:15)
[2019-10-06] MEDS: FUROSEMIDE 40 MG TAB PO SCH ×2 (10:15→22:34)
[2019-10-06] MEDS: CLOPIDOGREL BISULFATE 75 MG TAB PO SCH (10:16)
[2019-10-06] MEDS: PANTOPRAZOLE 40 MG TAB PO SCH (10:17)
[2019-10-06] MEDS: cefTRIAXone 1GM/50ML D5W 50 ML IV SCH (10:26)
[2019-10-06] MEDS: CLOTRIMAZOLE 1 % CREAM 15GM TOP SCH ×2 (12:16→22:28)
[2019-10-06 12:52] VITALS: BP 118/74
[2019-10-06] MEDS: HYDROmorphone HCL 2 MG/ML VL IV PRN ×2 (14:24→18:11)
--- NOTE | 2019-10-06 16:00 | NUR ---
PATIENTS FAMILY DROPPED OFF A SHIRT, PAIR OF PANTS AND HIS POM LANTUS. I ASKED PATIENT TO HAVE FAMILY DROP OFF LEVAMIRE THAT IS ON AUG AND HE STATED HE WOULD. NOW I ASK PATIENT IF HE HAS THE LAVAMIRE AND HE STATES HE DOES NOT KNOW. WILL LET WARRANT CLERK KNOW AND PLACE POM IN PHARMACY.
[2019-10-06 16:32] LABS: Urine Bacteria NONE SEEN /hpf (None Seen); Urine Blood Negative /uL (Negative); Urine Budding Yeast MANY /hpf (None Seen); Urine Mucus FEW (None Seen); Urine Specific Gravity 1.016 (1.001-1.035); Urine WBC 1 /hpf (0 - 3)
[2019-10-06 16:41] LABS: Amphetamine Screen, Urine POSITIVE (NEGATIVE); Barbiturate Scree,Urine NEGATIVE (NEGATIVE); Benzodiazephine Screen, Urine NEGATIVE (NEGATIVE); Cannabinoid Screen, Urine NEGATIVE (NEGATIVE); Cocaine Screen, Urine NEGATIVE (NEGATIVE); Phencyclidine Screen, Urine NEGATIVE (NEGATIVE)
[2019-10-06 16:48] LABS: Opiate Scree,Urine NEGATIVE (NEGATIVE)
[2019-10-06 17:44] VITALS: BP 115/74
--- NOTE | 2019-10-06 19:30 | NUR ---
Opening Shift Note Assumed care of patient, awake and alert x4. No S/S of distress/SOB or pain. Instructed on POC and to call for assist PRN. All questions and concerns answered, will continue to monitor for changes Q1hr and PRN.
[2019-10-06 22:00] VITALS: BP 102/56
[2019-10-07] MEDS: HYDROmorphone HCL 2 MG/ML VL IV PRN ×3 (01:37→14:34)
--- NOTE | 2019-10-07 01:37 | NUR ---
PAIN Patient is complaining of pain to the back, 8/0-10. Dilaudid administered per patient request. Call light is within reach, will reassess.
--- NOTE | 2019-10-07 02:07 | NUR ---
PAIN REASSESSMENT Patient is asleep in bed, no S/S of pain noted. Will continue to monitor.
[2019-10-07 05:38] LABS: Basophils # (auto) 0.1 10 ^3/uL (0-0.2); Basophils % (auto) 1.3 % (0.0-2.0); Eosinophils # (auto) 0.1 10 ^3/uL (0-0.8); Eosinophils % (auto) 2.6 % (0.0-7.0); Hematocrit 33.2 % (41.0-53.0); Hemoglobin 11.4 g/dL (13.5-17.5); Lymphocytes # (auto) 1.1 10 ^3/uL (0.4-5.4); Lymphocytes % (auto) 25.5 % (10.0-50.0); Mean Corpuscular Hemoglobin 32.5 pg (28.0-32.0); Mean Corpuscular Hgb Conc. 34.2 g/dL (32.0-36.0); Monocytes # (auto) 0.5 10 ^3/uL (0-1.3); Monocytes % (auto) 12.1 % (0.0-12.0); Neutrophils # (auto) 2.5 10 ^3/uL (1.6-8.6); Neutrophils % (auto) 58.5 % (37.0-80.0); Platelet Count (auto) 182 10^3/uL (140-450); Red Cell Distribution Width 15.1 % (11.8-14.3); White Blood Cell 4.2 10^3/uL (4.4-10.8)
[2019-10-07 05:49] LABS: Calcium 7.6 mg/dL (8.5-10.1); Potassium 5.1 mmol/L (3.5-5.1)
[2019-10-07 05:52] LABS: BUN/Creatinine Ratio 31.7
[2019-10-07 05:54] VITALS: BP 108/69
--- NOTE | 2019-10-07 06:00 | NUR ---
Patient refused new IV insertion. Explained risks and benefits regarding changing an IV after 3 days and this hospital's policy. Patient verbalized understanding. 0600 Clindamycin macarena, will continue to monitor.
[2019-10-07] MEDS: PREGABALIN CAPSULE 75 MG CAP PO SCH ×2 (06:31→13:59)
[2019-10-07] MEDS: CLINDAMYCIN 600MG IV 50 ML IV SCH ×2 (06:31→13:59)
[2019-10-07] MEDS: GABAPENTIN 300 MG CAP PO SCH ×2 (06:31→14:00)
[2019-10-07] MEDS: SPIRONOLACTONE 25 MG TAB PO SCH (06:31)
[2019-10-07] MEDS: InsuLIN REG 1unit/0.01ml Soln (100units/ml) SC SCH ×2 (06:32→11:43)
[2019-10-07] MEDS: ACCU-CHEK COMFORT CURVE STRIP VI SCH ×2 (06:32→11:42)
--- NOTE | 2019-10-07 07:02 | NUR ---
CLOSING SHIFT NOTE Patient is resting in bed, no S/S of distress, pain, or SOB noted. Call light is within reach. Will endorse care to dayshift RN.
--- NOTE | 2019-10-07 08:00 | NUR ---
Opening Shift Note Assumed care of patient, who is alert and oriented x4. No S/S of distress/SOB or pain. Bed is low, locked with 2x side rails up. Call light is within reach. Instructed on POC and to call for assist PRN, will continue to monitor for changes Q1hr and PRN.
[2019-10-07] MEDS: TAMSULOSIN HYDROCHLORIDE 0.4 MG CAP PO SCH (08:46)
[2019-10-07] MEDS: FUROSEMIDE 40 MG TAB PO SCH (08:46)
[2019-10-07] MEDS: PANTOPRAZOLE 40 MG TAB PO SCH (08:46)
[2019-10-07] MEDS: CARVEDILOL 3.125 MG TAB PO SCH (08:47)
[2019-10-07] MEDS: CLOPIDOGREL BISULFATE 75 MG TAB PO SCH (08:47)
[2019-10-07] MEDS: cefTRIAXone 1GM/50ML D5W 50 ML IV SCH (08:48)
[2019-10-07] MEDS: CLOTRIMAZOLE 1 % CREAM 15GM TOP SCH (08:48)
[2019-10-07] MEDS: POTASSIUM CHL 20 Meq TABLET PO SCH (08:48)
[2019-10-07 09:00] VITALS: BP 115/72
[2019-10-07] MEDS: INSULIN DETEMIR 28 UNIT SC SCH (10:00)
[2019-10-07 13:00] VITALS: BP 118/63
[2019-10-07 13:20] VITALS: BP 118/63
--- NOTE | 2019-10-07 15:59 | NUR ---
Discharge instructions given as ordered. Encourage to follow up with PMD as instructed. Provided patient with information to PCP and urology clinic in order to schedule follow up appointments. All questions and concerns addressed. Patient verbalized understanding. Medication reconciliation form completed and copy given to patient. Home medications held in Pharmacy returned to patient. IV removed with catheter intact, pressure dressing applied. Patient taken to vehicle via wheelchair with all personal belongings, accompanied by staff. No distress noted at time of departure.
[2019-10-12] MEDS ORDERED: SPIR25TA8 PO (07:48)
== END 2019-10-07 15:40 | disposition home or self-care (01) | DRG 501 ==
LOC: EDBD 20:10 → ER 20:15 → OVERFLOW 20:16 → CENTRAL 10-04 12:55
PROVIDERS: ADMIT Internal Medicine; ATTEND Internal Medicine
DX: N49.2 Inflammatory disorders of scrotum (principal); E11.22 Type 2 diabetes mellitus with diabetic chronic kidney disease; E11.40 Type 2 diabetes mellitus with diabetic neuropathy, unspecified; E44.0 Moderate protein-calorie malnutrition; R18.8 Other ascites; N18.3 Chronic kidney disease, stage 3 (moderate); I13.0 Hypertensive heart and chronic kidney disease with heart failure and stage 1 through stage 4 chronic kidney disease, or unspecified chronic kidney disease; I50.42 Chronic combined systolic (congestive) and diastolic (congestive) heart failure; N39.0 Urinary tract infection, site not specified; D63.8 Anemia in other chronic diseases classified elsewhere; E78.5 Hyperlipidemia, unspecified; F15.10 Other stimulant abuse, uncomplicated; F41.9 Anxiety disorder, unspecified; I25.10 Atherosclerotic heart disease of native coronary artery without angina pectoris; J44.9 Chronic obstructive pulmonary disease, unspecified; K74.60 Unspecified cirrhosis of liver; N43.3 Hydrocele, unspecified; F32.9 Major depressive disorder, single episode, unspecified; E11.65 Type 2 diabetes mellitus with hyperglycemia; N50.3 Cyst of epididymis; R32 Unspecified urinary incontinence; Z86.73 Personal history of transient ischemic attack (TIA), and cerebral infarction without residual deficits; Z95.1 Presence of aortocoronary bypass graft; Z95.0 Presence of cardiac pacemaker; Z82.49 Family history of ischemic heart disease and other diseases of the circulatory system; Z82.3 Family history of stroke; Z83.3 Family history of diabetes mellitus; Z88.6 Allergy status to analgesic agent; Z88.1 Allergy status to other antibiotic agents
CPT/HCPCS: 36415; 74176; 76870; 80048; 80053; 80307; 81001; 82962; 83036; 83605; 83690; 85025; 87040; 87086; 96365; 96375; G0378; J0696; J1815; J2405; J3490

== ENCOUNTER 2019-10-12 04:15 | Inpatient (IN) | payer MEDICAID ==
[~2019-10-12] VITALS: Ht 165.1 cm; Wt 86.5 kg
[2019-10-12] MEDS ORDERED: PANTOPRAZOLE 40 MG/10 ML VIAL INJ IV STA (07:07)
[2019-10-12] MEDS ORDERED: SODIUM CHLORIDE 0.9% 1,000 ML IV ONE (07:07)
[2019-10-12] MEDS ORDERED: FUROSEMIDE 40 MG/4 ML VIAL IV ONE (07:15)
[2019-10-12] MEDS ORDERED: PROMETHAZINE HCL 25 MG/ML 1ML IV PRN ×2 (07:15→14:15)
[2019-10-12] MEDS ORDERED: LACTULOSE 20Gm/30ML SOLN PO ONE (07:15)
[2019-10-12] MEDS ORDERED: SPIRONOLACTONE 25 MG TAB PO ONE (07:15)
[2019-10-12] MEDS ORDERED: HYDROmorphone HCL 2 MG/ML VL IV ONE (07:15)
[2019-10-12 07:43] LABS: Basophils # (auto) 0.1 10 ^3/uL (0-0.2); Basophils % (auto) 1.3 % (0.0-2.0); Eosinophils # (auto) 0.1 10 ^3/uL (0-0.8); Eosinophils % (auto) 2.2 % (0.0-7.0); Hematocrit 35.6 % (41.0-53.0); Hemoglobin 12.1 g/dL (13.5-17.5); Lymphocytes # (auto) 0.8 10 ^3/uL (0.4-5.4); Mean Corpuscular Hemoglobin 32.3 pg (28.0-32.0); Mean Corpuscular Hgb Conc. 34.1 g/dL (32.0-36.0); Mean Corpuscular Volume 94.7 fL (80.0-100.0); Monocytes # (auto) 0.4 10 ^3/uL (0-1.3); Monocytes % (auto) 8.5 % (0.0-12.0); Neutrophils # (auto) 3.6 10 ^3/uL (1.6-8.6); Nucleated Red Blood Cells % 0.2 %; Platelet Count (auto) 187 10^3/uL (140-450); Red Blood Cells 3.76 10^6/uL (4.5-5.90); Red Cell Distribution Width 15.9 % (11.8-14.3)
[2019-10-12] MEDS ORDERED: SPIR25TA8 (07:48)
[2019-10-12] MEDS ORDERED: CLIN-188 (07:48)
[2019-10-12] MEDS ORDERED: FURO40TA4 (07:48)
[2019-10-12 07:51] LABS: INR 1.06 (0.9-1.15); Partial Thromboplastin Time 27.3 sec (23.64-32.05)
[2019-10-12 08:13] LABS: Albumin 2.1 g/dL (3.4-5.0); Calcium 7.9 mg/dL (8.5-10.1)
[2019-10-12 08:16] LABS: BUN/Creatinine Ratio 24.1; Bilirubin, Total 0.8 mg/dL (0.2-1.0)
[2019-10-12 08:17] LABS: Magnesium 1.8 mg/dL (1.6-2.6)
[2019-10-12] MEDS ORDERED: MORPHINE SULF INJ 2 MG/ML SYRINGE 1ML IV PRN (13:45)
[2019-10-12] MEDS ORDERED: NITROGLYCERIN 0.4 MG SL TAB SL PRN (13:45)
[2019-10-12] MEDS ORDERED: ACETAMINOPHEN 500 MG TAB PO PRN (14:15)
[2019-10-12] MEDS ORDERED: levoFLOXacin 500MG 100 ML IV ONE (14:15)
[2019-10-12 15:03] VITALS: BP 151/92
[2019-10-12] MEDS: MORPHINE SULF INJ 2 MG/ML SYRINGE 1ML IV PRN ×2 (15:20→20:31)
--- NOTE | 2019-10-12 15:20 | NUR ---
ABDOMINAL PAIN 8/10 MEDICATED WITH MORPHINE 2 MG IVP.
[2019-10-12 17:00] VITALS: BP 129/67
[2019-10-12] MEDS: CARVEDILOL 3.125 MG TAB PO SCH (17:40)
[2019-10-12] MEDS: SPIRONOLACTONE 25 MG TAB PO SCH (17:41)
[2019-10-12] MEDS: TAMSULOSIN HYDROCHLORIDE 0.4 MG CAP PO SCH (17:41)
[2019-10-12] MEDS: FUROSEMIDE 20 MG/2 ML VIAL IV SCH (17:41)
[2019-10-12 18:40] LABS: Urine Bacteria NONE SEEN /hpf (None Seen); Urine Blood 1+ /uL (Negative); Urine Budding Yeast LOADED /hpf (None Seen); Urine Hyaline Cast FEW /lpf (0 - 2); Urine Mucus FEW (None Seen); Urine Specific Gravity 1.013 (1.001-1.035); Urine WBC 87 /hpf (0 - 3); Urine WBC Clumps PRESENT /hpf (None Seen)
--- NOTE | 2019-10-12 20:00 | NUR ---
open note assumed care of pt, upon entering room pt awake, alert and oriented x4. pt on 2L nc no distress noted or expressed. pt updated on plan of care, aware of clear liquid diet status. this nurse walked pt to restroom via minimum assist as he reports he uses walker at home. this nurse encouraged pt to call as needed for assistance with ambulation. pt bed locked, low and 2x rails up. pt call light in reach. this nurse to round q1hr and prn.
[2019-10-12 22:00] VITALS: BP 112/70
[2019-10-12] MEDS: ATORVASTATIN 20 MG TAB PO SCH (22:30)
[2019-10-12] MEDS: PREGABALIN CAPSULE 75 MG CAP PO SCH (22:30)
[2019-10-12] MEDS: CLINDAMYCIN 600MG IV 50 ML IV SCH (22:30)
[2019-10-12] MEDS: FAMOTIDINE 20 MG TAB PO SCH (22:30)
[2019-10-12] MEDS: INSULIN LANTUS (GLARGINE) 1 /0.01ml (100units/ml) SC SCH (22:31)
[2019-10-12] MEDS: GABAPENTIN 300 MG CAP PO SCH (22:31)
[2019-10-13 05:30] VITALS: BP 104/55
[2019-10-13 06:03] LABS: Basophils # (auto) 0.1 10 ^3/uL (0-0.2); Basophils % (auto) 2.1 % (0.0-2.0); Eosinophils # (auto) 0.1 10 ^3/uL (0-0.8); Eosinophils % (auto) 3.7 % (0.0-7.0); Hematocrit 32.8 % (41.0-53.0); Hemoglobin 11.3 g/dL (13.5-17.5); Lymphocytes # (auto) 0.6 10 ^3/uL (0.4-5.4); Lymphocytes % (auto) 15.8 % (10.0-50.0); Mean Corpuscular Hemoglobin 32.7 pg (28.0-32.0); Mean Corpuscular Hgb Conc. 34.6 g/dL (32.0-36.0); Mean Corpuscular Volume 94.4 fL (80.0-100.0); Monocytes # (auto) 0.5 10 ^3/uL (0-1.3); Monocytes % (auto) 12.1 % (0.0-12.0); Neutrophils # (auto) 2.5 10 ^3/uL (1.6-8.6); Neutrophils % (auto) 66.3 % (37.0-80.0); Nucleated Red Blood Cells % 0.1 %; Platelet Count (auto) 155 10^3/uL (140-450); Red Blood Cells 3.47 10^6/uL (4.5-5.90); Red Cell Distribution Width 15.5 % (11.8-14.3); White Blood Cell 3.7 10^3/uL (4.4-10.8)
[2019-10-13] MEDS: GABAPENTIN 300 MG CAP PO SCH ×3 (06:13→21:34)
[2019-10-13] MEDS: SPIRONOLACTONE 25 MG TAB PO SCH ×2 (06:13→17:44)
[2019-10-13] MEDS: CLINDAMYCIN 600MG IV 50 ML IV SCH ×3 (06:13→21:35)
[2019-10-13] MEDS: PREGABALIN CAPSULE 75 MG CAP PO SCH ×3 (06:13→21:37)
[2019-10-13] MEDS: FUROSEMIDE 20 MG/2 ML VIAL IV SCH ×2 (06:13→17:44)
[2019-10-13 06:17] LABS: Albumin 1.8 g/dL (3.4-5.0); Calcium 7.6 mg/dL (8.5-10.1)
[2019-10-13 06:20] LABS: BUN/Creatinine Ratio 25.3; Bilirubin, Total 0.7 mg/dL (0.2-1.0); Total Protein 5.9 g/dL (6.4-8.2)
--- NOTE | 2019-10-13 07:30 | NUR ---
Opening Shift Note RECEIVED REPORT FROM NOC RN. Assumed care of patient, awake and alert. PATIENT ON OXYGEN AT 2 LPM VIA NASAL CANNULA WITH no S/S of distress/SOB or pain. BED IN LOWEST, LOCKED POSITION WITH SIDERAILS UP x2 AND CALL LIGHT WITHIN REACH. Instructed on POC and to call for assist PRN, will continue to monitor for changes Q1hr and PRN.
[2019-10-13] MEDS: CARVEDILOL 3.125 MG TAB PO SCH ×2 (08:00→17:45)
[2019-10-13 09:00] VITALS: BP 98/59
[2019-10-13] MEDS: LACTULOSE 20Gm/30ML SOLN PO SCH (09:49)
[2019-10-13] MEDS: levoFLOXacin 500MG 100 ML IV SCH (09:49)
[2019-10-13] MEDS: FAMOTIDINE 20 MG TAB PO SCH ×2 (09:49→21:34)
[2019-10-13] MEDS: POTASSIUM CHL 20 Meq TABLET PO SCH (09:49)
[2019-10-13] MEDS: ENOXAPARIN SOD 40 MG/0.4 ML SYRINGE SC SCH (09:49)
[2019-10-13] MEDS ORDERED: CLOPIDOGREL BISULFATE 75 MG TAB PO SCH (10:00)
[2019-10-13] MEDS: INSULIN LANTUS (GLARGINE) 1 /0.01ml (100units/ml) SC SCH ×2 (10:37→21:43)
[2019-10-13 12:44] VITALS: BP 120/66
[2019-10-13 17:00] VITALS: BP 102/69
[2019-10-13] MEDS: TAMSULOSIN HYDROCHLORIDE 0.4 MG CAP PO SCH (17:45)
--- NOTE | 2019-10-13 19:20 | NUR ---
OPENING NOTE Received report from day shift RN. Patient resting in bed with no s/s of distress and shows no signs of discomfort. Patient arousable to name. Patient A&O X's 3-4. Patient told me name,GLORIA, that he was in hospital. Patient at first stated that he was in a different city and a different year. When given a bit more time and he woke up more, he appeared to be more oriented. He knew that he was in the hospital for abdominal pain. Educated patient on POC and to use call light when in need of assistance. Patient verbalized understanding. Bed is in lowest/locked position with side rails up X's 2 and call light is within reach of patient. Bed alarm is on for safety. Will continue care. Patient aware he is NPO at midnight for the procedure tomorrow.
--- NOTE | 2019-10-13 21:30 | NUR ---
PAIN ASSESSMENT When entering the room, the patient was laying in bed and asleep. When patient was woken up for assessment and pill administration, patient reported some abdominal pain 6/10. Patient reported that morphine just makes him tired, but if that is all he has ordered then he will take it. When I re-entered the room, the patient was sleeping and no s/s of distress or discomfort was noted. Will reassess patient and his pain level at a later time.
[2019-10-13 21:35] VITALS: BP 91/60
[2019-10-13] MEDS: ATORVASTATIN 20 MG TAB PO SCH (21:35)
--- NOTE | 2019-10-14 00:40 | NUR ---
ROUNDS Patient resting in bed with no s/s of distress or discomfort. RR are even and unlabored. HOB elevated and bed alarm remains on for safety. removed water and food from bedside at this time to keep patient NPO. Will continue care.
[2019-10-14 05:00] VITALS: BP 125/77
[2019-10-14 05:19] LABS: Basophils # (auto) 0.1 10 ^3/uL (0-0.2); Basophils % (auto) 1.6 % (0.0-2.0); Eosinophils # (auto) 0.1 10 ^3/uL (0-0.8); Eosinophils % (auto) 4.4 % (0.0-7.0); Hematocrit 34.4 % (41.0-53.0); Hemoglobin 11.8 g/dL (13.5-17.5); Lymphocytes # (auto) 0.7 10 ^3/uL (0.4-5.4); Lymphocytes % (auto) 21.1 % (10.0-50.0); Mean Corpuscular Hemoglobin 32.6 pg (28.0-32.0); Mean Corpuscular Hgb Conc. 34.4 g/dL (32.0-36.0); Monocytes # (auto) 0.3 10 ^3/uL (0-1.3); Monocytes % (auto) 10.2 % (0.0-12.0); Neutrophils # (auto) 2.1 10 ^3/uL (1.6-8.6); Neutrophils % (auto) 62.7 % (37.0-80.0); Nucleated Red Blood Cells % 0.1 %; Platelet Count (auto) 166 10^3/uL (140-450); Red Blood Cells 3.63 10^6/uL (4.5-5.90); Red Cell Distribution Width 15.7 % (11.8-14.3); White Blood Cell 3.3 10^3/uL (4.4-10.8)
[2019-10-14] MEDS: CLINDAMYCIN 600MG IV 50 ML IV SCH ×3 (05:24→21:05)
[2019-10-14] MEDS: GABAPENTIN 300 MG CAP PO SCH ×3 (05:25→21:06)
[2019-10-14] MEDS: PREGABALIN CAPSULE 75 MG CAP PO SCH ×3 (05:25→21:06)
[2019-10-14] MEDS: SPIRONOLACTONE 25 MG TAB PO SCH ×2 (05:25→19:16)
[2019-10-14] MEDS: FUROSEMIDE 20 MG/2 ML VIAL IV SCH ×2 (05:25→19:15)
--- NOTE | 2019-10-14 05:33 | NUR ---
ROUNDS Patient A&O X's 4 with no s/s of distress and reports no pain at this time. Patient aware of being NPO and verbalized understanding on POC. Will continue care.
[2019-10-14 05:40] LABS: BUN/Creatinine Ratio 20.9; Calcium 7.9 mg/dL (8.5-10.1); Potassium 3.9 mmol/L (3.5-5.1)
[2019-10-14] MEDS: CARVEDILOL 3.125 MG TAB PO SCH ×2 (08:11→19:16)
[2019-10-14 08:39] VITALS: BP 120/68
[2019-10-14] MEDS: levoFLOXacin 500MG 100 ML IV SCH (10:47)
[2019-10-14] MEDS: POTASSIUM CHL 20 Meq TABLET PO SCH (10:47)
[2019-10-14] MEDS: LACTULOSE 20Gm/30ML SOLN PO SCH (10:47)
[2019-10-14] MEDS: FAMOTIDINE 20 MG TAB PO SCH ×2 (10:47→21:05)
[2019-10-14] MEDS: INSULIN LANTUS (GLARGINE) 1 /0.01ml (100units/ml) SC SCH ×2 (10:47→21:15)
[2019-10-14] MEDS: ENOXAPARIN SOD 40 MG/0.4 ML SYRINGE SC SCH (10:48)
[2019-10-14 13:09] VITALS: BP 127/72
[2019-10-14 16:43] VITALS: BP 100/74
--- NOTE | 2019-10-14 17:20 | NUR ---
PATIENT ARRIVED IN US DEPT PER BED FOR US GUIDED PARACENTESIS PER DR INIGUEZ 1728 BASELINE VS HR 76-10-125/76-100% O2@2L PER NC 1737 HR 73-10-100%-130/85 1742 HR 75-12-100%-138/85 1747 HR 72-10-100%-127/84 1752 HR 78-12-100%-127/74 1757 HR 66-11-100%-121/73 1802 HR 74-13-100%-127/84 1810 HR 80-12-100%-125/81 1822 HR 76-10-100%-127/82 1834 HR 71-11-100%-120/82 1939 HR 71-12-100%-130/87 Addendum: 10/14/19 at 1851 by Aleida Polk RN 7175 ML DK ROSHAN FLUID OBTAINED VIA PARACENTESIS. BANDAID APPLIED TO LLQ ABD. PATIENT JONAS PROCEDURE WELL. PATIENT CONDITION STABLE. RETURNED TO ROOM ON BED - WITH PORTABLE O2 ON @ 2L PER NC.
--- NOTE | 2019-10-14 17:43 | NUR ---
ADVISED BY RADIOLOGY NURSE THAT PATIENT HAS 1000ML OF URINE IN HIS BLADDER. ADVISED RADIOLOGY NURSE THAT I WOULD CONTACT DR. VICK, UROLOGY.
--- NOTE | 2019-10-14 17:47 | NUR ---
SPOKE WITH DR. VICK IN [facility]. ADVISED DR. VICK OF AMOUNT OF URINE IN PATIENT'S BLADDER. DR. VICK ADVISED " LONG PATIENT IS STILL INCONTINENT WE CAN WAIT UNTIL SCHEDULED CYSTOSCOPY." DR. VICK REQUESTED TO BE NOTIFIED IF PATIENT'S INCONTINENCE STATUS CHANGES.
--- NOTE | 2019-10-14 18:49 | NUR ---
PATIENT BACK IN ROOM FROM RADIOLOGY.
--- NOTE | 2019-10-14 18:50 | NUR ---
ADVISED BY MAINSTREAMING FACILITATOR THAT 7125ML WAS REMOVED DURING PARACENTESIS.
--- NOTE | 2019-10-14 19:00 | NUR ---
OPENING NOTE Received report from day shift RN. Patient is A&O X's 4 with no s/s of distress and reports no pain. Educated patient on POC and to use call light when in need of assistance. Patient verbalized understanding. Bed is in lowest/locked position with side rails up X's 2 and call light is within reach of patient. Bed alarm is set. Will continue care.
[2019-10-14] MEDS: TAMSULOSIN HYDROCHLORIDE 0.4 MG CAP PO SCH (19:16)
[2019-10-14] MEDS: ATORVASTATIN 20 MG TAB PO SCH (21:06)
[2019-10-14] MEDS: MORPHINE SULF INJ 2 MG/ML SYRINGE 1ML IV PRN (21:06)
--- NOTE | 2019-10-14 21:36 | NUR ---
PAIN REASSESSMENT Patient resting in bed and reports that pain is now better and rates it at a 4. Patient appears more comfortable at this time. Will continue care.
[2019-10-14 22:41] VITALS: BP 101/60
[2019-10-15] MEDS: FUROSEMIDE 20 MG/2 ML VIAL IV SCH ×2 (05:17→18:14)
[2019-10-15] MEDS: PREGABALIN CAPSULE 75 MG CAP PO SCH ×3 (05:17→21:38)
[2019-10-15] MEDS: SPIRONOLACTONE 25 MG TAB PO SCH ×2 (05:17→18:14)
[2019-10-15] MEDS: CLINDAMYCIN 600MG IV 50 ML IV SCH ×3 (05:17→21:37)
[2019-10-15] MEDS: GABAPENTIN 300 MG CAP PO SCH ×3 (05:17→21:38)
[2019-10-15 05:18] VITALS: BP 124/74
[2019-10-15 06:48] LABS: Basophils # (auto) 0.1 10 ^3/uL (0-0.2); Basophils % (auto) 1.8 % (0.0-2.0); Eosinophils # (auto) 0.1 10 ^3/uL (0-0.8); Eosinophils % (auto) 3.3 % (0.0-7.0); Hematocrit 37.5 % (41.0-53.0); Hemoglobin 12.5 g/dL (13.5-17.5); Lymphocytes # (auto) 0.6 10 ^3/uL (0.4-5.4); Lymphocytes % (auto) 16.6 % (10.0-50.0); Mean Corpuscular Hemoglobin 31.8 pg (28.0-32.0); Mean Corpuscular Hgb Conc. 33.4 g/dL (32.0-36.0); Monocytes # (auto) 0.4 10 ^3/uL (0-1.3); Monocytes % (auto) 11.1 % (0.0-12.0); Neutrophils # (auto) 2.5 10 ^3/uL (1.6-8.6); Neutrophils % (auto) 67.2 % (37.0-80.0); Nucleated Red Blood Cells % 0.1 %; Platelet Count (auto) 192 10^3/uL (140-450); Red Blood Cells 3.95 10^6/uL (4.5-5.90); Red Cell Distribution Width 15.8 % (11.8-14.3); White Blood Cell 3.8 10^3/uL (4.4-10.8)
[2019-10-15 07:24] LABS: BUN/Creatinine Ratio 15.9; Calcium 8.1 mg/dL (8.5-10.1); Potassium 4.7 mmol/L (3.5-5.1)
[2019-10-15] MEDS: MORPHINE SULF INJ 2 MG/ML SYRINGE 1ML IV PRN ×3 (07:54→22:58)
[2019-10-15 08:00] VITALS: BP 125/75
--- NOTE | 2019-10-15 08:05 | NUR ---
Opening Shift Note Assumed care of patient, awake and alert. No S/S of distress/SOB or pain. Instructed on POC and to call for assist PRN, will continue to monitor for changes Q1hr and PRN. Bed locked in lowest position with two side rails up and call light in reach.
--- NOTE | 2019-10-15 09:05 | NUR ---
PATIENT COMPLAINING OF PAIN 8/10 ON BACK . MEDICATED AND WILL RE ASSESS.
[2019-10-15] MEDS: levoFLOXacin 500MG 100 ML IV SCH (09:31)
[2019-10-15] MEDS: LACTULOSE 20Gm/30ML SOLN PO SCH (09:31)
[2019-10-15] MEDS: ENOXAPARIN SOD 40 MG/0.4 ML SYRINGE SC SCH (09:31)
[2019-10-15] MEDS: POTASSIUM CHL 20 Meq TABLET PO SCH (09:32)
[2019-10-15] MEDS: CARVEDILOL 3.125 MG TAB PO SCH ×2 (09:32→18:00)
[2019-10-15] MEDS: FAMOTIDINE 20 MG TAB PO SCH ×2 (09:32→21:38)
[2019-10-15] MEDS: INSULIN LANTUS (GLARGINE) 1 /0.01ml (100units/ml) SC SCH (09:40)
[2019-10-15 12:00] VITALS: BP 112/66
[2019-10-15 16:35] VITALS: BP 105/74
[2019-10-15] MEDS: TAMSULOSIN HYDROCHLORIDE 0.4 MG CAP PO SCH (18:14)
--- NOTE | 2019-10-15 19:00 | NUR ---
Opening Shift Note Assumed care of patient, awake and alert. No S/S of distress/SOB or pain. Instructed on POC and to call for assist PRN. Patient verbalized understanding. Bed is locked in lowest position with two side rails up and call light in reach of patient. Bed alarm is on. Will continue care.
--- NOTE | 2019-10-15 20:53 | NUR ---
LINEN CHANGE Patient incontinent of stool and urine. Patient was cleaned at this time with warm soap and water. Complete linen change was done and provided new gown for patient. Patient tolerated well. Will continue care.
[2019-10-15] MEDS: ATORVASTATIN 20 MG TAB PO SCH (21:38)
[2019-10-15 22:00] VITALS: BP 98/69
--- NOTE | 2019-10-15 23:30 | NUR ---
PAIN REASSESSMENT Patient is sitting up in bed on his phone. Patient reports no pain at this time. Will continue care.
[2019-10-16] VITALS (32 sets, daily range): BP systolic 75–136; BP diastolic 50–94
--- NOTE | 2019-10-16 | NUR ---
PATIENT NPO Patient aware and verbalized understanding.
[2019-10-16] MEDS: GABAPENTIN 300 MG CAP PO SCH (05:22)
[2019-10-16] MEDS: PREGABALIN CAPSULE 75 MG CAP PO SCH ×3 (05:22→22:00)
[2019-10-16] MEDS: CLINDAMYCIN 600MG IV 50 ML IV SCH ×3 (05:22→22:00)
[2019-10-16] MEDS: SPIRONOLACTONE 25 MG TAB PO SCH (05:23)
[2019-10-16] MEDS: FUROSEMIDE 20 MG/2 ML VIAL IV SCH (05:33)
--- NOTE | 2019-10-16 07:00 | NUR ---
Opening Shift Note Assumed care of patient, awake and alert. No S/S of distress/SOB or pain. Instructed on POC and to call for assist PRN, will continue to monitor for changes Q1hr and PRN.
[2019-10-16 07:12] LABS: INR 1.21 (0.9-1.15)
[2019-10-16] MEDS: levoFLOXacin 500MG 100 ML IV SCH (07:41)
[2019-10-16] MEDS: CARVEDILOL 3.125 MG TAB PO SCH (07:41)
[2019-10-16] MEDS: ENOXAPARIN SOD 40 MG/0.4 ML SYRINGE SC SCH (07:42)
[2019-10-16] MEDS: FAMOTIDINE 20 MG TAB PO SCH (07:42)
[2019-10-16] MEDS: MORPHINE SULF INJ 2 MG/ML SYRINGE 1ML IV PRN ×2 (07:43→11:44)
[2019-10-16] MEDS: LACTULOSE 20Gm/30ML SOLN PO SCH (10:00)
--- NOTE | 2019-10-16 10:30 | NUR ---
PATIENT RESTING IN BED. PATIENT UPDATED ON POC
--- NOTE | 2019-10-16 12:42 | NUR ---
Dr. Dumont at bedside discussing POC with patient
[2019-10-16] MEDS ORDERED: IOHEXOL 300 MG/ML 100ML BOTTLE IJ ONE (13:06)
--- NOTE | 2019-10-16 13:14 | NUR ---
PATIENT TAKEN TO OR.
[2019-10-16] MEDS ORDERED: MORPHINE SULFATE 4 MG/ML SYR/VIAL IV PRN (13:15)
[2019-10-16] MEDS ORDERED: ONDANSETRON HCL 4 MG/2 ML VIAL IV PRN (13:15)
[2019-10-16] MEDS ORDERED: ACCU-CHEK COMFORT CURVE STRIP VI ONE (13:15)
[2019-10-16] MEDS ORDERED: HYDROmorphone HCL 2 MG/ML VL IV PRN (13:15)
[2019-10-16] MEDS ORDERED: ONDANSETRON HCL 4 MG/2 ML VIAL ONE (13:23)
[2019-10-16] MEDS ORDERED: SODIUM CHLORIDE LOCK 10 ML ONE (13:23)
[2019-10-16] MEDS ORDERED: fentaNYL CITRATE 100 MCG/2 ML VL ONE (13:23)
[2019-10-16] MEDS ORDERED: PROPOFOL 10 MG/ML 20 ML IV ONE (13:23)
[2019-10-16] MEDS ORDERED: MIDAZOLAM HCL 1MG/1ML-2 ML VIAL ONE (13:23)
[2019-10-16] MEDS ORDERED: NOREPINEPHRINE 8 MG/250ML KIT 250 ML IV ONE (14:27)
[2019-10-16] MEDS: NOREPINEPHRINE 8 MG/250ML KIT 250 ML IV SCH (14:35)
[2019-10-16] MEDS: MIDAZOLAM DRIP 50 mg/50mL 50 ML IV SCH (14:56)
[2019-10-16 15:00] LABS: Basophils # (auto) 0 10 ^3/uL (0-0.2); Basophils % (auto) 1.3 % (0.0-2.0); Eosinophils # (auto) 0.1 10 ^3/uL (0-0.8); Eosinophils % (auto) 2.1 % (0.0-7.0); Hematocrit 37.2 % (41.0-53.0); Hemoglobin 12.3 g/dL (13.5-17.5); Lymphocytes # (auto) 1.3 10 ^3/uL (0.4-5.4); Lymphocytes % (auto) 36.4 % (10.0-50.0); Mean Corpuscular Hemoglobin 32.1 pg (28.0-32.0); Mean Corpuscular Volume 97.3 fL (80.0-100.0); Monocytes # (auto) 0.4 10 ^3/uL (0-1.3); Monocytes % (auto) 11.6 % (0.0-12.0); Neutrophils # (auto) 1.8 10 ^3/uL (1.6-8.6); Neutrophils % (auto) 48.6 % (37.0-80.0); Nucleated Red Blood Cells % 0.2 %; Platelet Count (auto) 196 10^3/uL (140-450); Red Blood Cells 3.82 10^6/uL (4.5-5.90); Red Cell Distribution Width 16.6 % (11.8-14.3); White Blood Cell 3.6 10^3/uL (4.4-10.8)
[2019-10-16 15:15] LABS: INR 1.28 (0.9-1.15)
[2019-10-16 15:23] LABS: Albumin 1.7 g/dL (3.4-5.0); Calcium 7.2 mg/dL (8.5-10.1); Magnesium 2.2 mg/dL (1.6-2.6); Potassium 5.4 mmol/L (3.5-5.1)
[2019-10-16 15:24] LABS: BUN/Creatinine Ratio 16.5
[2019-10-16 15:30] LABS: Bilirubin, Total 0.8 mg/dL (0.2-1.0)
[2019-10-16] MEDS ORDERED: ALBUTEROL SULF 2.5 MG/0.5ML(0.5%) NEB SOLN NEB ONE (16:00)
--- NOTE | 2019-10-16 16:14 | NUR ---
Respiratory note: titrated fio2 to 50%. pt tolerating vent change well. mn inline tx given by rt fede. no adverse reaction noted at this time.
[2019-10-16] MEDS: fentaNYL Drip 2500mCg/250mlNS 250 ML IV SCH (17:19)
--- NOTE | 2019-10-16 18:00 | NUR ---
RECEIVED FROM PACU INTUBATED, ON LIGHT SEDATION ON FENTANYL, ON LOW DOSE OF LEVOPHED TO KEEP SBP ABOVE 90. PT S/P CYSTOSCOPY WITH HARRY PLACEMENT, PT CODED OBTAINED ROSC AFTER 3 MIN. OF CPR PER REPORT FROM UNDERWRITER. PT STARTING TO WAKE UP, THRASHING AROUND BUT NOT FOLLOWING COMMANDS, PUPILS WITH BRISK REACTION TO LIGHT. PT HAS A NEURO AND A DIVISION DIRECTOR CONSULTATION. ORNAMENTER WAS TOLD TO CALL CONSULTS IN. PT'S SKIN IS INTACT.
--- NOTE | 2019-10-16 19:37 | NUR ---
NOTIFIED DR. KAYE OF PT'S ADMISSION TO ICU. MD OBTAIN PT'S HISTORY, ABG AND CURRENT VENTILATOR SETTINGS, NO NEW VENT SETTING OBTAINED. OKAY FOR VERSED AND PROPOFOL TO BE UTILIZED FOR SEDATION IF NEEDED, . STATES. DR. REECE WILL SEE PT. TOMORROW.
[2019-10-16] MEDS: PROPOFOL 100 ML IV SCH (19:40)
--- NOTE | 2019-10-16 20:00 | NUR ---
ADMITTED WITH ABDOMINAL PAIN, ABDOMINAL DISTENSION AND URINE RETENTION. TODAY HAD A CYSTOSCOPY . CODE BLUE IN ER. ROSC IN 3 MINUTES. INTUBATED AND BROUGHT HERE. PUPILS ARE SLUGGISH. EYES TRY TO OPEN. ORALLY INTUBATED. ETT TO VENTILATOR. NO NGT. ABDOMEN ROUND AND SOFT. HARRY TO DOWN DRAIN BAG 75CC IN 2 HOURS. LUNGS CLEAR. LEFT UPPER CHEST PACEMAKER. 100% V PACED. OCCASIONALLY YOU SEE THE ATRIAL PACER SPIKE. ON LEVOPHED. WEANING IT DOWN. FENTANYL DRIP AT 75 MCG. PATIENT IS MOVING ARMS AND LEGS. INCREASED THE FENTANYL.
[2019-10-16] MEDS: SODIUM CHLORIDE 0.9% 1,000 ML IV SCH (22:00)
[2019-10-16] MEDS: ATORVASTATIN 20 MG TAB PO SCH (22:00)
--- NOTE | 2019-10-16 22:00 | NUR ---
IV SITES SHOW NO REDNESS OR SWELLING. SBP DROPPED AFTER TURNING THE LEVOPHED OFF . 100% V PACED. OCCASIONALLY YOU SEE THE ATRIAL SPIKE WITH NO CAPTURE. LUNGS CLEAR. O2 SATURATION 98%
--- NOTE | 2019-10-16 23:00 | NUR ---
SBP 85-89 SYSTOLIC. REINSTATED THE LEVOPHED AT 1 MCG/MIN. SBP 94
[2019-10-17] VITALS (103 sets, daily range): BP systolic 89–124; BP diastolic 44–79
--- NOTE | 2019-10-17 | NUR ---
STILL SLEEPY. BECCA. ORAL CARE DONE. AV SEQUENTIAL PACEMAKER. LEVOPHED STILL AT 1 MCG/MIN. LUNGS CLEAR. NOTHING SUCTIONED FROM THE ETT. URINE OUTPUT BORDERLINE.
--- NOTE | 2019-10-17 02:00 | NUR ---
NO CHANGE IN STATUS. IVS SHOW NO REDNESSS OR SWELLING. AV PACED.ADEQUATE URINE OUTUT
--- NOTE | 2019-10-17 04:00 | NUR ---
CHG BATH. AV SEQUENTIAL PACER. LUNGS CLEAR. NOTHING SUCTIONED FROM THE ETT. ORAL DONE.IV SITES SHOW NO REDNESS OR SWELLING. ABDOMEN ROUND, SOFT. NO BM. HARRY DRAINING CLEAR YELLOW LIQUID.
[2019-10-17 04:11] LABS: Basophils # (auto) 0.1 10 ^3/uL (0-0.2); Basophils % (auto) 2.1 % (0.0-2.0); Eosinophils # (auto) 0.1 10 ^3/uL (0-0.8); Eosinophils % (auto) 1.2 % (0.0-7.0); Hemoglobin 12.3 g/dL (13.5-17.5); Lymphocytes % (auto) 22.2 % (10.0-50.0); Mean Corpuscular Hgb Conc. 33.4 g/dL (32.0-36.0); Mean Corpuscular Volume 95.9 fL (80.0-100.0); Monocytes # (auto) 0.5 10 ^3/uL (0-1.3); Monocytes % (auto) 11.7 % (0.0-12.0); Neutrophils # (auto) 2.9 10 ^3/uL (1.6-8.6); Neutrophils % (auto) 62.8 % (37.0-80.0); Nucleated Red Blood Cells % 0.2 %; Platelet Count (auto) 172 10^3/uL (140-450); Red Blood Cells 3.86 10^6/uL (4.5-5.90); Red Cell Distribution Width 15.9 % (11.8-14.3); White Blood Cell 4.6 10^3/uL (4.4-10.8)
[2019-10-17 04:30] LABS: Albumin 1.7 g/dL (3.4-5.0); Calcium 7.5 mg/dL (8.5-10.1); Potassium 4.8 mmol/L (3.5-5.1)
[2019-10-17 04:33] LABS: BUN/Creatinine Ratio 17.6; Bilirubin, Total 0.9 mg/dL (0.2-1.0); Total Protein 5.6 g/dL (6.4-8.2)
[2019-10-17] MEDS: CLINDAMYCIN 600MG IV 50 ML IV SCH ×3 (05:58→22:06)
[2019-10-17] MEDS: PREGABALIN CAPSULE 75 MG CAP PO SCH ×3 (06:00→22:06)
--- NOTE | 2019-10-17 07:30 | NUR ---
REPORT RECEIVED FROM GEOCHEMIST NURSE. PATIENT RESTING IN BED AT THIS TIME INTUBATED AND LIGHTLY SEDATED. RESPIRATIONS EVEN AND UNLABORED. NO SIGNS OF ACUTE DISTRESS NOTED. BED IN LOW POSITION. WILL CONTINUE TO MONITOR.
--- NOTE | 2019-10-17 07:32 | NUR ---
ATTEMPT MADE TO CONTACT THE SISTER, NATALIA PORTILLO. THE PHONE HAS BEEN DISCONNECTED OR IS NOT IN SERVICE. LEFT A MESSAGE ON HIS HOME PHONE NUMBER TO CALL US.
[2019-10-17] MEDS: MIDAZOLAM DRIP 50 mg/50mL 50 ML IV SCH (07:36)
--- NOTE | 2019-10-17 08:45 | NUR ---
SWALLOW EVALUATION GAVE PATIENT WATER, APPLE SAUCE AND JELLO. SWALLOWED WITHOUT DIFFICULTY. NO NOTED ASPIRATION. ADVANCED DIET PER PROTOCOL. Addendum: 10/17/19 at 1408 by Porsha Calderon RN WRONG PATIENT
--- NOTE | 2019-10-17 09:38 | NUR ---
SPOKE TO DR RAY ABOUT PATIENTS COMPLAINT OF PAIN IN LEFT LEG. PER ORDER NO 5 Q6HR PRN PAIN. ORDERS NOTED IN CHART. Addendum: 10/17/19 at 1407 by Porhsa Calderon RN WRONG PATIENT
[2019-10-17] MEDS: LACTULOSE 20Gm/30ML SOLN PO SCH (10:00)
[2019-10-17] MEDS ORDERED: EPINEPHrine HCL 1 MG/10 ML SYRG IV ONE (10:00)
[2019-10-17] MEDS ORDERED: SODIUM BICARBONATE 8.4% INJ 50ML SYRINGE IV ONE (10:00)
[2019-10-17] MEDS: ENOXAPARIN SOD 40 MG/0.4 ML SYRINGE SC SCH (10:51)
[2019-10-17] MEDS: levoFLOXacin 500MG 100 ML IV SCH (10:51)
[2019-10-17] MEDS: SODIUM CHLORIDE 0.9% 1,000 ML IV SCH (10:52)
--- NOTE | 2019-10-17 11:17 | NUR ---
DR CASTLE AT BEDSIDE TO ASSESS PATIENT AND DISCUSS PLAN OF CARE. ALL ORDERS NOTED IN CHART.
[2019-10-17 11:19] LABS: Urine Bacteria FEW /hpf (None Seen); Urine Blood 2+ /uL (Negative); Urine Specific Gravity 1.013 (1.001-1.035); Urine WBC 70 /hpf (0 - 3); Urine WBC Clumps PRESENT /hpf (None Seen)
[2019-10-17 11:35] LABS: Protein, Urine 59.2 mg/dL (0.0-11.9)
--- NOTE | 2019-10-17 11:50 | NUR ---
ADVANCED ETT BY 2 CM PER XRAY. MARY TOUSSAINT MADE AWARE. ETT AT 24CM AT THE LIPLINE.
--- NOTE | 2019-10-17 12:35 | NUR ---
DR RAY AT BEDSIDE TO ASSESS PATIENT AND DISCUSS PLAN OF CARE. ALL ORDERS NOTED IN CHART. Addendum: 10/17/19 at 1407 by Porsha Calderon RN WRONG PATIENT
--- NOTE | 2019-10-17 12:35 | NUR ---
WOUND CARE NURSE AT BEDSIDE.
--- NOTE | 2019-10-17 12:38 | NUR ---
WOUND CARE NOTE: Wound care in to see patient due to intubation status putting patient to high risk for skin breakdown. Patient is 49 years old male with admitting diagnosis of Abdominal Pain, Ascites. Patient is resting in ICU bed in Rm. 110. Patient is intubated, lightly sedated and mechanically ventilated. Patient open his eyes spontaneously, able to assist in turning. His Neil score is 14. Skin assessment done with the assistance of another nurse, MARY Walker. No open wound noted other than multi, tiny, dry, intact scabs to patient's distal R great toe and well healed L forefoot stump with brown, dry intact scab. His sacrum noted with brown hyperpigmented skin. Lynnette care given,applied Barrier cream as preventative. patient tolerated well, repositioned for comfort facing his Rt. side, redistributed pressure points with pillows. RECOMMENDATION: Nursing to continue with BID/PRN cleaning and application of Barrier cream to sacral, buttocks as preventative per MD order, frequent turning and repositioning schedule as condition permits, redistribute pressure points with pillows, continue monitoring by wound care while patient is mechanically ventilated. Addendum: 10/17/19 at 1727 by Leilani Mari RN Amended: Links added.
--- NOTE | 2019-10-17 13:35 | NUR ---
SPOKE TO DR REECE TO CLEAR PATIENT FOR CPAP. PER MD OBTAIN CARDIAC CLEARANCE. ALL ORDERS NOTED.
--- NOTE | 2019-10-17 13:42 | NUR ---
CARDIO CONSULT CALLED IN CARDIO CONSULT PER DR REECE REQUEST.
--- NOTE | 2019-10-17 14:05 | NUR ---
DR DOWNS AT BEDSIDE TO ASSESS PATIENT AND DISCUSS PLAN OF CARE. TO SIGN OFF CASE. Addendum: 10/17/19 at 1524 by Porsha Calderon RN WRONG PATIENT
--- NOTE | 2019-10-17 14:05 | NUR ---
DR DOWNS AT BEDSIDE TO ASSESS PATIENT AND DISCUSS PLAN OF CARE. ALL ORDERS NOTED IN CHART.
[2019-10-17] MEDS: NOREPINEPHRINE 8 MG/250ML KIT 250 ML IV SCH (14:30)
--- NOTE | 2019-10-17 14:49 | NUR ---
DR GUERRERO AT BEDSIDE TO ASSESS PATIENT AND DISCUSS PLAN OF CARE. ALL ORDERS NOTED IN CHART.
--- NOTE | 2019-10-17 15:21 | NUR ---
assessment Patient is a 49 year old male who is on a vent. Prior to admission patient lived home with family and functioned with assistance. Patient has a wheelchair, fww, and a cane for home use. Patients PCP is Dr Smiley. Patient was admitted for abdominal pain. Patients post discharge needs to be determined after extubation and prior to discharge. Addendum: 10/17/19 at 1523 by Suzi MCNEAL Amended: Links added.
[2019-10-17] MEDS: fentaNYL Drip 2500mCg/250mlNS 250 ML IV SCH ×2 (15:39→20:55)
--- NOTE | 2019-10-17 15:39 | NUR ---
PATIENT TRANSPORTED TO CT VIA BED CONNECTED TO PORTABLE MONITOR AND VENTILATOR. RADIOLOGY NURSE, TECH AND RESPIRATORY THERAPIST AT BEDSIDE FOR TRANSPORT.
--- NOTE | 2019-10-17 15:50 | NUR ---
PT TRANSPORTED TO CT WITH NO INCIDENT REPORTED, PT ON TRANSPORT VENT AND CARDIAC MONITORING. MARY LOPEZ AT BEDSIDE. SPO2 99%, HR 68, RR 18. WILL CONTINUE TO MONITOR PT.
--- NOTE | 2019-10-17 15:54 | NUR ---
PATIENT BROUGHT BACK TO ROOM VIA BED AND CONNECTED BACK TO BEDSIDE MONITOR AND VENTILATOR. PATIENT TOLERATED WELL, VITAL SIGNS STABLE.
--- NOTE | 2019-10-17 17:34 | NUR ---
GREG CRAVEN FLOW WORKER AT BEDSIDE TO ASSESS PATIENT AND DISCUSS PLAN OF CARE. ALL ORDERS NOTED IN CHART.
[2019-10-17] MEDS: FUROSEMIDE 100 MG/10ML VIAL IV SCH (18:21)
--- NOTE | 2019-10-17 20:00 | NUR ---
ADMITTED HERE POST CYSTOSCOPY BY DR VICK. CODE BLUE DURING PROCEDURE ON 10/16/19. REMAINS VENTED. IS AWAKE. FENTANYL FOR SEDATION. HAS COME OFF LEVOPHED EARLIER TODAY. BECCA. LUNGS CLEAR. ORAL CAVITY CLEAR. ABDOMEN ROUND AND SOFT. HAD A PARACENTESIS ON 10/14/19. SMALL BANDAID ON THE LEFT ABDOMEN. RADIAL PULSES WEAK. RIGHT FOOT PULSE WITH DOPPLER. BOTH FEET ARE COOL. REPOSITIONED TO RIGHT SIDE. ORAL CARE DONE. HARRY DRAINING A LARGE AMOUNT OF GRAPEFRUIT COLOR URINE. HAD LASIX AT 1800. BRASS AND WIND INSTRUMENT REPAIRER TEACHER OF THE SIGHT IMPAIRED SAW THE PATIENT TODAY. ORDER FOR NEW CARDIAC MEDS. PENDING EEG AND ECHOCARDIOGRAM. NO WOUNDS. 2 PERIPHERAL IVS SHOW NO REDNESS OR SWELLING. PERMANENT PACEMAKER WITH RATE OF 79 CURRENTLY. OVERBREATHING THE VENTILATOR AC RATE OF 16. RR IS 21. PLAN TO PLACE AN NGT FOR MED.
--- NOTE | 2019-10-17 22:00 | NUR ---
PLACED A #14 ARMENIAN NGT ORALLY. RESIDUAL 10CC OF DARK GREEN LIQUID. PLACEMENT CHECKED. VSS. WAKES UP EASILY. CARELESS WITH ARMS. REMIND HIM AND HE KEEPS HIS ARMS DOWN. LUNGS CLEAR. NOTHING SUCTIONED FROM THE ETT. REPOSITIONED. ABDOMEN SOFT. NO BM. LARGE URINE OUTPUT, GRAPEFRUIT COLOR. PANCHAL WELL. IV SHOWS NO REDNESS OR SWELLING.
[2019-10-17] MEDS: CARVEDILOL 3.125 MG TAB PO SCH (22:06)
[2019-10-17] MEDS: ATORVASTATIN 20 MG TAB PO SCH (22:06)
[2019-10-17] MEDS: SACUBITRIL-VALSARTAN 24mg/26mg TAB PO SCH (22:07)
[2019-10-18] VITALS (99 sets, daily range): BP systolic 81–135; BP diastolic 35–82
--- NOTE | 2019-10-18 | NUR ---
REPOSITIONED TO LEFT SIDE. AV SEQUENTIAL PACING. RATE VARIES. BECCA. SLEEPY. MOVES ALL EXTREMITIES. OVERBREATHES THE VENTILATOR RATE. ABDOMEN SOFT. LARGE URINE OUTPUT. 1590CC OF URINE SO FAR. NGT CLAMPED. HYPERPIGMENTATION OF LOWER EXTREMITIES. RIGHT FOOT IS WARM TONIGHT. LEFT FOOT IS COOL.
--- NOTE | 2019-10-18 02:00 | NUR ---
REPOSITIONED TO BACK. ORAL CARE DONE. SUCTIONED ETT. RESIDUAL FROM THE NG IS LOW AND DARK GREEN. TEMP 100. TYLENOL GIVEN. AV SEQUENTIAL PACING.
--- NOTE | 2019-10-18 02:58 | NUR ---
SBP 87 , 88 MULTIPLE TIMES. LEVOPHED RESTARTED.
--- NOTE | 2019-10-18 04:00 | NUR ---
STABLE NOW ON LEVOPHED. COREG AND ENTRESTO GIVEN 6 HOURS AGO. LEFT ARM GETTING SWOLLEN. TKO IV DCD. BP CUFF ON THAT ARM. CHG BATH DONE. NO SKIN ISSUES. HYPERPIGMENTATION OF LOWER EXTREMITIES. [place] AREA IS CLEAN AND DRY. TIP OF PENIS IS RED. 18FR HARRY IN PLACE . URINE IS A GRAPEFRUIT COLOR WITH SEDIMENT . NO BM TONIGHT PANCHAL. BILATERAL MITTENS ON.
[2019-10-18 04:50] LABS: Basophils # (auto) 0.1 10 ^3/uL (0-0.2); Basophils % (auto) 0.8 % (0.0-2.0); Eosinophils # (auto) 0.1 10 ^3/uL (0-0.8); Eosinophils % (auto) 0.8 % (0.0-7.0); Hematocrit 40.6 % (41.0-53.0); Hemoglobin 13.6 g/dL (13.5-17.5); Lymphocytes # (auto) 0.9 10 ^3/uL (0.4-5.4); Mean Corpuscular Hemoglobin 31.6 pg (28.0-32.0); Mean Corpuscular Hgb Conc. 33.5 g/dL (32.0-36.0); Mean Corpuscular Volume 94.4 fL (80.0-100.0); Monocytes # (auto) 0.9 10 ^3/uL (0-1.3); Monocytes % (auto) 9.8 % (0.0-12.0); Neutrophils # (auto) 7.6 10 ^3/uL (1.6-8.6); Neutrophils % (auto) 79.6 % (37.0-80.0); Nucleated Red Blood Cells % 0.1 %; Platelet Count (auto) 206 10^3/uL (140-450); Red Cell Distribution Width 15.7 % (11.8-14.3); White Blood Cell 9.6 10^3/uL (4.4-10.8)
[2019-10-18 05:00] LABS: Albumin 1.7 g/dL (3.4-5.0); Calcium 7.6 mg/dL (8.5-10.1); Potassium 4.2 mmol/L (3.5-5.1)
[2019-10-18 05:04] LABS: BUN/Creatinine Ratio 19.2; Bilirubin, Direct 0.9 mg/dL (0-0.2); Bilirubin, Total 1.6 mg/dL (0.2-1.0); Phosphorus 3.6 mg/dL (2.5-4.90); Total Protein 5.9 g/dL (6.4-8.2); Uric Acid 7.5 mg/dL (3.5-7.2)
[2019-10-18] MEDS: PREGABALIN CAPSULE 75 MG CAP PO SCH ×3 (05:57→22:15)
[2019-10-18] MEDS: FUROSEMIDE 100 MG/10ML VIAL IV SCH ×2 (05:57→18:31)
[2019-10-18] MEDS: CLINDAMYCIN 600MG IV 50 ML IV SCH ×3 (05:57→22:15)
--- NOTE | 2019-10-18 06:00 | NUR ---
LEVOPHED 1 MCG. LASIX GIVEN. HARRY EMPTIED . BNP DOWN A LITTLE.
--- NOTE | 2019-10-18 07:30 | NUR ---
REPORT RECEIVED ASSUMING CARE PATIENT IN BED INTUBATED
--- NOTE | 2019-10-18 09:00 | NUR ---
ELECTROENCEPHALOGRAM COMPLETED AT BEDSIDE. PRIMARY RN AWARE.
--- NOTE | 2019-10-18 09:01 | NUR ---
ASSESSMENT COMPLETED. AROUND 08 WOUND CARE PICTURE TAKEN OF SACRUM DUE TO RIGHT SACRAL QUARTER SIZED NON BLANCHABLE PURPLE FLUID FILLED CLOSED BLISTER. WOUND CARE CONSULT ORDERED AND MOSES DISBURSING AGENT AWARE. PATIENT TURNED OFF OF BOTTOM AND PRESSURE RELIEVED WITH WEDGE/PILLOWS. REMAINS INTUBATED ON MECH VENT AND FOLLOWS ALL COMMANDS CALM/RELAXED. INCREASED FENTANYL TO 100 MCG/HR FROM 75 MCG/HR PER PROTOCOL AND PER PATIENT NODDING YES WHEN ASKED IF HE HAD PAIN. LEVOPHED INCREASED BY 2 MCG/HR TO 3 MCG/HR DUE TO SBP-SEE IV/VS SPREADSHEET. HARRY INTACT PATENT DRAINING TO GRAVITY WITH CLEAR YELLOW URINE IN BAG. IV SITES ASYMPTOMATIC.
[2019-10-18] MEDS: SACUBITRIL-VALSARTAN 24mg/26mg TAB PO SCH (10:00)
[2019-10-18] MEDS: CARVEDILOL 3.125 MG TAB PO SCH ×2 (10:00→22:15)
[2019-10-18] MEDS: levoFLOXacin 500MG 100 ML IV SCH (10:15)
--- NOTE | 2019-10-18 10:18 | NUR ---
DR TURCIOS AT BEDSIDE, NO NEW ORDERS. EEG ALREADY COMPLETED THIS AM. LOVENOX NOT GIVEN AT THIS TIME DUE TO NONE IN PYXIS, PHARMACY AWARE. LACTULOSE NOT GIVEN AT THIS TIME DUE TO ECHO BEING CURRENTLY IN PROGRESS-WILL GIVE AFTER. 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 OPTIFOAM ON PLACE TO SACRUM. INCREASED FENTANYL GTT AT THIS TIME TO 125 MCG FOR TENSE BODY MOVEMENTS AND INCREASED MOVEMENT DURING ECHO. BP 121/68 LEVOPHED REMAINS AT 3 MCG/MIN. HELD COREG AND ENTRESTO DUE TO LEVOPHED INFUSING.
--- NOTE | 2019-10-18 10:25 | NUR ---
BLOOD SUGAR TAKEN AT THIS TIME DUE TO LOW BLOOD SUGAR ON AM LABS, ACCUCHECK READING 76.
[2019-10-18] MEDS: MIDAZOLAM DRIP 50 mg/50mL 50 ML IV SCH (11:06)
[2019-10-18] MEDS: PROPOFOL 100 ML IV SCH (11:07)
[2019-10-18] MEDS: LACTULOSE 20Gm/30ML SOLN PO SCH (11:15)
[2019-10-18] MEDS: ENOXAPARIN SOD 40 MG/0.4 ML SYRINGE SC SCH (11:15)
--- NOTE | 2019-10-18 11:55 | NUR ---
WOUND CARE NOTE: WOUND CARE TEAM IN TO SEE PATIENT PER WOUND TO SACRUM. PATIENT ADMITTED TO [facility] FOR ABDOMINAL PAIN AND ASCITES. PATIENT IS CURRENTLY INTUBATED AND SEDATED. BEDSIDE NURSE NOTED INTACT BLISTER TO PATIENT'S SACRUM. PHOTOGRAPHS TAKEN AT THAT TIME FOR REFERENCE. INTACT BLISTER MEASURES 2.2 x 2.0 CM. OPTIFOAM GENTLE SACRAL DRESSING IN PLACE. SPECIALTY AIR BED ORDERED. RECOMMEND: SPECIALTY AIR BED. PATIENT TO BE TRANSFERRED UPON DELIVERY BY [facility]. FREQUENT Q2HOUR TURNING CONDITION PERMITS. REDISTRIBUTE PRESSURE UTILIZING PILLOWS AND WEDGES. BID/PRN DRESSING CHANGE TO SACRUM WITH OPTIFOAM GENTLE SACRAL DRESSING. SKIN/WOUND CARE PLAN. CONTINUED MONITORING BY WOUND CARE TEAM. Addendum: 10/18/19 at 1328 by NYA STROUD RN RN Amended: Links added.
--- NOTE | 2019-10-18 14:15 | NUR ---
SISTER NATALIA PORTILLO CALLED REQUESTING INFORMATION AND HAD PASSWORD, UPDATED ON PLAN OF CARE. SISTER EXPRESSED CONCERN THAT SHE DID NOT GET A PHONE CALL REGARDING PATIENT CODE BLUE ON 10/15 AND NOW CURRENT ICU STATUS. ALL CONCERNS/QUESTIONS ADDRESSED. SISTER AWARE SHE WAS NOT IN [employer] INTERVENTION CHARTING AND NO PHONE NUMBER IN [employer] CHART. SISTER AWARE THAT [employer] ON FACESHEET IN PAPER CHART HAS NUMBER THAT SAYS NOT IN SERVICE. SISTER STATED "YES MY NUMBER HAS BEEN CHANGED MULTIPLE TIMES".
--- NOTE | 2019-10-18 14:17 | NUR ---
Nutrition Assessment Notes Please refer to link for full assessment notes. Est Energy needs: [id number] kcals (17-20 kcal/kgBW) Est Protein needs: 55-69 gms/day (0.8-1.0 gm/kgBW) Will continue to monitor and reassess prn. Addendum: 10/18/19 at [address] Amended: Links added.
--- NOTE | 2019-10-18 14:57 | NUR ---
DR KOCH AT BEDSIDE, ORDER TO CPAP . RN SHUT OFF FENTANYL AND LUAN RT PLACED ON CPAP.
--- NOTE | 2019-10-18 15:00 | NUR ---
Respiratory note: PT PLACED ON CPAP TRIAL. PS 7, CPAP 5 AND FI02 30%. PT TOLERATING WELL.
--- NOTE | 2019-10-18 15:11 | NUR ---
DR REECE AWARE PATIENT IS ON CPAP, OK WITH RN/RT MAKING HIM OR DR KOCH AWARE OF ABG RESULTS. PATIENT TOLERATING CPAP WELL. Addendum: 10/18/19 at 1518 by Toby Francis RN NEW ORDERS RECEIVED AND AWARE OF LOW BLOOD SUGARS, WILL ORDER ACCUCHJEFFS
[2019-10-18] MEDS ORDERED: DEXTROSE (50%) 50ML SYRG IV PRN (16:00)
--- NOTE | 2019-10-18 16:15 | NUR ---
Respiratory note: PT ON CPAP TRIAL FOR 45 MIN. ABG DRAWN. PS 7, CPAP 5 FI02 30%. RSBI 41, VC-1050. NIF -30, LEAK 800. DR. KOCH CALLED WITH RESULT AND ORDERED TO EXTUBATE. PT SUCTIONED CUFF DEFLATED AND PT EXTUBATED AT 1615. PT PLACED ON 30% FI02 COOL AEROSOL. PT EDUCATED ON COOL AEROSOL, EXTUBATION. PT TOLERATING WELL. SP02 100%.
[2019-10-18] MEDS: ACCU-CHEK COMFORT CURVE STRIP VI SCH (18:32)
[2019-10-18] MEDS: InsuLIN REG 1unit/0.01ml Soln (100units/ml) SC SCH (18:32)
[2019-10-18] MEDS: NOREPINEPHRINE 8 MG/250ML KIT 250 ML IV SCH (18:33)
--- NOTE | 2019-10-18 18:39 | NUR ---
EXTUBATED AT [address] KOCH ORDER, PATIENT JUST PLACED ON 4 LPM O2 VIA NC AND TOLERATING WELL WITH SPO2 AT 99%. DENIES ANY PAIN. [facility] DELIVERED AND PLACED PATIENT ON IT-TOLERATED ACTIVITY WELL.
--- NOTE | 2019-10-18 19:20 | NUR ---
AT BEDSIDE DR. GUERRERO AT BEDSIDE TO ASSESS PT AND UPDATE PLAN OF CARE. MD ORDERED AMMONIA LEVELS WITH AM LABS. MADE HIM AWARE OF PTS CURRENT NEURO STATUS.
--- NOTE | 2019-10-18 19:30 | NUR ---
OPENING NOTE RECEIVED REPORT FROM DAY SHIFT RN AND ASSUMED CARE OF PT. PT CURRENTLY ASLEEP IN BED WITH STABLE VITAL SIGNS. NC 4L APPLIED. LEVOPHED RUNNING AT 5 MCG- BP READINGS TRENDING IN LOW 100'S SYSTOLIC. PT ON SPECIALTY MATTRESS. HARRY CATHETER IN PLACE AND DRAINING APPROPRIATELY. SCDS APPLIED TO BLE. PT KNOWS NAME, PLACE, AND SITUATION BUT IS DELAYED WHEN RESPONDING TO QUESTIONS AND HAS FLAT, WANDERING AFFECT. WILL MONITOR AND REASSESS.
--- NOTE | 2019-10-18 20:30 | NUR ---
FAMILY CALL PTS SISTER NATALIA CALLED. PASSWORD VERIFIED. MADE HER AWARE OF PTS CURRENT CONDITION AND PLAN OF CARE. ALL QUESTIONS AND CONCERNS ADDRESSED.
--- NOTE | 2019-10-18 21:25 | NUR ---
FAMILY CALL PTS GODMOTHER CALLED. PASSWORD VERIFIED. UPDATED HER ON PT CONDITION AND PLAN OF CARE. ALL QUESTIONS AND CONCERNS ADDRESSED.
[2019-10-18] MEDS: ATORVASTATIN 20 MG TAB PO SCH (22:15)
--- NOTE | 2019-10-18 22:15 | NUR ---
2200 COREG HELD HELD BETA GAL FOR HR OF 75 BPM AND BP OF 99/52 MMHG AND PT ON LEVOPHED.
[2019-10-19] VITALS (50 sets, daily range): BP systolic 92–116; BP diastolic 43–64
[2019-10-19] MEDS: ACCU-CHEK COMFORT CURVE STRIP VI SCH ×4 (00:15→17:44)
[2019-10-19] MEDS: InsuLIN REG 1unit/0.01ml Soln (100units/ml) SC SCH ×4 (00:15→18:09)
--- NOTE | 2019-10-19 00:15 | NUR ---
EKG/CHEST PAIN PT COMPLAINS OF SUDDEN ONSET OF THROBBING CHEST PAIN. [address] D[address]. NO [address] ELEVATION DETECTED. WILL MAKE CARDIOLOGY AWARE.
--- NOTE | 2019-10-19 00:45 | NUR ---
CHEST PAIN RESOLVE PT STATES CHEST PAIN HAS RESOLVED WITHOUT INCIDENT. WILL CONTINUE TO MONITOR AND ASSESS PAIN AND EKG RHYTHM ON LCAC OPERATOR.
--- NOTE | 2019-10-19 02:17 | NUR ---
PT CARE GAVE PT CHG BATH. ORAL CARE PREFORMED. FULL DANNIE CHANGE DONE AND NEW GOWN APPLIED. SKIN ASSESSED WITH NO NEW CHANGES AT THIS TIME. PT ASSISTED WITH TURNING TO BOTH SIDES WITHOUT DISTRESS NOTED.
[2019-10-19 04:57] LABS: Basophils # (auto) 0 10 ^3/uL (0-0.2); Basophils % (auto) 0.5 % (0.0-2.0); Eosinophils # (auto) 0 10 ^3/uL (0-0.8); Eosinophils % (auto) 0.4 % (0.0-7.0); Hematocrit 36.1 % (41.0-53.0); Hemoglobin 12.1 g/dL (13.5-17.5); Lymphocytes # (auto) 0.7 10 ^3/uL (0.4-5.4); Lymphocytes % (auto) 8.7 % (10.0-50.0); Mean Corpuscular Hemoglobin 31.5 pg (28.0-32.0); Mean Corpuscular Hgb Conc. 33.4 g/dL (32.0-36.0); Mean Corpuscular Volume 94.4 fL (80.0-100.0); Monocytes # (auto) 0.8 10 ^3/uL (0-1.3); Monocytes % (auto) 9.9 % (0.0-12.0); Neutrophils # (auto) 6.5 10 ^3/uL (1.6-8.6); Neutrophils % (auto) 80.5 % (37.0-80.0); Platelet Count (auto) 167 10^3/uL (140-450); Red Blood Cells 3.83 10^6/uL (4.5-5.90); Red Cell Distribution Width 15.4 % (11.8-14.3); White Blood Cell 8.1 10^3/uL (4.4-10.8)
[2019-10-19 05:13] LABS: Calcium 7.3 mg/dL (8.5-10.1)
[2019-10-19 05:19] LABS: Albumin 1.4 g/dL (3.4-5.0); Bilirubin, Total 1.6 mg/dL (0.2-1.0); Total Protein 5.4 g/dL (6.4-8.2)
--- NOTE | 2019-10-19 06:00 | NUR ---
GAVE PT PO MEDICATIONS WITH APPLESAUCE AND WATER THROUGHOUT THE NIGHT. PT SWALLOWS WITHOUT COMPLICATIONS AND TOLERATES WELL. WILL ADVANCE DIET.
[2019-10-19] MEDS: CLINDAMYCIN 600MG IV 50 ML IV SCH (06:25)
[2019-10-19] MEDS: PREGABALIN CAPSULE 75 MG CAP PO SCH ×3 (06:25→22:28)
[2019-10-19] MEDS: FUROSEMIDE 100 MG/10ML VIAL IV SCH ×2 (06:25→17:44)
--- NOTE | 2019-10-19 09:01 | NUR ---
WOUND CARE NOTE: CALLED [facility] TO REQUEST REPAIR OF NON FUNCTIONING AIR BED. REFERENCE # [id number]. CORRECTIONAL FACILITY PSYCHIATRIST WILL COME OUT TO REPAIR/TROUBLESHOOT.
[2019-10-19] MEDS: ENOXAPARIN SOD 40 MG/0.4 ML SYRINGE SC SCH (10:00)
[2019-10-19] MEDS: LACTULOSE 20Gm/30ML SOLN PO SCH (10:00)
[2019-10-19] MEDS: CARVEDILOL 3.125 MG TAB PO SCH ×2 (10:00→22:00)
[2019-10-19] MEDS: PANTOPRAZOLE 40 MG/10 ML VIAL INJ IV SCH (10:00)
[2019-10-19] MEDS: levoFLOXacin 500MG 100 ML IV SCH (10:00)
[2019-10-19] MEDS ORDERED: FLUCONAZOLE 200MG/100ML 100 ML IV ONE (10:15)
--- NOTE | 2019-10-19 10:20 | NUR ---
DR. TURCIOS HERE TO SEE PATIENT.SEE MD NOTE AND EMR FOR ANY NEW ORDERS.
--- NOTE | 2019-10-19 10:22 | NUR ---
DR. GUTIERREZ HERE TO SEE PATIENT.SEE MD NOTE AND EMR FOR ANY NEW ORDERS.
--- NOTE | 2019-10-19 11:10 | NUR ---
DR. GUERRERO HERE TO SEE PATIENT.SEE MD NOTE AND EMR FOR ANY NEW ORDERS.
[2019-10-19] MEDS: NOREPINEPHRINE 8 MG/250ML KIT 250 ML IV SCH (14:30)
--- NOTE | 2019-10-19 15:17 | NUR ---
Transfer to [facility] Are[facility]o transferred to [facility] via hospital bed on campus monitor, and portable 02. Patient connected to unit monitoring and oxygen, and weighed by bedscale. Patient oriented to DAVIE VICTORIA RN primary RN, unit, room, bed, and unit policies regarding patient care and visiting hours. Patient on O2 NC 4 LPM, O2 saturation 100%, on Nowak's catheter No 18 F connected and drain to bag.
--- NOTE | 2019-10-19 18:10 | NUR ---
Patient sitting up with puga position, Dinner tray provided. Watching TV and feed himself. Will continue to monitor and care.
--- NOTE | 2019-10-19 19:00 | NUR ---
Patient still eating and watching TV, no coughing or aspiration noted.
[2019-10-20] VITALS: BP 113/60
[2019-10-20 04:00] VITALS: BP 92/56
[2019-10-20] MEDS: ACCU-CHEK COMFORT CURVE STRIP VI SCH ×4 (06:00→18:04)
[2019-10-20] MEDS: InsuLIN REG 1unit/0.01ml Soln (100units/ml) SC SCH ×4 (06:00→18:04)
[2019-10-20] MEDS: PREGABALIN CAPSULE 75 MG CAP PO SCH (06:43)
[2019-10-20] MEDS: FUROSEMIDE 100 MG/10ML VIAL IV SCH ×2 (06:43→18:01)
[2019-10-20 07:07] LABS: Basophils # (auto) 0 10 ^3/uL (0-0.2); Basophils % (auto) 0.2 % (0.0-2.0); Eosinophils # (auto) 0 10 ^3/uL (0-0.8); Eosinophils % (auto) 0.6 % (0.0-7.0); Hematocrit 35.3 % (41.0-53.0); Hemoglobin 12.2 g/dL (13.5-17.5); Lymphocytes # (auto) 0.8 10 ^3/uL (0.4-5.4); Lymphocytes % (auto) 11.1 % (10.0-50.0); Mean Corpuscular Hemoglobin 32.2 pg (28.0-32.0); Mean Corpuscular Hgb Conc. 34.5 g/dL (32.0-36.0); Mean Corpuscular Volume 93.3 fL (80.0-100.0); Monocytes # (auto) 0.7 10 ^3/uL (0-1.3); Monocytes % (auto) 10.2 % (0.0-12.0); Neutrophils # (auto) 5.5 10 ^3/uL (1.6-8.6); Neutrophils % (auto) 77.9 % (37.0-80.0); Platelet Count (auto) 156 10^3/uL (140-450); Red Blood Cells 3.78 10^6/uL (4.5-5.90); Red Cell Distribution Width 15.6 % (11.8-14.3); White Blood Cell 7.1 10^3/uL (4.4-10.8)
[2019-10-20 07:18] LABS: Magnesium 1.9 mg/dL (1.6-2.6); Potassium 3.5 mmol/L (3.5-5.1)
[2019-10-20 07:40] VITALS: BP 108/66
--- NOTE | 2019-10-20 08:00 | NUR ---
OPENING SHIFT NOTE: Received report from NOC RNKasey. Assumed care of patient. Received patient on specialty bed, connected to bedside monitor, no s/s of distress. Patient is A&Ox2 (self, situation) and denies pain. Patient on 4L NC with O2 sats ~99%. Nowak draining to gravity clear yellow urine. Patient with two PIV RFA #20 and LFA #22, both patent and flushes. Bed in lowest position, rails x3 up and call light within reach. Updated on plan of care. Will continue to monitor q1hr/PRN.
[2019-10-20] MEDS: CARVEDILOL 3.125 MG TAB PO SCH ×2 (10:00→22:31)
[2019-10-20] MEDS: LACTULOSE 20Gm/30ML SOLN PO SCH (11:39)
[2019-10-20] MEDS: levoFLOXacin 500MG 100 ML IV SCH (11:39)
[2019-10-20 11:40] VITALS: BP 96/56
[2019-10-20] MEDS: PANTOPRAZOLE 40 MG/10 ML VIAL INJ IV SCH (11:40)
[2019-10-20] MEDS: ENOXAPARIN SOD 40 MG/0.4 ML SYRINGE SC SCH (11:40)
--- NOTE | 2019-10-20 14:51 | NUR ---
MD: Dr Tesfaye at bedside to see patient.
[2019-10-20] MEDS ORDERED: MICAFUNGIN SODIUM 100 MG in SODIUM CHL 0.9% 100 ML IV ONE (15:00)
--- NOTE | 2019-10-20 15:00 | NUR ---
Patient assisted OOB to chair with assistance from Dr Tesfaye and RN.
[2019-10-20 15:45] VITALS: BP 96/60
--- NOTE | 2019-10-20 16:35 | NUR ---
Patient returned to bed with moderate assist.
--- NOTE | 2019-10-20 16:43 | NUR ---
Called pharmacy, Mycamine not available. Scheduled one time dose due at 1500. Pharmacy states will mix and bring up in 15min. Will endorsed to senior market research analyst.
--- NOTE | 2019-10-20 16:59 | NUR ---
Report given to radio television technical directorGumaro. Patient transferred via bed to room 288A on tele box 75. Patient's sister called and notified of the transfer.
--- NOTE | 2019-10-20 20:00 | NUR ---
Pain assessment: Patient c/o generalized throbbing pain . Pain scale 10/10.Offered pain medication PO but patient refused . Discussed with patient that it was dc'd by MD. Patient was upset and cursing. Will call .
--- NOTE | 2019-10-20 20:30 | NUR ---
IV removal IV at the R forearm is tender and leaking when flushed . IV DC'd with sterile technique, catheter fully intact. Pressure dressing applied to site. Patient tolerated procedure well.
--- NOTE | 2019-10-20 21:06 | NUR ---
returned call returned call, updated on patient status and reason for call, orders received.Morphine 2 mg IV x 1. Continue care.
[2019-10-20] MEDS ORDERED: MORPHINE SULF INJ 2 MG/ML SYRINGE 1ML IV ONE (21:15)
[2019-10-20 21:54] VITALS: BP 135/71
--- NOTE | 2019-10-20 22:30 | NUR ---
IV insertion IV access obtained, via clean sterile technique by inserting 22 gauge catheter at R AC after 1 attempt(s). IV secured properly. No trauma to site. Patient tolerated well.
--- NOTE | 2019-10-20 22:32 | NUR ---
Morphine 2 mg IV administered for pain. Will re-assess patient in 30 min.Will continue to monitor.
--- NOTE | 2019-10-20 23:00 | NUR ---
Pain re-assessment: Patient stated that pain relieved with Morphine. Patient agreed assessment done.
[2019-10-21] MEDS: ACCU-CHEK COMFORT CURVE STRIP VI SCH ×5 (00:20→23:33)
[2019-10-21] MEDS: InsuLIN REG 1unit/0.01ml Soln (100units/ml) SC SCH ×5 (00:22→23:18)
[2019-10-21 04:53] VITALS: BP 101/61
[2019-10-21] MEDS: FUROSEMIDE 100 MG/10ML VIAL IV SCH ×2 (06:41→17:28)
[2019-10-21] MEDS: traMADol HCL 50 MG TAB PO PRN ×2 (06:49→17:42)
--- NOTE | 2019-10-21 07:25 | NUR ---
Opening Note Received report from lieutenant shift supervisor RN. Patient is sitting up at edge of bed. Patient is awake, alert and oriented x4. No signs or symptoms of distress noted at this time. Patient states he wants to talk to the doctor and out his IV pain medications being discontinued yesterday. Patient is agitated at this time. Patient is room air, respirations even and unlabored. Reviewed plan of care. Bed in low and locked position, call light within reach. Will continue to monitor Q1 hour and PRN.
[2019-10-21 09:00] VITALS: BP 109/59
[2019-10-21] MEDS: MICAFUNGIN SODIUM 100 MG in SODIUM CHL 0.9% 100 ML IV SCH (10:00)
[2019-10-21] MEDS: LACTULOSE 20Gm/30ML SOLN PO SCH (10:03)
[2019-10-21] MEDS: levoFLOXacin 500MG 100 ML IV SCH (10:03)
[2019-10-21] MEDS: PANTOPRAZOLE 40 MG/10 ML VIAL INJ IV SCH (10:03)
[2019-10-21] MEDS: CARVEDILOL 3.125 MG TAB PO SCH ×2 (10:04→21:59)
[2019-10-21] MEDS: ENOXAPARIN SOD 40 MG/0.4 ML SYRINGE SC SCH (10:05)
--- NOTE | 2019-10-21 11:38 | NUR ---
Patient ambulating with physical therapy Patient ambulating in hallway with physical therapy. Patient tolerated well. Will continue to monitor Q1 hour and PRN.
--- NOTE | 2019-10-21 12:10 | NUR ---
Dr. Dumont at nurse Discussing plan or care with this RN. No new orders received. Will continue to monitor Q1 hour and PRN.
[2019-10-21 12:30] VITALS: BP 117/78
[2019-10-21 17:00] VITALS: BP 106/65
--- NOTE | 2019-10-21 17:42 | NUR ---
Pain Patient complains of pain to lower back. Will medicate per orders. Will continue to monitor Q1 hour and PRN.
--- NOTE | 2019-10-21 18:42 | NUR ---
Pain reassessment Patient continue to complain of generalized pain. Patient repositioned for comfort. Will continue to monitor Q1 hour and PRN.
--- NOTE | 2019-10-21 19:07 | NUR ---
Closing Note Report given to line crew supervisor RN. No signs or symptoms of distress noted at this time.
[2019-10-21 20:00] VITALS: BP 116/71
--- NOTE | 2019-10-21 20:15 | NUR ---
Opening Shift Note Assumed care of patient, awake and alert. No S/S of distress/SOB or pain. Instructed on POC and to call for assist PRN, will continue to monitor for changes Q1hr and PRN. Nowak hanging below bed, draining to gravity.
[2019-10-21 22:00] VITALS: BP 116/71
[2019-10-22] MEDS: traMADol HCL 50 MG TAB PO PRN (03:06)
--- NOTE | 2019-10-22 03:06 | NUR ---
Pain patient complained of pain 6/10, pain PRN medication given
--- NOTE | 2019-10-22 04:06 | NUR ---
RE Pain Patient sleeping, no pain
[2019-10-22 05:50] VITALS: BP 113/65
[2019-10-22] MEDS: InsuLIN REG 1unit/0.01ml Soln (100units/ml) SC SCH ×3 (05:51→17:34)
[2019-10-22] MEDS: FUROSEMIDE 100 MG/10ML VIAL IV SCH ×2 (05:52→17:34)
[2019-10-22] MEDS: ACCU-CHEK COMFORT CURVE STRIP VI SCH ×3 (05:53→17:34)
[2019-10-22 06:54] LABS: Potassium 3.4 mmol/L (3.5-5.1)
[2019-10-22 07:04] LABS: Albumin 1.5 g/dL (3.4-5.0); BUN/Creatinine Ratio 22.9; Calcium 7.5 mg/dL (8.5-10.1); Total Protein 5.8 g/dL (6.4-8.2)
--- NOTE | 2019-10-22 07:05 | NUR ---
Closing Note Endorse care to day shift nurse. No signs or symptoms of distress noted at this time
--- NOTE | 2019-10-22 08:10 | NUR ---
Opening Shift Note Assumed care of patient. Patient laying in bed, A&Ox4. Respirations even and non-labored, no S/S of distress or SOB noted, denies any pain at the moment, patient able to turn self. Instructed on POC and to call for assistance as needed, call light within reach. Safety measures in place, bed set to lowest locked position [id number] up.
[2019-10-22 08:42] VITALS: BP 106/67
--- NOTE | 2019-10-22 08:50 | NUR ---
Pt requested PT tx later. Addendum: 10/22/19 at 1607 by Jay Bowling TREATING ENGINEER Amended: Links added.
[2019-10-22] MEDS: PANTOPRAZOLE 40 MG/10 ML VIAL INJ IV SCH (09:33)
[2019-10-22] MEDS: MICAFUNGIN SODIUM 100 MG in SODIUM CHL 0.9% 100 ML IV SCH (09:33)
[2019-10-22] MEDS: LACTULOSE 20Gm/30ML SOLN PO SCH (09:33)
[2019-10-22] MEDS: levoFLOXacin 500MG 100 ML IV SCH (09:33)
[2019-10-22] MEDS: ENOXAPARIN SOD 40 MG/0.4 ML SYRINGE SC SCH (09:41)
[2019-10-22] MEDS: CARVEDILOL 3.125 MG TAB PO SCH (09:41)
--- NOTE | 2019-10-22 10:30 | NUR ---
Pt refused PT tx. Addendum: 10/22/19 at 1609 by Jay Bowling FOOD EQUIPMENT SERVICE TECHNICIAN Amended: Links added.
[2019-10-22 12:52] VITALS: BP 138/68
--- NOTE | 2019-10-22 12:56 | NUR ---
Dr. Dumont and bedside Discussing plan of care with patient and this RN. Patient to discharge home today, Will continue to monitor Q1 hour and PRN.
[2019-10-22] MEDS ORDERED: LEVEMIR SC (14:42)
--- NOTE | 2019-10-22 15:50 | NUR ---
Spoke to patients sister Sulma States she will be here to pick patient up between [id number]. Patient is to discharge home. Will continue to monitor Q1 hour and PRN.
[2019-10-22 15:54] VITALS: BP 106/67
[2019-10-22 17:00] VITALS: BP 95/60
--- NOTE | 2019-10-22 17:30 | NUR ---
MRSA swab collected and sent to lab
--- NOTE | 2019-10-22 17:31 | NUR ---
discharge wound photos taken
--- NOTE | 2019-10-22 18:26 | NUR ---
classroom monitor removed and sent back to ICU
--- NOTE | 2019-10-22 19:15 | NUR ---
Closing Note Report given to acid purification equipment operator RN. No signs or symptoms of distress noted at this time. Patient still waiting for sister to pick him up. NOC nurse aware.
--- NOTE | 2019-10-22 19:45 | NUR ---
Opening Shift Note Assumed care of patient, awake and alert. No S/S of distress/SOB or pain. Instructed on POC and to call for assist PRN, will continue to monitor for changes Q1hr and PRN. Patient ready for discharge (left ready by dayshift nurse) waiting for sister to pick him up.
--- NOTE | 2019-10-22 20:10 | NUR ---
Patient Discharge. Wheeled down with all personal belongings to main lobby by NA. No signs of distress or pain.
== END 2019-10-22 20:10 | disposition home or self-care (01) ==
LOC: ER 04:15 → EDBD 04:15 → TELE 04:16 → TELE-WESTW 14:26 → ICU WEST 10-16 17:59 → DOU IN ICU 10-19 14:48 → TELE-WESTW 10-20 17:17
PROVIDERS: ADMIT Internal Medicine; ATTEND Internal Medicine Nephrology
PROC: 0W9G3ZZ Drainage of Peritoneal Cavity, Percutaneous Approach (ICD-10-PCS; principal; 2019-10-13)
PROC: 0T7D8ZZ Dilation of Urethra, Via Natural or Artificial Opening Endoscopic (ICD-10-PCS; 2019-10-16)
PROC: 5A1945Z Respiratory Ventilation, 24-96 Consecutive Hours (ICD-10-PCS; 2019-10-16)
PROC: 0BH17EZ Insertion of Endotracheal Airway into Trachea, Via Natural or Artificial Opening (ICD-10-PCS; 2019-10-16)
DX: K74.60 Unspecified cirrhosis of liver (principal); N17.0 Acute kidney failure with tubular necrosis; J96.01 Acute respiratory failure with hypoxia; G93.1 Anoxic brain damage, not elsewhere classified; G93.41 Metabolic encephalopathy; J18.9 Pneumonia, unspecified organism; J44.0 Chronic obstructive pulmonary disease with (acute) lower respiratory infection; I50.22 Chronic systolic (congestive) heart failure; E11.21 Type 2 diabetes mellitus with diabetic nephropathy; E11.40 Type 2 diabetes mellitus with diabetic neuropathy, unspecified; K72.90 Hepatic failure, unspecified without coma; R18.8 Other ascites; B37.49 Other urogenital candidiasis; E66.01 Morbid (severe) obesity due to excess calories; I42.9 Cardiomyopathy, unspecified; E11.65 Type 2 diabetes mellitus with hyperglycemia; L03.115 Cellulitis of right lower limb; K80.20 Calculus of gallbladder without cholecystitis without obstruction; N18.9 Chronic kidney disease, unspecified; J44.9 Chronic obstructive pulmonary disease, unspecified; K21.9 Gastro-esophageal reflux disease without esophagitis; D63.8 Anemia in other chronic diseases classified elsewhere; N40.0 Benign prostatic hyperplasia without lower urinary tract symptoms; I25.10 Atherosclerotic heart disease of native coronary artery without angina pectoris; E78.5 Hyperlipidemia, unspecified; N35.911 Unspecified urethral stricture, male, meatal; F41.8 Other specified anxiety disorders; I97.711 Intraoperative cardiac arrest during other surgery; Z88.6 Allergy status to analgesic agent; Z86.73 Personal history of transient ischemic attack (TIA), and cerebral infarction without residual deficits; Z88.1 Allergy status to other antibiotic agents; Z79.4 Long term (current) use of insulin; Z79.899 Other long term (current) drug therapy; Z95.1 Presence of aortocoronary bypass graft; Z95.0 Presence of cardiac pacemaker; Z83.3 Family history of diabetes mellitus; Z82.3 Family history of stroke; Z82.49 Family history of ischemic heart disease and other diseases of the circulatory system; Z68.31 Body mass index [BMI] 31.0-31.9, adult
CPT/HCPCS: 10022; 36415; 36600; 70450; 71045; 71046; 74176; 76705; 76942; 80048; 80053; 80076; 81001; 82140; 82150; 82306; 82550; 82570; 82805; 82962; 83036; 83690; 83735; 83880; 83970; 84100; 84132; 84156; 84300; 84484; 84550; 85025; 85610; 85730; 86850; 86900; 86901; 87070; 87081; 87086; 87088; 87205; 93306; 94002; 94003; 94640; 95819; 97163; C9113; G0378; J1450; J1815; J1956; J2248; J2250; J2405; J2704; J3490; J7060

== ENCOUNTER 2019-10-27 04:14 | Inpatient (IN) | payer MEDICAID ==
[~2019-10-27] VITALS: Ht 180.3 cm; Wt 78.6 kg
[~2019-10-27 04:14] MED LIST changes: +FURO40TA4; -PREG75CA PO; +SPIR25TA8 PO; -SPIR25TA88 PO; -TRAM50TA2 PO
[2019-10-27] MEDS ORDERED: NITROGLYCERIN 0.4 MG SL TAB SL ONE (05:15)
[2019-10-27] MEDS ORDERED: MORPHINE SULFATE 4 MG/ML SYR/VIAL IV ONE (05:15)
[2019-10-27 05:49] LABS: Basophils # (auto) 0.1 10 ^3/uL (0-0.2); Basophils % (auto) 1.2 % (0.0-2.0); Eosinophils # (auto) 0.1 10 ^3/uL (0-0.8); Eosinophils % (auto) 1.3 % (0.0-7.0); Hematocrit 32.7 % (41.0-53.0); Hemoglobin 11.2 g/dL (13.5-17.5); Lymphocytes # (auto) 0.7 10 ^3/uL (0.4-5.4); Lymphocytes % (auto) 12.7 % (10.0-50.0); Mean Corpuscular Hgb Conc. 34.1 g/dL (32.0-36.0); Mean Corpuscular Volume 93.8 fL (80.0-100.0); Monocytes # (auto) 0.6 10 ^3/uL (0-1.3); Monocytes % (auto) 10.3 % (0.0-12.0); Neutrophils # (auto) 4.2 10 ^3/uL (1.6-8.6); Neutrophils % (auto) 74.5 % (37.0-80.0); Nucleated Red Blood Cells % 0.1 %; Platelet Count (auto) 208 10^3/uL (140-450); Red Blood Cells 3.49 10^6/uL (4.5-5.90); Red Cell Distribution Width 15.4 % (11.8-14.3); White Blood Cell 5.7 10^3/uL (4.4-10.8)
[2019-10-27 06:04] LABS: INR 1.13 (0.9-1.15); Partial Thromboplastin Time 25.8 sec (23.64-32.05)
[2019-10-27 06:07] LABS: BUN/Creatinine Ratio 23.8; Calcium 7.8 mg/dL (8.5-10.1); Magnesium 1.8 mg/dL (1.6-2.6); Potassium 3.5 mmol/L (3.5-5.1)
[2019-10-27 06:11] LABS: Bilirubin, Total 1.2 mg/dL (0.2-1.0); Total Protein 6.8 g/dL (6.4-8.2)
[2019-10-27 08:00] LABS: Alcohol, Urine < 3.0 mg/dL (0-5); Amphetamine Screen, Urine POSITIVE (NEGATIVE); Barbiturate Scree,Urine NEGATIVE (NEGATIVE); Benzodiazephine Screen, Urine NEGATIVE (NEGATIVE); Cannabinoid Screen, Urine POSITIVE (NEGATIVE); Cocaine Screen, Urine NEGATIVE (NEGATIVE); Opiate Scree,Urine POSITIVE (NEGATIVE); Phencyclidine Screen, Urine NEGATIVE (NEGATIVE)
[2019-10-27] MEDS ORDERED: MORPHINE SULF INJ 2 MG/ML SYRINGE 1ML IV ONE (10:30)
[2019-10-27] MEDS ORDERED: FUROSEMIDE 40 MG/4 ML VIAL IV ONE (10:30)
[2019-10-27] MEDS ORDERED: SPIRONOLACTONE 25 MG TAB PO ONE (10:30)
[2019-10-27] MEDS ORDERED: ONDANSETRON HCL 4 MG/2 ML VIAL IV ONE (10:30)
[2019-10-27] MEDS ORDERED: PROMETHAZINE HCL 25 MG/ML 1ML IV PRN (11:15)
[2019-10-27] MEDS ORDERED: LACTULOSE 20Gm/30ML SOLN PO PRN (11:15)
[2019-10-27] MEDS ORDERED: NITROGLYCERIN 0.4 MG SL TAB SL PRN (11:15)
[2019-10-27] MEDS ORDERED: traMADol HCL 50 MG TAB PO PRN (11:15)
[2019-10-27] MEDS ORDERED: DEXTROSE (50%) 50ML SYRG IV PRN (11:15)
[2019-10-27] MEDS ORDERED: ACETAMINOPHEN 500 MG TAB PO PRN (11:15)
[2019-10-27] MEDS ORDERED: MORPHINE SULF INJ 2 MG/ML SYRINGE 1ML IV PRN (11:15)
[2019-10-27] MEDS ORDERED: CLOPIDOGREL BISULFATE 75 MG TAB PO ONE (11:15)
[2019-10-27] MEDS: InsuLIN REG 1unit/0.01ml Soln (100units/ml) SC SCH ×3 (11:30→22:00)
[2019-10-27] MEDS: ACCU-CHEK COMFORT CURVE STRIP VI SCH ×3 (11:48→23:02)
[2019-10-27] MEDS: POTASSIUM CHL 20 Meq TABLET PO SCH (11:59)
[2019-10-27] MEDS: INSULIN LANTUS (GLARGINE) 1 /0.01ml (100units/ml) SC SCH (12:14)
[2019-10-27] MEDS: ENOXAPARIN SOD 100 MG/1 ML SYRINGE SC SCH ×2 (12:14→23:07)
--- NOTE | 2019-10-27 12:48 | NUR ---
Admit to [facility] ALICIA WILKINSON admitted to [facility] via gurney on awake overnight monitor, and portable 02. Patient transferred to bed, connected to unit monitoring and oxygen, and weighed by bedscale. Patient oriented to Alana Jackson, primary RN, unit, room, bed, and unit policies regarding patient care and visiting hours. Patient fatigued and sleepy, patient opens eyes spontaneously, moaning and reports body aches, patient medicated prior to [facility] admission. VSS and documented. Multiple bilateral lower and upper extremity scabs noted, open to air, left metatarsals amputation and scab on left ankle, sacral wound noted - wound care provided and wound care picture taken - Wound care consult will be placed as well as dietary consult. Patient came to ER with burr leg bag in place and draining clear/yellow urine. Patient repositioned self to right side for comfort and to maintain skin integrity.
[2019-10-27 15:01] VITALS: BP 133/73
--- NOTE | 2019-10-27 15:30 | NUR ---
UNABLE TO REACH NEXT OF KIN NATALIA PORTILLO LISTED - UNABLE TO MAKE CONNECTION. SOCIAL SERVICE CONSULT PLACED.
[2019-10-27 15:49] VITALS: BP 112/72
--- NOTE | 2019-10-27 16:27 | NUR ---
CALL RECEIVED FROM FAMILY PATIENT'S SISTER NATALIA - PERMISSION TO SPEAK WITH NATALIA AND PROVIDE MEDICAL INFORMATION WAS RECEIVED FROM PATIENT. NATALIA WAS UPDATED ON PATIENT'S STATUS, ALL QUESTIONS AND CONCERNS ANSWERED, NATALIA VERBALIZED UNDERSTANDING. NATALIA FURTHER REPORTED THAT PATIENT HAS BEEN USING DRUGS ON/OFF FOR MANY YEARS, PATIENT LIVES WITH HER AND HELPS PATIENT WITH ADL'S AND ALSO THAT PATIENT USES WALKER TO AMBULATE. NATALIA'S PHONE NUMBER IS: .
--- NOTE | 2019-10-27 17:00 | NUR ---
WOUND CARE NOTE: Wound care in to see patient per wound care request regarding multiple skin integrity issue that are noted present on admission. Patient is 49 years old male with admitting diagnosis of Non STEMI, Heart Failure, Poly Substance Abuse. Patient is resting in SDU bed in Rm. 262. Patient is awake, alert and able to follow simple direction. Patient is self turning and repositioning. He's in no stated pain at this time. Skin assessment done with the assistance of patient's nurse, MARY Warner. Noted open full thickness wound with no measurable depth to patient's L medial sacrum. Wound measuring 2.5x2.2cm. Wound bed is dusky red, pale pink with hyperpigmented skin winston wound and to coccyx area. Minimal serous drainage noted, no odor noted. 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 Patient is not aware of his sacral wound when asked how long he has had it. Cleansed sacral wound with wound cleanser,patted dry with gauze,applied Thera honey gel and covered with Opti foam sacral dressing. Patient has well healed L forefoot stump with thin, brown, dry, intact scab. His L lateral ankle also has dry brown scab. Multi small dry scabs also noted distal R foot toes.Scabs, are clean and dry, asymptomatic, left open to air. Patient tolerated well, repositioned for comfort facing his Rt. side, redistributed pressure points with pillows. Photograph of wounds are taken for reference. RECOMMENDATION: Nursing to continue with Daily/PRN dressing to sacral per MD order, Dietary consult, monitor with frequent turning and repositioning as condition permits, redistribute pressure points with pillows, inform wound care if patient is not turning may need air mattress or moving to different unit, continue monitoring by wound care while patient is hospitalized. Addendum: 10/27/19 at 1810 by Leilani Mari RN Amended: Links added.
--- NOTE | 2019-10-27 17:04 | NUR ---
PASSWORD PATIENT PROVIDED PASSWORD OF [id number].
[2019-10-27] MEDS ORDERED: [UNRECOGNIZED DRUG - CODE] PO (17:21)
[2019-10-27] MEDS ORDERED: BACL10TA PO (17:21)
[2019-10-27] MEDS: GABAPENTIN 300 MG CAP PO SCH ×2 (18:23→23:05)
[2019-10-27] MEDS: TAMSULOSIN HYDROCHLORIDE 0.4 MG CAP PO SCH (18:23)
[2019-10-27] MEDS: FUROSEMIDE 100 MG/10ML VIAL IV SCH (18:24)
--- NOTE | 2019-10-27 18:29 | NUR ---
PAIN MEDICATION/HOSPITALIST PATIENT REPORTING GENERALIZED AND BACK PAIN 7-02/02. MEDICATION WILL BE ADMINISTERED ORDERED. SPOKE WITH HOSPITALIST, ORDERS RECEIVED FOR BACLOFEN 10 MGS TID PRN FOR PAIN AND ONE DOSE NOW. ORDERS WILL BE CARRIED OUT.
[2019-10-27] MEDS ORDERED: BACLOFEN 10 MG TAB PO ONE (18:45)
[2019-10-27] MEDS ORDERED: BACLOFEN 10 MG TAB PO PRN (18:45)
--- NOTE | 2019-10-27 19:45 | NUR ---
Opening Shift Note Assumed care of patient, lying in bed with eyes closed, arousal by voice and fell back to sleep easily. POX decreased to mid 80's % on room air while sleeping. Alana RN put Pt back to O2NC 2 LPM for support at ~19.30pm. Breathing on O2NC 2 LPM, even and nonlabored, no coughing, no S/S of distress/SOB or pain. Nowak's catheter hung to gravity at patient's thigh, clear straw urine in the bag. Instructed on POC and to call for assist PRN, will continue to monitor for changes Q1hr and PRN.
[2019-10-27 20:00] VITALS: BP 135/86
--- NOTE | 2019-10-27 23:00 | NUR ---
Condition update Pt asleep, easily arousal by voice and fell back asleep. V/S and BP stable. Medication given, swallowed well. Continue care.
[2019-10-27] MEDS: FAMOTIDINE 20 MG TAB PO SCH (23:05)
[2019-10-27] MEDS: ATORVASTATIN 20 MG TAB PO SCH (23:06)
[2019-10-27] MEDS: CARVEDILOL 3.125 MG TAB PO SCH (23:06)
[2019-10-28] VITALS (7 sets, daily range): BP systolic 98–111; BP diastolic 53–67
--- NOTE | 2019-10-28 03:00 | NUR ---
Integration Director at bedside.
--- NOTE | 2019-10-28 04:15 | NUR ---
Patient bathe/linen change/ elimination Patient given complete bath with soap and water. Nowak's catheter care done with SureStep wipes. Skin integrity assessed for any changes, no new changes, Optifoam at sacrum intact. Skin moisturizer applied throughout. Linens changed. Pt had a incontinence moderate BM, soft brown. Patient with very deep sleep, tried to move and turn while cleaning weakly. Patient repositioned for comfort and prevent pressure ulcer.
[2019-10-28] MEDS: GABAPENTIN 300 MG CAP PO SCH (06:00)
--- NOTE | 2019-10-28 06:07 | NUR ---
EKG 12 leads obtained.
[2019-10-28] MEDS: FUROSEMIDE 100 MG/10ML VIAL IV SCH ×2 (06:41→20:33)
[2019-10-28] MEDS: InsuLIN REG 1unit/0.01ml Soln (100units/ml) SC SCH ×4 (07:00→22:33)
[2019-10-28] MEDS: ACCU-CHEK COMFORT CURVE STRIP VI SCH ×4 (07:19→22:22)
--- NOTE | 2019-10-28 08:00 | NUR ---
OPEN RECEIVED REPORT FROM NIGHT RN, ROSE. ASSUMED CARE OF [facility] PATIENT, FULL CODE STATUS. PATIENT A & O X2, CALM BUT DROWSY. PATIENT ON O2, INCREASED TO 3L VIA NC. PATIENT ABLE TO TURN SELF IN BED, WILL ASSIST WHEN NEEDED. PATIENT NPO STATUS AT THIS TIME DUE TO INCREASE DROWSINESS. HARRY TO GRAVITY. SEE CORE SHAPER SIDES AND VS FLOW SHEET FOR FURTHER PATIENT INFORMATION. CONTINUE CARE.
[2019-10-28] MEDS: ENOXAPARIN SOD 100 MG/1 ML SYRINGE SC SCH (10:30)
[2019-10-28] MEDS: INSULIN LANTUS (GLARGINE) 1 /0.01ml (100units/ml) SC SCH (10:30)
[2019-10-28] MEDS: CARVEDILOL 3.125 MG TAB PO SCH ×2 (10:32→22:16)
[2019-10-28] MEDS: POTASSIUM CHL 20 Meq TABLET PO SCH (10:33)
[2019-10-28] MEDS: FAMOTIDINE 20 MG TAB PO SCH ×2 (10:33→22:17)
[2019-10-28] MEDS: NITROGLYCERIN 0.2MG/HR TOPICAL PATCH TD SCH (10:33)
[2019-10-28] MEDS: CLOPIDOGREL BISULFATE 75 MG TAB PO SCH (10:33)
[2019-10-28] MEDS: SPIRONOLACTONE 25 MG TAB PO SCH (10:34)
--- NOTE | 2019-10-28 10:34 | NUR ---
MEDICATIONS HELD AT THIS TIME: SEE EMAR PATIENT CONTINUES TO BE DROWSY AND EASILY TO FALL BACK ASLEEP. HELD PATIENT PO MEDICATIONS DUE TO RISK FOR ASPIRATION AND HELD BP MEDICATIONS DUE TO DECREASED BP, 96/57, HR 68, PACED. MD TO BE INFORMED. CONTINUE CARE.
--- NOTE | 2019-10-28 12:32 | NUR ---
assessment Patient is a 49 year old male who is confused. Prior to admission patient lived home with family and functioned with assistance. Patients PCP is Dr Smiley. Patient has a wheelchair, fee, and a cane for home use. I will provide patient with resources for substance abuse once down graded. Patients post discharge needs to be determined prior to discharge. I will continue to monitor for discharge needs. Addendum: 10/28/19 at 1235 by Suzi MCNEAL Amended: Links added.
--- NOTE | 2019-10-28 13:00 | NUR ---
DR. KOCH AT BEDSIDE: DOWNGRADE TO TELE MD UPDATED ON PT'S CURRENT STATUS, LABS AND POC FOR TODAY. ORDERS GIVEN AND TO BE CARRIED OUT. SEE CHART. MD ASSESSING PATIENT AT BEDSIDE. PATIENT MAY BE DOWNGRADED TO TELE STATUS, RAG WILLOW OPERATOR NOTIFIED. CONTINUE CARE AT THIS TIME. Addendum: 10/28/19 at 1507 by Vanesa Miranda RN INFORMED ON HELD MEDICATIONS FROM THIS AM.
--- NOTE | 2019-10-28 13:52 | NUR ---
Nutrition Assessment Notes Please refer to link for full assessment notes. Est Energy needs: 6373-8787 kcals (25-30 kcal/kgBW) d/t heart failure Est Protein needs: 94-110 gms/day (1.2-1.4 gm/kgBW) d/t heart failure Will continue to monitor and reassess prn. Addendum: 10/28/19 at [address] Amended: Links added.
--- NOTE | 2019-10-28 14:42 | NUR ---
Attempted PT eval. Pt states he is still eating lunch and to return later. Will attempt again.
--- NOTE | 2019-10-28 19:50 | NUR ---
OPENING NOTE RECEIVED REPORT AND ASSUMED CARE OF PT. PT CURRENTLY RESTING IN BED, INDEPENDENTLY EATING DINNER. VITAL SIGNS STABLE WITH NO S/S OF DISTRESS NOTED. PAIN ASSESSED. BED IS LOCKED AND IN LOWEST POSITION. CALL LIGHT WITHIN REACH. EDUCATED PT ON PLAN OF CARE AND FALL PRECAUTIONS.
--- NOTE | 2019-10-28 20:15 | NUR ---
PAIN ASSESSMENT PT REPORTS CHRONIC PAIN 8 IN HIS BACK. REFUSED 500 MG TYLENOL THAT WAS OFFERED. BELEN PAGED TO GET NEW ORDERS FOR PAIN MEDICATIONS. AWAITING CALLBACK.
[2019-10-28] MEDS: TAMSULOSIN HYDROCHLORIDE 0.4 MG CAP PO SCH (20:33)
--- NOTE | 2019-10-28 20:50 | NUR ---
PHARMACY CALL CALLED PHARMACY TO VERIFY NORCO ADMIN EVEN THOUGH PT HAS ALLERGIES TO ASPIRIN AND IBUPROFEN. PHARMACY SAID OK TO ADMIN.
[2019-10-28] MEDS: HYDROcodone-ACET 5/325MG TAB PO PRN (21:06)
--- NOTE | 2019-10-28 21:13 | NUR ---
NORCO ADMIN P STATES PAIN 02/02, BUT SAYS HE WILL TRY NORCO BECAUSE IT IS WHAT HE TAKES AT HOME FOR BACK PAIN. INFORMED HIM THAT WE WILL REASSESS AND GET NEW ORDERS IF PAIN IS UNRESOLVED.
--- NOTE | 2019-10-28 21:40 | NUR ---
TRANSFERRED PT TO ROOM 209 GAVE REPORT TO HEATHER. PT TRANSPORTED IN BED TO ROOM 209 WITH 2L O2 AND TELE MONITOR APPLIED AND ALL BELONGINGS WITH PT. CHART GIVEN TO TEST LEAD APPLICATION TESTING. BED LOCKED AND IN LOWEST POSITION.
--- NOTE | 2019-10-28 21:44 | NUR ---
Pt. transferred by wali from [facility] to Room # 209 by [facility] MARY Scales. Pt. is placed to the bed comfortably with HOB up @ 35-45 degrees angle. Pt. started on 2L/NC continuous. Pt. breathing regular, even and unlabored. Lung sounds are clear bilaterally. Pt. A-Paced @ the tele # 26. 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 Pt. denies chest pain when asked. IV access @ the LFA G # 18 which was started on 10/27/19 - keep patent and intact and Saline Lock. F/C draining dark yellow rafita urine. Pt. is incontinent of bowel and has bowel movement today. Abdomen soft and non-tender with bowel sounds present. Pt. has full thickness @ the Sacrum with Thera Honey covered with Optifoam dsg. Keep clean, dry and intact. Pt. with hyperpigmentation @ the Left foot. The 5th toe of the right foot was amputated and all toes @ the Left foot were amputated. Pt. with mild facial grimacing about 2/10 scale for mild pain @ the back now. Pt. just received [place] 1 tab. po. just within an hour from [facility]. Keep pt. safe and single ending machine operator bed.
--- NOTE | 2019-10-28 22:00 | NUR ---
V/s taken and recorded. Pt. given orientation to the room and use of call-light, TV, telephone and bed controls. Pt. verbalized aprtial understanding, looks tired and sleepy.
--- NOTE | 2019-10-28 22:16 | NUR ---
Meds. as scheduled given. Pt. made aware of the use of the meds. given.
[2019-10-28] MEDS: ATORVASTATIN 20 MG TAB PO SCH (22:17)
--- NOTE | 2019-10-28 22:20 | NUR ---
Accucheck taken with result of BS = 201 .
--- NOTE | 2019-10-28 22:33 | NUR ---
Pt. given 4 units SQ @ the DEBRA for BS = 201 , see Emar.
--- NOTE | 2019-10-29 00:30 | NUR ---
Pt. turned/repositioned. Scooted HOB up @ 45 degrees angle. 02 @ 2L/NC continuous. Keep safe and paper machine back tender bed. A-paced @ the monitor.
--- NOTE | 2019-10-29 02:00 | NUR ---
Pt. calm and sleeping.
--- NOTE | 2019-10-29 04:00 | NUR ---
Pt. scooted, turned and repositioned with the help of COMMERCIAL LINES ACCOUNT EXECUTIVE. Pt. returned to sleep. Keep safe and electrical engineering technician bed. Siderails up x 2 @ the headpart, bed locked in a low position and call-light @ the bedside.
[2019-10-29 05:06] VITALS: BP 104/65
[2019-10-29] MEDS: FUROSEMIDE 100 MG/10ML VIAL IV SCH ×2 (05:32→18:00)
--- NOTE | 2019-10-29 05:32 | NUR ---
Pt. given Lasix 40 mg. = 4 mls. IV @ 0532 Am as scheduled for 0600 Am. Pt. made aware of the use of med. as scheduled. Pt. verbalized understanding.
[2019-10-29] MEDS: ACCU-CHEK COMFORT CURVE STRIP VI SCH ×4 (05:44→22:23)
--- NOTE | 2019-10-29 05:44 | NUR ---
Pt. accucheck taken with result of BS = 129 . No coverage for Regular Human Insulin needed.
--- NOTE | 2019-10-29 06:00 | NUR ---
Provided bedside nsg. care. Keep pt. clean, dry and comfortable in bed. Call-light @ the bedside.
[2019-10-29] MEDS: InsuLIN REG 1unit/0.01ml Soln (100units/ml) SC SCH ×4 (06:04→22:29)
[2019-10-29 06:08] LABS: Calcium 7.7 mg/dL (8.5-10.1); Potassium 3.2 mmol/L (3.5-5.1)
[2019-10-29 06:10] LABS: BUN/Creatinine Ratio 28.4
--- NOTE | 2019-10-29 07:30 | NUR ---
Opening Shift Note Assumed care of patient, awake and alert. No S/S of distress/SOB or pain. Updated on POC and instructed to call for assistance as needed, patient verbalized understanding. Bed locked in lowest position, side rails up x2, call light within reach, bed alarm on for safety. Will continue to monitor for changes Q1hr and PRN.
[2019-10-29 09:00] VITALS: BP 112/71
[2019-10-29] MEDS: INSULIN LANTUS (GLARGINE) 1 /0.01ml (100units/ml) SC SCH (09:03)
[2019-10-29] MEDS: SPIRONOLACTONE 25 MG TAB PO SCH (09:07)
[2019-10-29] MEDS: FAMOTIDINE 20 MG TAB PO SCH ×2 (09:07→22:18)
[2019-10-29] MEDS: POTASSIUM CHL 20 Meq TABLET PO SCH (09:07)
[2019-10-29] MEDS: CLOPIDOGREL BISULFATE 75 MG TAB PO SCH (09:07)
[2019-10-29] MEDS: HYDROcodone-ACET 5/325MG TAB PO PRN ×2 (09:07→17:59)
[2019-10-29] MEDS: CARVEDILOL 3.125 MG TAB PO SCH ×2 (09:08→22:18)
[2019-10-29] MEDS: NITROGLYCERIN 0.2MG/HR TOPICAL PATCH TD SCH (09:09)
[2019-10-29 13:00] VITALS: BP 108/63
--- NOTE | 2019-10-29 13:57 | NUR ---
re-assessment Patient has been down graded from ICU. I have provided patient with resources for his substance abuse. [facility], [facility], [facility] m[facility]ola and others. Patient accepted resources. Patient will return home with family on discharge. Addendum: 10/29/19 at 1359 by Suzi MCNEAL Amended: Links added.
[2019-10-29 17:00] VITALS: BP 104/62
[2019-10-29] MEDS: TAMSULOSIN HYDROCHLORIDE 0.4 MG CAP PO SCH (17:59)
--- NOTE | 2019-10-29 19:00 | NUR ---
Received report from the Day Shift MARY Childress. Pt. resting in bed quietly.
--- NOTE | 2019-10-29 19:31 | NUR ---
Pt. A & V Paced @ 85 @ the Tele monitor # 26. Pt. denies chest pain. Pt. provided health teachings that tomorrow there will be Left Heart Cath with Dr. Noriega and will be on NPO post MN tonight. Pt. aware of the procedure.
--- NOTE | 2019-10-29 20:00 | NUR ---
Assessment done and completed.
[2019-10-29 22:00] VITALS: BP 105/64
[2019-10-29] MEDS: ATORVASTATIN 20 MG TAB PO SCH (22:18)
--- NOTE | 2019-10-29 22:18 | NUR ---
Meds. as scheduled given- see emar. Pt. provided explanation to the use/benefits of the meds. as scheduled. Pt. verbalized partial understanding.
--- NOTE | 2019-10-29 22:21 | NUR ---
Pt. accucheck taken with result with BS = 170 .
--- NOTE | 2019-10-29 22:29 | NUR ---
Pt. given 3 units of Regular Human Insulin SQ @ the DEBRA for BS = 170 - see Emar. Pt. made aware of the blood sugar tonight.
--- NOTE | 2019-10-29 22:30 | NUR ---
Pt. given snacks @ hs. Pt. ate one Shellman sandwich and 2 jellos and able to drink water before sleeping. Pt. instructed to be on NPO post MN.
[2019-10-30] VITALS (13 sets, daily range): BP systolic 114–125; BP diastolic 56–85
--- NOTE | 2019-10-30 00:10 | NUR ---
Pt. instructed on NPO post MN for Left Heart Cath Tomorrow 10/30/[address] Noriega. clerical secretary will prepare the consent and pre-op checklist papers the RN need to comply before the Procedure in AM.
--- NOTE | 2019-10-30 02:00 | NUR ---
Pt. calm and resting, Kept on NPO post MN. Keep pt. safe and grain and yeast plants supervisor bed.
--- NOTE | 2019-10-30 04:00 | NUR ---
Pt. sleeping, kept on NPO for heart cath today. Still A & V pacing @ the monitor.
--- NOTE | 2019-10-30 05:00 | NUR ---
Pre-op Checklist for Left Heart Cath started By MARY Singh. Pt. made aware of the Procedure today with Dr. Noriega and be kept. on NPO.
[2019-10-30] MEDS: FUROSEMIDE 100 MG/10ML VIAL IV SCH ×2 (05:29→18:00)
[2019-10-30] MEDS: HYDROcodone-ACET 5/325MG TAB PO PRN (05:33)
--- NOTE | 2019-10-30 05:33 | NUR ---
Pt. given [place] 1 tab. for lower back pain about 6/10 scale aching and hurting as verbalized by the pt.
[2019-10-30 06:08] LABS: Basophils # (auto) 0 10 ^3/uL (0-0.2); Basophils % (auto) 0.9 % (0.0-2.0); Eosinophils # (auto) 0.1 10 ^3/uL (0-0.8); Eosinophils % (auto) 1.8 % (0.0-7.0); Hematocrit 32.6 % (41.0-53.0); Hemoglobin 11.1 g/dL (13.5-17.5); Lymphocytes # (auto) 1.1 10 ^3/uL (0.4-5.4); Lymphocytes % (auto) 20.4 % (10.0-50.0); Mean Corpuscular Hemoglobin 31.8 pg (28.0-32.0); Mean Corpuscular Volume 93.7 fL (80.0-100.0); Monocytes # (auto) 0.4 10 ^3/uL (0-1.3); Monocytes % (auto) 7.8 % (0.0-12.0); Neutrophils # (auto) 3.6 10 ^3/uL (1.6-8.6); Neutrophils % (auto) 69.1 % (37.0-80.0); Nucleated Red Blood Cells % 0.1 %; Platelet Count (auto) 233 10^3/uL (140-450); Red Blood Cells 3.47 10^6/uL (4.5-5.90); Red Cell Distribution Width 15.1 % (11.8-14.3); White Blood Cell 5.2 10^3/uL (4.4-10.8)
[2019-10-30 06:24] LABS: INR 1.18 (0.9-1.15)
[2019-10-30] MEDS: ACCU-CHEK COMFORT CURVE STRIP VI SCH ×4 (06:27→22:00)
[2019-10-30] MEDS: InsuLIN REG 1unit/0.01ml Soln (100units/ml) SC SCH ×4 (06:27→22:30)
--- NOTE | 2019-10-30 06:27 | NUR ---
Accucheck taken with result of BS = 177 . No coverage for Regular Human Insulin given due to NPO since MN for Left Heart Cath Procedure today with Dr. Noriega with Pre-op Checklist started @ 0500 Am by MARY Singh.
[2019-10-30 06:28] LABS: BUN/Creatinine Ratio 26.4; Calcium 7.8 mg/dL (8.5-10.1); Potassium 3.6 mmol/L (3.5-5.1)
--- NOTE | 2019-10-30 06:30 | NUR ---
Pt. signed consent for Left Heart Cath today with Dr. Noriega and Pre-op Checklist which was started @ 0500 Am.
--- NOTE | 2019-10-30 06:33 | NUR ---
Pt. denies pain after [place] 1 tab. given an hour ago. Pt. looks calm and sleepy. No s/s of facial grimacing and no s/s of anxiety. Pt. still on NPO for Left Heart Cath today with Dr. Noriega with consent signed @ 0630 Am and witnessed by MARY Singh.
--- NOTE | 2019-10-30 08:45 | NUR ---
OFF UNIT - SHELLFISH GROWER Patient taken down to clinical laboratory assistant in hospital bed. All consents signed. Patient alert and oriented.
--- NOTE | 2019-10-30 09:12 | NUR ---
HOLD P.T. TODAY. PATIENT WENT DOWN TO SIMPLEX PRINTER INSTALLER.
[2019-10-30] MEDS ORDERED: IODIXANOL 320MG/ML 100ML BTL IV ONE (09:23)
[2019-10-30] MEDS ORDERED: LIDOCAINE 2%HCL (LOCAL ANESTH.) INJ 20ML MDV ONE (09:24)
[2019-10-30] MEDS ORDERED: fentaNYL CITRATE 100 MCG/2 ML VL ONE (09:25)
[2019-10-30] MEDS ORDERED: MIDAZOLAM HCL 1MG/1ML-2 ML VIAL ONE (09:26)
[2019-10-30] MEDS ORDERED: ANGIOMAX 250 MG VIAL IV ONE (09:30)
[2019-10-30] MEDS ORDERED: SODIUM CHL 0.9% 0 ML ONE (09:30)
[2019-10-30] MEDS: SPIRONOLACTONE 25 MG TAB PO SCH (10:00)
[2019-10-30] MEDS: CLOPIDOGREL BISULFATE 75 MG TAB PO SCH (10:00)
[2019-10-30] MEDS: CARVEDILOL 3.125 MG TAB PO SCH ×2 (10:00→22:05)
[2019-10-30] MEDS: FAMOTIDINE 20 MG TAB PO SCH ×2 (10:00→22:04)
[2019-10-30] MEDS: POTASSIUM CHL 20 Meq TABLET PO SCH (10:00)
[2019-10-30] MEDS: INSULIN LANTUS (GLARGINE) 1 /0.01ml (100units/ml) SC SCH (10:00)
[2019-10-30] MEDS: NITROGLYCERIN 0.2MG/HR TOPICAL PATCH TD SCH (10:00)
[2019-10-30] MEDS ORDERED: IOHEXOL 350 MG/ML 100ML IJ ONE (10:01)
[2019-10-30] MEDS: TAMSULOSIN HYDROCHLORIDE 0.4 MG CAP PO SCH (18:00)
--- NOTE | 2019-10-30 19:00 | NUR ---
Insulin given as ordered Documented incorrect BS result on this patient. His evening blood sugar was 249. This nurse gave 4 units of insulin SQ, as ordered per sliding scale protocol, to back of right upper arm.
--- NOTE | 2019-10-30 19:26 | NUR ---
Opening note Assumed care of patient. Patient alert and orientated x4. Bed in lowest position and locked. Side rails up x2. POC discussed. No signs of distress or SOB noted. Right groin dressing dry and intact. No signs of bleeding or hematoma present. Call light within reach. Will continue to monitor.
[2019-10-30] MEDS: ATORVASTATIN 20 MG TAB PO SCH (22:05)
[2019-10-31] MEDS: HYDROcodone-ACET 5/325MG TAB PO PRN (04:41)
[2019-10-31 05:30] VITALS: BP 114/74
[2019-10-31] MEDS: FUROSEMIDE 100 MG/10ML VIAL IV SCH ×2 (06:15→18:27)
[2019-10-31] MEDS: ACCU-CHEK COMFORT CURVE STRIP VI SCH ×4 (06:19→21:53)
[2019-10-31] MEDS: InsuLIN REG 1unit/0.01ml Soln (100units/ml) SC SCH ×4 (06:19→22:00)
--- NOTE | 2019-10-31 06:30 | NUR ---
Wound dressing change Changed dressing on wound. cleaned wound with wound cleanser. Padded dry with sterile gauze. Applied therahoney. Covered with optifoam. Patient tolerated well. No distress noted. Will continue to monitor.
[2019-10-31 08:53] VITALS: BP 105/51
[2019-10-31] MEDS: NITROGLYCERIN 0.2MG/HR TOPICAL PATCH TD SCH (09:42)
[2019-10-31] MEDS: CARVEDILOL 3.125 MG TAB PO SCH ×2 (10:00→18:27)
[2019-10-31] MEDS: POTASSIUM CHL 20 Meq TABLET PO SCH (10:00)
[2019-10-31] MEDS: CLOPIDOGREL BISULFATE 75 MG TAB PO SCH (10:00)
[2019-10-31] MEDS: SPIRONOLACTONE 25 MG TAB PO SCH (10:00)
[2019-10-31] MEDS: FAMOTIDINE 20 MG TAB PO SCH ×2 (10:00→21:53)
--- NOTE | 2019-10-31 10:18 | NUR ---
SEVERAL ATTEMPTS MADE TRYING TO GET PT OUT OF BED TO BEDSIDE CHAIR, PT REFUSED AND PT'S NURSE WAS PRESENT WITNESS. WILL MAKE ANOTHER ATTEMPT IN AFTERNOON FOR PT Addendum: 10/31/19 at 1019 by Delia Leigh PT Amended: Links added.
--- NOTE | 2019-10-31 10:20 | NUR ---
Refused AM PO medications Patient accepted the Nitro patch and Lantus. He refused his PO medications. He sat, not responding, when this nurse told him what medications he has this morning and asked if he wanted them one at a time or all at once. He did not answer any questions or say anything. Then he said "Leave me the F*&^ alone." This nurse positioned his overbed table where he could reach it to eat breakfast, call light in reach, told him to call if he needed anything and left the room.
[2019-10-31] MEDS: INSULIN LANTUS (GLARGINE) 1 /0.01ml (100units/ml) SC SCH (10:27)
[2019-10-31 13:10] VITALS: BP 98/70
--- NOTE | 2019-10-31 14:41 | NUR ---
PT Patient continue to refuse PT or OOB activities during afternoon attempt to get patient up. Addendum: 10/31/19 at 1441 by SIM SPARKS PTT Amended: Links added.
[2019-10-31 16:40] VITALS: BP 113/66
[2019-10-31] MEDS: TAMSULOSIN HYDROCHLORIDE 0.4 MG CAP PO SCH (18:28)
[2019-10-31] MEDS: ATORVASTATIN 20 MG TAB PO SCH (21:53)
[2019-10-31] MEDS ORDERED: SACUBITRIL-VALSARTAN 24mg/26mg TAB PO SCH (22:00)
[2019-10-31 23:01] VITALS: BP 127/82
[2019-11-01] MEDS: HYDROcodone-ACET 5/325MG TAB PO PRN ×2 (03:49→21:45)
[2019-11-01 05:33] VITALS: BP 111/65
[2019-11-01] MEDS: InsuLIN REG 1unit/0.01ml Soln (100units/ml) SC SCH ×4 (06:23→21:24)
[2019-11-01] MEDS: ACCU-CHEK COMFORT CURVE STRIP VI SCH ×4 (06:24→21:18)
[2019-11-01 06:34] LABS: Basophils # (auto) 0 10 ^3/uL (0-0.2); Basophils % (auto) 0.8 % (0.0-2.0); Eosinophils # (auto) 0.1 10 ^3/uL (0-0.8); Eosinophils % (auto) 1.4 % (0.0-7.0); Hematocrit 30.2 % (41.0-53.0); Hemoglobin 10.3 g/dL (13.5-17.5); Lymphocytes % (auto) 20.8 % (10.0-50.0); Mean Corpuscular Hemoglobin 31.8 pg (28.0-32.0); Mean Corpuscular Volume 93.6 fL (80.0-100.0); Monocytes # (auto) 0.4 10 ^3/uL (0-1.3); Monocytes % (auto) 8.4 % (0.0-12.0); Neutrophils # (auto) 3.3 10 ^3/uL (1.6-8.6); Neutrophils % (auto) 68.6 % (37.0-80.0); Platelet Count (auto) 233 10^3/uL (140-450); Red Blood Cells 3.23 10^6/uL (4.5-5.90); Red Cell Distribution Width 14.9 % (11.8-14.3); White Blood Cell 4.8 10^3/uL (4.4-10.8)
[2019-11-01 06:45] LABS: INR 1.19 (0.9-1.15); Partial Thromboplastin Time 27.3 sec (23.64-32.05)
[2019-11-01 06:53] LABS: Calcium 7.8 mg/dL (8.5-10.1); Potassium 3.5 mmol/L (3.5-5.1)
[2019-11-01 06:56] LABS: BUN/Creatinine Ratio 37.5
[2019-11-01] MEDS: CARVEDILOL 3.125 MG TAB PO SCH ×2 (08:00→17:52)
[2019-11-01 09:00] VITALS: BP 112/59
[2019-11-01] MEDS: NITROGLYCERIN 0.2MG/HR TOPICAL PATCH TD SCH (10:00)
[2019-11-01] MEDS: FAMOTIDINE 20 MG TAB PO SCH ×2 (11:05→21:18)
[2019-11-01] MEDS: SPIRONOLACTONE 25 MG TAB PO SCH (11:06)
[2019-11-01] MEDS: CLOPIDOGREL BISULFATE 75 MG TAB PO SCH (11:06)
[2019-11-01] MEDS: INSULIN LANTUS (GLARGINE) 1 /0.01ml (100units/ml) SC SCH (11:11)
--- NOTE | 2019-11-01 12:43 | NUR ---
Nutrition Followup Notes Wt: 78.6 kg Pt`s off the floor for procedure. per records pt to have angioplasty per records. pt is currently NPO for procedure but had adequate intake of > 75% with previous diet Est Energy needs: 3923-9978 kcals (25-30 kcal/kgBW) d/t heart failure. Est Protein needs: 78-93 gms/day (1.0-1.2 gm/kgBW) Will continue to monitor and reassess prn. LABS: GLU 116 H, BUN 33 H, CA 7.8 L. GI: Pt had 1 BM yesterday per RN doc BS: 16 mod risk wounds per RN doc. refer to WC notes for details PES: Altered nutrition related lab values r.t current chronic medical condition aeb elev BNP, elev Troponin, severe hypoalbuminemia Comments Will continue to monitor PO intake, skin status, pertinent labs and weight trends. Will f/u in 3-5 days. 1) 1) Continue to closely monitor pt PO intake to meet at least 75% of meals. 2) If albumin continues trending down, consider Prostat 1 pkt BID. 3) Continue current plan of caree
[2019-11-01 13:00] VITALS: BP 116/72
[2019-11-01] MEDS ORDERED: FURO1TAB31 PO (14:33)
[2019-11-01] MEDS ORDERED: FURO40TA4 PO (14:36)
[2019-11-01] MEDS ORDERED: ATOR20TA50 PO (14:38)
[2019-11-01] MEDS ORDERED: CAR3125T PO (14:38)
[2019-11-01] MEDS ORDERED: SACU1TAB PO (14:39)
[2019-11-01] MEDS ORDERED: CLOP75TA28 PO (14:40)
[2019-11-01] MEDS ORDERED: ASPI-231 PO (14:41)
[2019-11-01] MEDS ORDERED: FLUC200T35 PO (14:45)
[2019-11-01 17:00] VITALS: BP 108/69
--- NOTE | 2019-11-01 17:45 | NUR ---
PATIENT IV REMOVED X 2 CATHETER INTACT. FOR DISCHARGE
[2019-11-01] MEDS: TAMSULOSIN HYDROCHLORIDE 0.4 MG CAP PO SCH (18:01)
--- NOTE | 2019-11-01 18:03 | NUR ---
PATIENT AMBULATING AND STATED "I STEPPED ON HARRY CATHETER AND IT RIPPED OUT".PATIENT ALSO PULLING ON IV WITH IV TUBING. KATERINA AREA CLEANED, MINIMAL BLOOD NOTED. HOSPITALIST PAGED ANIKA, AND AWAITING CALL BACK. CHARGE NURSE SETH HERNANDEZ AWARE.
--- NOTE | 2019-11-01 18:39 | NUR ---
RECEIVED A CALL FROM UROLOGY RADHA, PER DR GARCIA IT IS OKAY TO REINSERT HARRY CATHETER EVEN THOUGH THERE MIGHT BE SOME TRAUMA TO THE SITE. I NOTIFIED MY CHARGE NURSE SETH RN TO NOTIFY I DO NOT FEEL COMFORTABLE REINSERTING HARRY AT THIS TIME, PER DR DONALDSON PATIENT MAY HAVE TRAUMA TO THE SITE. WILL NOTIFY CSW HOSPITALIST.
--- NOTE | 2019-11-01 18:47 | NUR ---
RECEIVED CALL FROM DR DONALDSON , PER DOCTOR ANIKA HE DOES NOT FEEL COMFORTABLE WITH ANYONE REINSERTING OTHER THAN A UROLOGIST BECAUSE THERE WAS BLOOD AT METAL SITE AND MORE TRAUMA CAN BE CAUSED. PER DR DONALDSON UROLOGISTS NEED TO COME AND SEE PATIENT AND REINSERT. WILL RE-PAGE UROLOGIST RADHA.
--- NOTE | 2019-11-01 18:50 | NUR ---
[facility] [phone]
--- NOTE | 2019-11-01 18:50 | NUR ---
HARRY TO BE REINSERTED PER UROLOGY DR GARCIA.
--- NOTE | 2019-11-01 19:20 | NUR ---
HARRY REINSERTION ENDORSED TO NOC NURSE.
--- NOTE | 2019-11-01 19:23 | NUR ---
PER DR DONALDSON HOLD DISCHARGE
--- NOTE | 2019-11-01 19:39 | NUR ---
PATIENT REFUSED REINSERTION OF HARRY, EXPLAINED TO PATIENT THE IMPORTANCE OF THE HARRY DUE TO URINARY STRICTURE, BPH, AND URINARY RETENTION, PATIENT ADAMENTLY REFUSES REINSERTION. INFORMED PATIENT NEEDS REINSERTION OF IV ACCESS FOR MEDICATIONS AND PATIENT CONTINUES TO REFUSE. CALLED DR GARCIA FOR UROLOGY AND IS INFORMED PATIENT REFUSAL. CALLED DR DONALDSON AND INFORMED PATIENT IS REFUSING HARRY AND IV ACCESS, STATES DISCHARGE IS STILL ON HOLD, DOCUMENT PATIENT REFUSAL, AND WAIT FOR PATIENT TO HAVE DISCOMFORT FROM URINARY RETENTION AND ATTEMPT TO REINSERT HARRY. DANIELLE.
[2019-11-01] MEDS: ATORVASTATIN 20 MG TAB PO SCH (21:18)
[2019-11-01 22:00] VITALS: BP 118/75
--- NOTE | 2019-11-01 22:00 | NUR ---
PATIENT C/O 9/10 BACK PAIN REQUESTING MEDICATION. ADMINISTERED NORCO 5/325MG PO AND LIORISIL PO PRESCRIBED. PATIENT TOLERATED WELL WILL CONTINUE TO MONITOR PATIENT.
--- NOTE | 2019-11-02 05:00 | NUR ---
GAVE REPORT TO NURSE SWAPNA TO RESUME CARE OF PATIENT.
--- NOTE | 2019-11-02 05:07 | NUR ---
REPORT RECEIVED FROM PERSONAL TRAINER RN. ASSUMING ROLE OF CARE OF PATIENT AT THIS TIME.
[2019-11-02 05:21] VITALS: BP 106/63
--- NOTE | 2019-11-02 05:32 | NUR ---
PATIENT REFUSING SHEET CHANGE FOUND PATIENT SLEEPING IN BED. STAINS ON SHEETS FOUND. ASKED IF PATIENT WANTED TO CHANGE SHEETS TO CLEAN ONES. PATIENT REFUSED AT THIS TIME. PATIENT LYING IN BED. WILL CONTINUE TO MONITOR. WILL ENDORSE TO DAYSHIFT RN.
[2019-11-02] MEDS: InsuLIN REG 1unit/0.01ml Soln (100units/ml) SC SCH (07:00)
[2019-11-02] MEDS: ACCU-CHEK COMFORT CURVE STRIP VI SCH (07:00)
--- NOTE | 2019-11-02 07:30 | NUR ---
Opening Shift Note Assumed care of patient, awake and alert. No S/S of distress/SOB, complaining of back pain, will medicate as ordered. Instructed on POC and to call for assist PRN, will continue to monitor for changes Q1hr and PRN. Patient is resistive to care, will not allow linen change and delayed response if any to verbal questions after prompting multiple times. Bed in low and locked position, rails up x2, no-slip socks on. Patient refusing burr catheter placement. Bed is visibly ssoiled with yellow urine, no blood assessed at meatus or urine.
[2019-11-02 09:00] VITALS: BP 136/85
[2019-11-02] MEDS: HYDROcodone-ACET 5/325MG TAB PO PRN (09:17)
[2019-11-02] MEDS: SPIRONOLACTONE 25 MG TAB PO SCH (09:17)
[2019-11-02] MEDS: CARVEDILOL 3.125 MG TAB PO SCH (09:18)
[2019-11-02] MEDS: FAMOTIDINE 20 MG TAB PO SCH (09:18)
[2019-11-02] MEDS: CLOPIDOGREL BISULFATE 75 MG TAB PO SCH (09:19)
[2019-11-02] MEDS: NITROGLYCERIN 0.2MG/HR TOPICAL PATCH TD SCH (09:19)
--- NOTE | 2019-11-02 09:30 | NUR ---
ATTEMPT BLADDER SCAN AT BEDSIDE PATIENT URINATED WHILE IN ROOM MEDICATING WITH MORNING MEDICATIONS, WILL NOT ATTEMPT BLADDER SCAN SINCE PATIENT IS CURRENTLY EMPTYING BLADDER WITHOUT RETENTION ISSUES. PATIENT REFUSING LINEN CHANGE AGAIN. EDUCATED ON NEED TO CHANGE LINES AND NOT SIT IN WET LINEN DUE TO SKIN BREAKDOWN ISSUES, PATIENT DOES NOT VERBALLY RESPOND AND WILL NOT TURN WHEN PROMPTED TO CHANGE GOWN. WILL REATTEMPT.
--- NOTE | 2019-11-02 09:50 | NUR ---
DR KOCH AT BEDSIDE ORDERS FOR DISCHARGE, CANCEL UROLOGY CONSULT.
[2019-11-02] MEDS: INSULIN LANTUS (GLARGINE) 1 /0.01ml (100units/ml) SC SCH (10:00)
--- NOTE | 2019-11-02 10:30 | NUR ---
ATTEMPT TO CALL PATIENTS FAMILY MEMBER NO ANSWER
[2019-11-02 11:37] VITALS: BP 136/85
--- NOTE | 2019-11-02 12:20 | NUR ---
ATTEMPT TO CALL PATIENTS FAMILY MEMBER NO ANSWER, MESSAGE LEFT.
[2019-11-02 12:44] VITALS: BP 109/74
--- NOTE | 2019-11-02 13:06 | NUR ---
ATTEMPT TO CALL PATIENTS FAMILY MEMBER NO ANSWER
--- NOTE | 2019-11-02 13:20 | NUR ---
PATIENT FAMILY CALL BACK INFORMED ON PATIENTS DISCHARGE AND THAT HE IS READY TO GO, VERBALIZED UNDERSTANDING AND SHE WILL BE HERE TO PICK HIM UP.
--- NOTE | 2019-11-02 13:30 | NUR ---
WOUND CARE PHOTO TAKEN WOUND CARE PROVIDED AND PATIENT ALLOWED THIS NURSE TO COMPLETE A LINEN CHANGE AND GET HIM DRESSED FOR DISCHARGE. ASKED PATIENT IF HE WAS HAVING PAIN AND HE SAID NO, REPOSITIONED FOR COMFORT AND OPENED LUNCH TRAY TO ALLOW PATIENT TO EAT. TELE BOX REMOVED AND RETURNED TO ICU. AWAITING TRANSPORT. EDUCATED ON DISCHARGE INFORMATION, PATIENT REFUSED TO SIGN DISCHARGE PAPERWORK AND IS NOT EATING AFTER LEAVING THE ROOM, WILL ROUND UNTIL TRANSPORTATION ARRIVES.
--- NOTE | 2019-11-02 15:10 | NUR ---
DISCHARGE Discharge instructions given as ordered. Encourage to follow up with PMD as instructed. All questions and concerns addressed. Patient verbalized understanding. Medication reconciliation form completed and copy given to patient. Patient taken to vehicle via wheelchair with all personal belongings, accompanied by staff. No distress noted at time of departure.
== END 2019-11-02 15:10 | disposition home or self-care (01) | DRG 190 ==
LOC: ER 04:14 → EDBD 04:14 → TELE 04:15 → DOU IN ICU 13:00 → TELE-CENTR 10-28 21:53
PROVIDERS: ADMIT Internal Medicine; ATTEND Internal Medicine Nephrology
PROC: 4A023N7 Measurement of Cardiac Sampling and Pressure, Left Heart, Percutaneous Approach (ICD-10-PCS; principal; 2019-10-30)
PROC: B2181ZZ Fluoroscopy of Left Internal Mammary Bypass Graft using Low Osmolar Contrast (ICD-10-PCS; 2019-10-30)
PROC: B2111ZZ Fluoroscopy of Multiple Coronary Arteries using Low Osmolar Contrast (ICD-10-PCS; 2019-10-30)
PROC: B2151ZZ Fluoroscopy of Left Heart using Low Osmolar Contrast (ICD-10-PCS; 2019-10-30)
PROC: B2131ZZ Fluoroscopy of Multiple Coronary Artery Bypass Grafts using Low Osmolar Contrast (ICD-10-PCS; 2019-10-30)
DX: I21.4 Non-ST elevation (NSTEMI) myocardial infarction (principal); J96.00 Acute respiratory failure, unspecified whether with hypoxia or hypercapnia; I50.23 Acute on chronic systolic (congestive) heart failure; L89.153 Pressure ulcer of sacral region, stage 3; E11.22 Type 2 diabetes mellitus with diabetic chronic kidney disease; E11.51 Type 2 diabetes mellitus with diabetic peripheral angiopathy without gangrene; I42.9 Cardiomyopathy, unspecified; I13.0 Hypertensive heart and chronic kidney disease with heart failure and stage 1 through stage 4 chronic kidney disease, or unspecified chronic kidney disease; R18.8 Other ascites; I25.10 Atherosclerotic heart disease of native coronary artery without angina pectoris; N18.2 Chronic kidney disease, stage 2 (mild); J44.9 Chronic obstructive pulmonary disease, unspecified; E78.5 Hyperlipidemia, unspecified; K21.9 Gastro-esophageal reflux disease without esophagitis; D63.8 Anemia in other chronic diseases classified elsewhere; K80.20 Calculus of gallbladder without cholecystitis without obstruction; K74.60 Unspecified cirrhosis of liver; F41.9 Anxiety disorder, unspecified; F15.10 Other stimulant abuse, uncomplicated; F32.9 Major depressive disorder, single episode, unspecified; R33.8 Other retention of urine; N40.1 Benign prostatic hyperplasia with lower urinary tract symptoms; G89.29 Other chronic pain; Z95.1 Presence of aortocoronary bypass graft; Z82.49 Family history of ischemic heart disease and other diseases of the circulatory system; Z83.3 Family history of diabetes mellitus; Z79.02 Long term (current) use of antithrombotics/antiplatelets; Z82.3 Family history of stroke; Z88.6 Allergy status to analgesic agent; Z79.4 Long term (current) use of insulin; Z91.19 Patient's noncompliance with other medical treatment and regimen; Z86.73 Personal history of transient ischemic attack (TIA), and cerebral infarction without residual deficits; Z95.5 Presence of coronary angioplasty implant and graft; Z95.810 Presence of automatic (implantable) cardiac defibrillator; Z98.1 Arthrodesis status
CPT/HCPCS: 36415; 71045; 80048; 80053; 80307; 82550; 82962; 83036; 83735; 83880; 84443; 84484; 85025; 85610; 85730; 87081; 93005; 93459; 93926; 97116; 97163; 97530; 99152; G0378; J1815; J2250; Q9967

== ENCOUNTER 2019-11-05 01:06 | Inpatient (IN) | payer MEDICAID ==
[~2019-11-05] VITALS: Ht 180.3 cm; Wt 83.0 kg
[~2019-11-05 01:06] MED LIST changes: +ATOR20TA50 PO; +BACL10TA PO; +FLUC200T35 PO; -FURO1TAB31 PO; -FURO40TA4; +FURO40TA4 PO; -GABA-339 PO; -POTA-220 PO; +SACU1TAB PO; -SIMV10TA73 PO
[2019-11-05] MEDS ORDERED: FUROSEMIDE 40 MG/4 ML VIAL IV ONE (01:45)
[2019-11-05 02:01] LABS: Basophils # (auto) 0 10 ^3/uL (0-0.2); Basophils % (auto) 0.2 % (0.0-2.0); Eosinophils # (auto) 0.1 10 ^3/uL (0-0.8); Eosinophils % (auto) 0.9 % (0.0-7.0); Hematocrit 32.1 % (41.0-53.0); Hemoglobin 10.8 g/dL (13.5-17.5); Lymphocytes # (auto) 0.9 10 ^3/uL (0.4-5.4); Lymphocytes % (auto) 13.1 % (10.0-50.0); Mean Corpuscular Hgb Conc. 33.6 g/dL (32.0-36.0); Mean Corpuscular Volume 95.2 fL (80.0-100.0); Monocytes # (auto) 0.5 10 ^3/uL (0-1.3); Monocytes % (auto) 7.8 % (0.0-12.0); Neutrophils # (auto) 5.2 10 ^3/uL (1.6-8.6); Nucleated Red Blood Cells % 0.1 %; Platelet Count (auto) 209 10^3/uL (140-450); Red Blood Cells 3.38 10^6/uL (4.5-5.90); Red Cell Distribution Width 15.8 % (11.8-14.3); White Blood Cell 6.6 10^3/uL (4.4-10.8)
[2019-11-05 02:07] LABS: INR 1.14 (0.9-1.15); Partial Thromboplastin Time 26.2 sec (23.64-32.05)
[2019-11-05 02:12] LABS: Albumin 2.1 g/dL (3.4-5.0); BUN/Creatinine Ratio 25.3; Calcium 7.6 mg/dL (8.5-10.1); Magnesium 2.1 mg/dL (1.6-2.6); Potassium 4.7 mmol/L (3.5-5.1)
[2019-11-05 02:16] LABS: Bilirubin, Total 0.7 mg/dL (0.2-1.0)
[2019-11-05] MEDS ORDERED: MORPHINE SULFATE 4 MG/ML SYR/VIAL IV ONE (03:00)
[2019-11-05 03:41] LABS: Alcohol, Urine < 3.0 mg/dL (0-5); Amphetamine Screen, Urine NEGATIVE (NEGATIVE); Barbiturate Scree,Urine NEGATIVE (NEGATIVE); Benzodiazephine Screen, Urine NEGATIVE (NEGATIVE); Cannabinoid Screen, Urine POSITIVE (NEGATIVE); Cocaine Screen, Urine NEGATIVE (NEGATIVE); Opiate Scree,Urine NEGATIVE (NEGATIVE); Phencyclidine Screen, Urine NEGATIVE (NEGATIVE)
[2019-11-05] MEDS ORDERED: SODIUM CHLORIDE 0.9% 1,000 ML IV SCH (06:48)
[2019-11-05] MEDS ORDERED: NITROGLYCERIN 0.4 MG SL TAB SL PRN (07:00)
[2019-11-05] MEDS ORDERED: DOCUSATE SOD 100 MG CAP PO PRN (07:00)
[2019-11-05] MEDS ORDERED: ONDANSETRON HCL 4 MG/2 ML VIAL IV PRN (07:00)
[2019-11-05] MEDS ORDERED: ACETAMINOPHEN 325 MG TAB PO PRN (07:00)
[2019-11-05] MEDS ORDERED: DEXTROSE (50%) 50ML SYRG IV PRN (07:00)
[2019-11-05] MEDS ORDERED: MORPHINE SULF INJ 2 MG/ML SYRINGE 1ML IV PRN ×2 (07:00→07:15)
[2019-11-05] MEDS ORDERED: LORazepam 0.5 MG TAB PO PRN (07:00)
[2019-11-05 07:30] LABS: Cholesterol 116 mg/dL (< 200)
[2019-11-05 07:31] LABS: HDL Cholesterol 46 mg/dL (40-59); LDL Cholesterol 62 mg/dL (< 100); Triglycerides 72 mg/dL (< 150)
[2019-11-05] MEDS: CARVEDILOL 3.125 MG TAB PO SCH ×2 (08:00→17:49)
[2019-11-05] MEDS: ACCU-CHEK COMFORT CURVE STRIP VI SCH ×4 (08:43→20:07)
[2019-11-05] MEDS: InsuLIN REG 1unit/0.01ml Soln (100units/ml) SC SCH ×4 (08:48→20:11)
[2019-11-05] MEDS: SACUBITRIL-VALSARTAN 24mg/26mg TAB PO SCH ×2 (09:42→17:48)
[2019-11-05] MEDS: FUROSEMIDE 40 MG TAB PO SCH (10:00)
[2019-11-05] MEDS: SPIRONOLACTONE 25 MG TAB PO SCH (10:00)
[2019-11-05] MEDS: CLOPIDOGREL BISULFATE 75 MG TAB PO SCH (10:29)
[2019-11-05] MEDS: HYDROcodone-ACET 5/325MG TAB PO PRN ×2 (12:03→20:20)
[2019-11-05 12:25] VITALS: BP 114/77
[2019-11-05 13:00] VITALS: BP 127/67
[2019-11-05] MEDS: BACLOFEN 10 MG TAB PO SCH ×2 (14:00→22:00)
[2019-11-05 17:00] VITALS: BP_SYST 114; BP_SYST 51; BP_DIAS 78; BP_DIAS 88
[2019-11-05 22:00] VITALS: BP 104/66
[2019-11-05] MEDS: RANOLAZINE ER 500 MG TAB PO SCH (22:00)
[2019-11-05] MEDS ORDERED: TAMSULOSIN HYDROCHLORIDE 0.4 MG CAP PO SCH (22:00)
[2019-11-05] MEDS ORDERED: ATORVASTATIN 20 MG TAB PO SCH (22:00)
[2019-11-06] MEDS: ACCU-CHEK COMFORT CURVE STRIP VI SCH ×4 (00:03→12:00)
[2019-11-06] MEDS: InsuLIN REG 1unit/0.01ml Soln (100units/ml) SC SCH ×4 (04:00→12:00)
[2019-11-06 05:00] VITALS: BP 116/81
[2019-11-06] MEDS: BACLOFEN 10 MG TAB PO SCH ×2 (05:45→14:00)
[2019-11-06] MEDS: CARVEDILOL 3.125 MG TAB PO SCH ×2 (08:00→17:56)
[2019-11-06] MEDS: RANOLAZINE ER 500 MG TAB PO SCH (08:27)
[2019-11-06] MEDS: CLOPIDOGREL BISULFATE 75 MG TAB PO SCH (08:28)
[2019-11-06] MEDS: SACUBITRIL-VALSARTAN 24mg/26mg TAB PO SCH (08:32)
[2019-11-06] MEDS: SPIRONOLACTONE 25 MG TAB PO SCH (08:33)
[2019-11-06] MEDS: FUROSEMIDE 40 MG TAB PO SCH (08:33)
[2019-11-06 09:00] VITALS: BP 91/48
[2019-11-06 13:00] VITALS: BP 103/65
[2019-11-06] MEDS ORDERED: RANO500T PO (15:03)
[2019-11-06 15:38] VITALS: BP 103/65
[2019-11-06 17:00] VITALS: BP_SYST 140; BP_SYST 98; BP_DIAS 65; BP_DIAS 88
[2019-11-06] MEDS ORDERED: InsuLIN REG 1unit/0.01ml Soln (100units/ml) SC SCH (17:00)
[2019-11-06] MEDS ORDERED: ACCU-CHEK COMFORT CURVE STRIP VI SCH (17:00)
== END 2019-11-06 19:00 | disposition home or self-care (01) | DRG 190 ==
LOC: EDBD 01:06 → ER 01:06 → TELE 01:07 → TELE-WESTW 11:34
PROVIDERS: ADMIT Hospitalist; ATTEND Internal Medicine Nephrology
DX: I25.10 Atherosclerotic heart disease of native coronary artery without angina pectoris (principal); I21.A1 Myocardial infarction type 2; I50.23 Acute on chronic systolic (congestive) heart failure; E11.22 Type 2 diabetes mellitus with diabetic chronic kidney disease; E11.51 Type 2 diabetes mellitus with diabetic peripheral angiopathy without gangrene; I13.0 Hypertensive heart and chronic kidney disease with heart failure and stage 1 through stage 4 chronic kidney disease, or unspecified chronic kidney disease; M48.061 Spinal stenosis, lumbar region without neurogenic claudication; E78.5 Hyperlipidemia, unspecified; K21.9 Gastro-esophageal reflux disease without esophagitis; D64.9 Anemia, unspecified; J44.9 Chronic obstructive pulmonary disease, unspecified; F41.9 Anxiety disorder, unspecified; F15.10 Other stimulant abuse, uncomplicated; F32.9 Major depressive disorder, single episode, unspecified; D63.8 Anemia in other chronic diseases classified elsewhere; K74.60 Unspecified cirrhosis of liver; N40.1 Benign prostatic hyperplasia with lower urinary tract symptoms; R33.8 Other retention of urine; Z86.73 Personal history of transient ischemic attack (TIA), and cerebral infarction without residual deficits; Z95.1 Presence of aortocoronary bypass graft; Z88.6 Allergy status to analgesic agent; Z88.1 Allergy status to other antibiotic agents; Z79.899 Other long term (current) drug therapy; Z79.4 Long term (current) use of insulin; Z83.3 Family history of diabetes mellitus; Z82.3 Family history of stroke; Z82.49 Family history of ischemic heart disease and other diseases of the circulatory system; Z95.5 Presence of coronary angioplasty implant and graft; Z91.19 Patient's noncompliance with other medical treatment and regimen; N18.9 Chronic kidney disease, unspecified
CPT/HCPCS: 36415; 71045; 80053; 80061; 80307; 82962; 83036; 83735; 83880; 84443; 84484; 85025; 85610; 85730; 87081; 96361; 96374; G0378; J1815

== ENCOUNTER 2019-11-11 14:39 | Inpatient (IN) | payer MEDICAID, OTHER ==
[~2019-11-11] VITALS: Ht 170.2 cm; Wt 74.8 kg
[~2019-11-11 14:39] MED LIST changes: +RANO500T PO
[2019-11-11] MEDS ORDERED: MORPHINE SULFATE 4 MG/ML SYR/VIAL IV ONE (15:00)
[2019-11-11] MEDS ORDERED: ONDANSETRON HCL 4 MG/2 ML VIAL IV ONE (15:00)
[2019-11-11 15:47] LABS: Basophils # (auto) 0.1 10 ^3/uL (0-0.2); Basophils % (auto) 2.2 % (0.0-2.0); Eosinophils # (auto) 0.1 10 ^3/uL (0-0.8); Eosinophils % (auto) 2.4 % (0.0-7.0); Hematocrit 41.4 % (41.0-53.0); Hemoglobin 13.8 g/dL (13.5-17.5); Lymphocytes # (auto) 1.1 10 ^3/uL (0.4-5.4); Lymphocytes % (auto) 19.6 % (10.0-50.0); Mean Corpuscular Hemoglobin 31.9 pg (28.0-32.0); Mean Corpuscular Hgb Conc. 33.3 g/dL (32.0-36.0); Mean Corpuscular Volume 95.9 fL (80.0-100.0); Monocytes # (auto) 0.4 10 ^3/uL (0-1.3); Neutrophils # (auto) 3.8 10 ^3/uL (1.6-8.6); Neutrophils % (auto) 68.8 % (37.0-80.0); Nucleated Red Blood Cells % 0.2 %; Platelet Count (auto) 216 10^3/uL (140-450); Red Blood Cells 4.32 10^6/uL (4.5-5.90); Red Cell Distribution Width 15.9 % (11.8-14.3); White Blood Cell 5.5 10^3/uL (4.4-10.8)
[2019-11-11 15:57] LABS: Albumin 2.2 g/dL (3.4-5.0); Calcium 8.2 mg/dL (8.5-10.1); Magnesium 2.3 mg/dL (1.6-2.6); Potassium 5.1 mmol/L (3.5-5.1)
[2019-11-11] MEDS ORDERED: FUROSEMIDE 40 MG/4 ML VIAL IV ONE (16:00)
[2019-11-11 16:04] LABS: Bilirubin, Total 0.8 mg/dL (0.2-1.0); Total Protein 7.4 g/dL (6.4-8.2)
[2019-11-11] MEDS ORDERED: NITROGLYCERIN 0.4 MG SL TAB SL PRN (16:30)
[2019-11-11] MEDS ORDERED: ONDANSETRON HCL 4 MG/2 ML VIAL IV PRN (16:30)
[2019-11-11] MEDS ORDERED: MORPHINE SULF INJ 2 MG/ML SYRINGE 1ML IV PRN (16:30)
[2019-11-11] MEDS ORDERED: ACETAMINOPHEN 500 MG TAB PO PRN (16:30)
[2019-11-11] MEDS: CARVEDILOL 3.125 MG TAB PO SCH (18:40)
[2019-11-11] MEDS: SACUBITRIL-VALSARTAN 24mg/26mg TAB PO SCH (19:06)
[2019-11-11 19:16] LABS: Amphetamine Screen, Urine NEGATIVE (NEGATIVE); Barbiturate Scree,Urine NEGATIVE (NEGATIVE); Benzodiazephine Screen, Urine NEGATIVE (NEGATIVE); Cannabinoid Screen, Urine POSITIVE (NEGATIVE); Cocaine Screen, Urine NEGATIVE (NEGATIVE); Opiate Scree,Urine NEGATIVE (NEGATIVE); Phencyclidine Screen, Urine NEGATIVE (NEGATIVE)
[2019-11-11 19:46] LABS: Urine Bacteria NONE SEEN /hpf (None Seen); Urine Blood 1+ /uL (Negative); Urine Hyaline Cast FEW /lpf (0 - 2); Urine Mucus FEW (None Seen); Urine Specific Gravity 1.023 (1.001-1.035); Urine WBC 1 /hpf (0 - 3)
[2019-11-11 20:50] VITALS: BP 118/83
[2019-11-11] MEDS: TAMSULOSIN HYDROCHLORIDE 0.4 MG CAP PO SCH (22:16)
[2019-11-11] MEDS: BACLOFEN 10 MG TAB PO SCH (22:17)
[2019-11-11] MEDS: ATORVASTATIN 20 MG TAB PO SCH (22:17)
[2019-11-11] MEDS: RANOLAZINE ER 500 MG TAB PO SCH (22:18)
[2019-11-11] MEDS: HYDROcodone-ACET 5/325MG TAB PO PRN (22:20)
[2019-11-12 00:53] VITALS: BP 118/83
[2019-11-12 05:43] VITALS: BP 100/62
[2019-11-12] MEDS: BACLOFEN 10 MG TAB PO SCH ×3 (05:55→22:22)
[2019-11-12 06:39] LABS: Basophils # (auto) 0 10 ^3/uL (0-0.2); Basophils % (auto) 0.9 % (0.0-2.0); Eosinophils # (auto) 0.2 10 ^3/uL (0-0.8); Hematocrit 36.3 % (41.0-53.0); Hemoglobin 12.5 g/dL (13.5-17.5); Lymphocytes # (auto) 1.1 10 ^3/uL (0.4-5.4); Mean Corpuscular Hemoglobin 32.5 pg (28.0-32.0); Mean Corpuscular Hgb Conc. 34.3 g/dL (32.0-36.0); Mean Corpuscular Volume 94.6 fL (80.0-100.0); Monocytes # (auto) 0.4 10 ^3/uL (0-1.3); Neutrophils # (auto) 3.6 10 ^3/uL (1.6-8.6); Neutrophils % (auto) 68.1 % (37.0-80.0); Platelet Count (auto) 199 10^3/uL (140-450); Red Blood Cells 3.83 10^6/uL (4.5-5.90); Red Cell Distribution Width 15.6 % (11.8-14.3); White Blood Cell 5.3 10^3/uL (4.4-10.8)
[2019-11-12 06:49] LABS: INR 1.13 (0.9-1.15); Partial Thromboplastin Time 27.7 sec (23.64-32.05)
[2019-11-12 06:57] LABS: Potassium 4.3 mmol/L (3.5-5.1)
[2019-11-12 07:04] LABS: BUN/Creatinine Ratio 19.8; Bilirubin, Total 0.9 mg/dL (0.2-1.0); Calcium 7.7 mg/dL (8.5-10.1); Total Protein 6.2 g/dL (6.4-8.2)
[2019-11-12 09:05] VITALS: BP 114/73
[2019-11-12] MEDS: CARVEDILOL 3.125 MG TAB PO SCH ×2 (09:54→18:07)
[2019-11-12] MEDS: SPIRONOLACTONE 25 MG TAB PO SCH (09:55)
[2019-11-12] MEDS: FUROSEMIDE 20 MG/2 ML VIAL IV SCH (09:55)
[2019-11-12] MEDS: PANTOPRAZOLE 40 MG TAB PO SCH (09:56)
[2019-11-12] MEDS: RANOLAZINE ER 500 MG TAB PO SCH ×2 (09:56→22:23)
[2019-11-12] MEDS ORDERED: FUROSEMIDE 40 MG TAB PO SCH (10:00)
[2019-11-12] MEDS: SACUBITRIL-VALSARTAN 24mg/26mg TAB PO SCH ×2 (10:10→18:07)
[2019-11-12] MEDS: INSULIN LANTUS (GLARGINE) 1 /0.01ml (100units/ml) SC SCH (10:10)
[2019-11-12] MEDS: HYDROcodone-ACET 5/325MG TAB PO PRN ×2 (12:23→20:09)
[2019-11-12 12:35] VITALS: BP 121/78
[2019-11-12] MEDS ORDERED: DEXTROSE (50%) 50ML SYRG IV PRN (13:30)
[2019-11-12] MEDS ORDERED: ALBUMIN 25% 100 ML IV ONE (15:15)
[2019-11-12] MEDS: InsuLIN REG 1unit/0.01ml Soln (100units/ml) SC SCH ×2 (17:00→22:00)
[2019-11-12] MEDS: ACCU-CHEK COMFORT CURVE STRIP VI SCH ×2 (17:00→22:14)
[2019-11-12 17:01] VITALS: BP 109/62
[2019-11-12] MEDS: TAMSULOSIN HYDROCHLORIDE 0.4 MG CAP PO SCH (22:22)
[2019-11-12] MEDS: ATORVASTATIN 20 MG TAB PO SCH (22:23)
[2019-11-12 23:48] VITALS: BP 98/53
[2019-11-13] MEDS: HYDROcodone-ACET 5/325MG TAB PO PRN ×3 (00:31→21:07)
[2019-11-13 04:53] VITALS: BP 121/71
[2019-11-13] MEDS: BACLOFEN 10 MG TAB PO SCH ×3 (05:40→21:23)
[2019-11-13] MEDS: InsuLIN REG 1unit/0.01ml Soln (100units/ml) SC SCH ×4 (06:14→21:36)
[2019-11-13] MEDS: ACCU-CHEK COMFORT CURVE STRIP VI SCH ×4 (06:15→21:36)
[2019-11-13] MEDS: CARVEDILOL 3.125 MG TAB PO SCH ×2 (08:06→17:41)
[2019-11-13] MEDS: SACUBITRIL-VALSARTAN 24mg/26mg TAB PO SCH ×2 (08:07→17:42)
[2019-11-13 09:00] VITALS: BP 116/69
[2019-11-13] MEDS: INSULIN LANTUS (GLARGINE) 1 /0.01ml (100units/ml) SC SCH (10:00)
[2019-11-13] MEDS: PANTOPRAZOLE 40 MG TAB PO SCH (10:52)
[2019-11-13] MEDS: FUROSEMIDE 20 MG/2 ML VIAL IV SCH (10:52)
[2019-11-13] MEDS: SPIRONOLACTONE 25 MG TAB PO SCH (10:52)
[2019-11-13] MEDS: RANOLAZINE ER 500 MG TAB PO SCH ×2 (10:53→21:23)
[2019-11-13 12:39] VITALS: BP 110/66
[2019-11-13 16:43] VITALS: BP 100/50
[2019-11-13] MEDS: LACTULOSE 20Gm/30ML SOLN PO SCH (21:22)
[2019-11-13] MEDS: ATORVASTATIN 20 MG TAB PO SCH (21:23)
[2019-11-13] MEDS: TAMSULOSIN HYDROCHLORIDE 0.4 MG CAP PO SCH (21:23)
[2019-11-13 22:00] VITALS: BP 98/50
[2019-11-14 05:00] VITALS: BP 108/69
[2019-11-14] MEDS: BACLOFEN 10 MG TAB PO SCH (06:00)
[2019-11-14] MEDS: ACCU-CHEK COMFORT CURVE STRIP VI SCH ×4 (06:41→21:48)
[2019-11-14] MEDS: InsuLIN REG 1unit/0.01ml Soln (100units/ml) SC SCH ×4 (06:41→21:48)
[2019-11-14 08:00] VITALS: BP 114/68
[2019-11-14] MEDS: SACUBITRIL-VALSARTAN 24mg/26mg TAB PO SCH ×2 (08:21→18:16)
[2019-11-14] MEDS: CARVEDILOL 3.125 MG TAB PO SCH ×2 (08:21→18:17)
[2019-11-14 09:00] VITALS: BP 114/68
[2019-11-14] MEDS: FUROSEMIDE 20 MG/2 ML VIAL IV SCH (09:41)
[2019-11-14] MEDS: RANOLAZINE ER 500 MG TAB PO SCH ×2 (09:42→21:47)
[2019-11-14] MEDS: PANTOPRAZOLE 40 MG TAB PO SCH (09:42)
[2019-11-14] MEDS: SPIRONOLACTONE 25 MG TAB PO SCH (09:42)
[2019-11-14] MEDS: LACTULOSE 20Gm/30ML SOLN PO SCH ×2 (09:42→21:45)
[2019-11-14] MEDS: INSULIN LANTUS (GLARGINE) 1 /0.01ml (100units/ml) SC SCH (09:56)
[2019-11-14] MEDS: D5W 5% 1,000 ML IV SCH (11:00)
[2019-11-14 13:00] VITALS: BP 122/75
[2019-11-14 17:00] VITALS: BP 117/80
[2019-11-14] MEDS: ATORVASTATIN 20 MG TAB PO SCH (21:46)
[2019-11-14] MEDS: TAMSULOSIN HYDROCHLORIDE 0.4 MG CAP PO SCH (21:46)
[2019-11-14 22:19] VITALS: BP 130/86
[2019-11-15 05:06] VITALS: BP 104/56
[2019-11-15] MEDS: ACCU-CHEK COMFORT CURVE STRIP VI SCH ×4 (06:30→21:34)
[2019-11-15] MEDS: InsuLIN REG 1unit/0.01ml Soln (100units/ml) SC SCH ×4 (06:31→21:33)
[2019-11-15] MEDS: CARVEDILOL 3.125 MG TAB PO SCH ×2 (08:00→17:22)
[2019-11-15 09:14] VITALS: BP 116/61
[2019-11-15] MEDS: PANTOPRAZOLE 40 MG TAB PO SCH (09:18)
[2019-11-15] MEDS: SPIRONOLACTONE 25 MG TAB PO SCH (09:18)
[2019-11-15] MEDS: SACUBITRIL-VALSARTAN 24mg/26mg TAB PO SCH ×2 (09:18→18:36)
[2019-11-15] MEDS: FUROSEMIDE 20 MG/2 ML VIAL IV SCH (09:19)
[2019-11-15] MEDS: LACTULOSE 20Gm/30ML SOLN PO SCH ×2 (09:19→21:32)
[2019-11-15] MEDS: RANOLAZINE ER 500 MG TAB PO SCH ×2 (09:19→21:33)
[2019-11-15] MEDS: D5W 5% 1,000 ML IV SCH (12:24)
[2019-11-15 13:00] VITALS: BP 122/61
[2019-11-15 16:52] VITALS: BP 128/73
[2019-11-15] MEDS: TAMSULOSIN HYDROCHLORIDE 0.4 MG CAP PO SCH (21:32)
[2019-11-15] MEDS: ATORVASTATIN 20 MG TAB PO SCH (21:32)
[2019-11-15 22:00] VITALS: BP 88/47
[2019-11-16 05:00] VITALS: BP 119/72
[2019-11-16] MEDS: ACCU-CHEK COMFORT CURVE STRIP VI SCH ×2 (06:20→11:27)
[2019-11-16] MEDS: InsuLIN REG 1unit/0.01ml Soln (100units/ml) SC SCH ×2 (06:20→11:33)
[2019-11-16] MEDS: CARVEDILOL 3.125 MG TAB PO SCH (08:21)
[2019-11-16 08:43] VITALS: BP 129/79
[2019-11-16] MEDS: SACUBITRIL-VALSARTAN 24mg/26mg TAB PO SCH (08:58)
[2019-11-16] MEDS ORDERED: CLOPIDOGREL BISULFATE 75 MG TAB PO SCH (10:00)
[2019-11-16] MEDS ORDERED: FUROSEMIDE 20 MG TAB PO SCH (10:00)
[2019-11-16] MEDS: PANTOPRAZOLE 40 MG TAB PO SCH (10:24)
[2019-11-16] MEDS: SPIRONOLACTONE 25 MG TAB PO SCH (10:25)
[2019-11-16] MEDS: RANOLAZINE ER 500 MG TAB PO SCH (10:25)
[2019-11-16] MEDS: LACTULOSE 20Gm/30ML SOLN PO SCH (10:25)
[2019-11-16] MEDS ORDERED: FURO20TA3 PO (12:51)
[2019-11-16 13:24] VITALS: BP 112/61
[2019-11-16 13:45] VITALS: BP 112/61
== END 2019-11-16 14:20 | disposition hospice, home (50) | DRG 280 ==
LOC: ER 14:39 → EDBD 14:39 → EDUNIT# 14:39 → TELE 14:40 → TELE-WESTW 20:34
PROVIDERS: ADMIT Nurse Practitioner Acute Care; ATTEND Internal Medicine
PROC: 0W9G3ZZ Drainage of Peritoneal Cavity, Percutaneous Approach (ICD-10-PCS; principal; 2019-11-12)
DX: K70.31 Alcoholic cirrhosis of liver with ascites (principal); I50.43 Acute on chronic combined systolic (congestive) and diastolic (congestive) heart failure; E43 Unspecified severe protein-calorie malnutrition; E11.22 Type 2 diabetes mellitus with diabetic chronic kidney disease; K76.6 Portal hypertension; E11.40 Type 2 diabetes mellitus with diabetic neuropathy, unspecified; K72.90 Hepatic failure, unspecified without coma; E87.1 Hypo-osmolality and hyponatremia; N18.3 Chronic kidney disease, stage 3 (moderate); K80.20 Calculus of gallbladder without cholecystitis without obstruction; I25.10 Atherosclerotic heart disease of native coronary artery without angina pectoris; R79.89 Other specified abnormal findings of blood chemistry; E78.5 Hyperlipidemia, unspecified; F15.10 Other stimulant abuse, uncomplicated; I25.5 Ischemic cardiomyopathy; I70.8 Atherosclerosis of other arteries; J98.11 Atelectasis; I13.0 Hypertensive heart and chronic kidney disease with heart failure and stage 1 through stage 4 chronic kidney disease, or unspecified chronic kidney disease; Z95.1 Presence of aortocoronary bypass graft; Z91.19 Patient's noncompliance with other medical treatment and regimen; Z79.02 Long term (current) use of antithrombotics/antiplatelets; Z79.4 Long term (current) use of insulin; Z79.899 Other long term (current) drug therapy; Z82.3 Family history of stroke; Z82.49 Family history of ischemic heart disease and other diseases of the circulatory system; Z83.3 Family history of diabetes mellitus; Z86.73 Personal history of transient ischemic attack (TIA), and cerebral infarction without residual deficits; Z95.5 Presence of coronary angioplasty implant and graft; Z68.31 Body mass index [BMI] 31.0-31.9, adult
CPT/HCPCS: 10022; 36415; 36600; 49083; 70450; 71045; 74176; 76705; 76942; 80053; 80307; 81001; 82140; 82805; 82962; 83036; 83735; 84484; 85025; 85610; 85730; 87081; G0378; J1815; J2405; P9047

== ENCOUNTER 2019-12-13 00:09 | Inpatient (IN) | payer MEDICAID ==
[2019-12-13] VITALS (7 sets, daily range): BP systolic 97–134; BP diastolic 54–90
[~2019-12-13] VITALS: Ht 180.3 cm; Wt 82.6 kg
[~2019-12-13 00:09] MED LIST changes: -FLUC200T35 PO; +FURO20TA3 PO; -FURO40TA4 PO
[2019-12-13 01:10] LABS: Basophils # (auto) 0.1 10 ^3/uL (0-0.2); Basophils % (auto) 1.1 % (0.0-2.0); Eosinophils # (auto) 0.2 10 ^3/uL (0-0.8); Eosinophils % (auto) 3.8 % (0.0-7.0); Hematocrit 43.8 % (41.0-53.0); Hemoglobin 14.8 g/dL (13.5-17.5); Lymphocytes # (auto) 0.9 10 ^3/uL (0.4-5.4); Lymphocytes % (auto) 16.8 % (10.0-50.0); Mean Corpuscular Hemoglobin 32.1 pg (28.0-32.0); Mean Corpuscular Hgb Conc. 33.7 g/dL (32.0-36.0); Mean Corpuscular Volume 95.2 fL (80.0-100.0); Monocytes # (auto) 0.4 10 ^3/uL (0-1.3); Monocytes % (auto) 6.7 % (0.0-12.0); Neutrophils # (auto) 3.8 10 ^3/uL (1.6-8.6); Neutrophils % (auto) 71.6 % (37.0-80.0); Nucleated Red Blood Cells % 0.1 %; Platelet Count (auto) 226 10^3/uL (140-450); Red Cell Distribution Width 15.6 % (11.8-14.3); White Blood Cell 5.2 10^3/uL (4.4-10.8)
[2019-12-13 01:27] LABS: Albumin 2.4 g/dL (3.4-5.0); Calcium 8.3 mg/dL (8.5-10.1); Magnesium 2.2 mg/dL (1.6-2.6); Potassium 4.4 mmol/L (3.5-5.1)
[2019-12-13 01:28] LABS: INR 1.14 (0.9-1.15); Partial Thromboplastin Time 29.6 sec (23.64-32.05)
[2019-12-13 01:29] LABS: BUN/Creatinine Ratio 20.2
[2019-12-13 01:40] LABS: Bilirubin, Total 1.3 mg/dL (0.2-1.0); Total Protein 7.9 g/dL (6.4-8.2)
[2019-12-13] MEDS ORDERED: TEMAZEPAM 15 MG CAP PO PRN (05:45)
[2019-12-13] MEDS ORDERED: DEXTROSE (50%) 50ML SYRG IV PRN (05:45)
--- NOTE | 2019-12-13 06:20 | NUR ---
MS admit from ER ALICIA WILKINSON admitted to tele/MS after SBAR received. Patient oriented to PAIGE SANTORO RN primary RN, unit, room, bed, and unit policies regarding patient care and visiting hours. Patient weighed by bedscale and encouraged to call if they need something. All questions and concerns addressed, patient verbalized understanding. Note:
--- NOTE | 2019-12-13 06:54 | NUR ---
UA SENT, PATIENT [id number]
[2019-12-13] MEDS: ACCU-CHEK COMFORT CURVE STRIP VI SCH ×4 (06:58→22:00)
[2019-12-13] MEDS: InsuLIN REG 1unit/0.01ml Soln (100units/ml) SC SCH ×4 (06:59→22:00)
[2019-12-13 07:20] LABS: Urine Bacteria FEW /hpf (None Seen); Urine Blood 2+ /uL (Negative); Urine Mucus MANY (None Seen); Urine Specific Gravity 1.024 (1.001-1.035); Urine WBC 243 /hpf (0 - 3)
--- NOTE | 2019-12-13 09:11 | NUR ---
PATIENT WEARING FENTANYL PATCH ON ABDOMEN. PT REPORTS HE DOESN'T KNOW WHERE IT CAME FROM, IT'S NOT KISTED ON HIS HOME MEDICATIONS AND NOT LISTED ON eMAR. PT REPORTS 02/02 PAIN IN ABDOMEN. NO PAIN MEDS ORDERED. WILL NOTIFY OF PATCH AND REQUEST PAIN MEDS. Signed: 12/13/19 at 912 by MATTHEW MAJOR RN Addendum: 12/13/19 at 0916 by MATTHEW MAJOR RN PATCH IS 100 MCG Signed: 12/13/19 at 0916 by MATTHEW MAJOR RN
[2019-12-13] MEDS: FAMOTIDINE 20 MG TAB PO SCH ×2 (09:24→23:24)
[2019-12-13] MEDS: RANOLAZINE ER 500 MG TAB PO SCH ×2 (09:24→23:24)
[2019-12-13] MEDS: CLOPIDOGREL BISULFATE 75 MG TAB PO SCH (09:25)
[2019-12-13] MEDS: SPIRONOLACTONE 25 MG TAB PO SCH (09:25)
[2019-12-13] MEDS: FUROSEMIDE 20 MG TAB PO SCH (09:25)
[2019-12-13] MEDS: CARVEDILOL 3.125 MG TAB PO SCH ×2 (09:26→23:25)
--- NOTE | 2019-12-13 09:30 | NUR ---
SERVANDO FROM [facility] CALLED. HE REPORTS TO CALL HIM AT DISCHARGE SO HE CAN ARRANGE TRANSPORTATION HOME FOR THE PATIENT. [phone]. Addendum: 12/13/19 at 1404 by MATTHEW MAJOR RN PT A AND O X4, PT KNOWS NAME, , PRESIDENT AND WHEREABOUTS.
--- NOTE | 2019-12-13 10:39 | NUR ---
DR DOWNS SAW PATIENT AND ATTEMPTED TO DISCUSS POC. PT ANSWERED A FEW QUESTIONS. PT APPEARS SLEEPY AND DID NOT RESPOND TO DOCTORS QUESTIONS OF HOSPICE AND CODE STATUS. PT SHUT HIS EYES AND WOULD NOT ANSWER. NOTIFIED OF FENTANYL PATCH. MD REPORTS TO TAKE IT OFF, PATCH REMOVED. NEW ORDERS FOR BLOOD CULTURES, URINE CULTURES, AMMONIA LEVEL, CEFTRIAXONE FOR UTI. MD NOTIFIED PT TO HAVE PARACENTESIS TODAY. MD REPORTS TO MAKE SURE RADIOLOGY DOES A CULTURE AND CELL COUNT ON THE FLUID. CALLED RADIOLOGY AND REQUESTED THEY SEND FLUID FOR CULTURE AND CELL COUNT PER MD. RADIOLOGY AWARE. ABDOMINAL ULTRASOUND DONE.
--- NOTE | 2019-12-13 11:26 | NUR ---
PT IN ULTRASOUND FOR A PARACENTESIS BY DR INIGUEZ. VS 135/[id number]%.
--- NOTE | 2019-12-13 11:57 | NUR ---
7050 ML OF ASCITIC FLUID DRAINED.
--- NOTE | 2019-12-13 12:30 | NUR ---
PT RETURNED TO FLOOR FROM PARACENTESIS. APPROX 7050 MLS DRAINED. PT BANDAGE RIGHT LATERAL SIDE CDI, NO SIGN OF BLOOD. PT VITALS: 97.4, 132/73, HR 86, 02 98%, RR 16.
--- NOTE | 2019-12-13 13:59 | NUR ---
PT URINE OUTPUT APPROX 100 MLS AND IS ORANGE ROSHAN WITH RED AND CLOUDY. SAW DR DOWNS AND NOTIFIED MD OF URINE AMOUNT AND COLOR. AWARE. REQUESTED PAIN MEDICATION FOR PATIENT. MD AWARE, DR DOWNS REPORTS SHE WILL LOOK OVER THE CHART AND PUT IN ORDERS.
--- NOTE | 2019-12-13 18:48 | NUR ---
CHAIR UPHOLSTERER REPORTS PT BP 97/54, HR 50. REASSESSED BOTH. BP 111/68, HR 67. WILL CONTINUE TO MONITOR.
--- NOTE | 2019-12-13 20:30 | NUR ---
PT RESTING WITH EYES CLOSED BUT RESPONDS TO NAME WHEN CALLED. DENIES PAIN.CALL LIGHT IN REACH-WILL CONTINUE TO MONITOR.
[2019-12-13] MEDS: ATORVASTATIN 20 MG TAB PO SCH (22:00)
[2019-12-13] MEDS: cefTRIAXone 1GM/50ML D5W 50 ML IV SCH (23:24)
[2019-12-14] MEDS: CARVEDILOL 3.125 MG TAB PO SCH ×3 (00:25→22:10)
[2019-12-14 05:00] VITALS: BP 116/78
[2019-12-14] MEDS: InsuLIN REG 1unit/0.01ml Soln (100units/ml) SC SCH ×4 (06:53→22:08)
[2019-12-14] MEDS: ACCU-CHEK COMFORT CURVE STRIP VI SCH ×4 (06:53→22:07)
[2019-12-14 07:14] LABS: Basophils # (auto) 0.1 10 ^3/uL (0-0.2); Basophils % (auto) 1.9 % (0.0-2.0); Eosinophils # (auto) 0.3 10 ^3/uL (0-0.8); Eosinophils % (auto) 5.4 % (0.0-7.0); Hematocrit 40.7 % (41.0-53.0); Hemoglobin 13.5 g/dL (13.5-17.5); Mean Corpuscular Hemoglobin 31.7 pg (28.0-32.0); Mean Corpuscular Hgb Conc. 33.2 g/dL (32.0-36.0); Mean Corpuscular Volume 95.5 fL (80.0-100.0); Monocytes # (auto) 0.4 10 ^3/uL (0-1.3); Monocytes % (auto) 7.9 % (0.0-12.0); Neutrophils % (auto) 62.8 % (37.0-80.0); Nucleated Red Blood Cells % 0.3 %; Platelet Count (auto) 205 10^3/uL (140-450); Red Blood Cells 4.27 10^6/uL (4.5-5.90); Red Cell Distribution Width 15.2 % (11.8-14.3); White Blood Cell 4.7 10^3/uL (4.4-10.8)
--- NOTE | 2019-12-14 07:30 | NUR ---
Opening Shift Note Assumed care of patient, awake and alert. No S/S of distress/SOB or pain. Instructed on POC and to call for assist PRN, will continue to monitor for changes Q1hr and PRN.
[2019-12-14 07:45] LABS: BUN/Creatinine Ratio 22.4; Calcium 7.8 mg/dL (8.5-10.1)
[2019-12-14 07:47] LABS: Bilirubin, Total 1.6 mg/dL (0.2-1.0); Total Protein 6.4 g/dL (6.4-8.2)
[2019-12-14 09:17] VITALS: BP 117/70
[2019-12-14] MEDS: cefTRIAXone 1GM/50ML D5W 50 ML IV SCH ×2 (09:28→20:38)
[2019-12-14] MEDS: SPIRONOLACTONE 25 MG TAB PO SCH ×2 (09:29→22:09)
[2019-12-14] MEDS: FUROSEMIDE 20 MG TAB PO SCH (09:29)
[2019-12-14] MEDS: RANOLAZINE ER 500 MG TAB PO SCH ×2 (09:29→22:09)
[2019-12-14] MEDS: FAMOTIDINE 20 MG TAB PO SCH ×2 (09:29→22:16)
[2019-12-14] MEDS: CLOPIDOGREL BISULFATE 75 MG TAB PO SCH (09:29)
[2019-12-14 12:51] VITALS: BP 121/79
[2019-12-14] MEDS ORDERED: AMOXICILLIN/CLAVUL 875 MG TAB PO ONE (14:30)
[2019-12-14 16:35] VITALS: BP 118/68
[2019-12-14] MEDS: ONDANSETRON HCL 4 MG/2 ML VIAL IV PRN (17:39)
--- NOTE | 2019-12-14 19:15 | NUR ---
Opening Shift Note Received report from Mely HERNANDEZ. Assumed care of patient, awake and alert. No S/S of distress/SOB or pain. Instructed on POC and to call for assist PRN. Fall precaution measures in place, will continue to monitor for changes Q1hr and PRN.
[2019-12-14 22:00] VITALS: BP 120/80
[2019-12-14] MEDS: AMOXICILLIN/CLAVUL 875 MG TAB PO SCH (22:09)
[2019-12-14] MEDS: ATORVASTATIN 20 MG TAB PO SCH (22:09)
[2019-12-14] MEDS ORDERED: MORPHINE SULF INJ 2 MG/ML SYRINGE 1ML IV PRN (23:45)
[2019-12-14] MEDS ORDERED: HYDROcodone-ACET 5/325MG TAB PO PRN (23:45)
[2019-12-15 05:00] VITALS: BP 111/74
[2019-12-15] MEDS: ACCU-CHEK COMFORT CURVE STRIP VI SCH ×4 (06:29→22:10)
[2019-12-15] MEDS: InsuLIN REG 1unit/0.01ml Soln (100units/ml) SC SCH ×4 (06:30→22:11)
[2019-12-15 09:00] VITALS: BP 106/69
[2019-12-15] MEDS: cefTRIAXone 1GM/50ML D5W 50 ML IV SCH ×2 (10:23→21:00)
[2019-12-15] MEDS: RANOLAZINE ER 500 MG TAB PO SCH ×2 (10:24→22:13)
[2019-12-15] MEDS: SPIRONOLACTONE 25 MG TAB PO SCH ×2 (10:24→22:13)
[2019-12-15] MEDS: FUROSEMIDE 20 MG TAB PO SCH (10:24)
[2019-12-15] MEDS: AMOXICILLIN/CLAVUL 875 MG TAB PO SCH ×2 (10:25→22:13)
[2019-12-15] MEDS: CARVEDILOL 3.125 MG TAB PO SCH ×2 (10:25→22:00)
[2019-12-15] MEDS: FAMOTIDINE 20 MG TAB PO SCH ×2 (10:25→22:13)
[2019-12-15] MEDS: CLOPIDOGREL BISULFATE 75 MG TAB PO SCH (10:25)
[2019-12-15 12:32] VITALS: BP 147/76
[2019-12-15 16:43] VITALS: BP 126/76
--- NOTE | 2019-12-15 20:50 | NUR ---
Wound photo taken.
[2019-12-15 22:00] VITALS: BP 116/68
[2019-12-15] MEDS: ATORVASTATIN 20 MG TAB PO SCH (22:13)
[2019-12-15] MEDS: ONDANSETRON HCL 4 MG/2 ML VIAL IV PRN (23:35)
--- NOTE | 2019-12-15 23:35 | NUR ---
Patient had episodes of nausea, Zofran IV given, will continue to monitor.
--- NOTE | 2019-12-16 00:15 | NUR ---
Nausea resolved, continue care.
[2019-12-16 05:00] VITALS: BP 103/58
[2019-12-16 06:34] LABS: Basophils # (auto) 0 10 ^3/uL (0-0.2); Basophils % (auto) 0.8 % (0.0-2.0); Eosinophils # (auto) 0.1 10 ^3/uL (0-0.8); Eosinophils % (auto) 1.8 % (0.0-7.0); Hematocrit 39.1 % (41.0-53.0); Hemoglobin 13.2 g/dL (13.5-17.5); Lymphocytes # (auto) 0.8 10 ^3/uL (0.4-5.4); Lymphocytes % (auto) 14.4 % (10.0-50.0); Mean Corpuscular Hemoglobin 31.6 pg (28.0-32.0); Mean Corpuscular Hgb Conc. 33.7 g/dL (32.0-36.0); Mean Corpuscular Volume 93.9 fL (80.0-100.0); Monocytes # (auto) 0.4 10 ^3/uL (0-1.3); Monocytes % (auto) 7.4 % (0.0-12.0); Neutrophils # (auto) 4.3 10 ^3/uL (1.6-8.6); Neutrophils % (auto) 75.6 % (37.0-80.0); Platelet Count (auto) 185 10^3/uL (140-450); Red Blood Cells 4.16 10^6/uL (4.5-5.90); Red Cell Distribution Width 15.1 % (11.8-14.3); White Blood Cell 5.7 10^3/uL (4.4-10.8)
[2019-12-16] MEDS: ACCU-CHEK COMFORT CURVE STRIP VI SCH ×4 (06:39→21:38)
[2019-12-16] MEDS: InsuLIN REG 1unit/0.01ml Soln (100units/ml) SC SCH ×4 (06:40→21:38)
[2019-12-16 06:47] LABS: Potassium 4.1 mmol/L (3.5-5.1)
[2019-12-16 07:07] LABS: BUN/Creatinine Ratio 19.8; Calcium 7.9 mg/dL (8.5-10.1)
[2019-12-16 09:00] VITALS: BP 114/72
[2019-12-16] MEDS: CIPROFLOXACIN HCL 500 MG TAB PO SCH ×2 (10:08→21:36)
[2019-12-16] MEDS: CARVEDILOL 3.125 MG TAB PO SCH ×2 (10:09→21:37)
[2019-12-16] MEDS: AMOXICILLIN/CLAVUL 875 MG TAB PO SCH ×2 (10:09→21:36)
[2019-12-16] MEDS: FAMOTIDINE 20 MG TAB PO SCH ×2 (10:09→21:38)
[2019-12-16] MEDS: SPIRONOLACTONE 25 MG TAB PO SCH ×2 (10:09→21:36)
[2019-12-16] MEDS: RANOLAZINE ER 500 MG TAB PO SCH ×2 (10:09→21:38)
[2019-12-16] MEDS: FUROSEMIDE 20 MG TAB PO SCH (10:09)
[2019-12-16] MEDS: CLOPIDOGREL BISULFATE 75 MG TAB PO SCH (10:09)
--- NOTE | 2019-12-16 10:22 | NUR ---
WOUND CARE NOTE: WOUND CARE IN TO SEE PATIENT PER WOUND CARE REQUEST. PATIENT ADMITTED TO COUNT INCLUDES THE [facility] FOR ABDOMINAL DISTENSION WITH ASCITES. BEDSIDE NURSE NOTED SKIN INTEGRITY ISSUES UPON ADMISSION. PHOTOGRAPHS TAKEN AT THAT TIME FOR REFERENCE. PATIENT FRANSISCO SCORE IS 19. PATIENT NOTED TO HAVE SKIN TEARS TO RIGHT HEEL AND LEFT KNEE. PATIENT ALSO HAS AN INTACT PINK COLLAGEN SCAR TO MEDIAL SACRUM. SKIN TEARS CLEANSED WITH NORMAL SALINE, PATTED DRY WITH STERILE GAUZE, THERAHONEY APPLIED, COVERED WITH OPTIFOAM GENTLE DRESSINGS. MEDIAL SACRUM CLEANSED WITH NORMAL SALINE, PATTED DRY WITH STERILE GAUZE, ZGUARD APPLIED, COVERED WITH OPTIFOAM GENTLE SACRAL DRESSING. RECOMMEND: DAILY DRESSING CHANGE TO MEDIAL SACRUM. EOD/PRN DRESSING CHANGE TO RIGHT ESTEVES AND LEFT KNEE SKIN TEARS. REDISTRIBUTE PRESSURE UTILIZING PILLOWS AND WEDGES. SKIN/WOUND CARE PLAN. CONTINUED MONITORING BY WOUND CARE TEAM. Addendum: 12/16/19 at 1204 by NYA STROUD RN RN Amended: Links added.
--- NOTE | 2019-12-16 12:20 | NUR ---
DR. VICK UROLOGY MADE AWARE OF CONSULT. PER MD; WILL COME SEE PT IN AFTERNOON.
[2019-12-16 12:53] VITALS: BP_SYST 124; BP_SYST 129; BP_DIAS 71; BP_DIAS 78
--- NOTE | 2019-12-16 15:51 | NUR ---
Nutrition Assessment Notes Please refer to link for full assessment notes. Est Energy needs: 9502-8189 kcals (25-30 kcal/kgBW) Est Protein needs: 82-98 gms/day (1.0-1.2 gm/kgBW) Will continue to monitor and reassess prn. Addendum: 12/16/19 at [address] Amended: Links added.
--- NOTE | 2019-12-16 16:20 | NUR ---
PER MD DOWNS: DC HARRY CATHETER
[2019-12-16 16:45] VITALS: BP 100/73
--- NOTE | 2019-12-16 18:32 | NUR ---
HARRY CATHETER DC'D CATHETER INTACT. PT TOLERATED PROCEDURE WELL. PT INSTRUCTED TO CALL UPON FIRST VOID. VERBALIZED UNDERSTANDING.
--- NOTE | 2019-12-16 19:30 | NUR ---
assumed care, pt. awake, no c/o pain, no urine at this time, to keep monitor
--- NOTE | 2019-12-16 21:30 | NUR ---
pt. void in small amount, to keep monitor.
[2019-12-16] MEDS: ATORVASTATIN 20 MG TAB PO SCH (21:40)
[2019-12-16 22:00] VITALS: BP 106/67
--- NOTE | 2019-12-17 01:29 | NUR ---
pt. not voiding, bladder scan done, found 459ml of urine, will call hospitalist for burr catheter, pt. refused fc, advised pt. to void, to keep monitor.
--- NOTE | 2019-12-17 01:58 | NUR ---
paged hospitalist, waiting to call back.
--- NOTE | 2019-12-17 02:37 | NUR ---
hospitalist not calling back at this time.
--- NOTE | 2019-12-17 02:51 | NUR ---
Primary RN on break. Hospitalist Gee called and updated on patient's status. Received new order at this time to put back burr. Will relay to primary RN
--- NOTE | 2019-12-17 03:35 | NUR ---
attempted put burr catheter as ordered, there is a resistance, not successful, pt. hurting a lot and he refused.
--- NOTE | 2019-12-17 04:48 | NUR ---
pt. still not voiding.
[2019-12-17 05:00] VITALS: BP 121/75
--- NOTE | 2019-12-17 05:51 | NUR ---
pt. no void at this time, to endorsed to rn.
[2019-12-17] MEDS: InsuLIN REG 1unit/0.01ml Soln (100units/ml) SC SCH ×3 (06:09→17:00)
[2019-12-17] MEDS: ACCU-CHEK COMFORT CURVE STRIP VI SCH ×3 (06:10→17:00)
--- NOTE | 2019-12-17 07:10 | NUR ---
AM ROUNDS Patient resting in bed comfortably, denies any pain at this time. No s/s sob/distress on room air. Per report from NOC RN patient unable to void since burr removal on 12/15. Patient can confirm this. Per NOC RN order to insert burr obtained from hospitalist but unsuccessful d/t resistance. At this time patient states, "I need a break because that hurt me a lot, I dont want to try again yet." reasons for burr placement explained in detail. Patient continues to refuse at this time. Will try again. Abdomen distended but soft and non tender. Refer to interventions for full assessment.
[2019-12-17 08:39] VITALS: BP 110/64
[2019-12-17] MEDS: CIPROFLOXACIN HCL 500 MG TAB PO SCH (09:39)
[2019-12-17] MEDS: SPIRONOLACTONE 25 MG TAB PO SCH (09:39)
[2019-12-17] MEDS: AMOXICILLIN/CLAVUL 875 MG TAB PO SCH (09:39)
[2019-12-17] MEDS: FAMOTIDINE 20 MG TAB PO SCH (09:40)
[2019-12-17] MEDS: FUROSEMIDE 20 MG TAB PO SCH (09:40)
[2019-12-17] MEDS: RANOLAZINE ER 500 MG TAB PO SCH (09:40)
[2019-12-17] MEDS: CLOPIDOGREL BISULFATE 75 MG TAB PO SCH (09:40)
[2019-12-17] MEDS: CARVEDILOL 3.125 MG TAB PO SCH (09:40)
--- NOTE | 2019-12-17 09:43 | NUR ---
Patient incontinent of urine, large amount of urine on line. Full linen change done and patient clean and dry.
[2019-12-17 13:12] VITALS: BP 109/53
--- NOTE | 2019-12-17 13:53 | NUR ---
Kate from [facility]
--- NOTE | 2019-12-17 13:56 | NUR ---
Patient's sister NATALIA notified by phone of patients plan to discharge today. Natalia verbalizes understanding and agrees to be home.
[2019-12-17] MEDS ORDERED: CIP500T PO (15:41)
[2019-12-17] MEDS ORDERED: AMOX-277 PO (15:41)
--- NOTE | 2019-12-17 16:05 | NUR ---
Assessment Patient is a 49 year old male who is alert and oriented. Prior to admission patient lived home with his sister and functioned with her assistance. Patient informed me he has a fww, cane, and a wheelchair for home use. Patients PCP is Dr Smiley. Patient is on service with [facility]. Per patient he will return home to his prior living arrangements post discharge and hospice will arranged transportation. Advised patient there is a social service consult to resume service with hospice. Informed patient he has the right to participate in all discharge planning. Patient verbalized understanding and agreed to discharge plan. Faxed clinical information to [facility]. Per Kate with [facility] they will resume service upon d/c day. Transportation has been arranged with [employer] [phone] with a 23:30 grape picker time via [employer]. Informed MARY Benitez. Addendum: 12/17/19 at 1619 by MARINA MCNEAL Amended: Links added.
[2019-12-17 16:30] VITALS: BP 105/65
[2019-12-17 16:56] VITALS: BP 107/81
--- NOTE | 2019-12-17 17:21 | NUR ---
PATIENT REFUSED 1700 ACCU CHECK. STATING "IM ALREADY DISCHARGED, ILL WAIT UNTIL I GET HOME, MY SISTER WILL DO IT." IMPORTANCE OF GLUCOSE MONITORING EXPLAINED, PATIENT CONTINUES TO REFUSE.
--- NOTE | 2019-12-17 18:06 | NUR ---
Patient picked up from [facility] physical education specialist. left via rney, destination home. All discharge information given and all questions ansered. Patient encouraged to follow up with PCP and picker and sorter load and unload new prescriptions from, preferred pharmacy. No S/S of pain or distress at time of departure.
== END 2019-12-17 18:05 | disposition hospice, home (50) | DRG 280 ==
LOC: EDBD 00:09 → ER 00:12 → OVERFLOW 00:13 → WEST WING 06:31
PROVIDERS: ADMIT Nurse Practitioner; ATTEND Internal Medicine Nephrology
PROC: 0T9B70Z Drainage of Bladder with Drainage Device, Via Natural or Artificial Opening (ICD-10-PCS; principal; 2019-12-13)
PROC: 0W9G3ZZ Drainage of Peritoneal Cavity, Percutaneous Approach (ICD-10-PCS; 2019-12-13)
DX: K70.31 Alcoholic cirrhosis of liver with ascites (principal); E11.51 Type 2 diabetes mellitus with diabetic peripheral angiopathy without gangrene; I50.42 Chronic combined systolic (congestive) and diastolic (congestive) heart failure; I11.0 Hypertensive heart disease with heart failure; B95.2 Enterococcus as the cause of diseases classified elsewhere; B96.1 Klebsiella pneumoniae [K. pneumoniae] as the cause of diseases classified elsewhere; D63.8 Anemia in other chronic diseases classified elsewhere; N39.0 Urinary tract infection, site not specified; R31.9 Hematuria, unspecified; J44.9 Chronic obstructive pulmonary disease, unspecified; K80.20 Calculus of gallbladder without cholecystitis without obstruction; I25.10 Atherosclerotic heart disease of native coronary artery without angina pectoris; E78.5 Hyperlipidemia, unspecified; K21.9 Gastro-esophageal reflux disease without esophagitis; N40.0 Benign prostatic hyperplasia without lower urinary tract symptoms; Z95.1 Presence of aortocoronary bypass graft; Z98.61 Coronary angioplasty status; Z86.73 Personal history of transient ischemic attack (TIA), and cerebral infarction without residual deficits; I25.2 Old myocardial infarction; Z83.3 Family history of diabetes mellitus; Z82.49 Family history of ischemic heart disease and other diseases of the circulatory system; Z82.3 Family history of stroke; Z84.1 Family history of disorders of kidney and ureter; Z95.0 Presence of cardiac pacemaker; I73.9 Peripheral vascular disease, unspecified; F15.10 Other stimulant abuse, uncomplicated; Z79.4 Long term (current) use of insulin; Z91.19 Patient's noncompliance with other medical treatment and regimen; Z88.6 Allergy status to analgesic agent; Z88.1 Allergy status to other antibiotic agents; E43 Unspecified severe protein-calorie malnutrition
CPT/HCPCS: 10022; 36415; 76700; 76942; 80048; 80053; 81001; 82140; 82150; 82962; 83615; 83690; 83735; 83986; 84484; 85025; 85610; 85730; 87040; 87086; 87088; 87186; 87205; 89051; 93005; G0378; J0696; J1815; J2405

== ENCOUNTER 2020-01-16 16:58 | Inpatient (IN) | payer MEDICAID ==
[~2020-01-16] VITALS: Ht 170.2 cm; Wt 74.8 kg
[~2020-01-16 16:58] MED LIST changes: +AMOX-277 PO; +CIP500T PO
[2020-01-16 20:39] LABS: Basophils # (auto) 0 10 ^3/uL (0-0.2); Basophils % (auto) 0.9 % (0.0-2.0); Eosinophils # (auto) 0.1 10 ^3/uL (0-0.8); Hematocrit 33.4 % (41.0-53.0); Hemoglobin 11.5 g/dL (13.5-17.5); Lymphocytes # (auto) 0.6 10 ^3/uL (0.4-5.4); Lymphocytes % (auto) 13.8 % (10.0-50.0); Mean Corpuscular Hemoglobin 31.7 pg (28.0-32.0); Mean Corpuscular Hgb Conc. 34.4 g/dL (32.0-36.0); Mean Corpuscular Volume 92.3 fL (80.0-100.0); Monocytes # (auto) 0.4 10 ^3/uL (0-1.3); Monocytes % (auto) 7.8 % (0.0-12.0); Neutrophils # (auto) 3.5 10 ^3/uL (1.6-8.6); Neutrophils % (auto) 75.5 % (37.0-80.0); Platelet Count (auto) 205 10^3/uL (140-450); Red Blood Cells 3.62 10^6/uL (4.5-5.90); Red Cell Distribution Width 14.8 % (11.8-14.3); White Blood Cell 4.7 10^3/uL (4.4-10.8)
[2020-01-16 20:56] LABS: Albumin 1.9 g/dL (3.4-5.0); Potassium 4.1 mmol/L (3.5-5.1)
[2020-01-16 20:59] LABS: INR 1.13 (0.9-1.15); Partial Thromboplastin Time 30.6 sec (23.64-32.05)
[2020-01-16 21:00] LABS: BUN/Creatinine Ratio 15.4; Total Protein 6.4 g/dL (6.4-8.2)
[2020-01-16] MEDS ORDERED: ACETAMINOPHEN 325 MG TAB PO PRN (23:00)
[2020-01-16] MEDS ORDERED: ONDANSETRON HCL 4 MG/2 ML VIAL IV PRN (23:00)
[2020-01-16] MEDS ORDERED: DEXTROSE (50%) 50ML SYRG IV PRN (23:00)
[2020-01-16] MEDS ORDERED: TEMAZEPAM 15 MG CAP PO PRN (23:00)
[2020-01-17] VITALS: BP 116/72
[2020-01-17 05:00] VITALS: BP 112/58
[2020-01-17 06:18] LABS: Basophils # (auto) 0.1 10 ^3/uL (0-0.2); Basophils % (auto) 1.4 % (0.0-2.0); Eosinophils # (auto) 0.1 10 ^3/uL (0-0.8); Eosinophils % (auto) 2.3 % (0.0-7.0); Hematocrit 33.5 % (41.0-53.0); Hemoglobin 11.6 g/dL (13.5-17.5); Lymphocytes # (auto) 0.8 10 ^3/uL (0.4-5.4); Lymphocytes % (auto) 17.5 % (10.0-50.0); Mean Corpuscular Hemoglobin 31.9 pg (28.0-32.0); Mean Corpuscular Hgb Conc. 34.5 g/dL (32.0-36.0); Mean Corpuscular Volume 92.6 fL (80.0-100.0); Monocytes # (auto) 0.4 10 ^3/uL (0-1.3); Neutrophils % (auto) 69.8 % (37.0-80.0); Platelet Count (auto) 200 10^3/uL (140-450); Red Blood Cells 3.62 10^6/uL (4.5-5.90); Red Cell Distribution Width 14.9 % (11.8-14.3); White Blood Cell 4.3 10^3/uL (4.4-10.8)
[2020-01-17 06:34] LABS: Albumin 1.8 g/dL (3.4-5.0); Calcium 7.8 mg/dL (8.5-10.1); Potassium 3.8 mmol/L (3.5-5.1)
[2020-01-17 06:38] LABS: BUN/Creatinine Ratio 15.2; Bilirubin, Total 0.8 mg/dL (0.2-1.0); Total Protein 6.2 g/dL (6.4-8.2)
[2020-01-17] MEDS: InsuLIN REG 1unit/0.01ml Soln (100units/ml) SC SCH ×4 (06:48→21:24)
[2020-01-17] MEDS: ACCU-CHEK COMFORT CURVE STRIP VI SCH ×4 (06:50→21:24)
[2020-01-17 08:00] VITALS: BP_SYST 104; BP_SYST 134; BP_DIAS 67; BP_DIAS 89
[2020-01-17] MEDS: FAMOTIDINE 20 MG TAB PO SCH ×2 (09:56→21:41)
[2020-01-17] MEDS: RANOLAZINE ER 500 MG TAB PO SCH ×2 (09:56→21:41)
[2020-01-17] MEDS: SPIRONOLACTONE 25 MG TAB PO SCH (09:56)
[2020-01-17] MEDS: SACUBITRIL-VALSARTAN 24mg/26mg TAB PO SCH ×2 (09:57→21:40)
[2020-01-17] MEDS: CARVEDILOL 3.125 MG TAB PO SCH ×2 (09:58→22:00)
[2020-01-17] MEDS: FUROSEMIDE 20 MG TAB PO SCH (09:58)
[2020-01-17] MEDS: CLOPIDOGREL BISULFATE 75 MG TAB PO SCH (10:00)
[2020-01-17 12:00] VITALS: BP_SYST 129; BP_SYST 98; BP_DIAS 61; BP_DIAS 94
[2020-01-17] MEDS: ALBUMIN 25% 100 ML IV SCH ×2 (13:18→21:56)
[2020-01-17 17:11] VITALS: BP_SYST 150; BP_SYST 96; BP_DIAS 59; BP_DIAS 99
[2020-01-17 22:00] VITALS: BP 105/63
[2020-01-17] MEDS ORDERED: ATORVASTATIN 20 MG TAB PO SCH (22:00)
[2020-01-18] MEDS: ALBUMIN 25% 100 ML IV SCH (04:20)
[2020-01-18 05:00] VITALS: BP 118/63
[2020-01-18] MEDS: InsuLIN REG 1unit/0.01ml Soln (100units/ml) SC SCH ×3 (05:44→17:19)
[2020-01-18] MEDS: ACCU-CHEK COMFORT CURVE STRIP VI SCH ×3 (05:44→17:18)
[2020-01-18 09:00] VITALS: BP 122/76
[2020-01-18] MEDS: SPIRONOLACTONE 25 MG TAB PO SCH (09:58)
[2020-01-18] MEDS: CARVEDILOL 3.125 MG TAB PO SCH (09:58)
[2020-01-18] MEDS: CLOPIDOGREL BISULFATE 75 MG TAB PO SCH (09:59)
[2020-01-18] MEDS: FUROSEMIDE 20 MG TAB PO SCH (09:59)
[2020-01-18] MEDS: RANOLAZINE ER 500 MG TAB PO SCH (09:59)
[2020-01-18] MEDS: FAMOTIDINE 20 MG TAB PO SCH (09:59)
[2020-01-18] MEDS: SACUBITRIL-VALSARTAN 24mg/26mg TAB PO SCH (09:59)
[2020-01-18 13:00] VITALS: BP_SYST 115; BP_SYST 145; BP_DIAS 104; BP_DIAS 75
[2020-01-18 16:52] VITALS: BP 112/59
== END 2020-01-18 19:15 | disposition hospice, home (50) ==
LOC: ER 16:58 → EDBD 16:58 → OVERFLOW 16:59 → WEST WING 23:46
PROVIDERS: ADMIT Nurse Practitioner; ATTEND Internal Medicine
PROC: 0W9G3ZZ Drainage of Peritoneal Cavity, Percutaneous Approach (ICD-10-PCS; principal; 2020-01-17)
DX: K74.60 Unspecified cirrhosis of liver (principal); R18.8 Other ascites; E43 Unspecified severe protein-calorie malnutrition; R14.0 Abdominal distension (gaseous); E11.9 Type 2 diabetes mellitus without complications; I11.0 Hypertensive heart disease with heart failure; E87.1 Hypo-osmolality and hyponatremia; E88.09 Other disorders of plasma-protein metabolism, not elsewhere classified; L98.499 Non-pressure chronic ulcer of skin of other sites with unspecified severity; I25.10 Atherosclerotic heart disease of native coronary artery without angina pectoris; I50.9 Heart failure, unspecified; Z82.3 Family history of stroke; Z82.49 Family history of ischemic heart disease and other diseases of the circulatory system; Z86.73 Personal history of transient ischemic attack (TIA), and cerebral infarction without residual deficits; Z83.3 Family history of diabetes mellitus; Z95.0 Presence of cardiac pacemaker; Z95.1 Presence of aortocoronary bypass graft
CPT/HCPCS: 36415; 76700; 76942; 80053; 82140; 82962; 83036; 85025; 85610; 85730; 87077; 87186; 87205; 93005; G0378; J1815; P9047

== ENCOUNTER 2020-01-28 14:35 | Inpatient (IN) | payer MEDICAID ==
[~2020-01-28] VITALS: Ht 152.4 cm; Wt 70.6 kg
[2020-01-28 15:50] LABS: Basophils # (auto) 0 10 ^3/uL (0-0.2); Eosinophils # (auto) 0.1 10 ^3/uL (0-0.8); Eosinophils % (auto) 2.2 % (0.0-7.0); Hemoglobin 10.8 g/dL (13.5-17.5); Lymphocytes # (auto) 0.8 10 ^3/uL (0.4-5.4); Lymphocytes % (auto) 18.5 % (10.0-50.0); Mean Corpuscular Hemoglobin 30.9 pg (28.0-32.0); Mean Corpuscular Hgb Conc. 33.7 g/dL (32.0-36.0); Mean Corpuscular Volume 91.6 fL (80.0-100.0); Monocytes # (auto) 0.3 10 ^3/uL (0-1.3); Monocytes % (auto) 7.1 % (0.0-12.0); Neutrophils # (auto) 2.9 10 ^3/uL (1.6-8.6); Neutrophils % (auto) 71.2 % (37.0-80.0); Platelet Count (auto) 186 10^3/uL (140-450); Red Blood Cells 3.49 10^6/uL (4.5-5.90); Red Cell Distribution Width 14.7 % (11.8-14.3); White Blood Cell 4.1 10^3/uL (4.4-10.8)
[2020-01-28 16:10] LABS: Albumin 1.8 g/dL (3.4-5.0); BUN/Creatinine Ratio 21.7; Calcium 7.6 mg/dL (8.5-10.1); INR 1.08 (0.9-1.15); Partial Thromboplastin Time 27.9 sec (23.0-31.2); Potassium 3.8 mmol/L (3.5-5.1)
[2020-01-28 16:15] LABS: Bilirubin, Total 0.8 mg/dL (0.2-1.0); Total Protein 5.7 g/dL (6.4-8.2)
[2020-01-28] MEDS ORDERED: ONDANSETRON HCL 4 MG/2 ML VIAL IV PRN (17:30)
[2020-01-28] MEDS ORDERED: NITROGLYCERIN 0.4 MG SL TAB SL PRN ×2 (17:30)
[2020-01-28] MEDS ORDERED: DOCUSATE SOD 100 MG CAP PO PRN (17:30)
[2020-01-28] MEDS ORDERED: LORazepam 0.5 MG TAB PO PRN (17:30)
[2020-01-28] MEDS ORDERED: MORPHINE SULF INJ 2 MG/ML SYRINGE 1ML IV PRN ×2 (17:30)
[2020-01-28] MEDS: SODIUM CHLORIDE 0.9% 1,000 ML IV SCH (18:10)
--- NOTE | 2020-01-28 19:59 | NUR ---
[facility] after NO SBAR received. Patient arrived in a soiled diaper. Saturated in urine and feces. Patient oriented to VLAD SABILLON RN primary RN, unit, room, bed, and unit policies regarding patient care and visiting hours. Patient weighed by bed scale and encouraged to call if they need something. All questions and concerns addressed, patient verbalized understanding. Note: Wound pictures taken for reference.
[2020-01-28] MEDS: InsuLIN REG 1unit/0.01ml Soln (100units/ml) SC SCH (20:00)
[2020-01-28 20:12] VITALS: BP 115/64
[2020-01-28 22:00] VITALS: BP 115/64
[2020-01-28] MEDS: ACCU-CHEK COMFORT CURVE STRIP VI SCH (22:19)
[2020-01-29] MEDS: ACCU-CHEK COMFORT CURVE STRIP VI SCH ×5 (00:09→17:21)
[2020-01-29] MEDS: InsuLIN REG 1unit/0.01ml Soln (100units/ml) SC SCH ×5 (00:11→17:21)
[2020-01-29 04:59] VITALS: BP 113/73
--- NOTE | 2020-01-29 05:28 | NUR ---
MRSA SWAB Nares swabbed for MRSA. Sample sent to lab via [facility] system.
--- NOTE | 2020-01-29 07:30 | NUR ---
Opening Note Report received and assumed pt care from NOC RN. Pt is a/ox4 with no s/s of distress or SOB. Pt is in bed with no complaints at this time. Discussed POC with pt; pt verbalized understanding. Safety measures maintained with call light within reach, bed in lowest position and side rails up. Will continue to monitor.
[2020-01-29 07:36] LABS: Basophils # (auto) 0.1 10 ^3/uL (0-0.2); Basophils % (auto) 1.2 % (0.0-2.0); Eosinophils # (auto) 0.1 10 ^3/uL (0-0.8); Eosinophils % (auto) 1.8 % (0.0-7.0); Hemoglobin 12.2 g/dL (13.5-17.5); Lymphocytes # (auto) 0.6 10 ^3/uL (0.4-5.4); Lymphocytes % (auto) 14.4 % (10.0-50.0); Mean Corpuscular Hemoglobin 31.3 pg (28.0-32.0); Mean Corpuscular Hgb Conc. 33.9 g/dL (32.0-36.0); Mean Corpuscular Volume 92.5 fL (80.0-100.0); Monocytes # (auto) 0.3 10 ^3/uL (0-1.3); Monocytes % (auto) 6.7 % (0.0-12.0); Neutrophils # (auto) 3.3 10 ^3/uL (1.6-8.6); Neutrophils % (auto) 75.9 % (37.0-80.0); Platelet Count (auto) 201 10^3/uL (140-450); Red Blood Cells 3.89 10^6/uL (4.5-5.90); Red Cell Distribution Width 14.6 % (11.8-14.3); White Blood Cell 4.3 10^3/uL (4.4-10.8)
[2020-01-29 07:52] LABS: Potassium 3.8 mmol/L (3.5-5.1)
[2020-01-29 07:56] LABS: BUN/Creatinine Ratio 17.4; Calcium 7.6 mg/dL (8.5-10.1)
[2020-01-29 09:00] VITALS: BP 104/61
[2020-01-29] MEDS: SODIUM CHLORIDE 0.9% 1,000 ML IV SCH (09:57)
--- NOTE | 2020-01-29 10:30 | NUR ---
athletic field custodian here to see and examined patient
--- NOTE | 2020-01-29 10:30 | NUR ---
urine specimen sent to Lab
--- NOTE | 2020-01-29 10:42 | NUR ---
WOUND CARE NOTE: Wound care in to see patient per wound care request regarding multiple wounds that are noted present on admission. Bedside nurse took photograph of patient's wounds upon admission for reference. Patient is 49 years old male with admitting diagnosis of Abdominal Pain, Liver Cirrhosis, Ascites. Patient is resting in bed in Rm. 281A. He's awake, alert and able to follow simple direction. He's in no stated pain at this time and he appears to be in no pain using Reyes [place] Faces Pain Scale. He's able to assist in turning and repositioning and his Neil score is 14. Skin/wound assessment done with the assistance of a student nurse foamite mixer. Patient noted with multiple wounds such as Unstageable pressure injuries to his Rt hip (3x6cm) Rt lateral ankle (2.5x2.5x0.3) and Rt elbow ( 1x1cm and 1x1.5cm). Wounds are covered with brown and yellow necrotic tissue with pale pink dusky red wound bed, minimal serous drainage, no odor noted.Cleansed mentioned wounds with wound cleanser,patted dry with gauze,applied Thera honey gel and covered with Opti foam gentle dressing. Patient is incontinent of urine and wet the bed. Winston care give, total linen changed. His L sacrum noted with 0.5x0.5cm open full thickness wound over pink collagen scar tissue. Applied Z Guard cream and covered wound with Opti foam gentle dressing. Intact DTI noted to his L heel (3x6cm) and distal L medial foot (1.5x2). DTI looks dark purple/blood filled blister soft boggy to touch. Applied [place] foam boots to patient's L foot. Patient's R heel has dry scabbed wound, left open to air. Patient tolerated well. Repositioned for comfort facing his left side, redistributed pressure points with pillows. Nurse's aide at bedside. RECOMMENDATION: Daily/PRN dressing change to multiple open wounds to R hip, Rt ankle and Rt elbow, BID/PRN cleaning and application of Z Guard cream to sacrum per MD order, Dietary consult, foam boots to L heel, frequent turning and repositioning schedule as condition permits, redistribute pressure points with pillows, frequent winston care/check, keep clean and dry, continue monitoring by wound care while patient is hospitalized. Addendum: 01/29/20 at 1552 by Leilani Mari RN Amended: Links added.
--- NOTE | 2020-01-29 11:15 | NUR ---
MD VISIT DR. SMITH HERE TO SEE AND EXAMINED PATIENT
[2020-01-29 11:26] LABS: Urine Bacteria FEW /hpf (None Seen); Urine Blood Negative /uL (Negative); Urine Mucus FEW (None Seen); Urine Specific Gravity 1.023 (1.001-1.035); Urine WBC <1 /hpf (0 - 3)
--- NOTE | 2020-01-29 11:30 | NUR ---
RECEIVED ORDER FROM DR. SMITH TO GIVE ALBUMIN 25% X 1 DOSE
[2020-01-29] MEDS ORDERED: ALBUMIN 25% 50 ML IV ONE (11:45)
[2020-01-29 12:52] VITALS: BP 128/78
--- NOTE | 2020-01-29 14:20 | NUR ---
RECEIVED CALL FROM SISTER PATIENT NATALIA ( PASSWORD PROVIDED) STATED PATIENT WAS UNDER CHARTER HOSPICE CARE AND WANTED TO GO BACK TO HOSPICE UPON DISCHARGE .
--- NOTE | 2020-01-29 14:25 | NUR ---
DR. SMITH INFORMED THAT PATIENT WAS UNDER CHARTER HOSPICE PER PATIENT SISTER AND REQUESTING PATIENT TO GO BACK UNDER HOSPICE CARE.
--- NOTE | 2020-01-29 15:33 | NUR ---
Assessment Patient is a 49-year-old male who is alert and oriented. Prior to admission patient lived home with his sister Sulma Ph:) and functioned with her assistance. Patient informed me he has a fww, cane, and a wheelchair for home use. Patients PCP is Dr Smiley. Patient is on service with [facility]. Per patient he will return home to his prior living arrangements post discharge and hospice will arranged transportation. Advised patient there is a social service consult to resume service with hospice. Informed patient he has the right to participate in all discharge planning. Patient verbalized understanding and agreed to discharge plan. Faxed clinical information to [facility]. Per Luz with [facility] they will resume service upon d/. Transportation has been arranged with [employer] [phone] with a 19:15 picker/puller time via [employer]. Informed MARY Navarro. Addendum: 01/29/20 at 1533 by MARINA MCNEAL Amended: Links added.
--- NOTE | 2020-01-29 15:55 | NUR ---
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
[2020-01-29 17:00] VITALS: BP 126/73
--- NOTE | 2020-01-29 18:38 | NUR ---
Called Sulma (patients sister) at 16:38 to give her discharge instructions. I reviewed all information and she verbalized understanding back to me.
--- NOTE | 2020-01-29 19:18 | NUR ---
Report given to incoming noc shift,no discomfort,no distress.awaiting for milk pickup driver for discharge.
== END 2020-01-29 20:10 | disposition hospice, home (50) | DRG 280 ==
LOC: EDBD 14:35 → ER 14:35 → OVERFLOW 14:36 → WEST WING 20:16
PROVIDERS: ATTEND Internal Medicine
PROC: 0W9G3ZX Drainage of Peritoneal Cavity, Percutaneous Approach, Diagnostic (ICD-10-PCS; principal; 2020-01-28)
DX: K70.31 Alcoholic cirrhosis of liver with ascites (principal); N18.3 Chronic kidney disease, stage 3 (moderate); E43 Unspecified severe protein-calorie malnutrition; E11.22 Type 2 diabetes mellitus with diabetic chronic kidney disease; G89.29 Other chronic pain; I13.0 Hypertensive heart and chronic kidney disease with heart failure and stage 1 through stage 4 chronic kidney disease, or unspecified chronic kidney disease; I25.10 Atherosclerotic heart disease of native coronary artery without angina pectoris; J90 Pleural effusion, not elsewhere classified; Z79.4 Long term (current) use of insulin; Z79.899 Other long term (current) drug therapy; Z82.3 Family history of stroke; Z82.49 Family history of ischemic heart disease and other diseases of the circulatory system; Z83.3 Family history of diabetes mellitus; Z86.73 Personal history of transient ischemic attack (TIA), and cerebral infarction without residual deficits; Z95.0 Presence of cardiac pacemaker; Z95.1 Presence of aortocoronary bypass graft; Z88.6 Allergy status to analgesic agent; Z88.1 Allergy status to other antibiotic agents; L89.510 Pressure ulcer of right ankle, unstageable; L89.620 Pressure ulcer of left heel, unstageable; L89.210 Pressure ulcer of right hip, unstageable; L89.329 Pressure ulcer of left buttock, unspecified stage; L89.010 Pressure ulcer of right elbow, unstageable; Z86.79 Personal history of other diseases of the circulatory system; Z87.19 Personal history of other diseases of the digestive system
CPT/HCPCS: 10022; 36415; 49083; 71045; 76942; 80048; 80053; 81001; 82962; 83036; 84484; 85025; 85610; 85730; 87081; 87205; 89051; 93005; 96360; G0378; J1815

== ENCOUNTER 2020-02-12 20:17 | Emergency (ER) | payer MEDICAID ==
[~2020-02-12] VITALS: Ht 152.4 cm; Wt 90.7 kg
[2020-02-12 22:50] LABS: Basophils # (auto) 0 10 ^3/uL (0-0.2); Basophils % (auto) 0.6 % (0.0-2.0); Eosinophils # (auto) 0.1 10 ^3/uL (0-0.8); Eosinophils % (auto) 0.8 % (0.0-7.0); Hemoglobin 10.9 g/dL (13.5-17.5); Lymphocytes # (auto) 0.6 10 ^3/uL (0.4-5.4); Lymphocytes % (auto) 9.5 % (10.0-50.0); Mean Corpuscular Hemoglobin 31.7 pg (28.0-32.0); Mean Corpuscular Hgb Conc. 33.9 g/dL (32.0-36.0); Mean Corpuscular Volume 93.3 fL (80.0-100.0); Monocytes # (auto) 0.4 10 ^3/uL (0-1.3); Monocytes % (auto) 5.9 % (0.0-12.0); Neutrophils # (auto) 5.3 10 ^3/uL (1.6-8.6); Neutrophils % (auto) 83.2 % (37.0-80.0); Platelet Count (auto) 198 10^3/uL (140-450); Red Blood Cells 3.43 10^6/uL (4.5-5.90); Red Cell Distribution Width 14.8 % (11.8-14.3); White Blood Cell 6.3 10^3/uL (4.4-10.8)
[2020-02-12 23:15] LABS: Potassium 3.1 mmol/L (3.5-5.1)
[2020-02-12 23:19] LABS: Albumin 1.9 g/dL (3.4-5.0); BUN/Creatinine Ratio 15.3; Calcium 7.5 mg/dL (8.5-10.1)
[2020-02-12 23:43] LABS: Bilirubin, Total 0.9 mg/dL (0.2-1.0); Total Protein 5.7 g/dL (6.4-8.2)
[2020-02-13] MEDS ORDERED: MORPHINE SULFATE 4 MG/ML SYR/VIAL IV ONE (04:45)
[2020-02-13] MEDS ORDERED: ONDANSETRON HCL 4 MG/2 ML VIAL IV ONE (04:45)
[2020-02-13 07:59] LABS: INR 1.13 (0.9-1.15); Partial Thromboplastin Time 31.6 sec (23.0-31.2)
[2020-02-13] MEDS ORDERED: POTASSIUM EFFERVESENT TAB 25 MEQ PO ONE (11:30)
[2020-02-13 20:00] VITALS: BP 101/52
== END 2020-02-13 17:06 | disposition hospice, home (50) ==
LOC: ER 20:17 → EDBD 20:17 → ER 02-13 17:06
DX: R60.1 Generalized edema (principal); K72.90 Hepatic failure, unspecified without coma; I11.0 Hypertensive heart disease with heart failure; I50.9 Heart failure, unspecified; E11.9 Type 2 diabetes mellitus without complications; Z86.73 Personal history of transient ischemic attack (TIA), and cerebral infarction without residual deficits
CPT/HCPCS: 36415; 71045; 71250; 74176; 76942; 80053; 82962; 83690; 85025; 85610; 85730; 93005; 96374; 96375; 99285; C1729; J2270; J2405; 10022; 49083

== ENCOUNTER 2020-02-17 20:59 | Emergency (ER) | payer MEDICAID ==
[~2020-02-17] VITALS: Ht 172.7 cm; Wt 90.7 kg
[2020-02-17 22:44] LABS: Basophils # (auto) 0 10 ^3/uL (0-0.2); Basophils % (auto) 0.4 % (0.0-2.0); Eosinophils # (auto) 0 10 ^3/uL (0-0.8); Eosinophils % (auto) 0.3 % (0.0-7.0); Hematocrit 32.3 % (41.0-53.0); Hemoglobin 11.1 g/dL (13.5-17.5); Lymphocytes # (auto) 0.6 10 ^3/uL (0.4-5.4); Mean Corpuscular Hemoglobin 31.3 pg (28.0-32.0); Mean Corpuscular Hgb Conc. 34.2 g/dL (32.0-36.0); Mean Corpuscular Volume 91.5 fL (80.0-100.0); Monocytes # (auto) 0.6 10 ^3/uL (0-1.3); Monocytes % (auto) 7.5 % (0.0-12.0); Neutrophils # (auto) 6.7 10 ^3/uL (1.6-8.6); Neutrophils % (auto) 83.8 % (37.0-80.0); Nucleated Red Blood Cells % 0.1 %; Platelet Count (auto) 239 10^3/uL (140-450); Red Blood Cells 3.53 10^6/uL (4.5-5.90); Red Cell Distribution Width 14.4 % (11.8-14.3)
[2020-02-17 23:01] LABS: Albumin 1.7 g/dL (3.4-5.0); Calcium 7.5 mg/dL (8.5-10.1); Potassium 3.7 mmol/L (3.5-5.1)
[2020-02-17 23:07] LABS: BUN/Creatinine Ratio 26.2; Bilirubin, Total 1.4 mg/dL (0.2-1.0); Total Protein 5.7 g/dL (6.4-8.2)
[2020-02-18] MEDS ORDERED: SODIUM CHLORIDE 0.9% 500 ML IV ONE (01:00)
[2020-02-18] MEDS ORDERED: MORPHINE SULFATE 4 MG/ML SYR/VIAL IV ONE (01:00)
[2020-02-18] MEDS ORDERED: ONDANSETRON HCL 4 MG/2 ML VIAL IV ONE (01:00)
[2020-02-18] MEDS ORDERED: PIPERACILLIN-TAZOB 3.375GM 100 ML IV ONE (05:00)
[2020-02-18] MEDS ORDERED: CLINDAMYCIN 900MG IV 50 ML IV ONE (05:00)
[2020-02-18 11:54] VITALS: BP 113/68
== END 2020-02-18 11:41 | disposition short-term general hospital (02) ==
LOC: ER 20:59 → EDBD 20:59 → ER 02-18 11:41
DX: K81.9 Cholecystitis, unspecified (principal); L89.219 Pressure ulcer of right hip, unspecified stage; L08.89 Other specified local infections of the skin and subcutaneous tissue; R62.7 Adult failure to thrive; R53.1 Weakness; I25.810 Atherosclerosis of coronary artery bypass graft(s) without angina pectoris; I11.0 Hypertensive heart disease with heart failure; I50.9 Heart failure, unspecified; E11.9 Type 2 diabetes mellitus without complications; I25.2 Old myocardial infarction; Z68.30 Body mass index [BMI] 30.0-30.9, adult; Z86.73 Personal history of transient ischemic attack (TIA), and cerebral infarction without residual deficits; Z95.0 Presence of cardiac pacemaker; Z79.899 Other long term (current) drug therapy; Z88.8 Allergy status to other drugs, medicaments and biological substances; Z88.1 Allergy status to other antibiotic agents; Z88.6 Allergy status to analgesic agent
CPT/HCPCS: 36415; 71045; 74176; 80053; 82150; 83690; 84484; 85025; 93005; 96361; 96365; 96366; 96368; 96375; 99285; J2270; J2405; J2543; J3490; 96367

== ENCOUNTER 2020-02-26 05:57 | Inpatient (IN) | payer MEDICAID ==
[~2020-02-26] VITALS: Ht 180.3 cm; Wt 100.6 kg
[2020-02-26] MEDS ORDERED: SODIUM CHLORIDE 0.9% 1,000 ML IV ONE (07:06)
[2020-02-26 07:14] LABS: Basophils # (auto) 0.1 10 ^3/uL (0-0.2); Basophils % (auto) 0.8 % (0.0-2.0); Eosinophils # (auto) 0.1 10 ^3/uL (0-0.8); Eosinophils % (auto) 1.2 % (0.0-7.0); Hematocrit 26.8 % (41.0-53.0); Hemoglobin 9.3 g/dL (13.5-17.5); Lymphocytes # (auto) 0.8 10 ^3/uL (0.4-5.4); Lymphocytes % (auto) 9.4 % (10.0-50.0); Mean Corpuscular Hemoglobin 31.7 pg (28.0-32.0); Mean Corpuscular Hgb Conc. 34.8 g/dL (32.0-36.0); Mean Corpuscular Volume 91.1 fL (80.0-100.0); Monocytes # (auto) 0.5 10 ^3/uL (0-1.3); Monocytes % (auto) 6.2 % (0.0-12.0); Neutrophils # (auto) 6.6 10 ^3/uL (1.6-8.6); Neutrophils % (auto) 82.4 % (37.0-80.0); Platelet Count (auto) 241 10^3/uL (140-450); Red Blood Cells 2.94 10^6/uL (4.5-5.90); Red Cell Distribution Width 14.8 % (11.8-14.3)
[2020-02-26] MEDS ORDERED: HYDROmorphone HCL 2 MG/ML VL IV ONE (07:15)
[2020-02-26] MEDS ORDERED: PROMETHAZINE HCL 25 MG/ML 1ML IV PRN (07:15)
[2020-02-26 07:29] LABS: INR 1.04 (0.9-1.15); Partial Thromboplastin Time 29.4 sec (23.0-31.2)
[2020-02-26 07:33] LABS: Albumin 1.8 g/dL (3.4-5.0); Calcium 7.2 mg/dL (8.5-10.1); Magnesium 1.9 mg/dL (1.6-2.6)
[2020-02-26 07:40] LABS: Bilirubin, Total 0.6 mg/dL (0.2-1.0); Total Protein 5.7 g/dL (6.4-8.2)
[2020-02-26] MEDS ORDERED: ALUM & MAG HYDROX-SIMETH LIQ(MAALOX) 30 ML PO PRN (14:00)
[2020-02-26] MEDS ORDERED: MORPHINE SULF INJ 2 MG/ML SYRINGE 1ML IV PRN ×2 (14:00)
[2020-02-26] MEDS ORDERED: cefTRIAXone 1GM/50ML D5W 50 ML IV ONE (14:00)
[2020-02-26] MEDS ORDERED: LORazepam 0.5 MG TAB PO PRN (14:00)
[2020-02-26] MEDS ORDERED: HYDROcodone-ACET 5/325MG TAB PO PRN (14:00)
[2020-02-26] MEDS ORDERED: DEXTROSE (50%) 50ML SYRG IV PRN (14:00)
[2020-02-26] MEDS ORDERED: ACETAMINOPHEN 325 MG TAB PO PRN (14:00)
[2020-02-26] MEDS ORDERED: ONDANSETRON HCL 4 MG/2 ML VIAL IV PRN (14:00)
[2020-02-26] MEDS ORDERED: DOCUSATE SOD 100 MG CAP PO PRN (14:00)
[2020-02-26] MEDS ORDERED: NITROGLYCERIN 0.4 MG SL TAB SL PRN ×2 (14:00)
[2020-02-26] MEDS ORDERED: FUROSEMIDE 40 MG/4 ML VIAL IV ONE (14:00)
[2020-02-26] MEDS ORDERED: FURO40TA4 PO ×2 (15:29→15:33)
[2020-02-26] MEDS ORDERED: INSUINJ37 SC (15:32)
[2020-02-26] MEDS ORDERED: HYDR-531 PO (15:32)
[2020-02-26] MEDS ORDERED: SPIR25TA8 PO (15:34)
[2020-02-26] MEDS ORDERED: INVANZ IV (15:35)
[2020-02-26] MEDS: BACLOFEN 10 MG TAB PO SCH ×2 (15:37→22:36)
[2020-02-26] MEDS: InsuLIN REG 1unit/0.01ml Soln (100units/ml) SC SCH (16:09)
[2020-02-26] MEDS: ACCU-CHEK COMFORT CURVE STRIP VI SCH ×2 (16:15→22:36)
[2020-02-26] MEDS: CARVEDILOL 3.125 MG TAB PO SCH (17:10)
[2020-02-26] MEDS: FUROSEMIDE 20 MG/2 ML VIAL IV SCH (17:10)
--- NOTE | 2020-02-26 18:57 | NUR ---
PT ARRIVES TUCKED INTO BED. ASSISTED BT AID WITH LINENS. TELE #42 PACE IN 70'S. HAS WOUND VAC TO OP SITE ON HIP. MID LINE TO UPPER LEFT ARM. CALL TO ER RECEIVED REPORT FROM XENIA. REPORTS THAT MOSES THE WOUND NURSE NOTIFIED TO COME CHANGE WOUND VAC. ADMITTED FOR PARACENTESIS, ANTICIPATED FOR TOMORROW. HOLD LOVENOX. REPORT PASSED ON TO ZARIA RN.
[2020-02-26] MEDS: MORPHINE SULF INJ 2 MG/ML SYRINGE 1ML IV PRN ×2 (19:24→22:56)
[2020-02-26 19:30] VITALS: BP 129/75
[2020-02-26] MEDS: SACUBITRIL-VALSARTAN 24mg/26mg TAB PO SCH (19:44)
[2020-02-26] MEDS ORDERED: InsuLIN REG 1unit/0.01ml Soln (100units/ml) SC SCH (22:00)
[2020-02-26] MEDS ORDERED: ATORVASTATIN 20 MG TAB PO SCH (22:00)
[2020-02-26] MEDS ORDERED: TAMSULOSIN HYDROCHLORIDE 0.4 MG CAP PO SCH (22:00)
--- NOTE | 2020-02-26 22:15 | NUR ---
Report given to MARY Gonzalez. Patient resting comfortably in bed at this time.
--- NOTE | 2020-02-26 22:16 | NUR ---
Assumed care of patient patient resting in bed with even and unlabored respirations, no s/s of distress. Bed in lowest locked position with side rails up x 2 and call light within reach, Will continue to monitor.
[2020-02-26 22:31] VITALS: BP 129/75
[2020-02-26] MEDS: RANOLAZINE ER 500 MG TAB PO SCH (22:35)
[2020-02-26 22:53] VITALS: BP 109/56
[2020-02-27] MEDS: MORPHINE SULF INJ 2 MG/ML SYRINGE 1ML IV PRN (02:37)
[2020-02-27 05:50] VITALS: BP 117/57
[2020-02-27] MEDS: FUROSEMIDE 20 MG/2 ML VIAL IV SCH ×2 (05:55→17:34)
[2020-02-27] MEDS: BACLOFEN 10 MG TAB PO SCH ×2 (06:00→14:00)
[2020-02-27] MEDS: ACCU-CHEK COMFORT CURVE STRIP VI SCH ×3 (06:03→17:00)
[2020-02-27] MEDS: InsuLIN REG 1unit/0.01ml Soln (100units/ml) SC SCH ×3 (06:25→17:00)
[2020-02-27 07:17] LABS: Cholesterol 117 mg/dL (< 200); HDL Cholesterol 37 mg/dL (40-59); LDL Cholesterol 78 mg/dL (< 100); Triglycerides 77 mg/dL (< 150)
--- NOTE | 2020-02-27 07:20 | NUR ---
Closing note status unchanged, patient resting in bed with even and unlabored respirations, noted chest rise and fall, bilateral legs offloaded on pillow. Bed in lowest locked psotion with side rails up x 2 and call light within reach. Endorsed care to day shift RN.
[2020-02-27 08:00] VITALS: BP 124/71
[2020-02-27] MEDS: CARVEDILOL 3.125 MG TAB PO SCH ×2 (08:00→17:34)
--- NOTE | 2020-02-27 08:05 | NUR ---
Opening Shift Note Assumed care of patient, pt laying quietly in bed, with eyes close. Pt aroused with slight shaking and name, but remains drowsy. Bed is in lowest locked position, side rails up, and call light is within reach. Patient is on RA with No S/S of distress/SOB. Instructed on POC and to call for assist PRN, will continue to monitor for changes Q1hr and PRN.
--- NOTE | 2020-02-27 08:30 | NUR ---
SPOKE WITH PT MARY KEENAN. INFORMED THAT PT IS TAKING PLAVIX AND THAT I WILL NEED TO INFORM PT OF BLEEDING RISK BEFORE PARACENTESIS CAN BE DONE. ALSO HER TO FIND OUT FROM ASSIGNED HOSPITALIST IF FLUID NEEDS TO BE SENT FOR TESTING. DR LIST TO BE ASSIGNED BY 1000.
[2020-02-27] MEDS ORDERED: cefTRIAXone 1GM/50ML D5W 50 ML IV SCH (09:00)
--- NOTE | 2020-02-27 09:15 | NUR ---
REPORT GIVEN REPORT GIVEN TO INDRA HERNANDEZ, CARE ENDORSED.
--- NOTE | 2020-02-27 09:20 | NUR ---
Opening Shift note Assumed care of patient from MARY Parks. Patient is AOx3-4, patient is refusing to speak. Patient is able to answer location, name and birthday.Bed is in lowest locked position, side rails up x3, and call light is within reach. Updated patient on plan of care and patient did not verbalize understanding. Patient re-educated and patient nodded yes, no further statement was said by the patient. Will re-educate patient and reinforcement is needed. Will continue to monitor q1hr and PRN.
--- NOTE | 2020-02-27 09:30 | NUR ---
PT INFORMED OF BLEEDING RISK. STATES HE STILL WANTS PARACENTESIS. DR BRISCOE AT BEDSIDE STATES NO NEED TO SEND FLUID TO LAB. WENT TO BRING PT TO RADIOLOGY. PT SOILED IN STOOL. CLEANED BEFORE BRINGING DOWN.
[2020-02-27] MEDS ORDERED: CLOPIDOGREL BISULFATE 75 MG TAB PO SCH (10:00)
[2020-02-27] MEDS ORDERED: SPIRONOLACTONE 25 MG TAB PO SCH ×2 (10:00)
[2020-02-27] MEDS ORDERED: ENOXAPARIN SOD 40 MG/0.4 ML SYRINGE SC SCH (10:00)
--- NOTE | 2020-02-27 10:05 | NUR ---
Physician rounding Dr. Corona at bedside. MD updated patient on plan of care, patient verbalized understanding. MD stated to notify him when patient returns from procedure.
--- NOTE | 2020-02-27 10:20 | NUR ---
PT IN ULTRASOUND FOR A PARACENTESIS WITH DR INIGUEZ. VS 130/86-67-16-96. 1045: 119/73-68-16-96%.1100: 122/77-70-16-96%.
--- NOTE | 2020-02-27 11:20 | NUR ---
SPOKE WITH WOUND CARE Spoke with nursing tech Kasey. Per Kasey she will assess patient when he returns from procedure. Kasey made aware that patient is a potential D/C. Per kasey to notify her once patient is back on unit and D/C has been ordered.
--- NOTE | 2020-02-27 11:35 | NUR ---
Patient on unit MD Corona notified of patient returned from procedure.
--- NOTE | 2020-02-27 12:21 | NUR ---
Nutrition Assessment/Consult Notes Please refer to link for full assessment notes. Est Energy needs: 6724-9447 kcals (17-20 kcal/kgBW) Est Protein needs: 117-156 gms/day (1.5-2.0 gm/kgIBW) d/t pt adiposity Will continue to monitor and reassess prn. Addendum: 02/27/20 at [address] Amended: Links added.
--- NOTE | 2020-02-27 12:50 | NUR ---
called wound care Called MARY lee regarding patient back on unit and D/C has been confirmed. Per rosa she will not see patient due to wound vacc being placed as out patient prior to admission.
[2020-02-27] MEDS: SACUBITRIL-VALSARTAN 24mg/26mg TAB PO SCH (12:52)
[2020-02-27] MEDS: RANOLAZINE ER 500 MG TAB PO SCH (12:52)
--- NOTE | 2020-02-27 14:06 | NUR ---
Called physician Notified Dr. Corona regarding patient being drowsy and refusing to speak. Per MD keep patient on observation for a few hours, then d/c if not complications are noted. Will follow through, will monitor q1hr and PRN.
[2020-02-27 14:16] VITALS: BP 118/64
--- NOTE | 2020-02-27 15:55 | NUR ---
Wound vac dressing Notified operator lights Kasey regarding wound vacc. Per RN reinforce dressing. Wound vacc dressing was reinforced, no s/s of distress noted.
--- NOTE | 2020-02-27 16:10 | NUR ---
called family Called patients sister Sulma. Correct number is [phone]. Notified her of D/C order. Sulma verbalized understanding. Addendum: 02/27/20 at 1728 by INDRA LU RN Spoke with family regarding patient flat affect, and refusal to speak. Patients sister stated "he gets like that from time to time, he gets confused or depressed and becomes very quiet"
--- NOTE | 2020-02-27 17:00 | NUR ---
Notified family Called patients sister regarding D/C and patient not having clothing. Per mauricio she will bring a change of clothing for patient to wear.
--- NOTE | 2020-02-27 18:36 | NUR ---
Discharge note Discharge instructions given as ordered. Encourage to follow up with PMD as instructed. All questions and concerns addressed. Patient verbalized understanding. IV removed with catheter intact, pressure dressing applied. Telemetry unit returned to ICU. Patient taken to vehicle via wheelchair with all personal belongings, accompanied by staff member. Iv noted to be bleeding, reinforced with gauze and co-band. No distress noted at time of departure.
--- NOTE | 2020-02-27 18:44 | NUR ---
IV LINE WAS INCORRECTLY REMOVED. PATIENTS FAMILY MEMBER STATED PATIENT IS RECEIVING AT HOME ANTIBIOTICS. WILL NOTIFY SLAB MILLER OPERATOR OF INCIDENT.
--- NOTE | 2020-02-27 18:50 | NUR ---
NOTIFIED INFRASTRUCTURE SOFTWARE ENGINEER Notified h ouse superviosor Marita regarding removal of patients IV line that was present on admission. Per Marita, notify patient that IV line can be placed here at the hospital. Will call family.
--- NOTE | 2020-02-27 18:54 | NUR ---
Called family Spoke with patients sister Sulma. Explained to her that warehouse shipping supervisor Karen was made aware of line removal and patient can return to the hospital tomorrow to have line reinserted. Provided Sulma with Marita's extension and that patient can come to hospital tomorrow morning. Sulma verbalized understanding.
--- NOTE | 2020-02-27 19:00 | NUR ---
MADE AWARE BY SPANISH MOSS PICKER OF PICC LINE REMOVED UPON DISCHARGE BY MISTAKE STATES PATIENTS FAMILY HAS AGREED ON COMING BACK TOMORROW FOR LINE REPLACEMENT. STATES PATIENT WILL CALL TO LET US KNOW WHEN HE WILL BE ON HIS WAY.
--- NOTE | 2020-02-28 11:00 | NUR ---
ATTEMPTED TO CONTACT PATIENT AND PATIENTS SISTER FOR ESTIMATED TIME OF ARRIVAL WITH NO SUCCESS. MESSAGE LEFT.
--- NOTE | 2020-02-28 13:00 | NUR ---
ATTEMPTED TO CONTACT PATIENT AND PATIENTS SISTER AGAIN FOR ESTIMATED TIME OF ARRIVAL WITH NO SUCCESS. MESSAGE LEFT.
--- NOTE | 2020-02-28 15:00 | NUR ---
PATIENTS SISTER CALLED BACK, STATES "MY BROTHER WAS TIRED AND SLEPT IN TODAY, SO WE DID NOT MAKE IT TO THE HOSPITAL" STATES PATIENT NEEDS PICC LINE FOR HOME ANTIBIOTICS. STATES THEY WILL BE COMING ON MONDAY FOR PICC REPLACEMENT. EXPLAINED TO HER THE IMPORTANCE OF COMMUNICATING WITH US PRIOR COMING TO HOSPITAL TO ENSURE WE HAVE A ROOM READY FOR HIM. VERBALIZES UNDERSTANDING. PATIENT SCHEDULING MANAGER NOTIFIED
== END 2020-02-27 18:36 | disposition home or self-care (01) | DRG 280 ==
LOC: EDBD 05:57 → ER 06:01 → TELE 06:02 → TELE-CENTR 18:20
PROVIDERS: ADMIT Hospitalist; ATTEND Internal Medicine
PROC: 0W9G3ZZ Drainage of Peritoneal Cavity, Percutaneous Approach (ICD-10-PCS; principal; 2020-02-27)
DX: K70.31 Alcoholic cirrhosis of liver with ascites (principal); E43 Unspecified severe protein-calorie malnutrition; E11.65 Type 2 diabetes mellitus with hyperglycemia; K76.6 Portal hypertension; I11.0 Hypertensive heart disease with heart failure; L02.415 Cutaneous abscess of right lower limb; I25.708 Atherosclerosis of coronary artery bypass graft(s), unspecified, with other forms of angina pectoris; I50.9 Heart failure, unspecified; I25.5 Ischemic cardiomyopathy; D63.8 Anemia in other chronic diseases classified elsewhere; F10.10 Alcohol abuse, uncomplicated; F17.200 Nicotine dependence, unspecified, uncomplicated; K80.20 Calculus of gallbladder without cholecystitis without obstruction; N40.0 Benign prostatic hyperplasia without lower urinary tract symptoms; Y90.9 Presence of alcohol in blood, level not specified; Z82.49 Family history of ischemic heart disease and other diseases of the circulatory system; Z79.4 Long term (current) use of insulin; Z79.899 Other long term (current) drug therapy; Z82.3 Family history of stroke; Z83.3 Family history of diabetes mellitus; Z86.73 Personal history of transient ischemic attack (TIA), and cerebral infarction without residual deficits; Z91.19 Patient's noncompliance with other medical treatment and regimen; Z95.0 Presence of cardiac pacemaker; Z68.30 Body mass index [BMI] 30.0-30.9, adult; Z91.14 Patient's other noncompliance with medication regimen
CPT/HCPCS: 10022; 36415; 71045; 73700; 74176; 76700; 76942; 80053; 80061; 82150; 82962; 83036; 83605; 83690; 83735; 84484; 85025; 85610; 85730; 87040; 87081; 93005; 96361; 96365; 96375; G0378; J0696; J1815

== ENCOUNTER 2020-04-01 12:06 | Inpatient (IN) | payer MEDICAID ==
[~2020-04-01] VITALS: Ht 172.7 cm; Wt 86.1 kg
[~2020-04-01 12:06] MED LIST changes: -AMOX-277 PO; -CIP500T PO; -FURO20TA3 PO; +FURO40TA4 PO; +HYDR-531 PO; +INSUINJ37 SC; +INVANZ IV; -LEVEMIR SC
[2020-04-01] MEDS ORDERED: SODIUM CHLORIDE 0.9% 1,000 ML IV ONE (13:45)
[2020-04-01 14:31] LABS: Basophils # (auto) 0.1 10 ^3/uL (0-0.2); Basophils % (auto) 1.4 % (0.0-2.0); Eosinophils # (auto) 0.3 10 ^3/uL (0-0.8); Eosinophils % (auto) 6.1 % (0.0-7.0); Hematocrit 25.2 % (41.0-53.0); Hemoglobin 8.6 g/dL (13.5-17.5); Lymphocytes # (auto) 0.5 10 ^3/uL (0.4-5.4); Lymphocytes % (auto) 9.8 % (10.0-50.0); Mean Corpuscular Hemoglobin 32.7 pg (28.0-32.0); Mean Corpuscular Hgb Conc. 34.2 g/dL (32.0-36.0); Mean Corpuscular Volume 95.5 fL (80.0-100.0); Monocytes # (auto) 0.4 10 ^3/uL (0-1.3); Monocytes % (auto) 7.6 % (0.0-12.0); Neutrophils # (auto) 3.9 10 ^3/uL (1.6-8.6); Neutrophils % (auto) 75.1 % (37.0-80.0); Platelet Count (auto) 265 10^3/uL (140-450); Red Blood Cells 2.64 10^6/uL (4.5-5.90); Red Cell Distribution Width 17.5 % (11.8-14.3); White Blood Cell 5.2 10^3/uL (4.4-10.8)
[2020-04-01 14:49] LABS: INR 1.05 (0.9-1.15); Partial Thromboplastin Time 27.2 sec (23.0-31.2)
[2020-04-01 14:50] LABS: Albumin 2.2 g/dL (3.4-5.0); Calcium 7.7 mg/dL (8.5-10.1); Magnesium 2.3 mg/dL (1.6-2.6); Potassium 4.4 mmol/L (3.5-5.1)
[2020-04-01 14:50] LABS: Amphetamine Screen, Urine NEGATIVE (NEGATIVE); Barbiturate Scree,Urine NEGATIVE (NEGATIVE); Benzodiazephine Screen, Urine NEGATIVE (NEGATIVE); Cannabinoid Screen, Urine NEGATIVE (NEGATIVE); Cocaine Screen, Urine NEGATIVE (NEGATIVE); Opiate Scree,Urine POSITIVE (NEGATIVE); Phencyclidine Screen, Urine NEGATIVE (NEGATIVE)
[2020-04-01 14:53] LABS: BUN/Creatinine Ratio 38.6; Bilirubin, Total 0.4 mg/dL (0.2-1.0); Total Protein 6.1 g/dL (6.4-8.2)
[2020-04-01 14:54] LABS: Urine Bacteria NONE SEEN /hpf (None Seen); Urine Blood Negative /uL (Negative); Urine Hyaline Cast FEW /lpf (0 - 2); Urine Specific Gravity 1.016 (1.001-1.035); Urine WBC <1 /hpf (0 - 3)
[2020-04-01] MEDS ORDERED: NITROGLYCERIN 0.4 MG SL TAB SL PRN (18:30)
[2020-04-01] MEDS ORDERED: DEXTROSE (50%) 50ML SYRG IV PRN (18:30)
[2020-04-01] MEDS: ACCU-CHEK COMFORT CURVE STRIP VI SCH (22:00)
[2020-04-01] MEDS: InsuLIN REG 1unit/0.01ml Soln (100units/ml) SC SCH (22:00)
[2020-04-01] MEDS: RANOLAZINE ER 500 MG TAB PO SCH (23:56)
[2020-04-01] MEDS: CLINDAMYCIN 300MG IV 50 ML IV SCH (23:56)
[2020-04-01] MEDS: TAMSULOSIN HYDROCHLORIDE 0.4 MG CAP PO SCH (23:56)
[2020-04-01] MEDS: ATORVASTATIN 20 MG TAB PO SCH (23:57)
[2020-04-02 05:00] VITALS: BP 112/71
[2020-04-02] MEDS: CLINDAMYCIN 300MG IV 50 ML IV SCH ×3 (06:40→22:29)
[2020-04-02] MEDS: ACCU-CHEK COMFORT CURVE STRIP VI SCH ×4 (06:40→22:00)
[2020-04-02] MEDS: InsuLIN REG 1unit/0.01ml Soln (100units/ml) SC SCH ×4 (06:43→22:26)
[2020-04-02 08:00] VITALS: BP 99/64
[2020-04-02 09:30] VITALS: BP 115/76
[2020-04-02] MEDS ORDERED: CLOPIDOGREL BISULFATE 75 MG TAB PO SCH (10:00)
[2020-04-02] MEDS ORDERED: SPIRONOLACTONE 25 MG TAB PO SCH (10:00)
[2020-04-02] MEDS: RANOLAZINE ER 500 MG TAB PO SCH ×2 (10:12→22:28)
[2020-04-02] MEDS: PANTOPRAZOLE 40 MG TAB PO SCH (10:12)
[2020-04-02] MEDS: CARVEDILOL 3.125 MG TAB PO SCH ×2 (10:12→17:50)
[2020-04-02] MEDS: MORPHINE SULF INJ 2 MG/ML SYRINGE 1ML IV PRN ×4 (11:10→20:30)
[2020-04-02] MEDS ORDERED: FUROSEMIDE 40 MG/4 ML VIAL IV ONE (13:15)
[2020-04-02 15:52] LABS: Hepatitis B Surface Antibody Negative
[2020-04-02 16:31] LABS: Hepatitis A Total Antibody Positive
[2020-04-02 16:50] LABS: Hepatitis B Surface Antigen Negative (Negative); Hepatitis C Antibody Negative (Negative)
[2020-04-02 17:17] VITALS: BP 93/54
[2020-04-02 22:00] VITALS: BP 104/64
[2020-04-02] MEDS: INSULIN LANTUS (GLARGINE) 1 /0.01ml (100units/ml) SC SCH (22:26)
[2020-04-02] MEDS: ATORVASTATIN 20 MG TAB PO SCH (22:28)
[2020-04-02] MEDS: TAMSULOSIN HYDROCHLORIDE 0.4 MG CAP PO SCH (22:28)
[2020-04-02] MEDS: SACUBITRIL-VALSARTAN 24mg/26mg TAB PO SCH (22:28)
[2020-04-03] MEDS: MORPHINE SULF INJ 2 MG/ML SYRINGE 1ML IV PRN ×5 (01:00→23:41)
[2020-04-03 05:00] VITALS: BP 102/62
[2020-04-03 06:03] LABS: Basophils # (auto) 0.1 10 ^3/uL (0-0.2); Basophils % (auto) 1.3 % (0.0-2.0); Eosinophils # (auto) 0.2 10 ^3/uL (0-0.8); Eosinophils % (auto) 5.8 % (0.0-7.0); Hematocrit 23.5 % (41.0-53.0); Hemoglobin 8.3 g/dL (13.5-17.5); Lymphocytes # (auto) 0.5 10 ^3/uL (0.4-5.4); Mean Corpuscular Hemoglobin 33.2 pg (28.0-32.0); Mean Corpuscular Hgb Conc. 35.3 g/dL (32.0-36.0); Mean Corpuscular Volume 94.2 fL (80.0-100.0); Monocytes # (auto) 0.3 10 ^3/uL (0-1.3); Monocytes % (auto) 8.3 % (0.0-12.0); Neutrophils # (auto) 2.9 10 ^3/uL (1.6-8.6); Neutrophils % (auto) 71.6 % (37.0-80.0); Nucleated Red Blood Cells % 0.1 %; Platelet Count (auto) 257 10^3/uL (140-450); Red Cell Distribution Width 17.6 % (11.8-14.3); White Blood Cell 4.1 10^3/uL (4.4-10.8)
[2020-04-03 06:30] LABS: Potassium 4.4 mmol/L (3.5-5.1)
[2020-04-03] MEDS: CLINDAMYCIN 300MG IV 50 ML IV SCH ×3 (06:41→21:42)
[2020-04-03] MEDS: ACCU-CHEK COMFORT CURVE STRIP VI SCH ×4 (06:41→21:43)
[2020-04-03] MEDS: InsuLIN REG 1unit/0.01ml Soln (100units/ml) SC SCH ×4 (06:43→21:41)
[2020-04-03 06:52] LABS: BUN/Creatinine Ratio 36.1; Calcium 7.7 mg/dL (8.5-10.1); Magnesium 2.3 mg/dL (1.6-2.6)
[2020-04-03 09:00] VITALS: BP 111/70
[2020-04-03] MEDS: CARVEDILOL 3.125 MG TAB PO SCH ×2 (09:00→17:56)
[2020-04-03] MEDS: PANTOPRAZOLE 40 MG TAB PO SCH (10:57)
[2020-04-03] MEDS: ENOXAPARIN SOD 40 MG/0.4 ML SYRINGE SC SCH (10:57)
[2020-04-03] MEDS: RANOLAZINE ER 500 MG TAB PO SCH ×2 (10:57→21:43)
[2020-04-03] MEDS: FUROSEMIDE 40 MG/4 ML VIAL IV SCH (10:57)
[2020-04-03] MEDS: SACUBITRIL-VALSARTAN 24mg/26mg TAB PO SCH ×2 (10:57→21:42)
[2020-04-03 13:00] VITALS: BP 122/75
[2020-04-03 17:00] VITALS: BP 85/46
[2020-04-03] MEDS: INSULIN LANTUS (GLARGINE) 1 /0.01ml (100units/ml) SC SCH (21:42)
[2020-04-03] MEDS: TAMSULOSIN HYDROCHLORIDE 0.4 MG CAP PO SCH (21:42)
[2020-04-03] MEDS: ATORVASTATIN 20 MG TAB PO SCH (21:43)
[2020-04-03 22:00] VITALS: BP 98/52
[2020-04-04 05:00] VITALS: BP 107/66
[2020-04-04] MEDS: MORPHINE SULF INJ 2 MG/ML SYRINGE 1ML IV PRN ×4 (05:04→20:57)
[2020-04-04] MEDS: CLINDAMYCIN 300MG IV 50 ML IV SCH ×3 (06:25→22:09)
[2020-04-04] MEDS: InsuLIN REG 1unit/0.01ml Soln (100units/ml) SC SCH ×4 (06:25→22:12)
[2020-04-04] MEDS: ACCU-CHEK COMFORT CURVE STRIP VI SCH ×4 (06:25→21:04)
[2020-04-04 06:30] LABS: Basophils # (auto) 0 10 ^3/uL (0-0.2); Basophils % (auto) 1.1 % (0.0-2.0); Eosinophils # (auto) 0.3 10 ^3/uL (0-0.8); Eosinophils % (auto) 6.6 % (0.0-7.0); Hematocrit 26.7 % (41.0-53.0); Hemoglobin 9.3 g/dL (13.5-17.5); Lymphocytes # (auto) 0.6 10 ^3/uL (0.4-5.4); Lymphocytes % (auto) 14.7 % (10.0-50.0); Mean Corpuscular Hemoglobin 32.8 pg (28.0-32.0); Mean Corpuscular Hgb Conc. 34.6 g/dL (32.0-36.0); Mean Corpuscular Volume 94.6 fL (80.0-100.0); Monocytes # (auto) 0.3 10 ^3/uL (0-1.3); Monocytes % (auto) 8.3 % (0.0-12.0); Neutrophils # (auto) 2.7 10 ^3/uL (1.6-8.6); Neutrophils % (auto) 69.3 % (37.0-80.0); Platelet Count (auto) 282 10^3/uL (140-450); Red Blood Cells 2.83 10^6/uL (4.5-5.90); Red Cell Distribution Width 17.2 % (11.8-14.3); White Blood Cell 3.9 10^3/uL (4.4-10.8)
[2020-04-04 06:42] LABS: INR 1.08 (0.9-1.15); Partial Thromboplastin Time 28.8 sec (23.0-31.2)
[2020-04-04 06:50] LABS: Potassium 3.9 mmol/L (3.5-5.1)
[2020-04-04 07:02] LABS: Albumin 1.7 g/dL (3.4-5.0); Bilirubin, Total 0.4 mg/dL (0.2-1.0); Calcium 7.7 mg/dL (8.5-10.1); Total Protein 5.1 g/dL (6.4-8.2)
[2020-04-04 08:10] VITALS: BP 109/69
[2020-04-04] MEDS: CARVEDILOL 3.125 MG TAB PO SCH ×2 (08:39→18:20)
[2020-04-04] MEDS ORDERED: ceFAZolin 1GM VL ONE (08:40)
[2020-04-04] MEDS ORDERED: ROPIVACAINE 0.5% (5MG/ML) 20ML AMPULE IJ ONE (08:40)
[2020-04-04] MEDS ORDERED: ceFAZolin 1GM/50ML 50 ML IV ONE (08:52)
[2020-04-04] MEDS ORDERED: fentaNYL CITRATE 100 MCG/2 ML VL ONE (09:09)
[2020-04-04] MEDS ORDERED: PROPOFOL 10 MG/ML 20 ML IV ONE (09:14)
[2020-04-04 09:43] VITALS: BP 109/69
[2020-04-04] MEDS ORDERED: fentaNYL CITRATE 100 MCG/2 ML VL IV PRN (09:45)
[2020-04-04] MEDS ORDERED: ePHEDrine SULFATE 50 MG/ML AMP IV PRN (09:45)
[2020-04-04] MEDS ORDERED: ONDANSETRON HCL 4 MG/2 ML VIAL IV PRN (09:45)
[2020-04-04] MEDS ORDERED: hydrALAZINE HCL 20 MG/ML VL IV PRN (09:45)
[2020-04-04] MEDS: ENOXAPARIN SOD 40 MG/0.4 ML SYRINGE SC SCH (10:00)
[2020-04-04] MEDS: FUROSEMIDE 40 MG/4 ML VIAL IV SCH (10:50)
[2020-04-04] MEDS: SACUBITRIL-VALSARTAN 24mg/26mg TAB PO SCH ×2 (10:51→22:10)
[2020-04-04] MEDS: RANOLAZINE ER 500 MG TAB PO SCH ×2 (10:51→22:10)
[2020-04-04] MEDS: PANTOPRAZOLE 40 MG TAB PO SCH (10:51)
[2020-04-04 13:00] VITALS: BP 122/65
[2020-04-04 17:11] VITALS: BP 124/76
[2020-04-04 21:47] VITALS: BP 99/61
[2020-04-04] MEDS: TAMSULOSIN HYDROCHLORIDE 0.4 MG CAP PO SCH (22:10)
[2020-04-04] MEDS: ATORVASTATIN 20 MG TAB PO SCH (22:10)
[2020-04-04] MEDS: INSULIN LANTUS (GLARGINE) 1 /0.01ml (100units/ml) SC SCH (22:13)
[2020-04-05] MEDS: MORPHINE SULF INJ 2 MG/ML SYRINGE 1ML IV PRN ×5 (00:30→23:15)
[2020-04-05 05:00] VITALS: BP 88/50
[2020-04-05] MEDS: ACCU-CHEK COMFORT CURVE STRIP VI SCH ×4 (06:08→21:54)
[2020-04-05] MEDS: InsuLIN REG 1unit/0.01ml Soln (100units/ml) SC SCH ×4 (06:08→21:56)
[2020-04-05] MEDS: CLINDAMYCIN 300MG IV 50 ML IV SCH ×3 (06:18→21:54)
[2020-04-05] MEDS: CARVEDILOL 3.125 MG TAB PO SCH ×3 (08:23→18:04)
[2020-04-05 09:21] VITALS: BP 109/61
[2020-04-05] MEDS: FUROSEMIDE 40 MG/4 ML VIAL IV SCH (10:00)
[2020-04-05] MEDS: SACUBITRIL-VALSARTAN 24mg/26mg TAB PO SCH ×2 (10:00→21:53)
[2020-04-05] MEDS: RANOLAZINE ER 500 MG TAB PO SCH ×2 (10:00→21:53)
[2020-04-05] MEDS: PANTOPRAZOLE 40 MG TAB PO SCH (10:00)
[2020-04-05] MEDS: ENOXAPARIN SOD 40 MG/0.4 ML SYRINGE SC SCH (10:00)
[2020-04-05 12:56] VITALS: BP 107/61
[2020-04-05 16:29] VITALS: BP 109/70
[2020-04-05] MEDS: ATORVASTATIN 20 MG TAB PO SCH (21:53)
[2020-04-05] MEDS: TAMSULOSIN HYDROCHLORIDE 0.4 MG CAP PO SCH (21:53)
[2020-04-05] MEDS: INSULIN LANTUS (GLARGINE) 1 /0.01ml (100units/ml) SC SCH (21:56)
[2020-04-05 22:53] VITALS: BP 95/45
[2020-04-05 23:15] VITALS: BP 101/62
[2020-04-06] VITALS (14 sets, daily range): BP systolic 98–120; BP diastolic 55–72
[2020-04-06 06:23] LABS: Basophils # (auto) 0 10 ^3/uL (0-0.2); Basophils % (auto) 1.1 % (0.0-2.0); Eosinophils # (auto) 0.2 10 ^3/uL (0-0.8); Eosinophils % (auto) 5.3 % (0.0-7.0); Hematocrit 23.9 % (41.0-53.0); Hemoglobin 8.5 g/dL (13.5-17.5); Lymphocytes # (auto) 0.7 10 ^3/uL (0.4-5.4); Lymphocytes % (auto) 17.2 % (10.0-50.0); Mean Corpuscular Hemoglobin 33.4 pg (28.0-32.0); Mean Corpuscular Hgb Conc. 35.7 g/dL (32.0-36.0); Mean Corpuscular Volume 93.5 fL (80.0-100.0); Monocytes # (auto) 0.4 10 ^3/uL (0-1.3); Monocytes % (auto) 10.5 % (0.0-12.0); Neutrophils # (auto) 2.6 10 ^3/uL (1.6-8.6); Neutrophils % (auto) 65.9 % (37.0-80.0); Nucleated Red Blood Cells % 0.1 %; Platelet Count (auto) 270 10^3/uL (140-450); Red Blood Cells 2.56 10^6/uL (4.5-5.90)
[2020-04-06] MEDS: ACCU-CHEK COMFORT CURVE STRIP VI SCH ×2 (06:37→12:32)
[2020-04-06] MEDS: CLINDAMYCIN 300MG IV 50 ML IV SCH (06:37)
[2020-04-06] MEDS: InsuLIN REG 1unit/0.01ml Soln (100units/ml) SC SCH ×2 (06:38→12:36)
[2020-04-06] MEDS: MORPHINE SULF INJ 2 MG/ML SYRINGE 1ML IV PRN ×2 (06:38→11:13)
[2020-04-06 06:39] LABS: Calcium 7.5 mg/dL (8.5-10.1); INR 1.09 (0.9-1.15)
[2020-04-06 06:45] LABS: Albumin 1.6 g/dL (3.4-5.0); BUN/Creatinine Ratio 27.6; Bilirubin, Total 0.4 mg/dL (0.2-1.0); Total Protein 5.1 g/dL (6.4-8.2)
[2020-04-06] MEDS: CARVEDILOL 3.125 MG TAB PO SCH (08:40)
[2020-04-06] MEDS: ENOXAPARIN SOD 40 MG/0.4 ML SYRINGE SC SCH (09:53)
[2020-04-06] MEDS: RANOLAZINE ER 500 MG TAB PO SCH (11:12)
[2020-04-06] MEDS: SACUBITRIL-VALSARTAN 24mg/26mg TAB PO SCH (11:12)
[2020-04-06] MEDS: PANTOPRAZOLE 40 MG TAB PO SCH (11:12)
[2020-04-06] MEDS: FUROSEMIDE 40 MG/4 ML VIAL IV SCH (11:21)
[2020-04-06] MEDS ORDERED: SACC250C PO (11:59)
[2020-04-06] MEDS ORDERED: PANT40TA2 PO (11:59)
[2020-04-06] MEDS ORDERED: CLIN300C8 PO (11:59)
== END 2020-04-06 18:00 | disposition home health service (06) | DRG 793 ==
LOC: ER 12:06 → EDBD 12:06 → TELE 12:07 → TELE-WESTW 22:50
PROVIDERS: ADMIT Nurse Practitioner Acute Care; ATTEND Internal Medicine
PROC: 0QBJ0ZZ Excision of Right Fibula, Open Approach (ICD-10-PCS; principal; 2020-04-04 09:05)
PROC: 0W9G3ZZ Drainage of Peritoneal Cavity, Percutaneous Approach (ICD-10-PCS; 2020-04-06)
DX: T40.2X1A Poisoning by other opioids, accidental (unintentional), initial encounter (principal); I50.23 Acute on chronic systolic (congestive) heart failure; E44.0 Moderate protein-calorie malnutrition; L89.214 Pressure ulcer of right hip, stage 4; G92 Toxic encephalopathy; L89.519 Pressure ulcer of right ankle, unspecified stage; E11.51 Type 2 diabetes mellitus with diabetic peripheral angiopathy without gangrene; E11.65 Type 2 diabetes mellitus with hyperglycemia; E11.22 Type 2 diabetes mellitus with diabetic chronic kidney disease; L97.319 Non-pressure chronic ulcer of right ankle with unspecified severity; I13.0 Hypertensive heart and chronic kidney disease with heart failure and stage 1 through stage 4 chronic kidney disease, or unspecified chronic kidney disease; I25.708 Atherosclerosis of coronary artery bypass graft(s), unspecified, with other forms of angina pectoris; Z20.828 Contact with and (suspected) exposure to other viral communicable diseases; T40.411A Poisoning by fentanyl or fentanyl analogs, accidental (unintentional), initial encounter; T40.605A Adverse effect of unspecified narcotics, initial encounter; I25.10 Atherosclerotic heart disease of native coronary artery without angina pectoris; E78.5 Hyperlipidemia, unspecified; Z71.3 Dietary counseling and surveillance; K70.31 Alcoholic cirrhosis of liver with ascites; D63.8 Anemia in other chronic diseases classified elsewhere; G89.29 Other chronic pain; E66.9 Obesity, unspecified; N18.9 Chronic kidney disease, unspecified; Z51.5 Encounter for palliative care; Z79.899 Other long term (current) drug therapy; Z82.3 Family history of stroke; Z79.4 Long term (current) use of insulin; Z82.49 Family history of ischemic heart disease and other diseases of the circulatory system; Z83.3 Family history of diabetes mellitus; Z86.73 Personal history of transient ischemic attack (TIA), and cerebral infarction without residual deficits; Z95.5 Presence of coronary angioplasty implant and graft; Z95.810 Presence of automatic (implantable) cardiac defibrillator; Z68.28 Body mass index [BMI] 28.0-28.9, adult; Y93.89 Activity, other specified; Y92.092 Bedroom in other non-institutional residence as the place of occurrence of the external cause; Y99.8 Other external cause status; Z88.1 Allergy status to other antibiotic agents; Z88.8 Allergy status to other drugs, medicaments and biological substances
CPT/HCPCS: 10022; 36415; 70450; 71045; 72192; 76700; 76942; 78315; 80048; 80053; 80307; 80320; 81001; 82140; 82962; 83036; 83605; 83735; 84443; 85025; 85610; 85730; 86704; 86706; 86708; 86803; 86850; 86900; 86901; 87040; 87070; 87075; 87081; 87205; 87340; 93005; G0378; J0690; J1815; J2704; J3490

== ENCOUNTER 2020-04-10 19:06 | Inpatient (IN) | payer MEDICAID ==
[~2020-04-10] VITALS: Ht 170.2 cm; Wt 96.9 kg
[~2020-04-10 19:06] MED LIST changes: +CLIN300C8 PO; +PANT40TA2 PO; +SACC250C PO
[2020-04-10] MEDS ORDERED: MORPHINE SULFATE 4 MG/ML SYR/VIAL IV ONE (20:30)
[2020-04-10] MEDS ORDERED: ONDANSETRON HCL 4 MG/2 ML VIAL IV ONE (20:30)
[2020-04-10 21:33] LABS: Basophils # (auto) 0 10 ^3/uL (0-0.2); Basophils % (auto) 0.7 % (0.0-2.0); Eosinophils # (auto) 0.2 10 ^3/uL (0-0.8); Hematocrit 25.6 % (41.0-53.0); Hemoglobin 8.9 g/dL (13.5-17.5); Lymphocytes # (auto) 0.8 10 ^3/uL (0.4-5.4); Lymphocytes % (auto) 14.7 % (10.0-50.0); Mean Corpuscular Hemoglobin 33.2 pg (28.0-32.0); Mean Corpuscular Hgb Conc. 34.6 g/dL (32.0-36.0); Mean Corpuscular Volume 95.7 fL (80.0-100.0); Monocytes # (auto) 0.5 10 ^3/uL (0-1.3); Monocytes % (auto) 8.2 % (0.0-12.0); Neutrophils # (auto) 4.2 10 ^3/uL (1.6-8.6); Neutrophils % (auto) 73.4 % (37.0-80.0); Nucleated Red Blood Cells % 0.1 %; Platelet Count (auto) 224 10^3/uL (140-450); Red Blood Cells 2.67 10^6/uL (4.5-5.90); Red Cell Distribution Width 16.3 % (11.8-14.3); White Blood Cell 5.7 10^3/uL (4.4-10.8)
[2020-04-10 21:51] LABS: Albumin 1.7 g/dL (3.4-5.0); BUN/Creatinine Ratio 36.1; Calcium 7.7 mg/dL (8.5-10.1); Magnesium 1.9 mg/dL (1.6-2.6); Potassium 4.2 mmol/L (3.5-5.1)
[2020-04-10 21:56] LABS: INR 1.03 (0.9-1.15); Partial Thromboplastin Time 25.9 sec (23.0-31.2)
[2020-04-10 21:57] LABS: Bilirubin, Total 0.4 mg/dL (0.2-1.0); Total Protein 5.9 g/dL (6.4-8.2)
[2020-04-11] MEDS ORDERED: MORPHINE SULF INJ 2 MG/ML SYRINGE 1ML IV PRN (01:15)
[2020-04-11] MEDS ORDERED: DEXTROSE (50%) 50ML SYRG IV PRN (01:15)
[2020-04-11] MEDS ORDERED: ONDANSETRON HCL 4 MG/2 ML VIAL IV PRN (01:15)
[2020-04-11] MEDS ORDERED: NITROGLYCERIN 0.4 MG SL TAB SL PRN (01:15)
[2020-04-11] MEDS ORDERED: DOCUSATE SOD 100 MG CAP PO PRN (01:15)
[2020-04-11] MEDS: MORPHINE SULFATE 4 MG/ML SYR/VIAL IV PRN (04:28)
[2020-04-11] MEDS: FUROSEMIDE 20 MG/2 ML VIAL IV SCH ×2 (05:39→18:37)
[2020-04-11] MEDS: SODIUM CHLOR 0.9% PF (SALINE LOCK) 10ML VIAL/SYR IV SCH ×3 (05:40→22:13)
[2020-04-11] MEDS: BACLOFEN 10 MG TAB PO SCH ×3 (05:40→22:00)
[2020-04-11] MEDS: ACCU-CHEK COMFORT CURVE STRIP VI SCH ×4 (06:23→22:17)
[2020-04-11] MEDS: InsuLIN REG 1unit/0.01ml Soln (100units/ml) SC SCH ×6 (06:28→23:17)
[2020-04-11 07:39] LABS: Basophils # (auto) 0 10 ^3/uL (0-0.2); Basophils % (auto) 0.7 % (0.0-2.0); Eosinophils # (auto) 0.2 10 ^3/uL (0-0.8); Eosinophils % (auto) 2.8 % (0.0-7.0); Hematocrit 25.8 % (41.0-53.0); Hemoglobin 8.9 g/dL (13.5-17.5); Lymphocytes # (auto) 0.5 10 ^3/uL (0.4-5.4); Lymphocytes % (auto) 8.4 % (10.0-50.0); Mean Corpuscular Hemoglobin 32.9 pg (28.0-32.0); Mean Corpuscular Hgb Conc. 34.4 g/dL (32.0-36.0); Mean Corpuscular Volume 95.5 fL (80.0-100.0); Monocytes # (auto) 0.4 10 ^3/uL (0-1.3); Monocytes % (auto) 6.7 % (0.0-12.0); Neutrophils % (auto) 81.4 % (37.0-80.0); Platelet Count (auto) 252 10^3/uL (140-450); Red Blood Cells 2.71 10^6/uL (4.5-5.90); Red Cell Distribution Width 16.7 % (11.8-14.3); White Blood Cell 6.1 10^3/uL (4.4-10.8)
[2020-04-11 08:03] LABS: Albumin 1.9 g/dL (3.4-5.0); Potassium 4.8 mmol/L (3.5-5.1)
[2020-04-11 08:07] LABS: Bilirubin, Total 0.5 mg/dL (0.2-1.0); Total Protein 6.5 g/dL (6.4-8.2)
[2020-04-11] MEDS: CARVEDILOL 3.125 MG TAB PO SCH ×2 (09:13→18:38)
[2020-04-11] MEDS ORDERED: SPIRONOLACTONE 25 MG TAB PO SCH (10:00)
[2020-04-11] MEDS ORDERED: CLOPIDOGREL BISULFATE 75 MG TAB PO SCH (10:00)
[2020-04-11] MEDS ORDERED: ENOXAPARIN SOD 40 MG/0.4 ML SYRINGE SC SCH (10:00)
[2020-04-11] MEDS ORDERED: ERTAPENEM SOD 1 GM INJ VIAL IV SCH (10:00)
[2020-04-11] MEDS: ASCORBIC ACID 500 MG TAB PO SCH ×2 (10:14→22:17)
[2020-04-11] MEDS: FLORASTOR (S. BOULARDII) 250 MG CAP PO SCH (10:14)
[2020-04-11] MEDS: ZINC SULFATE 220mg CAP or TAB PO SCH (10:15)
[2020-04-11] MEDS: MULTIPLE VITAMIN TAB PO SCH (10:15)
[2020-04-11] MEDS: FAMOTIDINE 20 MG TAB PO SCH ×2 (10:16→22:16)
[2020-04-11] MEDS ORDERED: IOHEXOL 300 MG/ML 100ML BOTTLE IJ ONE (10:30)
--- NOTE | 2020-04-11 12:03 | NUR ---
Telemetry admit from DARYL WILKINSONALICIA admitted to Telemetry unit after SBAR received. Patient oriented to Jackie Montenegro, primary RN, unit, room, bed, and unit policies regarding patient care and visiting hours. Patient now on continuous telemetry monitoring, tele box # 39 and telemetry reading on arrival to unit is sinur rhythm hr 70's. VSS stable at this time. Pt weighed by bedscale and encouraged to call if they need something. Patient is alert and oriented x3 answers questions but unable to state situation. Fall presc in place with bed alarm on at all times. Patient denies pain at this time. Pillows placed on pressure areas including bilat heels. All questions and concerns addressed, patient verbalized understanding. No acute distress or sob noted. call light within reach
--- NOTE | 2020-04-11 12:33 | NUR ---
THIS RN NOTIFIED THE PRIMARY RN THAT THE PATIENT NEEDS A MRSA SWAB FOR RECENT ADMISSION. PRIMARY RN VERBALIZED UNDERSTANDING.
[2020-04-11] MEDS: ERTAPENEM SOD INJ 1 GM in SODIUM CHL 0.9% 50 ML IV SCH (12:59)
[2020-04-11 13:00] VITALS: BP 100/52
--- NOTE | 2020-04-11 14:11 | NUR ---
Spoke to Hospitalist MD Mosqueda aware of patient's status including noted lethargy still. New orders received to Hold Baclofen at this time until patient is alot more awake and oriented, dc lovenox awaiting paracentesis on Monday, new orders for accu achs/Mild scale and dc 12 units insulin tid fatmata. Will carry out orders and cont care. This rn notified [facility] [place] regarding anticoaugs now d/c'd including Plavix and Lovenox for Paracentesis on Monday. Cont care
[2020-04-11] MEDS: SPIRONOLACTONE 25 MG TAB PO SCH (14:14)
[2020-04-11 16:47] VITALS: BP 144/78
--- NOTE | 2020-04-11 18:30 | NUR ---
WOUND CARE NOTE: IN TO SEE PATIENT AT THIS TIME PER WOUND CARE CONSULT REQUEST. PATIENT ADMITTED TO [facility] WITH DIAGNOSIS TOXIC ENCEPHALOPATHY. CURRENT FRANSISCO SCORE IS 12. PATIENT IS MAX ASSIST FOR ALL OF HIS ADL'S, INCLUDING TURNING/REPOSITIONING. PATIENT IS WELL KNOWN TO WOUND CARE TEAM, WITH MULTIPLE ADMISSIONS THIS YEAR. PATIENT HAS CHRONIC STAGE 4 PRESSURE INJURY TO RIGHT HIP, STAGE 4 PRESSURE INJURY TO RIGHT LATERAL ANKLE, INTACT PINK COLLAGEN SCARS, AND BROWN HYPERPIGMENTED SKIN TO SACRUM/BUTTOCKS. SKIN/WOUND CARE PLAN IMPLEMENTED. WOUND PHOTOS TAKEN AT THIS TIME FOR REFERENCE. P500 AIR MATTRESS ORDERED, AND HAS JUST BEEN DELIVERED, IN [facility]. ADVISED BEDSIDE NURSE RAYMOND THAT MATTRESS HAS ARRIVED, AND TO PLEASE PLACE PATIENT ON AIR MATTRESS, PER MD ORDER. RIGHT HIP MEASURES 7 X 11 X 2, WITH 2 CM TUNNEL AT 10:00. WOUND IS DRAINING LIGHT AMOUNT OF SEROUS DRAINAGE WITH MILD ODOR. RIGHT ANKLE WOUND MEASURES 4 X 4 X 0.3 CM. PRESSURE INJURY IS STAGE 4. WOUND IS 50 PERCENT ESCHAR, 50 PERCENT PALE PINK. BOTH WOUNDS HAVE ROLLED EDGES. NEW DRESSINGS APPLIED PER MD ORDER. RECOMMEND: FREQUENT TURN SCHEDULE Q 2 HOURS, PRN CONDITION PERMITS, WITH PRESSURE REDISTRIBUTION USING PILLOWS/WEDGES, SPECIALTY AIR MATTRESS, SHAYLEE FOAM BOOTS TO BILATERAL FEET/HEELS, DAILY/PRN DRESSING CHANGES PER MD ORDER, DIETARY CONSULT, SKIN/WOUND CARE PLAN, CONTINUED MONITORING BY WOUND CARE TEAM. Addendum: 04/11/20 at 1848 by Iram Alexander RN Amended: Links added.
--- NOTE | 2020-04-11 19:00 | NUR ---
Attempted to place patient on air mattress at this time but he states he wants to finish eating, endorsed to Eusebia montes. Mattress in hallway. Eusebia verbalized understanding.
--- NOTE | 2020-04-11 19:10 | NUR ---
Opening Shift Note Assumed care of patient, Patient is lethargic, opens eyes when being called, response but goes back to sleep . No S/S of distress/SOB or pain. Bed locked in low position, bed alarm on, call light within reach. Instructed on POC and to call for assist PRN, will continue to monitor for changes Q1hr and PRN.
--- NOTE | 2020-04-11 19:10 | NUR ---
Patient care endorsed endorsed care to Eusebia montes. Patient sitting up high fowlers position in bed in no acute distress or sob. Patient feeding self, aspiration precs in place. Patient still noted confused but answers questions. Call light within reach
[2020-04-11 22:00] VITALS: BP 106/65
[2020-04-11] MEDS ORDERED: InsuLIN REG 1unit/0.01ml Soln (100units/ml) SC SCH (22:00)
[2020-04-11] MEDS: TAMSULOSIN HYDROCHLORIDE 0.4 MG CAP PO SCH (22:13)
[2020-04-11] MEDS: ATORVASTATIN 20 MG TAB PO SCH (22:16)
--- NOTE | 2020-04-11 22:21 | NUR ---
Baclofen being held due to patient condition being lethargic. As per AM nurse and documented on nurse's notes to continue medication when patient is more awake as md ordered Dr. Mosqueda. Will continue to monitor patient.
--- NOTE | 2020-04-11 23:00 | NUR ---
Transferred patient to Air Mattress. Patient tolerated.
[2020-04-12] VITALS (7 sets, daily range): BP systolic 111–131; BP diastolic 65–73
--- NOTE | 2020-04-12 03:32 | NUR ---
Patient is awake now. Alert and orientedx3. Requested for a sandwich. will continue to monitor.
[2020-04-12] MEDS: FUROSEMIDE 20 MG/2 ML VIAL IV SCH ×2 (05:41→17:37)
[2020-04-12] MEDS: SODIUM CHLOR 0.9% PF (SALINE LOCK) 10ML VIAL/SYR IV SCH ×3 (05:41→22:09)
[2020-04-12] MEDS: BACLOFEN 10 MG TAB PO SCH ×3 (05:42→22:09)
[2020-04-12] MEDS: ACCU-CHEK COMFORT CURVE STRIP VI SCH ×4 (06:13→22:09)
[2020-04-12] MEDS: InsuLIN REG 1unit/0.01ml Soln (100units/ml) SC SCH ×4 (06:13→22:11)
--- NOTE | 2020-04-12 07:05 | NUR ---
Closing Shift Report Patient has no SOB and acute distress.Bed in low locked position, call light within reach, bed alarm on.
[2020-04-12 07:23] LABS: Basophils # (auto) 0.1 10 ^3/uL (0-0.2); Basophils % (auto) 1.2 % (0.0-2.0); Eosinophils # (auto) 0.1 10 ^3/uL (0-0.8); Eosinophils % (auto) 2.2 % (0.0-7.0); Hematocrit 25.1 % (41.0-53.0); Hemoglobin 8.7 g/dL (13.5-17.5); Lymphocytes # (auto) 0.4 10 ^3/uL (0.4-5.4); Lymphocytes % (auto) 8.1 % (10.0-50.0); Mean Corpuscular Hemoglobin 32.8 pg (28.0-32.0); Mean Corpuscular Hgb Conc. 34.5 g/dL (32.0-36.0); Mean Corpuscular Volume 94.9 fL (80.0-100.0); Monocytes # (auto) 0.4 10 ^3/uL (0-1.3); Monocytes % (auto) 8.7 % (0.0-12.0); Neutrophils # (auto) 3.7 10 ^3/uL (1.6-8.6); Neutrophils % (auto) 79.8 % (37.0-80.0); Platelet Count (auto) 196 10^3/uL (140-450); Red Blood Cells 2.65 10^6/uL (4.5-5.90); Red Cell Distribution Width 16.5 % (11.8-14.3); White Blood Cell 4.7 10^3/uL (4.4-10.8)
[2020-04-12 07:42] LABS: Albumin 1.7 g/dL (3.4-5.0); Potassium 4.6 mmol/L (3.5-5.1)
[2020-04-12 07:47] LABS: BUN/Creatinine Ratio 39.1; Bilirubin, Total 0.5 mg/dL (0.2-1.0); Total Protein 5.9 g/dL (6.4-8.2)
[2020-04-12] MEDS: ZINC SULFATE 220mg CAP or TAB PO SCH (09:01)
[2020-04-12] MEDS: MULTIPLE VITAMIN TAB PO SCH (09:01)
[2020-04-12] MEDS: FLORASTOR (S. BOULARDII) 250 MG CAP PO SCH (09:01)
[2020-04-12] MEDS: FAMOTIDINE 20 MG TAB PO SCH ×2 (09:01→22:09)
[2020-04-12] MEDS: SPIRONOLACTONE 25 MG TAB PO SCH (09:01)
[2020-04-12] MEDS: ASCORBIC ACID 500 MG TAB PO SCH ×2 (09:02→22:09)
[2020-04-12] MEDS: CARVEDILOL 3.125 MG TAB PO SCH ×2 (09:02→17:37)
[2020-04-12] MEDS: MORPHINE SULFATE 4 MG/ML SYR/VIAL IV PRN ×2 (09:13→22:09)
[2020-04-12] MEDS: ERTAPENEM SOD INJ 1 GM in SODIUM CHL 0.9% 50 ML IV SCH (09:14)
--- NOTE | 2020-04-12 14:12 | NUR ---
Nutrition Assessment/Consult Notes Please refer to link for full assessment notes. Est Energy needs: 8617-4037 kcals (17-20 kcal/kgBW) Est Protein needs: 70-87 gms/day (0.8-1.0 gm/kgBW) Will continue to monitor and reassess prn. Addendum: 04/12/20 at [address] Amended: Links added. Addendum: 04/12/20 at [address] Consult Recommendation: Suggest a daily MVI with 500mg Jeimy BID to promote wound healing
--- NOTE | 2020-04-12 15:26 | NUR ---
DRESSING CHANGE DRESSING CHANGE TO HIP AND ANKLE DONE ORDERED. PATIENT TOLERATED WELL. WILL CONTINUE TO MONITOR
--- NOTE | 2020-04-12 19:50 | NUR ---
Opening Shift Note Assumed care of patient, awake and alert. No S/S of distress/SOB or pain. Patient on specialty mattress, burr hanging to below bed draining to gravity. Instructed on POC and to call for assist PRN, will continue to monitor for changes Q1hr and PRN.
[2020-04-12] MEDS: TAMSULOSIN HYDROCHLORIDE 0.4 MG CAP PO SCH (22:09)
[2020-04-12] MEDS: ATORVASTATIN 20 MG TAB PO SCH (22:09)
[2020-04-13] VITALS (7 sets, daily range): BP systolic 103–144; BP diastolic 53–72
[2020-04-13] MEDS: BACLOFEN 10 MG TAB PO SCH ×3 (06:28→22:19)
[2020-04-13] MEDS: InsuLIN REG 1unit/0.01ml Soln (100units/ml) SC SCH ×4 (06:28→22:37)
[2020-04-13] MEDS: SODIUM CHLOR 0.9% PF (SALINE LOCK) 10ML VIAL/SYR IV SCH ×3 (06:28→22:20)
[2020-04-13] MEDS: ACCU-CHEK COMFORT CURVE STRIP VI SCH ×4 (06:28→22:20)
[2020-04-13] MEDS: FUROSEMIDE 20 MG/2 ML VIAL IV SCH ×2 (06:28→19:59)
[2020-04-13] MEDS: MORPHINE SULFATE 4 MG/ML SYR/VIAL IV PRN ×2 (07:51→23:33)
[2020-04-13] MEDS: CARVEDILOL 3.125 MG TAB PO SCH ×3 (08:00→18:00)
[2020-04-13] MEDS: ZINC SULFATE 220mg CAP or TAB PO SCH ×2 (08:04→10:00)
[2020-04-13] MEDS: MULTIPLE VITAMIN TAB PO SCH ×2 (08:04→10:00)
[2020-04-13] MEDS: FAMOTIDINE 20 MG TAB PO SCH ×3 (08:04→22:19)
[2020-04-13] MEDS: SPIRONOLACTONE 25 MG TAB PO SCH ×2 (08:04→10:00)
[2020-04-13] MEDS: FLORASTOR (S. BOULARDII) 250 MG CAP PO SCH ×2 (08:04→10:00)
[2020-04-13] MEDS: ASCORBIC ACID 500 MG TAB PO SCH ×3 (08:04→22:19)
[2020-04-13] MEDS: ERTAPENEM SOD INJ 1 GM in SODIUM CHL 0.9% 50 ML IV SCH (08:27)
--- NOTE | 2020-04-13 09:55 | NUR ---
PARACENTESIS AT BEDSIDE PATIENT AROUSALABLE BUT FALLS BACK TO SLEEP. BP PRIOR TO PROCEDURE 118/63 AT 0945. ACCESS AT RIGHT LOWER QUADRANT, 2 LITERS OF STRAW COLORED FLUID REMOVED PER MD BRISCOE. BP DURING PROCEDURE 106/59 FINAL BP AT 1005 105/55. CATHETER REMOVED PRESSURE APPLIED. BANDAID APPLIED. PATIENT TOLERATED WELL WILL CONTINUE TO MONITOR
--- NOTE | 2020-04-13 10:00 | NUR ---
MEDICATION NOT GIVEN PATIENT REFUSING TO TAKE 8:00AM COREG, PATIENT ASLEEP. PATIENT AROUSALABLE BUT IMMEDIATELY FALLS BACK TO SLEEP. MD AT BEDSIDE AND INFORMED
[2020-04-13] MEDS ORDERED: ALBUMIN 25% 100 ML IV ONE (11:00)
--- NOTE | 2020-04-13 15:48 | NUR ---
CODE STATUS CHANGE PATIENT IS NONVERBAL. MD AND RN SPOKE TO SISTER NATALIA VIA TELEPHONE. PER SISTER, PATIENT WISHES TO BE DNR. CODE STATUS CHANGED
--- NOTE | 2020-04-13 16:03 | NUR ---
CT PAGED CALLED CT FOR STAT ORDER, PER TECH, MACHINE IS DOWN AT THIS TIME AND SOON MACHINE IS BACK UP PATIENT WILL BE PRIORITY
[2020-04-13] MEDS ORDERED: IBUPROFEN 400 MG TAB PO PRN (20:00)
--- NOTE | 2020-04-13 20:30 | NUR ---
patient eating with assistance of VENDING STAND SUPERVISOR.
--- NOTE | 2020-04-13 20:50 | NUR ---
rod hospitalist, to notify of first occurance with patient, temp was 100.6. applied cooling measures. current temp is 101.00. cooling measures re-applied. and patient is allergic to tylenol and motrin. Addendum: 04/13/20 at 2053 by Mike aVnegas RN [facility] and provided no new orders but to only do cooling measures only at this time.
--- NOTE | 2020-04-13 21:00 | NUR ---
patient started to be talkative. able to eat and swallow.
--- NOTE | 2020-04-13 21:51 | NUR ---
recheck temperature 99.8. will continue cooling measures and to continue to monitor patient.
--- NOTE | 2020-04-13 22:00 | NUR ---
family called and password confirmed, provided update on patient.
[2020-04-13] MEDS: TAMSULOSIN HYDROCHLORIDE 0.4 MG CAP PO SCH (22:19)
[2020-04-13] MEDS: ATORVASTATIN 20 MG TAB PO SCH (22:19)
[2020-04-13 22:24] LABS: Urine Bacteria NONE SEEN /hpf (None Seen); Urine Blood 2+ /uL (Negative); Urine Hyaline Cast MOD /lpf (0 - 2); Urine Mucus FEW (None Seen); Urine Specific Gravity 1.011 (1.001-1.035); Urine WBC 2 /hpf (0 - 3)
--- NOTE | 2020-04-13 22:39 | NUR ---
Inhouse covid swab obtained and walked to lab and dropped off with lab.
--- NOTE | 2020-04-14 01:00 | NUR ---
temperature 98.2
--- NOTE | 2020-04-14 05:30 | NUR ---
full linen change provided. patient is talking.
[2020-04-14 06:00] VITALS: BP 91/42
--- NOTE | 2020-04-14 06:01 | NUR ---
temp 99.1. cooling measures applied.
[2020-04-14] MEDS: SODIUM CHLOR 0.9% PF (SALINE LOCK) 10ML VIAL/SYR IV SCH ×3 (06:29→22:06)
[2020-04-14] MEDS: FUROSEMIDE 20 MG/2 ML VIAL IV SCH ×2 (06:29→17:40)
[2020-04-14] MEDS: BACLOFEN 10 MG TAB PO SCH ×3 (06:29→22:06)
[2020-04-14] MEDS: ACCU-CHEK COMFORT CURVE STRIP VI SCH ×4 (06:36→22:07)
[2020-04-14] MEDS: InsuLIN REG 1unit/0.01ml Soln (100units/ml) SC SCH ×4 (06:36→22:12)
[2020-04-14 09:00] VITALS: BP 106/52
[2020-04-14 09:39] LABS: Basophils # (auto) 0 10 ^3/uL (0-0.2); Eosinophils # (auto) 0 10 ^3/uL (0-0.8); Neutrophils # (auto) 2.6 10 ^3/uL (1.6-8.6); Nucleated Red Blood Cells % 0.1 %; White Blood Cell 3.4 10^3/uL (4.4-10.8)
[2020-04-14 09:48] LABS: Basophils % (auto) 0.5 % (0.0-2.0); Hematocrit 21.2 % (41.0-53.0); Hemoglobin 7.2 g/dL (13.5-17.5); Lymphocytes # (auto) 0.4 10 ^3/uL (0.4-5.4); Lymphocytes % (auto) 11.3 % (10.0-50.0); Mean Corpuscular Hgb Conc. 33.8 g/dL (32.0-36.0); Mean Corpuscular Volume 94.5 fL (80.0-100.0); Monocytes # (auto) 0.4 10 ^3/uL (0-1.3); Monocytes % (auto) 10.8 % (0.0-12.0); Neutrophils % (auto) 77.4 % (37.0-80.0); Platelet Count (auto) 182 10^3/uL (140-450); Red Blood Cells 2.24 10^6/uL (4.5-5.90)
[2020-04-14 10:05] LABS: Calcium 7.9 mg/dL (8.5-10.1); Magnesium 2.1 mg/dL (1.6-2.6); Potassium 4.2 mmol/L (3.5-5.1)
[2020-04-14 10:10] LABS: BUN/Creatinine Ratio 31.6; Bilirubin, Total 0.6 mg/dL (0.2-1.0); Phosphorus 4.1 mg/dL (2.5-4.90); Total Protein 5.9 g/dL (6.4-8.2)
[2020-04-14] MEDS: MORPHINE SULFATE 4 MG/ML SYR/VIAL IV PRN (11:15)
[2020-04-14] MEDS: FLORASTOR (S. BOULARDII) 250 MG CAP PO SCH (11:16)
[2020-04-14] MEDS: ASCORBIC ACID 500 MG TAB PO SCH ×2 (11:16→22:07)
[2020-04-14] MEDS: MULTIPLE VITAMIN TAB PO SCH (11:16)
[2020-04-14] MEDS: FAMOTIDINE 20 MG TAB PO SCH ×2 (11:16→22:07)
[2020-04-14] MEDS: SPIRONOLACTONE 25 MG TAB PO SCH (11:16)
[2020-04-14] MEDS: ZINC SULFATE 220mg CAP or TAB PO SCH (11:16)
[2020-04-14] MEDS: CARVEDILOL 3.125 MG TAB PO SCH ×2 (11:16→17:48)
[2020-04-14] MEDS: ERTAPENEM SOD INJ 1 GM in SODIUM CHL 0.9% 50 ML IV SCH (11:36)
[2020-04-14] MEDS: LACTULOSE 20Gm/30ML SOLN PO SCH ×2 (12:17→22:06)
[2020-04-14 13:00] VITALS: BP 112/67
--- NOTE | 2020-04-14 15:30 | NUR ---
Patient transferred to [facility] ( [facility]). Report given to MARY Guzman. Pt cortez , VSS.
--- NOTE | 2020-04-14 15:49 | NUR ---
ASSUMED CARE OF PATIENT. PT NON-VERBAL. NO S/S OF SOB/DISTRESS NOTED. BED SET TO LOWEST POSITION/LOCKED, BEDSIDE RAILS UP X2, CALL LIGHT WITHIN REACH. WILL CONTINUE TO MONITOR Q1HR AND PRN.
--- NOTE | 2020-04-14 15:52 | NUR ---
DRESSING DRESSING CHANGE TO RIGHT HIP AND RIGHT ANKLE PER MD ORDERS.
--- NOTE | 2020-04-14 16:11 | NUR ---
Assessment Regarding social service consult for hospice evaluation. Patient is a 49-year-old male who is alert and oriented. Assessment was completed with patient sister Sulma. Prior to admission patient lived home with his sister Sulma Ph:) and functioned with her assistance. Patient has a fww, cane, and a wheelchair for home use. Patients PCP is Dr Smiley. Patient is on service with [facility] home health and [facility]. Per Sulma patient will return home to his prior living arrangements post discharge and she will transportation him home. Per Sulma she would like patient to resume home health and Palliative Care. Informed Sulma will inform provider in regards of home health order. Informed Sulma she has the right to participate in all discharge planning. Sulma verbalized understanding and agreed to discharge plan. Dr. Corona has been informed and order will be updated to home health service and resumption of Palliative Care with [facility]. Addendum: 04/15/20 at 0900 by MARINA MCNEAL Amended: Links added.
--- NOTE | 2020-04-14 16:24 | NUR ---
TEMP PATIENT TEMP IS 101.6, COOLING MEASURE INITIATED. WILL CONTINUE TO MONITOR.
[2020-04-14 17:00] VITALS: BP 95/57
--- NOTE | 2020-04-14 17:38 | NUR ---
TEMP REASSESSED PATIENT TEMP IS 101.6, COOLING MEASURE INITIATED. WILL CONTINUE TO MONITOR.
--- NOTE | 2020-04-14 18:47 | NUR ---
TEMP REASSESSED PATIENT TEMP IS 99.6. WILL CONTINUE TO MONITOR.
--- NOTE | 2020-04-14 19:50 | NUR ---
OPEN NOTE assumed care of pt. upon entering room pt awake and alert. pt on room air no respiratory distress observed or reported. pt denies pain via shaking head and has burr in place secured, below the waist and draining. this nurse introduced self to pt and updated him on plan of care. pt bed locked, low and 2x rails up. call light in reach, this nurse to round q1hr and prn. will turn pt q2hr and prn. pt sat up high fowlers and this nurse observed pt able to eat independently without incident. this nurse encouraged to call as needed.
--- NOTE | 2020-04-14 21:08 | NUR ---
dr lora at bedside.
[2020-04-14 21:57] VITALS: BP 103/56
[2020-04-14] MEDS: TAMSULOSIN HYDROCHLORIDE 0.4 MG CAP PO SCH (22:06)
[2020-04-14] MEDS: ATORVASTATIN 20 MG TAB PO SCH (22:07)
--- NOTE | 2020-04-15 04:39 | NUR ---
pt had lare bowel movement, winston care performed, linens changed. dressing changed. pt tolerated well.
[2020-04-15 05:00] VITALS: BP 109/65
[2020-04-15] MEDS: MORPHINE SULFATE 4 MG/ML SYR/VIAL IV PRN (05:26)
[2020-04-15] MEDS: ACCU-CHEK COMFORT CURVE STRIP VI SCH ×4 (06:18→21:54)
[2020-04-15] MEDS: InsuLIN REG 1unit/0.01ml Soln (100units/ml) SC SCH ×4 (06:18→21:50)
[2020-04-15] MEDS: SODIUM CHLOR 0.9% PF (SALINE LOCK) 10ML VIAL/SYR IV SCH ×3 (06:18→21:54)
[2020-04-15] MEDS: BACLOFEN 10 MG TAB PO SCH ×3 (06:25→21:53)
[2020-04-15] MEDS: FUROSEMIDE 20 MG/2 ML VIAL IV SCH (06:26)
[2020-04-15 07:16] LABS: Basophils # (auto) 0 10 ^3/uL (0-0.2); Basophils % (auto) 0.6 % (0.0-2.0); Eosinophils # (auto) 0 10 ^3/uL (0-0.8); Mean Corpuscular Hemoglobin 32.4 pg (28.0-32.0); Mean Corpuscular Hgb Conc. 33.8 g/dL (32.0-36.0); Mean Corpuscular Volume 95.8 fL (80.0-100.0); Monocytes # (auto) 0.4 10 ^3/uL (0-1.3); Neutrophils # (auto) 2.5 10 ^3/uL (1.6-8.6)
[2020-04-15 07:20] LABS: Eosinophils % (auto) 0.2 % (0.0-7.0); Hematocrit 20.9 % (41.0-53.0); Hemoglobin 7.1 g/dL (13.5-17.5); Lymphocytes # (auto) 0.6 10 ^3/uL (0.4-5.4); Lymphocytes % (auto) 18.1 % (10.0-50.0); Monocytes % (auto) 11.9 % (0.0-12.0); Neutrophils % (auto) 69.2 % (37.0-80.0); Platelet Count (auto) 198 10^3/uL (140-450); Red Blood Cells 2.19 10^6/uL (4.5-5.90); Red Cell Distribution Width 15.8 % (11.8-14.3); White Blood Cell 3.5 10^3/uL (4.4-10.8)
[2020-04-15 07:29] LABS: Potassium 4.6 mmol/L (3.5-5.1)
--- NOTE | 2020-04-15 07:30 | NUR ---
Opening Shift Note RECEIVED REPORT FROM NOC RN. Assumed care of patient, awake and alert. No S/S of distress/SOB or pain. BED IN LOWEST, LOCKED POSITION WITH SIDERAILS UP x2 AND CALL LIGHT WITHIN REACH. Instructed on POC and to call for assist PRN, will continue to monitor for changes Q1hr and PRN.
[2020-04-15 07:41] LABS: Albumin 2.1 g/dL (3.4-5.0); BUN/Creatinine Ratio 36.8; Bilirubin, Total 0.4 mg/dL (0.2-1.0); CRP High Sensitivity 7.81 mg/dL (< 0.3); Calcium 7.8 mg/dL (8.5-10.1); Total Protein 6.5 g/dL (6.4-8.2)
[2020-04-15] MEDS: CARVEDILOL 3.125 MG TAB PO SCH ×2 (08:25→18:00)
[2020-04-15 08:41] VITALS: BP 105/63
[2020-04-15] MEDS ORDERED: POLYETHYLENE GLYCOL 17 GM PWDR PO ONE (09:00)
--- NOTE | 2020-04-15 09:00 | NUR ---
D/C Planning Per social service consult for home health for wound care and palliative care with [facility]. Faxed clinical information to [facility] and [facility]. Per Christelle with [facility] patient has been accepted and service to start within 24-48hrs upon d/c. [facility] will be referring patient to [facility].
--- NOTE | 2020-04-15 09:30 | NUR ---
PATIENT REFUSING TO RECEIVE BLOOD TRANSFUSION. PATIENT SIGNED REFUSAL TO RECEIVE BLOOD PRODUCTS.
[2020-04-15] MEDS: ZINC SULFATE 220mg CAP or TAB PO SCH (10:39)
[2020-04-15] MEDS: LACTULOSE 20Gm/30ML SOLN PO SCH ×2 (10:39→21:50)
[2020-04-15] MEDS: SPIRONOLACTONE 25 MG TAB PO SCH (10:39)
[2020-04-15] MEDS: FLORASTOR (S. BOULARDII) 250 MG CAP PO SCH (10:39)
[2020-04-15] MEDS: FAMOTIDINE 20 MG TAB PO SCH ×2 (10:40→21:53)
[2020-04-15] MEDS: ASCORBIC ACID 500 MG TAB PO SCH ×2 (10:40→21:54)
[2020-04-15] MEDS: MULTIPLE VITAMIN TAB PO SCH (10:40)
[2020-04-15] MEDS: ERTAPENEM SOD INJ 1 GM in SODIUM CHL 0.9% 50 ML IV SCH (11:01)
[2020-04-15 13:12] VITALS: BP 98/62
--- NOTE | 2020-04-15 14:45 | NUR ---
Nutrition Followup Notes Wt: 94.9 kg Pt was in isolation for COVID when rounded this am. per records improving hepatic enceph. pt is currently on cardiac pureed diet with adequate PO of 100% x 4 per RN doc Est Energy needs: 2572-0417 kcals (17-20 kcal/kgBW), Est Protein needs: 70-87 gms/day (0.8-1.0 gm/kgBW)Will continue to monitor and reassess prn. LABS: BUN 32 H GLU 114 H ALB 2.1 L GI: Pt had 1 BM today per RN doc. BS: 10 high risk wounds. Refer to wound assessment report for full details. pt on MVI/C ZN PES: 1) Inadequate oral intake aeb 25% PO intake pt with a poor appetite 2) Obesity aeb BMI of 30.2 kg/m2 r/t energy intake in excess of energy needs Comments Will continue to monitor PO intake, skin status, pertinent labs and weight trends. Will f/u in 3-5 days. 1) If albumin continues trending down consider Prostat 1 pkt BID. 2) Continue current plan of care
--- NOTE | 2020-04-15 16:01 | NUR ---
D/C planning Obtain authorization from [facility] for [facility] [id number]. Per Jody with [facility] patient [facility] will continue to see patient.
[2020-04-15 16:42] VITALS: BP 97/63
--- NOTE | 2020-04-15 20:00 | NUR ---
open note assumed care of pt, upon entering room pt awake and alert. pt on room air no respiratory distress observed or reported. pt oriented to this nurse, updated on plan of care. pt denies any pain. pt bed locked, low and 2x rails up. call light in reach. pt encouraged to call as needed. this nurse to round q1hr and prn. pt will be turned q2hr and as needed. pt has burr in place, secured, below the waist and draining yellow.
[2020-04-15] MEDS: ATORVASTATIN 20 MG TAB PO SCH (21:53)
[2020-04-15] MEDS: TAMSULOSIN HYDROCHLORIDE 0.4 MG CAP PO SCH (21:53)
[2020-04-15 22:00] VITALS: BP 100/55
--- NOTE | 2020-04-15 22:30 | NUR ---
attempted IV x1, unable to obtain. pt refused further attempts.
[2020-04-16 05:00] VITALS: BP 108/71
[2020-04-16] MEDS: MORPHINE SULFATE 4 MG/ML SYR/VIAL IV PRN (05:11)
[2020-04-16] MEDS: BACLOFEN 10 MG TAB PO SCH ×2 (06:00→14:00)
[2020-04-16] MEDS: SODIUM CHLOR 0.9% PF (SALINE LOCK) 10ML VIAL/SYR IV SCH ×2 (06:00→14:00)
[2020-04-16] MEDS: ACCU-CHEK COMFORT CURVE STRIP VI SCH ×3 (07:00→16:39)
[2020-04-16] MEDS: InsuLIN REG 1unit/0.01ml Soln (100units/ml) SC SCH ×4 (07:00→16:39)
[2020-04-16 08:55] VITALS: BP 106/64
[2020-04-16] MEDS: FLORASTOR (S. BOULARDII) 250 MG CAP PO SCH (10:00)
[2020-04-16] MEDS: SPIRONOLACTONE 25 MG TAB PO SCH (11:35)
[2020-04-16] MEDS: LACTULOSE 20Gm/30ML SOLN PO SCH (11:35)
[2020-04-16] MEDS: ERTAPENEM SOD INJ 1 GM in SODIUM CHL 0.9% 50 ML IV SCH (11:35)
[2020-04-16] MEDS: ZINC SULFATE 220mg CAP or TAB PO SCH (11:35)
[2020-04-16] MEDS: ASCORBIC ACID 500 MG TAB PO SCH (11:36)
[2020-04-16] MEDS: FAMOTIDINE 20 MG TAB PO SCH (11:36)
[2020-04-16] MEDS: MULTIPLE VITAMIN TAB PO SCH (11:36)
[2020-04-16] MEDS: CARVEDILOL 3.125 MG TAB PO SCH ×2 (11:55→18:00)
[2020-04-16 12:33] VITALS: BP 96/60
--- NOTE | 2020-04-16 16:25 | NUR ---
D/C Planning Bedside MARY Rajan advised me patient sister will not be able to transport patient home and for [facility] to arrange transport. Faxed Transportation form request to [facility] requesting for a 5pm miner pick time via [facility]. Per Brianna with [facility], [employer] [employer] will transport patient home at 6pm. Transportation is aware that patient is positive for COVID. MARY Rajan has been informed.
--- NOTE | 2020-04-16 18:40 | NUR ---
Discharge instructions given as ordered. Encourage to follow up with PMD as instructed. All questions and concerns addressed. Patient verbalized understanding. Medication reconciliation form completed and copy given to patient. IV removed with catheter intact, pressure dressing applied, burr catheter removed. Telemetry unit returned to ICU. Patient taken to vehicle via wheelchair with all personal belongings, accompanied by staff and family member. No distress noted at time of departure. Discharge instructions given to sister Yoanna, she verbalized discharge instructions.
== END 2020-04-16 19:10 | disposition home health service (06) | DRG 279 ==
LOC: ER 19:06 → EDBD 19:06 → TELE 19:07 → TELE-CENTR 04-11 11:54 → TELE-EAST 04-14 15:33
PROVIDERS: ADMIT Nurse Practitioner Family; ATTEND Internal Medicine
PROC: 0W9G3ZZ Drainage of Peritoneal Cavity, Percutaneous Approach (ICD-10-PCS; principal; 2020-04-13)
DX: K72.90 Hepatic failure, unspecified without coma (principal); U07.1 COVID-19; E44.0 Moderate protein-calorie malnutrition; L89.214 Pressure ulcer of right hip, stage 4; L89.514 Pressure ulcer of right ankle, stage 4; I50.9 Heart failure, unspecified; I13.0 Hypertensive heart and chronic kidney disease with heart failure and stage 1 through stage 4 chronic kidney disease, or unspecified chronic kidney disease; E11.42 Type 2 diabetes mellitus with diabetic polyneuropathy; R18.8 Other ascites; K74.60 Unspecified cirrhosis of liver; E11.22 Type 2 diabetes mellitus with diabetic chronic kidney disease; J90 Pleural effusion, not elsewhere classified; N18.9 Chronic kidney disease, unspecified; F03.90 Unspecified dementia, unspecified severity, without behavioral disturbance, psychotic disturbance, mood disturbance, and anxiety; F32.9 Major depressive disorder, single episode, unspecified; R62.7 Adult failure to thrive; I25.10 Atherosclerotic heart disease of native coronary artery without angina pectoris; K80.20 Calculus of gallbladder without cholecystitis without obstruction; N40.0 Benign prostatic hyperplasia without lower urinary tract symptoms; Z66 Do not resuscitate; E66.9 Obesity, unspecified; F41.9 Anxiety disorder, unspecified; M54.9 Dorsalgia, unspecified; D64.9 Anemia, unspecified; Z88.1 Allergy status to other antibiotic agents; Y99.8 Other external cause status; Y93.89 Activity, other specified; Y92.89 Other specified places as the place of occurrence of the external cause; Z68.33 Body mass index [BMI] 33.0-33.9, adult; Z79.4 Long term (current) use of insulin; I25.2 Old myocardial infarction; Z79.899 Other long term (current) drug therapy; Z82.3 Family history of stroke; Z82.49 Family history of ischemic heart disease and other diseases of the circulatory system; Z83.3 Family history of diabetes mellitus; Z86.73 Personal history of transient ischemic attack (TIA), and cerebral infarction without residual deficits; Z86.74 Personal history of sudden cardiac arrest; Z95.1 Presence of aortocoronary bypass graft
CPT/HCPCS: 10022; 36415; 51702; 70450; 71045; 71250; 72126; 74176; 76700; 76942; 80053; 80320; 81001; 82140; 82150; 82728; 82962; 83036; 83605; 83615; 83690; 83735; 83880; 84100; 84484; 85025; 85379; 85610; 85730; 86141; 86850; 86900; 86901; 86920; 87040; 87081; 87086; 87088; 87205; 96372; 96374; 96375; 96376; 99291; G0378; J1335; J1815; J2405; P9047

== ENCOUNTER 2020-04-18 21:20 | Inpatient (IN) | payer MEDICAID ==
[~2020-04-18] VITALS: Ht 170.2 cm; Wt 85.5 kg
[2020-04-18] MEDS ORDERED: ACCU-CHEK COMFORT CURVE STRIP VI ONE (21:30)
[2020-04-18 21:57] LABS: Basophils # (auto) 0 10 ^3/uL (0-0.2); Eosinophils # (auto) 0 10 ^3/uL (0-0.8); Hemoglobin 8.1 g/dL (13.5-17.5); Lymphocytes # (auto) 0.4 10 ^3/uL (0.4-5.4); Monocytes # (auto) 0.2 10 ^3/uL (0-1.3); Neutrophils # (auto) 2.8 10 ^3/uL (1.6-8.6); White Blood Cell 3.5 10^3/uL (4.4-10.8)
[2020-04-18 21:59] LABS: Basophils % (auto) 0.6 % (0.0-2.0); Hematocrit 23.7 % (41.0-53.0); Lymphocytes % (auto) 11.9 % (10.0-50.0); Mean Corpuscular Hgb Conc. 34.3 g/dL (32.0-36.0); Mean Corpuscular Volume 93.4 fL (80.0-100.0); Monocytes % (auto) 6.8 % (0.0-12.0); Neutrophils % (auto) 79.7 % (37.0-80.0); Nucleated Red Blood Cells % 0.1 %; Platelet Count (auto) 227 10^3/uL (140-450); Red Blood Cells 2.54 10^6/uL (4.5-5.90); Red Cell Distribution Width 16.4 % (11.8-14.3)
[2020-04-18 22:10] LABS: INR 1.84 (0.9-1.15); Partial Thromboplastin Time 40.9 sec (23.0-31.2)
[2020-04-18 22:13] LABS: Albumin 1.7 g/dL (3.4-5.0); Calcium 7.3 mg/dL (8.5-10.1); Potassium 4.5 mmol/L (3.5-5.1)
[2020-04-18 22:19] LABS: BUN/Creatinine Ratio 41.3; Bilirubin, Total 1.5 mg/dL (0.2-1.0); Total Protein 5.9 g/dL (6.4-8.2)
[2020-04-18 23:13] LABS: Amylase 56 U/L (25-115); Blood Alcohol < 3.0 mg/dL (0-5); Lipase 251 U/L (73-393)
[2020-04-19] MEDS ORDERED: DEXTROSE (50%) 50ML SYRG IV PRN (02:45)
[2020-04-19] MEDS ORDERED: ACETAMINOPHEN 500 MG TAB PO PRN (02:45)
[2020-04-19] MEDS ORDERED: MORPHINE SULF INJ 2 MG/ML SYRINGE 1ML IV PRN (03:00)
[2020-04-19] MEDS ORDERED: NITROGLYCERIN 0.4 MG SL TAB SL PRN (03:00)
[2020-04-19 04:10] VITALS: BP 119/71
--- NOTE | 2020-04-19 05:39 | NUR ---
pt stated his sister will bring a copy of home list medication later today
[2020-04-19] MEDS: ACCU-CHEK COMFORT CURVE STRIP VI SCH ×4 (06:23→21:26)
[2020-04-19] MEDS: HYDROcodone-ACET 5/325MG TAB PO PRN ×2 (06:27→10:07)
[2020-04-19] MEDS: InsuLIN REG 1unit/0.01ml Soln (100units/ml) SC SCH ×4 (06:46→21:25)
--- NOTE | 2020-04-19 06:51 | NUR ---
took wound picture on central camera. east camera is broken
--- NOTE | 2020-04-19 06:54 | NUR ---
END OF SHIFT NOTE WILL ENDORSE PT CARE TO DAY SHIFT RN.PT AOX4, NO S/S OF DISTRESS OR SOB
[2020-04-19 08:00] VITALS: BP 110/71
--- NOTE | 2020-04-19 08:00 | NUR ---
Opening Shift Note Assumed care of patient, awake, alert and oriented X4 but requires frequent reminding. No S/S of distress/SOB or pain. O2 @ 2 LPM via nasal cannula with sats @ 99%. Tele# 6, sinus rhythm @ 81 bpm with paced beats. IV to right forearm, 20 gauge, patent and saline locked. Dreesings to right ankle and right hip clean, dry and intact. Instructed on POC and to call for assist PRN, verbalized understanding. Bed locked, in lowest position, call light within reach, bed alarm on for patient safety, will continue to monitor for changes Q1hr and PRN
--- NOTE | 2020-04-19 08:22 | NUR ---
AIR MATTRESS: Air mattress ordered at [facility] 04/19/20 @ 1414, Reference# [id number]. Call CamposMargarito at [phone] if needed to follow up. Addendum: 04/19/20 at 0822 by Leilani Mari RN Amended: Links added.
--- NOTE | 2020-04-19 09:30 | NUR ---
FARHAD Zepeda at bedside for rounds, new orders received and followed through. Patient updated on plan of care, verbalized understanding.
[2020-04-19] MEDS ORDERED: DOXYCYCLINE 100MG/250ML 250 ML IV SCH (10:00)
[2020-04-19] MEDS: BUDESONIDE (INHALATION) 180 MCG IH IN SCH ×2 (10:00→23:04)
[2020-04-19] MEDS: DexAMETHasone SOD PHOS 10MG/1ML VIAL INJ IV SCH (10:05)
[2020-04-19] MEDS: PANTOPRAZOLE 40 MG/10 ML VIAL INJ IV SCH (10:05)
[2020-04-19] MEDS: MULTIPLE VITAMIN TAB PO SCH (10:05)
[2020-04-19] MEDS: ZINC SULFATE 220mg CAP or TAB PO SCH (10:05)
[2020-04-19] MEDS: ENOXAPARIN SOD 40 MG/0.4 ML SYRINGE SC SCH (10:06)
[2020-04-19] MEDS: ASCORBIC ACID 1,000 MG TAB PO SCH (10:06)
[2020-04-19] MEDS: CHOLECALCIFEROL (VITD3) 2,000 UNIT CAP PO SCH (10:06)
[2020-04-19 10:41] LABS: Basophils # (auto) 0 10 ^3/uL (0-0.2); Eosinophils # (auto) 0 10 ^3/uL (0-0.8); Hematocrit 20.6 % (41.0-53.0); Lymphocytes # (auto) 0.3 10 ^3/uL (0.4-5.4); Mean Corpuscular Volume 95.6 fL (80.0-100.0); Red Blood Cells 2.16 10^6/uL (4.5-5.90); White Blood Cell 3.5 10^3/uL (4.4-10.8)
[2020-04-19 10:42] LABS: Basophils % (auto) 0.5 % (0.0-2.0); Eosinophils % (auto) 0.2 % (0.0-7.0); Hemoglobin 7.1 g/dL (13.5-17.5); Lymphocytes % (auto) 9.3 % (10.0-50.0); Mean Corpuscular Hemoglobin 32.7 pg (28.0-32.0); Mean Corpuscular Hgb Conc. 34.2 g/dL (32.0-36.0); Monocytes # (auto) 0.2 10 ^3/uL (0-1.3); Monocytes % (auto) 6.6 % (0.0-12.0); Neutrophils % (auto) 83.4 % (37.0-80.0); Nucleated Red Blood Cells % 0.3 %; Platelet Count (auto) 210 10^3/uL (140-450); Red Cell Distribution Width 16.3 % (11.8-14.3)
[2020-04-19 10:47] LABS: Albumin 1.6 g/dL (3.4-5.0); Calcium 7.1 mg/dL (8.5-10.1); Magnesium 2.5 mg/dL (1.6-2.6); Potassium 4.1 mmol/L (3.5-5.1)
[2020-04-19 10:52] LABS: BUN/Creatinine Ratio 46.2; Bilirubin, Total 1.1 mg/dL (0.2-1.0); Total Protein 5.3 g/dL (6.4-8.2)
[2020-04-19] MEDS ORDERED: FUROSEMIDE 40 MG/4 ML VIAL IV ONE (11:00)
[2020-04-19 11:13] VITALS: BP 119/71
[2020-04-19] MEDS ORDERED: VANCOMYCIN PER PHARMACY 0 MG IV SCH (11:15)
[2020-04-19 12:00] VITALS: BP 100/64
[2020-04-19] MEDS: LACTULOSE 20Gm/30ML SOLN PO SCH ×3 (12:47→22:57)
[2020-04-19] MEDS: VANCOMYCIN 1GM/250ML 250 ML IV SCH ×2 (12:48→22:40)
--- NOTE | 2020-04-19 13:18 | NUR ---
WOUND CARE NOTE: Wound care in to see patient per wound care request regarding RT ankle and Rt hip wounds that are noted present on admission. Bedside nurse took photograph of patient's wounds upon admission for reference. Patient is 49 years old male admitted for CoVid19. Patient is resting in bed in Rm. 240B. He's awake, alert and able to verbalize needs. He's in no stated pain at this time and he appears to be in no pain using Reyes [place] Faces Pain Scale. He needs assistance in turning and repositioning and his Neil score is 13. Skin/wound assessment done with the assistance of a patient's nurse MARY Ornelas. Patient Rt hip (4x8x0.5cm) and Rt lateral ankle (4x3x0.4cm) display Stage 4 pressure injuries. Rt lateral ankle wound with dusky red wound bed with yellow slough and visible tendon. Minimal serous drainage, no odor noted. Lynnette wound is dark brown hyperpigmented. Patient's Rt hip wound has red wound bed with yellow slough. 0.5cm undermining noted from 1:00-3:00 o'clock position. Lynnette wound is dark brown hyperpigmented. Minimal serosanguineous drainage, no odor noted. Cleansed patient's Rt ankle and Rt hip wounds with wound cleanser,patted dry with gauze,applied Thera honey gel to Rt ankle wound and covered with Opti foam gentle dressing. Applied Thera honey gel to Rt hip wound base, fill wound cavity with one piece NS moistened 4x4 gauze, covered with Opti foam dressing. Intact pink scar tissue noted on patient's sacrum and lower medial back. Patient is receiving BID/PRN cleaning and application of Barrier cream to sacral, buttocks as preventative. Repositioned for comfort on her back with head of bed elevated for lunch time. Patient tolerated well. MARY Ornelas at bedside. RECOMMENDATION: Nursing to continue with Daily/PRN dressing change to R hip and Rt ankle wounds, BID/PRN cleaning and application of Barrier cream to sacral, buttocks as preventative, Dietary consult, frequent turning and repositioning schedule as condition permits, redistribute pressure points with pillows, frequent lynnette care/check, keep clean and dry, continue monitoring by wound care while patient is hospitalized. Addendum: 04/19/20 at 1738 by Leilani Mari RN Amended: Links added.
[2020-04-19] MEDS: ALBUTEROL SULF HFA 90MCG INH 200DOSE IN SCH ×3 (14:20→23:03)
[2020-04-19] MEDS: HYDROcodone-ACET 10/325MG TAB PO PRN ×2 (15:53→22:41)
[2020-04-19 17:00] VITALS: BP 105/64
--- NOTE | 2020-04-19 17:20 | NUR ---
AIR MATTRESS Patient placed on specialty air mattress per wound care request.
--- NOTE | 2020-04-19 19:17 | NUR ---
Care endorsed to MARY Coleman, night nurse.
[2020-04-19 21:51] VITALS: BP 115/73
[2020-04-20] VITALS (9 sets, daily range): BP systolic 94–111; BP diastolic 58–71
--- NOTE | 2020-04-20 01:08 | NUR ---
BLOOD STARTED 1ST UNIBLOOD BEING ADMINISTER. PT RESTING IN BED WITH BREATHS EVEN AND UNLABORED NO S/S OF DISTRESS SOB NOTED Addendum: 04/20/20 at 0132 by OCTAVIA JAMES RN BLOOD STARTED 1ST UNIT OF BLOOD BEING ADMINISTER. PT RESTING IN BED WITH BREATHS EVEN AND UNLABORED NO S/S OF DISTRESS SOB NOTED
--- NOTE | 2020-04-20 04:13 | NUR ---
BLOOD COMPLETE 1 UNIT OF BLOOD COMPLETE. PT TOLERATE WELL NO S/S OF DISTRESS OR SOB NOTED
[2020-04-20] MEDS: InsuLIN REG 1unit/0.01ml Soln (100units/ml) SC SCH ×4 (05:52→22:46)
[2020-04-20] MEDS: ACCU-CHEK COMFORT CURVE STRIP VI SCH ×4 (05:53→22:49)
[2020-04-20] MEDS: LACTULOSE 20Gm/30ML SOLN PO SCH ×2 (05:53→11:29)
[2020-04-20] MEDS: HYDROcodone-ACET 10/325MG TAB PO PRN (05:54)
[2020-04-20] MEDS: ALBUTEROL SULF HFA 90MCG INH 200DOSE IN SCH ×3 (06:22→22:51)
[2020-04-20] MEDS: BUDESONIDE (INHALATION) 180 MCG IH IN SCH ×2 (06:24→22:52)
--- NOTE | 2020-04-20 06:45 | NUR ---
END OF SHIFT NOTE WILL ENDORSE PT CARE TO DAY SHIFT RN.PT AOX4, NO S/S OF DISTRESS OR SOB
--- NOTE | 2020-04-20 07:24 | NUR ---
Opening Shift Note Assumed care of patient, awake and alert. No S/S of distress/SOB, reports chronic back pain. Instructed on POC and to call for assist PRN, will continue to monitor for changes Q1hr and PRN.
[2020-04-20] MEDS: VANCOMYCIN 1GM/250ML 250 ML IV SCH (08:55)
[2020-04-20] MEDS: DexAMETHasone SOD PHOS 10MG/1ML VIAL INJ IV SCH (08:56)
[2020-04-20] MEDS: PANTOPRAZOLE 40 MG/10 ML VIAL INJ IV SCH (08:57)
[2020-04-20] MEDS: CHOLECALCIFEROL (VITD3) 2,000 UNIT CAP PO SCH (08:57)
[2020-04-20] MEDS: ASCORBIC ACID 1,000 MG TAB PO SCH (08:57)
[2020-04-20] MEDS: MULTIPLE VITAMIN TAB PO SCH (08:57)
[2020-04-20] MEDS: ZINC SULFATE 220mg CAP or TAB PO SCH (08:57)
[2020-04-20] MEDS: ENOXAPARIN SOD 40 MG/0.4 ML SYRINGE SC SCH (08:58)
[2020-04-20] MEDS: DOXYCYCLINE 100MG/250ML 250 ML IV SCH ×2 (11:32→22:51)
[2020-04-20 11:45] LABS: Basophils # (auto) 0 10 ^3/uL (0-0.2); Basophils % (auto) 0.3 % (0.0-2.0); Eosinophils # (auto) 0 10 ^3/uL (0-0.8); Eosinophils % (auto) 0.3 % (0.0-7.0); Hematocrit 26.8 % (41.0-53.0); Hemoglobin 8.9 g/dL (13.5-17.5); Lymphocytes # (auto) 0.4 10 ^3/uL (0.4-5.4); Lymphocytes % (auto) 8.8 % (10.0-50.0); Mean Corpuscular Hgb Conc. 33.4 g/dL (32.0-36.0); Mean Corpuscular Volume 92.9 fL (80.0-100.0); Monocytes # (auto) 0.3 10 ^3/uL (0-1.3); Monocytes % (auto) 7.6 % (0.0-12.0); Neutrophils # (auto) 3.5 10 ^3/uL (1.6-8.6); Platelet Count (auto) 236 10^3/uL (140-450); Red Blood Cells 2.88 10^6/uL (4.5-5.90); Red Cell Distribution Width 16.9 % (11.8-14.3); White Blood Cell 4.2 10^3/uL (4.4-10.8)
[2020-04-20 12:06] LABS: Albumin 1.6 g/dL (3.4-5.0); Calcium 7.5 mg/dL (8.5-10.1)
[2020-04-20 12:10] LABS: BUN/Creatinine Ratio 32.4; Bilirubin, Total 0.9 mg/dL (0.2-1.0); Total Protein 5.6 g/dL (6.4-8.2)
[2020-04-20 12:23] LABS: INR 1.03 (0.9-1.15); Partial Thromboplastin Time 28.9 sec (23.0-31.2)
[2020-04-20] MEDS: MORPHINE SULF INJ 2 MG/ML SYRINGE 1ML IV PRN ×2 (14:43→22:53)
--- NOTE | 2020-04-20 14:51 | NUR ---
Nutrition Assessment/Consult Notes Please refer to link for full assessment notes. Est Energy needs: 8953-5461 kcals (20-23 kcal/kgBW) Est Protein needs: 66-83 gms/day (0.8-1.0 gm/kgBW) Will continue to monitor and reassess prn. Addendum: 04/20/20 at [address] Amended: Links added. Addendum: 04/20/20 at [address] Recommend a Daily MVI and 500mg VitC BID
[2020-04-21 05:09] VITALS: BP 106/64
[2020-04-21] MEDS: InsuLIN REG 1unit/0.01ml Soln (100units/ml) SC SCH ×4 (05:25→22:06)
[2020-04-21] MEDS: ACCU-CHEK COMFORT CURVE STRIP VI SCH ×4 (05:27→22:02)
[2020-04-21] MEDS: MORPHINE SULF INJ 2 MG/ML SYRINGE 1ML IV PRN ×4 (05:28→23:40)
--- NOTE | 2020-04-21 06:47 | NUR ---
END OF SHIFT NOTE WILL ENDORSE PT CARE TO DAY SHIFT RN.PT AOX4, NO S/S OF DISTRESS OR SOB
[2020-04-21] MEDS: ALBUTEROL SULF HFA 90MCG INH 200DOSE IN SCH ×3 (07:10→21:29)
[2020-04-21] MEDS: BUDESONIDE (INHALATION) 180 MCG IH IN SCH ×2 (07:10→21:29)
--- NOTE | 2020-04-21 07:30 | NUR ---
Opening Shift Note Assumed care of patient, awake and alert. Instructed on POC and to call for assist PRN. IV site to left AC noted red and edematous, pt denies pain but warm to the touch. Amio drip stopped immediately to site, IV d/c'd with clean technique and cold compress applied. Amio drip resumed to right FA at this time after IV flushed and is patent, will notify MD. Will continue to monitor for changes Q1hr and PRN. Patient currently on 10 L facemask sat >92% cont to monitor closely. Addendum: 04/21/20 at 1912 by Jackie Montenegro RN DISREGARD NOTE WRONG PATIENT
[2020-04-21 07:48] LABS: Basophils # (auto) 0 10 ^3/uL (0-0.2); Eosinophils # (auto) 0 10 ^3/uL (0-0.8); Hemoglobin 8.4 g/dL (13.5-17.5); Lymphocytes # (auto) 0.3 10 ^3/uL (0.4-5.4); Mean Corpuscular Volume 92.8 fL (80.0-100.0); Neutrophils # (auto) 5.6 10 ^3/uL (1.6-8.6); Neutrophils % (auto) 90.8 % (37.0-80.0)
[2020-04-21 07:52] LABS: Basophils % (auto) 0.2 % (0.0-2.0); Lymphocytes % (auto) 4.6 % (10.0-50.0); Mean Corpuscular Hemoglobin 31.2 pg (28.0-32.0); Mean Corpuscular Hgb Conc. 33.7 g/dL (32.0-36.0); Monocytes # (auto) 0.3 10 ^3/uL (0-1.3); Monocytes % (auto) 4.4 % (0.0-12.0); Platelet Count (auto) 315 10^3/uL (140-450); White Blood Cell 6.2 10^3/uL (4.4-10.8)
[2020-04-21 08:01] LABS: INR 1.03 (0.9-1.15); Partial Thromboplastin Time 25.5 sec (23.0-31.2)
[2020-04-21 08:09] LABS: Albumin 1.7 g/dL (3.4-5.0); Calcium 7.7 mg/dL (8.5-10.1); Potassium 4.6 mmol/L (3.5-5.1)
[2020-04-21 08:12] LABS: BUN/Creatinine Ratio 28.7; Bilirubin, Total 0.8 mg/dL (0.2-1.0); Total Protein 5.9 g/dL (6.4-8.2)
[2020-04-21 08:49] VITALS: BP 110/64
[2020-04-21] MEDS: CHOLECALCIFEROL (VITD3) 2,000 UNIT CAP PO SCH (10:39)
[2020-04-21] MEDS: MULTIPLE VITAMIN TAB PO SCH (10:39)
[2020-04-21] MEDS: ZINC SULFATE 220mg CAP or TAB PO SCH (10:39)
[2020-04-21] MEDS: ASCORBIC ACID 1,000 MG TAB PO SCH (10:40)
[2020-04-21] MEDS: DexAMETHasone SOD PHOS 10MG/1ML VIAL INJ IV SCH (10:40)
[2020-04-21] MEDS: PANTOPRAZOLE 40 MG/10 ML VIAL INJ IV SCH (10:40)
[2020-04-21] MEDS: DOXYCYCLINE 100MG/250ML 250 ML IV SCH ×2 (11:37→23:28)
[2020-04-21] MEDS ORDERED: ALBUMIN 25% 100 ML IV ONE (12:00)
--- NOTE | 2020-04-21 12:36 | NUR ---
Regarding Paracentesis, per MD Acosta not enough fluid to be drained at this time. MD Aguilar aware of patient status and new orders to insert f/c received at this time. Will cont to monitor
[2020-04-21] MEDS ORDERED: FUROSEMIDE 40 MG/4 ML VIAL IV ONE (12:45)
--- NOTE | 2020-04-21 12:45 | NUR ---
Burr catheter insertion Patient assessed and determined to be in need of burr catheter. Order obtained from MD. Patient educated on catheter and reason for insertion. All questions answered. Burr catheter 16 guage Serbian inserted with clean sterile technique. Patient tolerated well. Will cont to monitor
[2020-04-21 12:49] VITALS: BP 104/62
--- NOTE | 2020-04-21 14:42 | NUR ---
Urine sent for drug screen
[2020-04-21 17:00] VITALS: BP 106/74
--- NOTE | 2020-04-21 17:30 | NUR ---
Pt is an alert and oriented male that resides with his sister prior to admission. Pt was on service with [facility] and uses a fww, w/c and hospital bed in the home. Pt has orders for HH to resume upon discharge. Contacted [facility] and faxed clinical information. Contacted Jody at [facility] for authorization regarding HH. Orders received and pt to resume services upon discharge. No further ss concerns. Addendum: 04/21/20 at 1732 by ROSELIA OLIVIA SS Amended: Links added.
[2020-04-21 17:42] LABS: Amphetamine Screen, Urine NEGATIVE (NEGATIVE); Barbiturate Scree,Urine NEGATIVE (NEGATIVE); Benzodiazephine Screen, Urine NEGATIVE (NEGATIVE); Cannabinoid Screen, Urine NEGATIVE (NEGATIVE); Cocaine Screen, Urine NEGATIVE (NEGATIVE); Phencyclidine Screen, Urine NEGATIVE (NEGATIVE)
[2020-04-21 17:50] LABS: Opiate Scree,Urine POSITIVE (NEGATIVE)
[2020-04-21] MEDS: HYDROcodone-ACET 10/325MG TAB PO PRN (20:23)
[2020-04-21 22:00] VITALS: BP 104/70
[2020-04-21 23:35] VITALS: BP 112/69
[2020-04-22 05:00] VITALS: BP 124/74
--- NOTE | 2020-04-22 05:00 | NUR ---
changed Optifoam dressings at sacrum and rt ankle
[2020-04-22] MEDS: ACCU-CHEK COMFORT CURVE STRIP VI SCH ×4 (06:42→22:56)
[2020-04-22] MEDS: InsuLIN REG 1unit/0.01ml Soln (100units/ml) SC SCH ×4 (06:46→23:03)
[2020-04-22] MEDS: ALBUTEROL SULF HFA 90MCG INH 200DOSE IN SCH ×4 (07:03→21:26)
[2020-04-22] MEDS: BUDESONIDE (INHALATION) 180 MCG IH IN SCH ×2 (07:03→21:25)
--- NOTE | 2020-04-22 07:16 | NUR ---
closing note pt resting in semi fowlers with HOB at 30 degrees. no complaints of pain at this time. endorsed care to day shift MARY Plummer.
[2020-04-22 08:37] VITALS: BP 115/70
[2020-04-22] MEDS ORDERED: ZINC220T6 PO (09:43)
[2020-04-22] MEDS ORDERED: CHOL1CAP47 PO (09:43)
[2020-04-22] MEDS ORDERED: ASCO10003 PO (09:43)
[2020-04-22 09:50] VITALS: BP 115/70
[2020-04-22] MEDS: PANTOPRAZOLE 40 MG/10 ML VIAL INJ IV SCH (09:50)
[2020-04-22] MEDS: MULTIPLE VITAMIN TAB PO SCH (09:54)
[2020-04-22] MEDS: DexAMETHasone SOD PHOS 10MG/1ML VIAL INJ IV SCH (09:54)
[2020-04-22] MEDS: ZINC SULFATE 220mg CAP or TAB PO SCH (09:54)
[2020-04-22] MEDS: ASCORBIC ACID 1,000 MG TAB PO SCH (09:55)
[2020-04-22] MEDS: CHOLECALCIFEROL (VITD3) 2,000 UNIT CAP PO SCH (09:55)
[2020-04-22 10:30] LABS: BUN/Creatinine Ratio 30.2; Calcium 7.7 mg/dL (8.5-10.1); Potassium 4.8 mmol/L (3.5-5.1)
[2020-04-22 12:00] VITALS: BP 126/73
[2020-04-22] MEDS: MORPHINE SULF INJ 2 MG/ML SYRINGE 1ML IV PRN ×2 (12:18→23:22)
--- NOTE | 2020-04-22 12:36 | NUR ---
IV insertion IV access obtained, via clean sterile technique by inserting 20 gauge catheter at Right upper arm after 1 attempt(s). IV secured properly. No trauma to site. Patient tolerated well. IV to right FA d/c'd with catheter intact. Patient tolerated well
[2020-04-22 17:00] VITALS: BP 114/69
--- NOTE | 2020-04-22 19:10 | NUR ---
Patient care endorsed endorsed care to Kameron montes. patient resting comfortably in bed no acute distress or sob noted. Pt on room air sat 92%. Call light within reach.
[2020-04-22 22:00] VITALS: BP 113/59
[2020-04-22] MEDS: SACUBITRIL-VALSARTAN 24mg/26mg TAB PO SCH (22:57)
[2020-04-22] MEDS: CARVEDILOL 3.125 MG TAB PO SCH (22:58)
[2020-04-23 05:00] VITALS: BP 107/60
--- NOTE | 2020-04-23 05:00 | NUR ---
changed optifoam dressings per order.
[2020-04-23] MEDS: MORPHINE SULF INJ 2 MG/ML SYRINGE 1ML IV PRN ×3 (05:49→17:57)
[2020-04-23] MEDS: ACCU-CHEK COMFORT CURVE STRIP VI SCH ×4 (06:13→22:00)
[2020-04-23] MEDS: InsuLIN REG 1unit/0.01ml Soln (100units/ml) SC SCH ×4 (06:14→23:06)
[2020-04-23] MEDS: ALBUTEROL SULF HFA 90MCG INH 200DOSE IN SCH ×3 (06:26→21:23)
[2020-04-23] MEDS: BUDESONIDE (INHALATION) 180 MCG IH IN SCH ×2 (06:27→21:23)
--- NOTE | 2020-04-23 07:33 | NUR ---
closing note pt is resting in semi fowlers with HOB at 30 degrees. no s/s of distress at this time. endorsed care to day shift RN.
[2020-04-23 07:42] LABS: Basophils # (auto) 0 10 ^3/uL (0-0.2); Basophils % (auto) 0.1 % (0.0-2.0); Eosinophils # (auto) 0 10 ^3/uL (0-0.8); Hematocrit 25.3 % (41.0-53.0); Hemoglobin 8.6 g/dL (13.5-17.5); Lymphocytes # (auto) 0.3 10 ^3/uL (0.4-5.4); Lymphocytes % (auto) 4.6 % (10.0-50.0); Mean Corpuscular Hemoglobin 31.2 pg (28.0-32.0); Mean Corpuscular Hgb Conc. 34.1 g/dL (32.0-36.0); Mean Corpuscular Volume 91.5 fL (80.0-100.0); Monocytes # (auto) 0.2 10 ^3/uL (0-1.3); Monocytes % (auto) 3.1 % (0.0-12.0); Neutrophils # (auto) 5.5 10 ^3/uL (1.6-8.6); Neutrophils % (auto) 92.2 % (37.0-80.0); Platelet Count (auto) 277 10^3/uL (140-450); Red Blood Cells 2.77 10^6/uL (4.5-5.90); Red Cell Distribution Width 16.7 % (11.8-14.3); White Blood Cell 5.9 10^3/uL (4.4-10.8)
[2020-04-23 08:00] VITALS: BP 105/56
[2020-04-23 08:02] LABS: Calcium 7.6 mg/dL (8.5-10.1); Potassium 4.5 mmol/L (3.5-5.1)
[2020-04-23 08:08] LABS: Albumin 1.6 g/dL (3.4-5.0); BUN/Creatinine Ratio 41.2; Bilirubin, Total 0.7 mg/dL (0.2-1.0); Total Protein 5.5 g/dL (6.4-8.2)
[2020-04-23] MEDS: ZINC SULFATE 220mg CAP or TAB PO SCH (09:35)
[2020-04-23] MEDS: CHOLECALCIFEROL (VITD3) 2,000 UNIT CAP PO SCH (09:36)
[2020-04-23] MEDS: ASCORBIC ACID 1,000 MG TAB PO SCH (09:36)
[2020-04-23] MEDS: SACUBITRIL-VALSARTAN 24mg/26mg TAB PO SCH ×2 (09:36→22:00)
[2020-04-23] MEDS: MULTIPLE VITAMIN TAB PO SCH (09:36)
[2020-04-23] MEDS: CARVEDILOL 3.125 MG TAB PO SCH ×2 (09:36→22:00)
[2020-04-23] MEDS: CLOPIDOGREL BISULFATE 75 MG TAB PO SCH (09:37)
--- NOTE | 2020-04-23 11:20 | NUR ---
PATIENT INSULIN HELD, PATIENT WITH BLOOD SUGAR OF 135 AND DID NOT EAT BREAKFAST. PATIENT STATES HE JUST DIDN'T WANT THE BREAKFAST, STATES HE WILL TRY TO EAT LUNCH. Addendum: 04/23/20 at 1128 by Beverly Cohn RN CORRECTION BLOOD SUGAR WAS 132
[2020-04-23] MEDS ORDERED: FUROSEMIDE 40 MG/4 ML VIAL IV ONE (11:45)
[2020-04-23] MEDS: ALBUMIN 25% 100 ML IV SCH ×2 (11:50→20:26)
[2020-04-23 12:00] VITALS: BP 97/63
--- NOTE | 2020-04-23 12:11 | NUR ---
Nutrition Followup Note Wt 85.5kg Pt is covid positive in covid isolation. Attempted to call pt's room x 2 no answer both times. Pt refused breakfast per RN note d/t pt did not like breakfast, will attempt to eat lunch. Pt appetite appears to be fair aeb pt with 60% avg po intake x 2 days per RN nutrition note Est Energy needs: 0425-6543 kcals (20-23 kcal/kgBW) Est Protein needs: 66-83 gms/day (0.8-1.0 gm/kgBW) Will continue to monitor and reassess prn. Labs: Na 127L, BUN 35H, GUC 123H, Alb 1.6L, Ca 2.6L BM: Pt with 1 BM 04/22 per RN note Skin: BS 12 high risk, full details in intensive care anaesthetist note PES 1) Overweight r/t energy intake in excess of energy needs aeb BMI of 28.7 kg/m2 2) Altered nutrition related lab values r/t current medical condition aeb hyperglycemia, hypoalbuminemia Comments Will continue to monitor PO status, skin status, pertinent labs and weight trends. Will f/u in 3-5days 1) Continue to closely monitor pt PO intake to meet at least 75% of meals 2) If albumin continues trending down, consider Prostat 1 pkt BID 3) Continue current plan of care Expected Outcomes/Goals: Pt appetite to remain >75% PO intake Pt labs to improve
[2020-04-23 16:08] VITALS: BP 90/50
--- NOTE | 2020-04-23 16:19 | NUR ---
D/C Planning Per social service consult for hospice. Contact patient sister Sulma and she is in agreement with hospice. Information and choice was given to Sulma. Sulma did not have a hospice preference. Faxed clinical information to [facility]. Per Latia with [facility] patient has been accepted and service to start upon d/c day. Transportation will be arranged by [facility] they will contact bedside nurse if they can transport patient tonight due to him being positive COVID. Informed MARY Paul and Dr. Aguilar.
[2020-04-23 16:30] VITALS: BP 90/45
--- NOTE | 2020-04-23 17:00 | NUR ---
Patient wound pictures taken.
--- NOTE | 2020-04-23 17:18 | NUR ---
patient to d/c tonight or tomorrow AM depending on transport per case management.
--- NOTE | 2020-04-23 17:23 | NUR ---
per hospice nurse, patient chicken picker time 8pm.
--- NOTE | 2020-04-23 19:35 | NUR ---
Opening Shift Note Assumed care of patient. Awake, alert and oriented x4. No S/S of distress/SOB or pain. Instructed on POC and to call for assist PRN. [place] is off the floor, below bladder, patent and draining clear yellow urine. Pt is on a specialty mattress. Bed locked, in lowest position, call light within reach, side rails up x2. Will continue to monitor for changes Q1hr and PRN.
--- NOTE | 2020-04-23 21:05 | NUR ---
Placed call to Latia with [facility] regarding pts transportation As per Latia, pt was scheduled to be picked up at 1999. Awaiting call back to verify bean picker time
--- NOTE | 2020-04-23 21:27 | NUR ---
Call back regarding transportation Spoke with [place] with [facility]. As per Dallas, because of pts positive COVID dx, transportation was only able to sheepskin pickler pt around 0300. Family said they were not able to receive pt at that time so arrangements are made for transport at 0800. Will endorse to day shift RN of change in time.
[2020-04-23 21:47] VITALS: BP 95/52
--- NOTE | 2020-04-24 00:07 | NUR ---
Hospitalist paged Held scheduled 0 Coreg and Entresto. BP 89/51 HR 72
--- NOTE | 2020-04-24 00:14 | NUR ---
Call back from hospitalist No new orders received
[2020-04-24] MEDS: ALBUMIN 25% 100 ML IV SCH (03:49)
[2020-04-24 05:00] VITALS: BP 90/60
[2020-04-24] MEDS: MORPHINE SULF INJ 2 MG/ML SYRINGE 1ML IV PRN ×2 (06:11)
[2020-04-24] MEDS: InsuLIN REG 1unit/0.01ml Soln (100units/ml) SC SCH ×2 (06:16→11:22)
[2020-04-24] MEDS: ACCU-CHEK COMFORT CURVE STRIP VI SCH ×2 (06:17→11:22)
[2020-04-24] MEDS: BUDESONIDE (INHALATION) 180 MCG IH IN SCH (06:26)
[2020-04-24] MEDS: ALBUTEROL SULF HFA 90MCG INH 200DOSE IN SCH (06:26)
[2020-04-24 08:00] VITALS: BP 99/53
--- NOTE | 2020-04-24 09:30 | NUR ---
patient transport time is not known, hospice ([facility]) states they are waiting to hear back from transport company on when they will have the covid van available.
[2020-04-24] MEDS: CLOPIDOGREL BISULFATE 75 MG TAB PO SCH (09:47)
[2020-04-24] MEDS: ASCORBIC ACID 1,000 MG TAB PO SCH (09:47)
[2020-04-24] MEDS: MULTIPLE VITAMIN TAB PO SCH (09:47)
[2020-04-24] MEDS: SACUBITRIL-VALSARTAN 24mg/26mg TAB PO SCH (09:47)
[2020-04-24] MEDS: ZINC SULFATE 220mg CAP or TAB PO SCH (09:47)
[2020-04-24] MEDS: CARVEDILOL 3.125 MG TAB PO SCH (09:47)
[2020-04-24] MEDS: CHOLECALCIFEROL (VITD3) 2,000 UNIT CAP PO SCH (09:47)
--- NOTE | 2020-04-24 12:03 | NUR ---
patient discharged. Iv discontinued with catheter intact, dressing applied. Patient tele box returned to monitor techs. patient given discharge instructions, verbalized instructions. patient educated on hospice and pain management as well. transport drivers here to turkey picker patient.
== END 2020-04-24 12:10 | disposition hospice, home (50) | DRG 137 ==
LOC: ER 21:20 → EDBD 21:20 → TELE 21:21 → TELE-EAST 04-19 04:10
PROVIDERS: ADMIT Nurse Practitioner Family; ATTEND Internal Medicine
PROC: 0WJG3ZZ Inspection of Peritoneal Cavity, Percutaneous Approach (ICD-10-PCS; 2020-04-19)
PROC: 30233N1 Transfusion of Nonautologous Red Blood Cells into Peripheral Vein, Percutaneous Approach (ICD-10-PCS; principal; 2020-04-20)
DX: U07.1 COVID-19 (principal); J96.21 Acute and chronic respiratory failure with hypoxia; I50.43 Acute on chronic combined systolic (congestive) and diastolic (congestive) heart failure; K70.31 Alcoholic cirrhosis of liver with ascites; D64.9 Anemia, unspecified; K59.00 Constipation, unspecified; J12.89 Other viral pneumonia; F15.90 Other stimulant use, unspecified, uncomplicated; I25.10 Atherosclerotic heart disease of native coronary artery without angina pectoris; K76.6 Portal hypertension; Z68.29 Body mass index [BMI] 29.0-29.9, adult; Z66 Do not resuscitate; G89.29 Other chronic pain; L89.519 Pressure ulcer of right ankle, unspecified stage; E78.5 Hyperlipidemia, unspecified; D72.819 Decreased white blood cell count, unspecified; E11.9 Type 2 diabetes mellitus without complications; I11.0 Hypertensive heart disease with heart failure; L89.154 Pressure ulcer of sacral region, stage 4; I25.2 Old myocardial infarction; Z86.73 Personal history of transient ischemic attack (TIA), and cerebral infarction without residual deficits; Z95.0 Presence of cardiac pacemaker; Z79.899 Other long term (current) drug therapy; Z99.81 Dependence on supplemental oxygen
CPT/HCPCS: 36415; 71045; 74176; 76705; 80048; 80053; 80307; 80320; 82140; 82150; 82728; 82962; 83036; 83605; 83615; 83690; 83735; 83880; 84484; 85025; 85379; 85610; 85730; 86141; 86850; 86900; 86901; 86920; 87040; 87081; 87426; 93005; 94640; 99291; C9113; G0378; J1100; J1815; J3490; P9047